=== PATIENT | female | born 1950 | race Two or more races ===

== ENCOUNTER 2023-05-09 10:22 | Outpatient (OUT) | payer BC, SELFPAY ==
--- NOTE | 2023-05-09 10:25 | MM_ITS ---
Patient: VICTOR HUGO CANDELARIO Exam Date: 05/09/2023 : 1950 Gender:F Ordering : Non-Staff Physician Admission #: [id number] Family : VICKY JEAN-BAPTISTE Order #: [id number] CLICK HERE TO VIEW EXAM RADIOLOGY REPORT PROCEDURE: MM TOMOSYNTHESIS SCREENING BI COMPARISON: MG MAMM SCREEN 3D JOSTIN CAD, 05/08/2022. MG MAMM SCREEN 3D JOSTIN CAD, 05/04/2021. MG MAMM SCREEN 3D JOSTIN CAD, 04/16/2020. INDICATIONS: Screening mammogram Z12.31 Calculator Name NCI Breast Cancer Risk Assessment Tool 5 Year Breast Cancer Risk 1.30% Lifetime Breast Cancer Risk 3.00% Personal Breast Cancer No Personal Ovarian Cancer No Treatments None Family Cancers Father with prostate cancer at age 80; Father with bladder cancer at age 81. LOCATION: [facility] BREAST COMPOSITION: Scattered areas fibroglandular density. FINDINGS: DIAGNOSTIC CATEGORY 1--NEGATIVE. RIGHT BREAST: No significant suspicious finding. No significant change has occurred. LEFT BREAST: No significant suspicious finding. No significant change has occurred. RECOMMENDATIONS: ROUTINE MAMMOGRAM AND CLINICAL EVALUATION IN 12 MONTHS. PLEASE NOTE: A NORMAL MAMMOGRAM DOES NOT EXCLUDE THE POSSIBILITY OF BREAST CANCER. A CLINICALLY SUSPICIOUS PALPABLE LUMP SHOULD BE BIOPSIED. Dictated by: Johnnie Carney M.D. on 05/09/2023 at 13:46 Approved by: Johnnie Carney M.D. on 05/09/2023 at 13:48
== END 2023-05-09 10:23 | disposition home or self-care (01) ==
LOC: MAMMO 10:22
DX: Z12.31 Encounter for screening mammogram for malignant neoplasm of breast (principal); Z80.52 Family history of malignant neoplasm of bladder; Z80.8 Family history of malignant neoplasm of other organs or systems
CPT/HCPCS: 77063; 77067

== ENCOUNTER 2024-05-12 09:47 | Outpatient (OUT) | payer BC, SELFPAY ==
--- NOTE | 2024-05-12 09:51 | MM_ITS ---
Patient Name: VICTOR HUGO CANDELARIO MR#: [id number] : 1950 Exam Date: 05/12/2024 Ordering Doctor: Non-Staff Physician RADIOLOGY REPORT PROCEDURE: MM TOMOSYNTHESIS SCREENING BI COMPARISON: MG MAMM SCREEN 3D JOSTIN CAD, 05/08/2022. MM TOMOSYNTHESIS SCREENING BI, 05/09/2023. INDICATIONS: Screening Calculator Name NCI Breast Cancer Risk Assessment Tool 5 Year Breast Cancer Risk 1.30% Lifetime Breast Cancer Risk 2.80% Personal Breast Cancer No Personal Ovarian Cancer No Treatments None Family Cancers Father with prostate cancer at age 80; Father with bladder cancer at age 81. LOCATION: [facility] BREAST COMPOSITION: There are scattered areas of fibroglandular density. FINDINGS: DIAGNOSTIC CATEGORY 2--BENIGN FINDING. NO CHANGE FROM COMPARISON. Scattered benign-appearing lymph nodes are present. RIGHT BREAST: No significant suspicious finding. LEFT BREAST: No significant suspicious finding. RECOMMENDATIONS: ROUTINE MAMMOGRAM AND CLINICAL EVALUATION IN 12 MONTHS. PLEASE NOTE: A NORMAL MAMMOGRAM DOES NOT EXCLUDE THE POSSIBILITY OF BREAST CANCER. A CLINICALLY SUSPICIOUS PALPABLE LUMP SHOULD BE BIOPSIED. Dictated by: Harry Brooks MD on 05/12/2024 at 10:35 Approved by: Harry Brooks MD on 05/12/2024 at 10:37
== END 2024-05-12 09:48 | disposition home or self-care (01) ==
LOC: MAMMO 09:47
DX: Z12.31 Encounter for screening mammogram for malignant neoplasm of breast (principal); Z80.42 Family history of malignant neoplasm of prostate; Z80.52 Family history of malignant neoplasm of bladder
CPT/HCPCS: 77063; 77067

== ENCOUNTER 2024-07-15 09:47 | Outpatient (OUT) | payer MEDICARE, SELFPAY ==
--- NOTE | 2024-07-15 | XR_ITS ---
The [address] [address] Patient Name: VICTOR HUGO CANDELARIO MRN: [id number] date: 1950 Sex: F Assigned Patient Location: Current Patient Location: Accession/Order Number: [id number] Exam Date: 07/15/2024 09:55 Report Date: 07/16/2024 13:26 At the request of: KELLY BARRIGA Procedure: XR foot LT min 3V PROCEDURE: XR foot LT min 3V COMPARISON: 06/24/2024. HISTORY: LEFT FOOT PAIN FINDINGS: BONES:Stable oblique extra-articular fracture through the mid diaphysis of the fifth metatarsal with distraction of the fracture fragments up to 4 mm single screw head of the first metatarsal. Minimal interval bone formation with no significant bony bridging There is lateral subluxation of the second through third proximal phalanges SOFT TISSUES:Negative. No visible soft tissue swelling. EFFUSION:None visible. OTHER: Negative. XR/XR foot LT min 3V IMPRESSION: Stable extra-articular fracture fifth metacarpal with minimal interval bone formation and no significant bony bridging Electronically authenticated by: PASTOR JOINER Date: 07/16/2024 13:26
== END 2024-07-15 09:48 | disposition home or self-care (01) ==
LOC: EC 09:47
PROVIDERS: Visit Provider Podiatrist Foot & Ankle Surgery
DX: M79.672 Pain in left foot (principal); S92.355D Nondisplaced fracture of fifth metatarsal bone, left foot, subsequent encounter for fracture with routine healing
CPT/HCPCS: 73630

== ENCOUNTER 2024-08-05 10:39 | Outpatient (OUT) | payer MEDICARE, SELFPAY ==
--- NOTE | 2024-08-05 | XR_ITS ---
The [address] [address] Patient Name: VICTOR HUGO CANDELARIO MRN: [id number] date: 1950 Sex: F Assigned Patient Location: [facility] Current Patient Location: Accession/Order Number: [id number] Exam Date: 08/05/2024 10:58 Report Date: 08/06/2024 07:01 At the request of: KELLY BARRIGA Procedure: XR foot LT min 3V PROCEDURE: XR foot LT min 3V HISTORY: LEFT FOOT PAIN COMPARISON: XR foot left 07/15/2024 FINDINGS: BONES:[Fracture through mid 5th metatarsal diaphysis with slight dorsal medial displacement. Increased density of the fracture line. Single screw within the neck of first metatarsal. Chronic lateral deviation of the first through fourth toes. SOFT TISSUES:No visible soft tissue swelling. EFFUSION:None visible. OTHER: Negative. XR/XR foot LT min 3V IMPRESSION: 1. Stable alignment and ongoing bone healing of 5th metatarsal fracture. Electronically authenticated by: PARISH PUENTES Date: 08/06/2024 07:01
--- OUTSIDE RECORDS SUMMARY | 2024-08-05 10:45 | XMS_ITS | CCD ---
Author Organization [facility] Care Team Providers Care Statistical Clerk Advertising Name Role Phone RUDI ROGERS Unavailable Unavailable RUDI ROGERS Unavailable Unavailable Vibha Guzmán Attending Unavailable Unavailable, Family Physician Primary Care Un available Unavailable, Family Physician Consulting Un available Vibha Guzmán Attending Unavailable Unavailable, Family Physician Primary Care Un available Unavailable, Family Physician Consulting Un available Grover NAZARIO, Sonido Marlow Primary Care Provider Rudi Rogers MD Unavailable RHYS, DR PASTOR Van Consulting Unavailable MISC, DR ALBRIGHT Attending Unavailable MISC, DR ALBRIGHT Admitting Unavailable MISC, DR ALBRIGHT Consulting Unavailable Sonido Ness MD Primary Care Provider Rudi Rogers MD Unavailable [phone] Sonido Ness MD Primary Care Provider Rudi Rogers MD Unavailable [phone] SONIDO NESS Referring UnavailSONIDO Nugent Primary Care UnavailRudi Murphy MD Unavailable Rudi Rogers MD Unavailable FELIPA PUGA Attending Unavailable FELIPA PUGA Attending Unavailable Sonido Ness MD Primary Care Provider SONIDO NESS Referring UnavailSONIDO Nugent Attending UnavailSONIDO Nugent Primary Care UnavailSONIDO Nugent Attending UnavailSONIDO Nugent Primary Care UnavailYony Leyva Attending Unavailable Vibha Cm Attending Unavailable No Referring Doc, No Ref Doc Referring Berna vailable Allergies Allergy Classification Reported Allergen(s) Allergy Type Date of Onset Reaction(s) Facility (20 sources) mold extract; Translations: [MOLD] Drug Allergy 0 Cough [facility] Rep[facility] (20 sources) Penicillins; Translations: [PENICILLINS] Propensity to adverse reactions to drug (disorder) 9 Other: See Comments [facility] Repository (20 sources) Tree; Translations: [TREES] Propensity to adverse reactions (disorder) 0 Cough [facility] Medications Current Medications Medication Drug Class(es) Dates Sig (Normalized) Sig (Original) [id number] 200 actuat albuterol 0.09 mg/actuat metered dose inhaler (20 sources) beta2-Adrenergic Agonist Start: 03-03-2022 End: 08-23-2022 take 2.5 mg by inhalation every four hours as needed albuterol (PROVENTIL) 2.5 mg /3 mL (0.083 %) nebulizer solution Use 3 mL via nebulizer every 4 hours as needed for wheezing/shortnes s of breath. 100 mL 08/23/2022 Active Start: 08-19-2021 End: 09-01-2023 take 2 puff(s) by inhalation every four hours as needed albuterol HFA (VENTOLIN HFA) 90 mcg/actuation inhaler Indications: Uncomplicated severe persistent asthma Inhale 2 Puffs as instructed every 4 hours as needed. 18 g 1 09/01/2023 Active Comment on above: Inhale 2 Puffs as in structed every 4 hours as needed. Use 3 mL via nebuliz er every 4 hours as needed for wheezing/shortness of breath. atorvastatin 20 mg oral tablet (20 sources) HMG-CoA Reductase Inhibitor Start: 08-19-20 End: 03-03-20 take 1 tablet by mouth once daily atorvastatin (LIPITOR) 20 mg tablet Indications: Mixed hyperlipidemia Take 1 tablet by mouth once daily. 90 tablet 1 03/03/2024 Active Comment on above: Take 1 tablet by kade once daily. Budesonide / formoterol (20 sources) Corticosteroid, beta2-Adrenergic Agonist Start: 03-15-20 take 2 puff(s) by inhalation twice daily budesonide-formoterol (SYMBICORT) 160-4.5 mcg/actuation inhaler Indications: Uncomplicated severe persistent asthma Inhale 2 Puffs as instructed two times a day. 3 Each 2 03/15/2024 Active Start: 11-20-2023 End: 03-03-2024 take 2 puff(s) by inhalation twice daily budesonide-formoterol (SYMBICORT) 160-4.5 mcg/actuation inhaler Indications: Uncomplicated severe persistent asthma Inhale 2 Puffs as instructed two times a day. 3 Each 2 11/20/2023 03/03/2024 Discontinued Start: 11-20-2023 take 2 puff(s) by in halation twice daily budesonide-formoterol (SYMBICORT) 160-4.5 mcg/actuation inhaler Indications: Uncomplicated severe persistent asthma Inhale 2 Puffs as instructed two times a day. 3 Each 2 11/20/2023 Active Start: 11-07-2021 End: 09-01-2023 take 2 puff(s) by inhalation twice daily SYMBICORT 160-4.5 mcg/actuation inhaler Indications: Uncomplicated severe persistent asthma Inhale 2 Puffs as instructed two times a day. 3 Each 1 09/01/2023 Active Comment on above: Inhale 2 Puffs as in structed twice daily. Inhale 2 Puffs as in structed two times a day. calcium carbonate 1500 mg / cholecalciferol 200 unt oral tablet (20 sources) Vitamin D Start: 009 calcium carbonate/vitamin d3(CALCIUM 600 + D(3) 600 MG (1,500)-200 UNIT TAB) Indications: Osteoporosis, unspecified BID 0 09/25/2009 Active Comment on above: BID cetirizine hydrochloride 10 mg oral capsule (8 sources) Histamine-1 Receptor Antagonist take 1 capsule by mouth once daily Cetirizine 10 mg cap Take 10 mg by mouth once daily. Active cholecalciferol 0.025 mg oral tablet (20 sources) Vitamin D Start: 011 take 1 tablet by mouth once daily Cholecalciferol, Vitamin D3, 1,000 unit ORAL Tab Indications: Vitamin D deficiency Take one(1) tablet two(2) times daily. 0 11/26/2010 Active Comment on above: Take one(1) tablet t wo(2) times daily. famotidine 40 mg oral tablet (8 sources) Histamine-2 Receptor Antagonist take 1 tablet by mouth once daily famotidine (PEPCID) 40 mg tablet Take 40 mg by mouth once daily. Active fluticasone propionate 0.05 mg/actuat metered dose nasal spray (20 sources) Corticosteroid Start: 017 take 2 spray(s) nasal route once daily fluticasone (FLONASE) 50 mcg/actuation nasal spray Use 2 Sprays in each nostril once daily. 1 Bottle 3 03/29/2017 Active Comment on above: Use 2 Sprays in each nostril once daily. ketoconazole 20 mg/ml topical cream (3 sources) Azole Antifungal Start: 023 End: 023 ketoconazole (NIZORAL) 2 % cream Indications: Angular cheilitis Apply 1 application to affected area two times a day. 15 g 3 09/01/2023 10/01/2023 Active Start: 03-03-2022 End: 04-02-2022 ketoconazole (NIZORAL) 2 % c ream Indications: Angular cheilitis Apply 1 application to affected area twice daily. 15 g 3 03/03/2022 04/02/2022 Active Comment on above: Apply 1 application to affected area twice daily. Apply 1 application to affected area two times a day. 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 90 tablet 1 03/03/2024 Active Comment on above: Take 1 tablet by kade once daily. linseed oil 1000 mg oral capsule (20 sources) Start: 09-25-20 09 FLAXSEED OIL 1,000 MG CAP BID 0 09/25/2009 Active Comment on above: BID montelukast 10 mg oral tablet (20 sources) Leukotriene Receptor Antagonist Start: 08-19-20 End: 03-03-20 take 1 tablet by mouth once daily montelukast (SINGULAIR) 10 mg tablet Indications: Uncomplicated severe persistent asthma Take 1 tablet by mouth once daily. 90 tablet 1 03/03/2024 Active Comment on above: Take 1 tablet by kade once daily. predniSONE 10 mg oral tablet (14 sources) Start: 12-10-19 End: 01-09-20 take 1 tablet by mouth once daily predniSONE (DELTASONE) 10 mg tablet Take 1 tablet by mouth once daily. 30 tablet 0 12/10/2023 01/09/2024 Active Start: 11-19-2023 End: 12-10-2023 predniSONE (DELTASONE) 10 mg tablet Indications: Hives Take 2 tablets daily for 7 days then one daily for 7 days 21 tablet 0 11/19/2023 12/10/2023 Discontinued Start: 09-01-2023 predniSONE (DE LTASONE) 10 mg tablet Indications: Hives Take 2 tablets daily for 7 days then one daily for 7 days 21 tablet 0 09/01/2023 Active Start: 03-03-2022 End: 09-04-2022 predniSONE (DELTASONE) 10 mg tablet Indications: Mild intermittent reactive airway disease with acute exacerbation , Acute bronchitis due to other specified organisms Take 2 tablets daily for 7 days then one daily for 7 days 21 tablet 0 08/16/2022 09/04/2022 Discontinued Start: 02-17-2022 End: 03-03-2022 predniSONE (DELTASONE) 10 mg tablet Indications: Cough , Mild intermittent reactive airway disease without complication Take 4 tablets today (all at once) and then 3 tomorrow then 2 then 1; repeat if needed. 10 tablet 1 02/17/2022 03/03/2022 Discontinued Comment on above: Take 4 tablets today (all at once) and then 3 tomorrow then 2 then 1; repeat if needed. Take 2 tablets daily for 7 days then one daily for 7 days Take 1 tablet by kade once daily. Completed/Discontinued Medications Medication Drug Class(es) Dates Sig (Normalized) Sig (Original) azithromycin 250 mg oral tablet (6 sources) Macrolide Antimicrobial Start: 08-16-2022 End: 09-04-2022 azithromycin (ZITHROMAX Z-MARIANGEL) 250 mg tablet Indications: Cough , Mild intermittent reactive airway disease with acute exacerbation 2 TABLETS BY MOUTH TODAY, TAKE 1 TABLET BY MOUTH ON DAYS 2-5 6 tablet 0 08/16/2022 09/04/2022 Discontinued Start: 02-17-2022 End: 03-03-2022 azithromycin (ZITHROMAX Z-PA K) 250 mg tablet Indications: Cough , Mild intermittent reactive airway disease without complication 2 TABLETS BY MOUTH TODAY, TAKE 1 TABLET BY MOUTH ON DAYS 2-5 6 tablet 0 02/17/2022 03/03/2022 Discontinued Comment on above: 2 TABLETS BY MOUTH T ALDAIR, TAKE 1 TABLET BY MOUTH ON DAYS 2-5 benzonatate 100 mg oral capsule (8 sources) Non-narcotic Antitussive Start : 03-03 End: 09-04 take 2 capsules by mouth every eight hours as needed for cough and cough benzonatate (TESSALON PERLES) 100 mg capsule Indications: Cough Take 2 capsules by mouth three times daily as needed. 30 capsule 1 08/16/2022 09/04/2022 Discontinued Comment on above: Take 2 capsules by m outh three times daily as needed. fexofenadine hydrochloride 180 mg oral tablet (1 source) Histamine-1 Receptor Antagonist End: 03-03 take 1 tablet by mouth once daily fexofenadine (COLLETTE) 180 mg tablet Take 180 mg by mouth once daily. 0 03/03/2024 Discontinued loratadine 10 mg oral tablet (20 sources) Start : 04-15 End: 03-03 LORATADINE 10 MG TAB Indications: Unspecified asthma(493.90) Take one(1) tablet daily as needed. 0 04/15/2009 03/03/2024 Discontinued Comment on above: Take one(1) tablet d aily as needed. 1 ml methylPREDNISolone acetate 80 mg/ml injection (3 sources) Corticosteroid Start : 09-01 End: 09-01 methylPREDNISolone acetate 80 mg injection (DEPO-Medrol) Start: 08-22-2023 End: 09-01-2023 methylPREDNISolone (MEDROL, MARIANGEL,) 4 mg Dose-Pack Take as directed 21 tablet 0 08/22/2023 09/01/2023 Discontinued Start: 08-22-2023 methylPREDNISo lone (MEDROL, MARIANGEL,) 4 mg Dose-Pack Take as directed 21 tablet 0 08/22/2023 Active Comment on above: Take as directed Problems Active Problems Problem Classification Problem Date Documented Date Episodic/Chronic Acute bronchitis (1 source) Acute infective bronchitis; Translations: [Acute bronchitis due to other specified organisms] Episodic Asthma (20 sources) Mild intermittent asthma; Translations: [Mild intermittent asthma, uncomplicated] Onset: 10-29-2005 Chronic Chronic kidney disease (20 sources) Chronic kidney disease stage 3; Translations: [Chronic kidney disease, stage 3] Onset: 04-28-2015 Resolved: 03-05-2023 10-05-2016 Chronic Chronic kidney disease (1 source) Chronic kidney disease; Translations: [Stage 3a chronic kidney disease (HCC)] Onset: 09-01-2023 Diabetes mellitus without complication (1 source) Increased glucose level; Translations: [Other abnormal glucose] Episodic Disorders of lipid metabolism (20 sources) Mixed hyperlipidemia; Translations: [Mixed hyperlipidemia] Onset: 03-29-2000 10-30-2015 Chronic Nutritional deficiencies (3 sources) Vitamin D deficiency; Translations: [Vitamin D deficiency, unspecified] Chronic Nutritional deficiencies (1 source) Cobalamin deficiency; Translations: [Deficiency of other specified B group vitamins] Episodic Other connective tissue disease (1 source) Pain in left foot; Translations: [Pain in left foot] 06-24-2024 Episodic Other connective tissue disease (1 source) Pain in left foot; Translations: [Pain in left foot] Onset: 06-24-2024 Episodic Other lower respiratory disease (3 sources) Cough; Translations: [Cough] Episodic Other screening for suspected conditions (not mental disorders or infectious disease) (12 sources) Patient encounter status; Translations: [Encounter for screening mammogram for malignant neoplasm of breast] Onset: 05-08-2022 Episodic Other upper respiratory infections (20 sources) Chronic sinusitis; Translations: [Chronic sinusitis, unspecified] Onset: 06-08-2014 06-08-2014 Chronic Residual codes; unclassified (1 source) Family history of malignant neoplasm of bladder; Translations: [FAM HX MALIGNANT NEOPLASM BLADDER] Onset: 05-10-2022 Episodic Residual codes; unclassified (1 source) Family history of malignant neoplasm of prostate; Translations: [FAMILY HX MALIG NEOPLASM PROSTATE] Onset: 05-10-2022 Episodic Residual codes; unclassified (2 sources) Postmenopausal state; Translations: [Asymptomatic menopausal state] Episodic Residual codes; unclassified (1 source) Asymptomatic menopausal state; Translations: [Postmenopausal] Onset: 04-18-2023 Episodic Thyroid disorders (20 sources) Hypothyroidism; Translations: [Hypothyroidism, unspecified] Onset: 10-30-2015 10-30-2015 Chronic Unclassified (1 source) Unknown / UNK(Unknown) Onset: 04-18-2017 Past or Other Problems Problem Classification Problem Date Documented Date Episodic/Chronic Allergic reactions (20 sources) Allergic disposition; Translations: [Allergy status to unspecified drugs, medicaments and biological substances status] Onset: 02-17-2019 02-17-2019 Episodic Diseases of mouth; excluding dental (11 sources) Angular cheilitis; Translations: [Diseases of lips] Onset: 05-08-2015 Resolved: 03-29-2017 Episodic Immunizations and screening for infectious disease (8 sources) Vaccination needed; Translations: [Encounter for immunization] Onset: 09-01-2023 Episodic Other and unspecified benign neoplasm (20 sources) History of polyp of colon; Translations: [Personal history of colonic polyps] Onset: 11-28-2017 11-28-2017 Episodic Other bone disease and musculoskeletal deformities (20 sources) Osteopenia; Translations: [Other specified disorders of bone density and structure, unspecified site] Onset: 12-22-2015 10-24-2021 Episodic Other bone disease and musculoskeletal deformities (1 source) Other specified disorders of bone density and structure, unspecified site; Translations: [Osteopenia, unspecified location] Onset: 10-24-2021 Episodic Other circulatory disease (20 sources) History of supraventricular tachycardia; Translations: [Personal history of other diseases of the circulatory system] Onset: 01-26-2017 07-06-2017 Episodic Other infections; including parasitic (20 sources) H/O: viral illness; Translations: [Personal history of other infectious and parasitic diseases] Onset: 12-27-2012 10-24-2021 Episodic Other liver diseases (8 sources) Enzyme level - finding; Translations: [Abnormal levels of other serum enzymes] Onset: 03-29-2000 Resolved: 06-09-2013 06-09-2013 Episodic Residual codes; unclassified (20 sources) History of radiofrequency ablation operation for arrhythmia; Translations: [Other specified postprocedural states] Onset: 07-03-2017 07-03-2017 Episodic Screening and history of mental health and substance abuse codes (9 sources) H/O: depression; Translations: [Personal history of other mental and behavioral disorders] Onset: 10-29-2005 Resolved: 03-03-2022 09-29-2017 Episodic Results Test Name Value Interpretation Reference Range Facility [facility] -------- VICTOR HUGO PADILLA ([id number]) 1950 F Date Time Provider Department 07/01/24 SONIDO NESSCAJosep During your visit today, we recorded the following information about you: Allergies As of Date: 07/01/2024 Noted Allergy Reaction MOLD 08/09/2010 3 - Cough PENICILLINS 01/09/2009 14 - Other: See Comments Comments: Her father was allergic to PCN, she never received it, but doesn't want to take it. 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 - Cetirizine 10 mg cap Take 10 mg by mouth once daily. - famotidine (PEPCID) 40 mg tablet Take 40 mg by mouth once daily. - atorvastatin (LIPITOR) 20 mg tablet Take 1 tablet by mouth once daily. - montelukast (SINGULAIR) 10 mg tablet Take 1 tablet by mouth once daily. - levothyroxine (SYNTHROID) 75 mcg tablet Take 1 tablet by mouth once daily. - albuterol HFA (VENTOLIN HFA) 90 mcg/actuation inhaler Inhale 2 Puffs as instructed every 4 hours as needed. - albuterol (PROVENTIL) 2.5 mg /3 mL (0.083 %) nebulizer solution Use 3 mL via nebulizer every 4 hours as needed for wheezing/shortness of breath. - fluticasone (FLONASE) 50 mcg/actuation nasal spray Use 2 Sprays in each nostril once daily. - Cholecalciferol, Vitamin D3, 1,000 unit ORAL Tab Take one(1) tablet two(2) times daily. - calcium carbonate/vitamin d3(CALCIUM 600 + D(3) 600 MG (1,500)-200 UNIT TAB) BID - FLAXSEED OIL 1,000 MG CAP BID Meds Comments as of 09/02/2018: Patient's mail-a-way is [employer] Problem List As Of Date 07/01/2024 Noted Resolved Hypothyroidism [E03.9] Mixed hyperlipidemia [E78.2] 03/29/2000 Other nonspecific abnormal serum enzyme levels *03/29/2000 06/09/2013 Asthma [J45.909] 10/29/2005 History of depression [Z86.59] 10/29/2005 03/03/2022 allergies to mold, trees [Z88.9] History of herpes simplex infection + type 1 an*12/27/2012 Chronic sinusitis [J32.9] 06/08/2014 Angular cheilitis [K13.0] 05/08/2015 03/29/2017 Osteopenia [M85.80] 12/22/2015 Chronic kidney disease, stage 3 (HCC) [N18.30] 04/28/2015 03/05/2023 H/O supraventricular tachycardia [Z86.79] 01/26/2017 Status post radiofrequency ablation for arrhyth*07/03/2017 history of tubular adenoma [Z86.010] 11/28/2017 Stage 3a chronic kidney disease (HCC) [N18.31] 09/01/2023 Chronic idiopathic urticaria [L50.1] 03/03/2024 Encounter Status:Closed by SONIDO NESS on 07/01/24 [facility] 06-24-2024 CNPN Telephone (IFPWIL) -------- VICTOR HUGO PADILLA ([id number]) 1950 F Date Time Provider Department 06/24/24 SONIDO NESS IFEverettWIJosep During your visit today, we recorded the following information about you: Diamond Barbosa 06/24/2024 12:51 PM Signed Victor Hugo is calling Sonido Ness MD today with concern regarding Foot Pain (Midfoot) Patient has been identified by name and birthdate. Duration of symptoms: N/A Person calling: self Call patient at: on cell [phone] (home) [phone] (cell) Was an appointment scheduled: No Closing statement: Patient is concerned that she broke her foot, please call. Diamond Figueroa Avis Eid LPN 06/24/2024 2:16 PM Signed Spoke with Patient, C/O injury to outside of left foot 1 below baby toe, very sore, a little better now after taking tylenol and applying ice. States she tried to stop herself from falling, heard a popping noise come from her foot. Asking for xray orders- pended. Closest hospital to her is [facility] in [place], [place].Will call and get radiology fax. VLADIMIR Jiménez Rachael, LPN 06/24/2024 3:08 PM Signed Radiology fax: [phone]. VLADIMIR Jiménez Rachael, LPN 06/24/2024 4:35 PM Addendum Order faxed. Patient notified. Avis Espinoza LPN Allergies As of Date: 06/24/2024 Noted Allergy Reaction MOLD 08/09/2010 3 - Cough PENICILLINS 01/09/2009 14 - Other: See Comments Comments: Her father was allergic to PCN, she never received it, but doesn't want to take it. TREES 08/09/2010 3 - Cough Comments: Asthma will flare up Date Reviewed: 03/03/2024 Reviewed by: Sonido Ness MD - Fully Assessed Reason for Visit: Foot Pain (Midfoot) [1587] Primary Visit Diagnosis:Left foot pain [M79.672] Order(s):XR FOOT GENERAL 3V AP/LAT/OBL LEFT [[id number]] Order #: [id number] FUTURE Prescriptions as of 06/24/2024 - budesonide-formoterol (SYMBICORT) 160-4.5 mcg/actuation inhaler Inhale 2 Puffs as instructed two times a day. - Cetirizine 10 mg cap Take 10 mg by mouth once daily. - famotidine (PEPCID) 40 mg tablet Take 40 mg by mouth once daily. - atorvastatin (LIPITOR) 20 mg tablet Take 1 tablet by mouth once daily. - montelukast (SINGULAIR) 10 mg tablet Take 1 tablet by mouth once daily. - levothyroxine (SYNTHROID) 75 mcg tablet Take 1 tablet by mouth once daily. - albuterol HFA (VENTOLIN HFA) 90 mcg/actuation inhaler Inhale 2 Puffs as instructed every 4 hours as needed. - albuterol (PROVENTIL) 2.5 mg /3 mL (0.083 %) nebulizer solution Use 3 mL via nebulizer every 4 hours as needed for wheezing/shortness of breath. - fluticasone (FLONASE) 50 mcg/actuation nasal spray Use 2 Sprays in each nostril once daily. - Cholecalciferol, Vitamin D3, 1,000 unit ORAL Tab Take one(1) tablet two(2) times daily. - calcium carbonate/vitamin d3(CALCIUM 600 + D(3) 600 MG (1,500)-200 UNIT TAB) BID - FLAXSEED OIL 1,000 MG CAP BID Meds Comments as of 09/02/2018: Patient's mail-a-way is [employer] Problem List As Of Date 06/24/2024 Noted Resolved Hypothyroidism [E03.9] Mixed hyperlipidemia [E78.2] 03/29/2000 Other nonspecific abnormal serum enzyme levels *03/29/2000 06/09/2013 Asthma [J45.909] 10/29/2005 History of depression [Z86.59] 10/29/2005 03/03/2022 allergies to mold, trees [Z88.9] History of herpes simplex infection + type 1 an*12/27/2012 Chronic sinusitis [J32.9] 06/08/2014 Angular cheilitis [K13.0] 05/08/2015 03/29/2017 Osteopenia [M85.80] 12/22/2015 Chronic kidney disease, stage 3 (HCC) [N18.30] 04/28/2015 03/05/2023 H/O supraventricular tachycardia [Z86.79] 01/26/2017 Status post radiofrequency ablation for arrhyth*07/03/2017 history of tubular adenoma [Z86.010] 11/28/2017 Stage 3a chronic kidney disease (HCC) [N18.31] 09/01/2023 Chronic idiopathic urticaria [L50.1] 03/03/2024 Encounter Status:Closed by AVIS ESPINOZA on 06/24/24 Normal [facility] XR FOOT LT MIN 3 VWSon 06-24 XR FOOT LT MIN 3 VWS XR FOOT LT MIN 3 VWS HISTORY: A 73-year-old female with the history of fall today. Complaining of the left foot pain. TECHNIQUE: Left foot: 3 views COMPARISON: No relevant prior studies are available for comparison. FINDINGS: There is a oblique fracture of the shaft of the fifth metatarsal with the mild displacement. Rest of the bones are intact. No dislocation is seen. There is a fixation screw in the first metatarsal with postsurgical change. There is a hallux valgus deformity. Soft tissue swelling is seen on the lateral aspect of the left foot. IMPRESSION: * There is a mildly displaced an oblique fracture of the shaft of the fifth metatarsal. * Postsurgical changes seen in the first metatarsal with fixation screw. * Hallux valgus deformity. Finalized by Srikanth Alvarado MD on 06/24/2024 5:56 PM Normal [facility] 03-04-2024 [facility] Telephone (IFPWIL) -------- VICTOR HUGO PADILLA ([id number]) 1950 F Date Time Provider Department 03/04/24 SONIDO NESS During your visit today, we recorded the following information about you: Radha Banks RN 03/04/2024 7:49 AM Signed ----- Message from Sonido Ness MD sent at 03/04/2024 6:24 AM EDT ----- Labs with chol stable No changes, check in 6 months Emma Moe, SERJIO 03/04/2024 10:33 AM Signed Called and spoke to patient. Provided message as stated below. Patient verbalized understanding. Allergies As of Date: 03/04/2024 Noted Allergy Reaction MOLD 08/09/2010 3 - Cough PENICILLINS 01/09/2009 14 - Other: See Comments Comments: Her father was allergic to PCN, she never received it, but doesn't want to take it. TREES 08/09/2010 3 - Cough Comments: Asthma will flare up Date Reviewed: 03/03/2024 Reviewed by: Sonido Ness MD - Fully Assessed Reason for Visit: Results [95] Prescriptions as of 03/04/2024 - Cetirizine 10 mg cap Take 10 mg by mouth once daily. - famotidine (PEPCID) 40 mg tablet Take 40 mg by mouth once daily. - atorvastatin (LIPITOR) 20 mg tablet Take 1 tablet by mouth once daily. - montelukast (SINGULAIR) 10 mg tablet Take 1 tablet by mouth once daily. - levothyroxine (SYNTHROID) 75 mcg tablet Take 1 tablet by mouth once daily. - albuterol HFA (VENTOLIN HFA) 90 mcg/actuation inhaler Inhale 2 Puffs as instructed every 4 hours as needed. - albuterol (PROVENTIL) 2.5 mg /3 mL (0.083 %) nebulizer solution Use 3 mL via nebulizer every 4 hours as needed for wheezing/shortness of breath. - fluticasone (FLONASE) 50 mcg/actuation nasal spray Use 2 Sprays in each nostril once daily. - Cholecalciferol, Vitamin D3, 1,000 unit ORAL Tab Take one(1) tablet two(2) times daily. - calcium carbonate/vitamin d3(CALCIUM 600 + D(3) 600 MG (1,500)-200 UNIT TAB) BID - FLAXSEED OIL 1,000 MG CAP BID Meds Comments as of 09/02/2018: Patient's mail-a-way is [employer] Problem List As Of Date 03/04/2024 Noted Resolved Hypothyroidism [E03.9] Mixed hyperlipidemia [E78.2] 03/29/2000 Other nonspecific abnormal serum enzyme levels *03/29/2000 06/09/2013 Asthma [J45.909] 10/29/2005 History of depression [Z86.59] 10/29/2005 03/03/2022 allergies to mold, trees [Z88.9] History of herpes simplex infection + type 1 an*12/27/2012 Chronic sinusitis [J32.9] 06/08/2014 Angular cheilitis [K13.0] 05/08/2015 03/29/2017 Osteopenia [M85.80] 12/22/2015 Chronic kidney disease, stage 3 (HCC) [N18.30] 04/28/2015 03/05/2023 H/O supraventricular tachycardia [Z86.79] 01/26/2017 Status post radiofrequency ablation for arrhyth*07/03/2017 history of tubular adenoma [Z86.010] 11/28/2017 Stage 3a chronic kidney disease (HCC) [N18.31] 09/01/2023 Chronic idiopathic urticaria [L50.1] 03/03/2024 Encounter Status:Closed by EMMA MOE on 03/04/24 Normal [facility] 25(OH)D3 Socrates 2023 25-hydroxyvitamin D3 [Mass/Vol] 76.0 ng/mL Normal 31.0-80.0 [facility] Comment on above: Order Comment: Speci men Type: BLOOD SPECIMENOrdering Facility: [facility] Address: [address] [place] [address] [place] [id number] Performed By: #### 1 989-3 ####[facility] LABCLIA [id number] [place] [id number] [place] 25-hydroxyvitamin D3 [Mass/V ol]on 03-03-2024 Interpretation and review of laboratory results Normal [facility] CBC W Auto Differential pane l (Bld)on 03-03-2024 Basophils (Bld) [#/Vol] [facility] Basophils/100 WBC (Bld) 0.3 % [facility] Differential cell count method Nom (Bld) Auto [facility] Eosinophils (Bld) [#/Vol] 0.04 10*3/uL [facility] Eosinophils/100 WBC (Bld) 0.5 % [facility] Erythrocyte distribution width (RBC) [Ratio] 12.7 % 11.5 - 15.0 % [facility] Hematocrit (Bld) [Volume fraction] 43.9 % 36.0 - 46.0 % [facility] Hemoglobin (Bld) [Mass/Vol] 14.2 g/dL 11.5 - 15.5 g/dL [facility] Immature granulocytes (Bld) [#/Vol] [facility] Immature granulocytes/100 WBC (Bld) 0.1 % [facility] Lymphocytes (Bld) [#/Vol] 1.77 10*3/uL [facility] Lymphocytes/100 WBC (Bld) 24.1 % [facility] MCH (RBC) [Entitic mass] 29.7 pg 26.0 - 34.0 pg [facility] MCHC (RBC) [Mass/Vol] 32.3 g/dL 30.5 - 36.0 g/dL [facility] MCV (RBC) [Entitic vol] 91.8 fL 80.0 - 100.0 fL [facility] Monocytes (Bld) [#/Vol] 0.75 10*3/uL [facility] Monocytes/100 WBC (Bld) 10.2 % [facility] Neutrophils (Bld) [#/Vol] 4.76 10*3/uL [facility] Neutrophils/100 WBC (Bld) 64.8 % [facility] Nucleated RBC (Bld) [#/Vol] [facility] Nucleated RBC/100 WBC (Bld) [Ratio] 0.0 % /100 WBC [facility] Platelet mean volume (Bld) [Entitic vol] 11.7 fL 9.0 - 12.7 fL [facility] Platelets (Bld) [#/Vol] 209 10*3/uL [facility] RBC (Bld) [#/Vol] 4.78 10*6/uL 3.90 - 5.2 0 m/uL [facility] WBC (Bld) [#/Vol] 7.35 10*3/uL [facility] Basophils (Bld) [#/Vol] 10*3/uL Normal <0.11 [facility] Comment on above: Order Comment: Speci men Type: BLOOD SPECIMENOrdering Facility: [facility] Address: [address] [place] [address] Performed By: #### 5 7021-8 ####[facility] LABCLIA [id number] [place] [address] [place] Basophils/100 WBC (Bld) 0.3 % Normal [facility] Comment on above: Order Comment: Speci men Type: BLOOD SPECIMENOrdering Facility: [facility] Address: [address] [place] [address] Performed By: #### 5 7021-8 ####[facility] LABCLIA [id number] [place] [address] [place] Differential cell count method Nom (Bld) Auto Normal [facility] Comment on above: Order Comment: Speci men Type: BLOOD SPECIMENOrdering Facility: [facility] Address: [address] [place] [address] Performed By: #### 5 7021-8 ####[facility] LABCLIA [id number] [place] [address] [place] Eosinophils (Bld) [#/Vol] 0.04 10*3/uL Normal <0.46 [facility] Comment on above: Order Comment: Speci men Type: BLOOD SPECIMENOrdering Facility: [facility] Address: [address] [place] [address] Performed By: #### 5 7021-8 ####[facility] LABCLIA [id number] [place] [address] [place] Eosinophils/100 WBC (Bld) 0.5 % Normal [facility] Comment on above: Order Comment: Speci men Type: BLOOD SPECIMENOrdering Facility: [facility] Address: [address] [place] [address] Performed By: #### 5 7021-8 ####[facility] LABCLIA [id number] [place] [address] [place] Erythrocyte distribution width (RBC) [Ratio] 12.7 % Normal 11.5-15.0 [facility] Comment on above: Order Comment: Speci men Type: BLOOD SPECIMENOrdering Facility: [facility] Address: [address] [place] [address] Performed By: #### 5 7021-8 ####[facility] LABCLIA [id number] [place] [address] [place] Hematocrit (Bld) [Volume fraction] 43.9 % Normal 36.0-46.0 [facility] Comment on above: Order Comment: Speci men Type: BLOOD SPECIMENOrdering Facility: [facility] Address: [address] [place] [address] Performed By: #### 5 7021-8 ####[facility] LABCLIA [id number] [place] [address] [place] Hemoglobin (Bld) [Mass/Vol] 14.2 g/dL Normal 11.5-15.5 [facility] Comment on above: Order Comment: Speci men Type: BLOOD SPECIMENOrdering Facility: [facility] Address: [address] [place] [address] Performed By: #### 5 7021-8 ####[facility] LABCLIA [id number] [place] [address] [place] Immature granulocytes (Bld) [#/Vol] 10*3/uL Normal <0.10 [facility] Comment on above: Order Comment: Speci men Type: BLOOD SPECIMENOrdering Facility: [facility] Address: [address] [place] [address] Performed By: #### 5 7021-8 ####[facility] LABCLIA [id number] [place] [address] [place] Immature granulocytes/100 WBC (Bld) 0.1 % Normal [facility] Comment on above: Order Comment: Speci men Type: BLOOD SPECIMENOrdering Facility: [facility] Address: [address] [place] [address] Performed By: #### 5 7021-8 ####[facility] LABCLIA [id number] [place] [address] [place] Lymphocytes (Bld) [#/Vol] 1.77 10*3/uL Normal 1.00-4.00 [facility] Comment on above: Order Comment: Speci men Type: BLOOD SPECIMENOrdering Facility: [facility] Address: [address] [place] [address] Performed By: #### 5 7021-8 ####[facility] LABCLIA [id number] [place] [address] [place] Lymphocytes/100 WBC (Bld) 24.1 % Normal [facility] Comment on above: Order Comment: Speci men Type: BLOOD SPECIMENOrdering Facility: [facility] Address: [address] [place] [address] Performed By: #### 5 7021-8 ####[facility] LABCLIA [id number] [place] [address] [place] MCH (RBC) [Entitic mass] 29.7 pg Normal 26.0-34.0 [facility] Comment on above: Order Comment: Speci men Type: BLOOD SPECIMENOrdering Facility: [facility] Address: [address] [place] [address] Performed By: #### 5 7021-8 ####[facility] LABCLIA [id number] [place] [address] [place] MCHC (RBC) [Mass/Vol] 32.3 g/dL Normal 30.5-36.0 [facility] Comment on above: Order Comment: Speci men Type: BLOOD SPECIMENOrdering Facility: [facility] Address: [address] [place] [address] Performed By: #### 5 7021-8 ####[facility] LABIA [id number] [place] [address] [place] MCV (RBC) [Entitic vol] 91.8 fL Normal 80.0-100.0 [facility] Comment on above: Order Comment: Speci men Type: BLOOD SPECIMENOrdering Facility: [facility] Address: [address] [place] [address] Performed By: #### 5 7021-8 ####[facility] LABIA [id number] [place] [address] [place] Monocytes (Bld) [#/Vol] 0.75 10*3/uL Normal <0.87 [facility] Comment on above: Order Comment: Speci men Type: BLOOD SPECIMENOrdering Facility: [facility] Address: [address] [place] [address] Performed By: #### 5 7021-8 ####[facility] LABIA [id number] [place] [address] [place] Monocytes/100 WBC (Bld) 10.2 % Normal [facility] Comment on above: Order Comment: Speci men Type: BLOOD SPECIMENOrdering Facility: [facility] Address: [address] [place] [address] Performed By: #### 5 7021-8 ####[facility] LABIA [id number] [place] [address] [place] Neutrophils (Bld) [#/Vol] 4.76 10*3/uL Normal 1.45-7.50 [facility] Comment on above: Order Comment: Speci men Type: BLOOD SPECIMENOrdering Facility: [facility] Address: [address] [place] [address] Performed By: #### 5 7021-8 ####[facility] LABIA [id number] [place] [address] [place] Neutrophils/100 WBC (Bld) 64.8 % Normal [facility] Comment on above: Order Comment: Speci men Type: BLOOD SPECIMENOrdering Facility: [facility] Address: [address] [place] [address] Performed By: #### 5 7021-8 ####[facility] LABIA [id number] [place] [address] [place] Nucleated RBC (Bld) [#/Vol] 10*3/uL Normal <0.01 [facility] Comment on above: Order Comment: Speci men Type: BLOOD SPECIMENOrdering Facility: [facility] Address: [address] [place] [address] Performed By: #### 5 7021-8 ####[facility] LABIA [id number] [place] [address] [place] Nucleated RBC/100 WBC (Bld) [Ratio] 0.0 /100 WBC Normal [facility] Comment on above: Order Comment: Speci men Type: BLOOD SPECIMENOrdering Facility: [facility] Address: [address] [place] [address] Performed By: #### 5 7021-8 ####[facility] LABIA [id number] [place] [address] [place] Platelet mean volume (Bld) [Entitic vol] 11.7 fL Normal 9.0-12.7 [facility] Comment on above: Order Comment: Speci men Type: BLOOD SPECIMENOrdering Facility: [facility] Address: [address] [place] [address] Performed By: #### 5 7021-8 ####[facility] LABIA [id number] [place] [address] [place] Platelets (Bld) [#/Vol] 209 10*3/uL Normal 150-400 [facility] Comment on above: Order Comment: Speci men Type: BLOOD SPECIMENOrdering Facility: [facility] Address: [address] [place] [address] Performed By: #### 5 7021-8 ####[facility] LABIA [id number] [place] [address] [place] RBC (Bld) [#/Vol] 4.78 10*6/uL Normal 3.90-5.20 [facility] Comment on above: Order Comment: Speci men Type: BLOOD SPECIMENOrdering Facility: [facility] Address: [address] [place] [address] Performed By: #### 5 7021-8 ####[facility] [id number] [place] [address] [place] WBC (Bld) [#/Vol] 7.35 10*3/uL Normal 3.70-11.00 [facility] Comment on above: Order Comment: Speci men Type: BLOOD SPECIMENOrdering Facility: [facility] Address: [address] [place] [address] Performed By: #### 5 7021-8 ####[facility] [id number] [place] [address] [place] CNOVon 03-03-2024 CNOV Office Visit (FFPWIL ) -------- VICTOR HUGO PADILLA ([id number]) 1950 F Date Time Provider Department 03/03/24 10:30 AM SONIDO NESS FFPWIL During your visit today, we recorded the following information about you: Pulse Blood pressure Weight Height 74/minute 138/70 73.5 kg 1.651 m Patience PatelMOLLY 03/03/2024 12:41 PM Signed Your patient has already completed the old HRA questionnaire. They will receive the new one at their next visit when it is due. Medicare Health Risk Assessment In general, health is: Very good Concerns with balance:Not at all Concerns with teeth or dentures:Not at all Concerns with sexual function:n/a [place] anxious, stressed, angry, irritable, lonely, isolated, or had thoughts of hurting themself: Not at all Has little interest or pleasure in doing things: Not at all Bothered by feeling down, depressed, or hopeless: Not at all Needs help with grocery shopping, cooking, housework, bathing, grooming, dressing, eating, sitting or standing, walking, using the toilet, handling finances, taking medications, using the telephone, or driving: No Following safety precautions in the home environment and vehicle: removed throw rugs from floors, installed grab bars in the bathroom, handrails in stairwells, having adequate lighting, wearing seatbelt at all times?: Yes Smokes cigarettes, vapes, or chew tobacco: No Eats healthy foods including fruits, vegetables, whole grains, and fiber-rich foods: Nearly every day Number of days per week engages in exercise: 3 days Average alcohol consumption: Never Sonido Ness MD 03/03/2024 12:41 PM Signed This note was created using [employer]. Subjective Victor Hugo Padilla is a 73 year old female. 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 The [employer]: CARTO mapping system was utilized. 2. 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 The [employer]: CARTO mapping system was utilized. 2. 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 FAMILY HISTORY Problem Relation Age of Onset Breast Cancer Mother of leukemia other (POLYCYTEMIA RUBRA VERA) Mother other (leukemia) Mother age 82 Cancer Father prostate, bladder Ischemic Heart Disease Father stent placed, age 96 other (dementia) Father other (CHF) Father Parkinson?s Disease Brother Parkinson?s Disease Brother other (donna's disease) Brother Cancer Maternal Grandfather pancreas Cancer Paternal Grandfather prostate Social History Tobacco Use Smoking status: Never Smokeless tobacco: Never Substance Use Topics Alcohol use: No Drug use: No Current Outpatient Medications on File Prior to Visit Medication Sig budesonide-formoterol (SYMBICORT) 160-4.5 mcg/actuation inhaler Inhale 2 Puffs as instructed two times a day. montelukast (SINGULAIR) 10 mg tablet Take 1 tablet by mouth once daily. levothyroxine (SYNTHROID) 75 mcg tablet Take 1 tablet by mouth once daily. atorvastatin (LIPITOR) 20 mg tablet Take 1 tablet by mouth once daily. albuterol HFA (VENTOLIN HFA) 90 mcg/actuation inhaler Inhale 2 Puffs as instructed every 4 hours as needed. albuterol (PROVENTIL) 2.5 mg /3 mL (0.083 %) nebulizer solution Use 3 mL via nebulizer every 4 hours as needed for wheezing/shortness of breath. fluticasone (FLONASE) 50 mcg/actuation nasal spray Use 2 Sprays in each nostril once daily. Cholecalciferol, Vitamin D3, 1,000 unit ORAL Tab Take one(1) tablet two(2) times daily. calcium ca (more content not included)... Normal [facility] Comprehensive metabolic 2000 panelon 03-03-2024 Albumin [Mass/Vol] 4.4 g/dL 3.9 - 4.9 g/dL [facility] ALP [Catalytic activity/Vol] 120 U/L 34 - 123 U/L [facility] ALT [Catalytic activity/Vol] 22 U/L 7 - 38 U/L [facility] Anion gap [Moles/Vol] 11 mmol/L 9 - 18 mmol/L [facility] AST [Catalytic activity/Vol] 27 U/L 13 - 35 U/L [facility] Bilirubin [Mass/Vol] 0.5 mg/dL 0.2 - 1.3 mg/dL [facility] Calcium [Mass/Vol] 10.1 mg/dL 8.5 - 10. 2 mg/dL [facility] Chloride [Moles/Vol] 104 mmol/L 97 - 105 mmol/L [facility] CO2 [Moles/Vol] 24 mmol/L 22 - 30 mmol/L [facility] Creatinine [Mass/Vol] 1.10 mg/dL High 0.58 - 0.96 mg/dL [facility] GFR/1.73 sq M.predicted among non-blacks MDRD (S/P/Bld) [Vol rate/Area] 53 mL/min/{1.73_m2} Low - PINF [facility] Comment on above: Estimated Glomerular Filtration Rate (eGFR) is calculated using the 2020 CKD-EPI creatinine equation. This equation utilizes serum creatinine, sex, and age as parameters. The creatinine assay has traceable calibration to isotope dilution-mass spectrometry. Refer to KDIGO guidelines for clinical interpretation. In patients with unstable renal function, e.g. those with acute kidney injury, the eGFR may not accurately reflect actual GFR. Glucose [Mass/Vol] 92 mg/dL 74 - 99 mg/dL [facility] Comment on above: The [place] Diabete s Association (ADA) provides guidance for cutoff values for fasting glucose and random glucose. The ADA defines fasting as no caloric intake for at least 8 hours. Fasting plasma glucose results between 100 to 125 mg/dL indicate increased risk for diabetes (prediabetes). Fasting plasma glucose results greater than or equal to 126 mg/dL meet the criteria for diagnosis of diabetes. In the absence of unequivocal hyperglycemia, results should be confirmed by repeat testing. In a patient with classic symptoms of hyperglycemia or hyperglycemic crisis, random plasma glucose results greater than or equal to 200 mg/dL meet the criteria for diagnosis of diabetes. Reference: Standards of Medical Care in Diabetes 2016, [place] [employer]. Diabetes Care. 2016.39(Suppl 1). Interpretation and review of laboratory results Abnormal [facility] Potassium [Moles/Vol] 4.4 mmol/L 3.7 - 5.1 mmol/L [facility] Protein [Mass/Vol] 7.7 g/dL 6.3 - 8.0 g/dL [facility] Sodium [Moles/Vol] 139 mmol/L 136 - 144 mmol/L [facility] Urea nitrogen [Mass/Vol] 16 mg/dL 7 - 21 mg/dL [facility] Albumin [Mass/Vol] 4.4 g/dL Normal 3.9-4.9 [facility] Comment on above: Order Comment: Speci men Type: BLOOD SPECIMENOrdering Facility: [facility] Address: [address] [place] [address] Performed By: #### 3 016-3, 64885-9, 71893-6 ####[facility] LABCLIA [id number] [place] [address] [place] ALP [Catalytic activity/Vol] 120 U/L Normal 34-123 [facility] Comment on above: Order Comment: Speci men Type: BLOOD SPECIMENOrdering Facility: [facility] Address: [address] [place] [address] Performed By: #### 3 016-3, 62538-9, 19234-9 ####[facility] LABCLIA [id number] [place] [id number] [place] ALT [Catalytic activity/Vol] 22 U/L Normal 7-38 [facility] Comment on above: Order Comment: Speci men Type: BLOOD SPECIMENOrdering Facility: [facility] Address: [address] [place] [address] Performed By: #### 3 016-3, 20819-5, 38101-6 ####[facility] LABCLIA [id number] [place] [id number] [place] Anion gap [Moles/Vol] 11 mmol/L Normal 9-18 [facility] Comment on above: Order Comment: Speci men Type: BLOOD SPECIMENOrdering Facility: [facility] Address: [address] [place] [address] Performed By: #### 3 016-3, 70957-6, 04563-0 ####[facility] LABCLIA [id number] [place] [address] [place] AST [Catalytic activity/Vol] 27 U/L Normal 13-35 [facility] Comment on above: Order Comment: Speci men Type: BLOOD SPECIMENOrdering Facility: [facility] Address: [address] [place] [address] Performed By: #### 3 016-3, 46742-8, 63831-5 ####[facility] LABCLIA [id number] [place] [address] [place] Bilirubin [Mass/Vol] 0.5 mg/dL Normal 0.2-1.3 [facility] Comment on above: Order Comment: Speci men Type: BLOOD SPECIMENOrdering Facility: [facility] Address: [address] [place], [place] [address] Performed By: #### 3 016-3, 57630-8, 83808-4 ####[facility] LABCLIA [id number] [place] [address] [place] Calcium [Mass/Vol] 10.1 mg/dL Normal 8.5-10.2 [facility] Comment on above: Order Comment: Speci men Type: BLOOD SPECIMENOrdering Facility: [facility] Address: [address] [place] [address] Performed By: #### 3 016-3, 61900-0, 57114-6 ####[facility] LABCLIA [id number] [place] [address] [place] Chloride [Moles/Vol] 104 mmol/L Normal 97-105 [facility] Comment on above: Order Comment: Speci men Type: BLOOD SPECIMENOrdering Facility: [facility] Address: [address] [place] [address] Performed By: #### 3 016-3, 71846-7, 59559-1 ####[facility] LABCLIA [id number] [place] [address] [place] CO2 [Moles/Vol] 24 mmol/L Normal 22-30 [facility] Comment on above: Order Comment: Speci men Type: BLOOD SPECIMENOrdering Facility: [facility] Address: [address] [place] [address] Performed By: #### 3 016-3, 03800-3, 82827-5 ####[facility] LABIA [id number] [place] [address] [place] Creatinine [Mass/Vol] 1.10 mg/dL High 0.58-0.96 [facility] Comment on above: Order Comment: Speci men Type: BLOOD SPECIMENOrdering Facility: [facility] Address: [address] [place] [address] Performed By: #### 3 016-3, 99174-6, 70779-8 ####[facility] LABIA [id number] [place] [address] [place] Creatinine and Glomerular filtration rate.predicted panel (S/P/Bld) 53 mL/min/1.73m??? Low >=60 [facility] Comment on above: Order Comment: Speci men Type: BLOOD SPECIMENOrdering Facility: [facility] Address: [address] [place] [address] Result Comment: Lety mated Glomerular Filtration Rate (eGFR) is calculated using the 2020 CKD-EPI creatinine equation. This equation utilizes serum creatinine, sex, and age as parameters. The creatinine assay has traceable calibration to isotope dilution-mass spectrometry. Refer to KDIGO guidelines for clinical interpretation. In patients with unstable renal function, e.g. those with acute kidney injury, the eGFR may not accurately reflect actual GFR. Performed By: #### 3 016-3, 58557-4, 82467-0 ####[facility] LABCLIA [id number] [place] [address] [place] Glucose [Mass/Vol] 92 mg/dL Normal 74-99 [facility] Comment on above: Order Comment: Susan pena Type: BLOOD SPECIMENOrdering Facility: [facility] Address: [address] [place] [address] Result Comment: The [place] Diabetes Association (ADA) provides guidance for cutoff values for fasting glucose and random glucose. The ADA defines fasting as no caloric intake for at least 8 hours. Fasting plasma glucose results between 100 to 125 mg/dL indicate increased risk for diabetes (prediabetes). Fasting plasma glucose results greater than or equal to 126 mg/dL meet the criteria for diagnosis of diabetes. In the absence of unequivocal hyperglycemia, results should be confirmed by repeat testing. In a patient with classic symptoms of hyperglycemia or hyperglycemic crisis, random plasma glucose results greater than or equal to 200 mg/dL meet the criteria for diagnosis of diabetes. Reference: Standards of Medical Care in Diabetes 2016, [place] [employer]. Diabetes Care. 2016.39(Suppl 1). Performed By: #### 3 016-3, 71192-2, 03181-2 ####[facility] LABCLIA [id number] [address] [address] [place] Potassium [Moles/Vol] 4.4 mmol/L Normal 3.7-5.1 [facility] Comment on above: Order Comment: Susan pena Type: BLOOD SPECIMENOrdering Facility: [facility] Address: [address] [place] [address] Performed By: #### 3 016-3, 45611-0, 07768-7 ####[facility] LABCLIA [id number] [place] [address] [place] Protein [Mass/Vol] 7.7 g/dL Normal 6.3-8.0 [facility] Comment on above: Order Comment: Speci men Type: BLOOD SPECIMENOrdering Facility: [facility] Address: [address] [place] [address] Performed By: #### 3 016-3, 58653-0, 26496-2 ####[facility] LABIA [id number] [place] [address] [place] Sodium [Moles/Vol] 139 mmol/L Normal 136-144 [facility] Comment on above: Order Comment: Speci men Type: BLOOD SPECIMENOrdering Facility: [facility] Address: [address] [place] [address] Performed By: #### 3 016-3, 67087-6, 93081-9 ####[facility] LABIA [id number] [place] [address] [place] Urea nitrogen [Mass/Vol] 16 mg/dL Normal 7-21 [facility] Comment on above: Order Comment: Speci men Type: BLOOD SPECIMENOrdering Facility: [facility] Address: [address] [place] [address] Performed By: #### 3 016-3, 61987-6, 80473-5 ####[facility] LABIA [id number] [place] [address] [place] Lipid 1996 panelon 4 Cholesterol [Mass/Vol] 149 mg/dL NINF - 200 mg/dL [facility] Comment on above: <200 mg/dL, Desirabl e 200-239 mg/dL, Borderline high >239 mg/dL, High Cholesterol in HDL [Mass/Vol] 51 mg/dL 39 - PINF mg/dL [facility] Comment on above: 40-59 mg/dL, Accepta ble >59 mg/dL, High: Negative risk factor for coronary heart disease <40 mg/dL, Low: Positive risk factor for coronary heart disease Cholesterol in LDL [Mass/Vol] 84 mg/dL NINF - 100 mg/dL [facility] Comment on above: <100 mg/dL, Optimal 100-129 mg/dL, Near optimal/above optimal 130-159 mg/dL, Borderline high 160-189 mg/dL, High >189 mg/dL, Very high Secondary prevention optimal LDL Cholesterol levels are recommended to be < 70 mg/dL Cholesterol in LDL/Cholesterol in HDL [Mass ratio] 1.65 {ratio} NINF - 2.54 [facility] Comment on above: Reference: 1. National Cholesterol Education Program ATP III Guideline At-A-Glance Quick Desk Reference: National Heart, Lung, and Blood [place]. National Institutes of Health. 2001: NIH Publication No. 01-3305. 2. An International Atherosclerosis Society position paper: global recommendations for the management of dyslipidemia: executive summary, Atherosclerosis. 2014: 232(2):410-413. Cholesterol in VLDL [Mass/Vol] 14 mg/dL NINF - 30 mg/dL [facility] Cholesterol non HDL [Mass/Vol] 98 mg/dL NINF - 130 mg/dL [facility] Comment on above: <130 mg/dL, Optimal 130-159 mg/dL, Near optimal/above optimal 160-189 mg/dL, Borderline high 190-219 mg/dL, High >219 mg/dL, Very high Secondary prevention optimal non HDL Cholesterol levels are recommended to be <100 mg/dL Cholesterol.total/C holesterol in HDL [Mass ratio] 2.92 {ratio} NINF - 5.10 [facility] Fasting Time 16 hours hrs [facility] Triglyceride [Mass/Vol] 71 mg/dL NINF - 150 mg/dL [facility] Comment on above: <150 mg/dL, Normal 150-199 mg/dL, Borderline high 200-499 mg/dL, High >499 mg/dL, Very high Cholesterol [Mass/Vol] 149 mg/dL Normal <200 [facility] Comment on above: Order Comment: Speci men Type: BLOOD SPECIMENOrdering Facility: [facility] Address: [address] [place] [address] Result Comment: <200 mg/dL, Desirable 200-239 mg/dL, Borderline high >239 mg/dL, High Performed By: #### 3 016-3, 67282-8, 04614-5 ####[facility] LABCLIA [id number] [address] [place] Cholesterol in HDL [Mass/Vol] 51 mg/dL Normal >39 [facility] Comment on above: Order Comment: Speci men Type: BLOOD SPECIMENOrdering Facility: [facility] Address: [address] [place] [address] Result Comment: 40-5 9 mg/dL, Acceptable >59 mg/dL, High: Negative risk factor for coronary heart disease <40 mg/dL, Low: Positive risk factor for coronary heart disease Performed By: #### 3 016-3, 94999-2, ####[facility] LABCLIA [id number] [address] Cholesterol in LDL [Mass/Vol] 84 mg/dL Normal <100 [facility] Comment on above: Order Comment: Desiraei [facility] Type: BLOOD SPECIMENOrdering Facility: [facility] Address: [address] [place] [address] Result Comment: <100 mg/dL, Optimal 100-129 mg/dL, Near optimal/above optimal 130-159 mg/dL, Borderline high 160-189 mg/dL, High >189 mg/dL, Very high Secondary prevention optimal LDL Cholesterol levels are recommended to be < 70 mg/dL Performed By: #### 3 016-3, 60946-2, 94599-8 ####[facility] LABCLIA [id number] [address] STATES OF [facility] Cholesterol in LDL/Cholesterol in HDL [Mass ratio] 1.65 {ratio} Normal <2.54 [facility] Comment on above: Order Comment: Desiraei men Type: BLOOD SPECIMENOrdering Facility: [facility] Address: [address] [place] [address] Result Comment: Refe rence: 1. National Cholesterol Education Program ATP III Guideline At-A-Glance Quick Desk Reference: National Heart, Lung, and Blood [place]. National Institutes of Health. 2001: NIH Publication No. 01-3305. 2. An International Atherosclerosis Society position paper: global recommendations for the management of dyslipidemia: executive summary, Atherosclerosis. 2014: 232(2):410-413. Performed By: #### 3 016-3, , 48630-3 ####[facility] LABCLIA [id number] [place] [address] [place] Cholesterol in VLDL [Mass/Vol] 14 mg/dL Normal <30 [facility] Comment on above: Order Comment: Speci men Type: BLOOD SPECIMENOrdering Facility: [facility] Address: [address] [place] [address] Performed By: #### 3 016-3, , ####[facility] LABCLIA [id number] [place] [address] [place] Cholesterol non HDL [Mass/Vol] 98 mg/dL Normal <130 [facility] Comment on above: Order Comment: Desiraei men Type: BLOOD SPECIMENOrdering Facility: [facility] Address: [address] [place] [address] Result Comment: <130 mg/dL, Optimal 130-159 mg/dL, Near optimal/above optimal 160-189 mg/dL, Borderline high 190-219 mg/dL, High >219 mg/dL, Very high Secondary prevention optimal non HDL Cholesterol levels are recommended to be <100 mg/dL Performed By: #### 3 016-3, , 79204-7 ####[facility] LABCLIA [id number] [place] [address] [place] Cholesterol.total/C holesterol in HDL [Mass ratio] 2.92 {ratio} Normal <5.10 [facility] Comment on above: Order Comment: Desiraei men Type: BLOOD SPECIMENOrdering Facility: [facility] Address: [address] [place] [address] Performed By: #### 3 016-3, 25689-6, 20005-0 ####[facility] LABCLIA [id number] [place] [address] [place] FASTING TIME 16 hours Normal [facility] Comment on above: Order Comment: Speci men Type: BLOOD SPECIMENOrdering Facility: [facility] Address: [address] [place] [address] Performed By: #### 3 016-3, 38895-5, 36056-5 ####[facility] LABCLIA [id number] [place] [address] [place] Triglyceride [Mass/Vol] 71 mg/dL Normal <150 [facility] Comment on above: Order Comment: Speci men Type: BLOOD SPECIMENOrdering Facility: [facility] Address: [address] [place] [address] Result Comment: <150 mg/dL, Normal 150-199 mg/dL, Borderline high 200-499 mg/dL, High >499 mg/dL, Very high Performed By: #### 3 016-3, 09087-9, 50332-1 ####[facility] LABCLIA [id number] [place] [address] [place] No Panel Informationon 03-03 [facility] TSH BLDon 03-03-2024 TSH Qn 0.555 m[IU]/L [facility] TSH Qnon 03-03-2024 Interpretation and review of laboratory results Normal [facility] TSH SerPl-aCncon 03-03-2024 TSH Qn 0.555 m[IU]/L Normal 0.270-4.200 [facility] Comment on above: Order Comment: Speci men Type: BLOOD SPECIMENOrdering Facility: [facility] Address: [address] [place] [address] Performed By: #### 3 016-3, 62147-7, 28147-2 ####[facility] LABCLIA [id number] [place] [address] [place] UA DIP, URINE (POC)on 2023 BILIRUBIN UA (POCT) Negative Negative [facility] CLARITY UA (POCT) Clear [facility] COLOR UA (POCT) Yellow [facility] GLUCOSE UA (POCT) Negative Negative mg/dL [facility] Hemoglobin Ql (U) Trace-intact Abnormal Negative [facility] Interpretation and review of laboratory results Abnormal [facility] KETONE UA (POCT) Negative Negative [facility] LEUKOCYTES UA (POCT) Trace Abnormal Negative [facility] NITRITE UA (POCT) Negative Negative [facility] PH UA (POCT) 6.0 4.5 - 8.0 [facility] Protein Ql (U) Negative Negative mg/dL [facility] SPECIFIC GRAVITY UA (POCT) 1.015 1.005 - 1.030 [facility] UROBILINOGEN UA (POCT) 0.2 Normal E.U./dL [facility] Location:[facility], [id number] [place] [address] [place], [place], [place], [address] [place] [address] POINT OF CARE [facility] VITAMIN D 25 HYDROXYon 03-03 25-hydroxyvitamin D3 [Mass/Vol] 76.0 ng/mL 31.0 - 80.0 ng/mL [facility] CNPNon 01-09-2024 CNPN Telephone (FFPWIL) -------- VICTOR HUGO PADILLA ([id number]) 1950 F Date Time Provider Department 01/09/24 SONIDO NESS FFPWIL During your visit today, we recorded the following information about you: Patience Patel MA 02/28/2024 11:28 AM Signed Addended by: PATIENCE PATEL on: 02/28/2024 11:28 AM Modules accepted: Orders Allergies As of Date: 01/09/2024 Noted Allergy Reaction MOLD 08/09/2010 3 - Cough PENICILLINS 01/09/2009 14 - Other: See Comments Comments: Her father was allergic to PCN, she never received it, but doesn't want to take it. 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 - montelukast (SINGULAIR) 10 mg tablet Take 1 tablet by mouth once daily. - levothyroxine (SYNTHROID) 75 mcg tablet Take 1 tablet by mouth once daily. - atorvastatin (LIPITOR) 20 mg tablet Take 1 tablet by mouth once daily. - albuterol HFA (VENTOLIN HFA) 90 mcg/actuation inhaler Inhale 2 Puffs as instructed every 4 hours as needed. - albuterol (PROVENTIL) 2.5 mg /3 mL (0.083 %) nebulizer solution Use 3 mL via nebulizer every 4 hours as needed for wheezing/shortness of breath. - fluticasone (FLONASE) 50 mcg/actuation nasal spray Use 2 Sprays in each nostril once daily. - Cholecalciferol, Vitamin D3, 1,000 unit ORAL Tab Take one(1) tablet two(2) times daily. - calcium carbonate/vitamin d3(CALCIUM 600 + D(3) 600 MG (1,500)-200 UNIT TAB) BID - FLAXSEED OIL 1,000 MG CAP BID - LORATADINE 10 MG TAB Take one(1) tablet daily as needed. Meds Comments as of 09/02/2018: Patient's mail-a-way is [facility] Problem List As Of Date 01/09/2024 Noted Resolved Hypothyroidism [E03.9] Mixed hyperlipidemia [E78.2] 03/29/2000 Other nonspecific abnormal serum enzyme levels *03/29/2000 06/09/2013 Asthma [J45.909] 10/29/2005 History of depression [Z86.59] 10/29/2005 03/03/2022 allergies to mold, trees [Z88.9] History of herpes simplex infection + type 1 an*12/27/2012 Chronic sinusitis [J32.9] 06/08/2014 Angular cheilitis [K13.0] 05/08/2015 03/29/2017 Osteopenia [M85.80] 12/22/2015 Chronic kidney disease, stage 3 (HCC) [N18.30] 04/28/2015 03/05/2023 H/O supraventricular tachycardia [Z86.79] 01/26/2017 Status post radiofrequency ablation for arrhyth*07/03/2017 history of tubular adenoma [Z86.010] 11/28/2017 Stage 3a chronic kidney disease (HCC) [N18.31] 09/01/2023 Encounter Status:Closed by KADE CREWS on 01/11/24 [facility] 12-10-2023 CNPN Telephone (FFPWIL) -------- VICTOR HUGO PADILLA ([id number]) 1950 F Date Time Provider Department 12/10/23 SONIDO NESS FFPWIL During your visit today, we recorded the following information about you: Sylvia Marshall, RN 12/10/2023 9:45 AM Signed Patient calls, she also sent a [employer] message this am. Her Hives are back She finished prednisone last Sunday Developed hives again over the weekend Started at underware waistband site and under bra line She thinks her underware is spandex, not latex Advised dose of benadryl for now Further instructions per PcP Sylvia Marshall, Sonido Benz MD 12/10/2023 11:13 AM Signed Start prednisone for one month Allergies to mold, likely current source Patient's request for medication is as follows Requested Prescriptions Signed Prescriptions Disp Refills predniSONE (DELTASONE) 10 mg tablet 30 tablet 0 Sig: Take 1 tablet by mouth once daily. Authorizing Provider: SONIDO NESS This prescription was transmitted electronically - please notify patient. MD Rolando Gallo Marna Jean, RN 12/10/2023 11:30 AM Signed Patient notified of rx Sylvia Marshall RN Allergies As of Date: 12/10/2023 Noted Allergy Reaction MOLD 08/09/2010 3 - Cough PENICILLINS 01/09/2009 14 - Other: See Comments Comments: Her father was allergic to PCN, she never received it, but doesn't want to take it. TREES 08/09/2010 3 - Cough Comments: Asthma will flare up Date Reviewed: 09/01/2023 Reviewed by: Sonido Ness MD - Fully Assessed Reason for Visit: Hives [56] Order(s):predniSONE (DELTASONE) 10 mg tabletTake 1 tablet by mouth once daily.Disp: 30 tabletRfl: 0 Prescriptions as of 12/10/2023 - predniSONE (DELTASONE) 10 mg tablet Take 1 tablet by mouth once daily. - budesonide-formoterol (SYMBICORT) 160-4.5 mcg/actuation inhaler Inhale 2 Puffs as instructed two times a day. - montelukast (SINGULAIR) 10 mg tablet Take 1 tablet by mouth once daily. - levothyroxine (SYNTHROID) 75 mcg tablet Take 1 tablet by mouth once daily. - atorvastatin (LIPITOR) 20 mg tablet Take 1 tablet by mouth once daily. - albuterol HFA (VENTOLIN HFA) 90 mcg/actuation inhaler Inhale 2 Puffs as instructed every 4 hours as needed. - albuterol (PROVENTIL) 2.5 mg /3 mL (0.083 %) nebulizer solution Use 3 mL via nebulizer every 4 hours as needed for wheezing/shortness of breath. - fluticasone (FLONASE) 50 mcg/actuation nasal spray Use 2 Sprays in each nostril once daily. - Cholecalciferol, Vitamin D3, 1,000 unit ORAL Tab Take one(1) tablet two(2) times daily. - calcium carbonate/vitamin d3(CALCIUM 600 + D(3) 600 MG (1,500)-200 UNIT TAB) BID - FLAXSEED OIL 1,000 MG CAP BID - LORATADINE 10 MG TAB Take one(1) tablet daily as needed. Meds Comments as of 09/02/2018: Patient's mail-a-way is [facility] Problem List As Of Date 12/10/2023 Noted Resolved Hypothyroidism [E03.9] Mixed hyperlipidemia [E78.2] 03/29/2000 Other nonspecific abnormal serum enzyme levels *03/29/2000 06/09/2013 Asthma [J45.909] 10/29/2005 History of depression [Z86.59] 10/29/2005 03/03/2022 allergies to mold, trees [Z88.9] History of herpes simplex infection + type 1 an*12/27/2012 Chronic sinusitis [J32.9] 06/08/2014 Angular cheilitis [K13.0] 05/08/2015 03/29/2017 Osteopenia [M85.80] 12/22/2015 Chronic kidney disease, stage 3 (HCC) [N18.30] 04/28/2015 03/05/2023 H/O supraventricular tachycardia [Z86.79] 01/26/2017 Status post radiofrequency ablation for arrhyth*07/03/2017 history of tubular adenoma [Z86.010] 11/28/2017 Stage 3a chronic kidney disease (HCC) [N18.31] 09/01/2023 Prescriptions ordered this encounter Disp Refills Start End PREDNISONE 10 MG TABLET 30 t* 0 12/10/2023 01/09/2024 Route: ORAL Sig: Take 1 tablet by mouth once daily. Medications Discontinued During This Encounter Prescriptions - predniSONE (DELTASONE) 10 mg tablet (Discontinued) Take 2 tablets daily for 7 days then one daily for 7 days Encounter Status:Closed by SONIDO NESS on 12/10/23 Normal [facility] Wojciech 09-03-2023 [facility] Telephone (IFPWIL) -------- VICTOR HUGO PADILLA ([id number]) 1950 F Date Time Provider Department 09/03/23 SONIDO NESS During your visit today, we recorded the following information about you: Yanelis Jain RN 09/03/2023 8:06 AM Signed ----- Message from Sonido Ness MD sent at 09/03/2023 6:17 AM EST ----- Labs ok No changes, check in 6 months Yumiko Biggs RN 09/03/2023 9:57 AM Signed I called the patient and relayed the information and she will comply. Allergies As of Date: 09/03/2023 Noted Allergy Reaction MOLD 08/09/2010 3 - Cough PENICILLINS 01/09/2009 14 - Other: See Comments Comments: Her father was allergic to PCN, she never received it, but doesn't want to take it. TREES 08/09/2010 3 - Cough Comments: Asthma will flare up Date Reviewed: 09/01/2023 Reviewed by: Sonido Ness MD - Fully Assessed Reason for Visit: Results [95] Prescriptions as of 09/03/2023 - SYMBICORT 160-4.5 mcg/actuation inhaler Inhale 2 Puffs as instructed two times a day. - montelukast (SINGULAIR) 10 mg tablet Take 1 tablet by mouth once daily. - levothyroxine (SYNTHROID) 75 mcg tablet Take 1 tablet by mouth once daily. - atorvastatin (LIPITOR) 20 mg tablet Take 1 tablet by mouth once daily. - albuterol HFA (VENTOLIN HFA) 90 mcg/actuation inhaler Inhale 2 Puffs as instructed every 4 hours as needed. - predniSONE (DELTASONE) 10 mg tablet Take 2 tablets daily for 7 days then one daily for 7 days - ketoconazole (NIZORAL) 2 % cream Apply 1 application to affected area two times a day. - albuterol (PROVENTIL) 2.5 mg /3 mL (0.083 %) nebulizer solution Use 3 mL via nebulizer every 4 hours as needed for wheezing/shortness of breath. - fluticasone (FLONASE) 50 mcg/actuation nasal spray Use 2 Sprays in each nostril once daily. - Cholecalciferol, Vitamin D3, 1,000 unit ORAL Tab Take one(1) tablet two(2) times daily. - calcium carbonate/vitamin d3(CALCIUM 600 + D(3) 600 MG (1,500)-200 UNIT TAB) BID - FLAXSEED OIL 1,000 MG CAP BID - LORATADINE 10 MG TAB Take one(1) tablet daily as needed. Meds Comments as of 09/02/2018: Patient's [facility]-way is [facility] Problem List As Of Date 09/03/2023 Noted Resolved Hypothyroidism [E03.9] Mixed hyperlipidemia [E78.2] 03/29/2000 Other nonspecific abnormal serum enzyme levels *03/29/2000 06/09/2013 Asthma [J45.909] 10/29/2005 History of depression [Z86.59] 10/29/2005 03/03/2022 allergies to mold, trees [Z88.9] History of herpes simplex infection + type 1 an*12/27/2012 Chronic sinusitis [J32.9] 06/08/2014 Angular cheilitis [K13.0] 05/08/2015 03/29/2017 Osteopenia [M85.80] 12/22/2015 Chronic kidney disease, stage 3 (HCC) [N18.30] 04/28/2015 03/05/2023 H/O supraventricular tachycardia [Z86.79] 01/26/2017 Status post radiofrequency ablation for arrhyth*07/03/2017 history of tubular adenoma [Z86.010] 11/28/2017 Stage 3a chronic kidney disease (HCC) [N18.31] 09/01/2023 Encounter Status:Closed by YUMIKO BIGGS RN on 09/03/23 Normal [facility] 25(OH)D3 Socrates 2022 25-hydroxyvitamin D3 [Mass/Vol] 64.1 ng/mL Normal 31.0-80.0 [facility] Comment on above: Order Comment: Speci men Type: BLOOD SPECIMENOrdering Facility: [facility] Address: [address] [place] [address] Result Comment: Clas sification of 25 OH Vitamin D status: Deficiency/Insufficiency: < or = 30 ng/ml. Sufficiency/Optimal Levels: 31-80 ng/mL Toxicity: > 100 ng/mL. Test performed by chemiluminescent immunoassay. Performed By: #### 1 989-3 ####[facility] LABCLIA [id number] [facility] [id number] CBC panel Auto (Bld)on 09-01 Erythrocyte distribution width (RBC) [Ratio] 13.2 % 11.5 - 15.0 % [facility] Hematocrit (Bld) [Volume fraction] 47.2 % High 36.0 - 46.0 % [facility] Hemoglobin (Bld) [Mass/Vol] 14.9 g/dL 11.5 - 15.5 g/dL [facility] MCH (RBC) [Entitic mass] 29.3 pg 26.0 - 34.0 pg [facility] MCHC (RBC) [Mass/Vol] 31.6 g/dL 30.5 - 36.0 g/dL [facility] MCV (RBC) [Entitic vol] 92.9 fL 80.0 - 100.0 fL [facility] Nucleated RBC (Bld) [#/Vol] <0.01 k/uL [facility] Platelet mean volume (Bld) [Entitic vol] 11.5 fL 9.0 - 12.7 fL [facility] Platelets (Bld) [#/Vol] 204 10*3/uL 150 - 400 k/uL [facility] RBC (Bld) [#/Vol] 5.08 10*6/uL 3.90 - 5.2 0 m/uL [facility] WBC (Bld) [#/Vol] 7.14 10*3/uL 3.70 - 11. 00 k/uL [facility] Erythrocyte distribution width (RBC) [Ratio] 13.2 % Normal 11.5-15.0 [facility] Comment on above: Order Comment: Speci men Type: BLOOD SPECIMENOrdering Facility: [facility] Address: [address] [place] [address] Performed By: #### 5 8410-2 ####[facility] LABCLIA [id number] [place] [address] [place] Hematocrit (Bld) [Volume fraction] 47.2 % High 36.0-46.0 [facility] Comment on above: Order Comment: Speci men Type: BLOOD SPECIMENOrdering Facility: [facility] Address: [address] [place] [address] Performed By: #### 5 8410-2 ####[facility] LABCLIA [id number] [place] [address] [place] Hemoglobin (Bld) [Mass/Vol] 14.9 g/dL Normal 11.5-15.5 [facility] Comment on above: Order Comment: Speci men Type: BLOOD SPECIMENOrdering Facility: [facility] Address: [address] [place] [address] Performed By: #### 5 8410-2 ####[facility] LABIA [id number] [place] [address] [place] MCH (RBC) [Entitic mass] 29.3 pg Normal 26.0-34.0 [facility] Comment on above: Order Comment: Speci men Type: BLOOD SPECIMENOrdering Facility: [facility] Address: [address] [place] [address] Performed By: #### 5 8410-2 ####[facility] LABCLIA [id number] [place] [address] [place] MCHC (RBC) [Mass/Vol] 31.6 g/dL Normal 30.5-36.0 [facility] Comment on above: Order Comment: Speci men Type: BLOOD SPECIMENOrdering Facility: [facility] Address: [address] [place] [address] Performed By: #### 5 8410-2 ####[facility] LABIA [id number] [place] [address] [place] MCV (RBC) [Entitic vol] 92.9 fL Normal 80.0-100.0 [facility] Comment on above: Order Comment: Speci men Type: BLOOD SPECIMENOrdering Facility: [facility] Address: [address] [place] [address] Performed By: #### 5 8410-2 ####[facility] LABCLIA [id number] [place] [address] [place] Nucleated RBC (Bld) [#/Vol] 10*3/uL Normal <0.01 [facility] Comment on above: Order Comment: Speci men Type: BLOOD SPECIMENOrdering Facility: [facility] Address: [address] [place] [address] Performed By: #### 5 8410-2 ####[facility] LABCLIA [id number] [place] [address] [place] Platelet mean volume (Bld) [Entitic vol] 11.5 fL Normal 9.0-12.7 [facility] Comment on above: Order Comment: Speci men Type: BLOOD SPECIMENOrdering Facility: [facility] Address: [address] [place] [address] Performed By: #### 5 8410-2 ####[facility] LABCLIA [id number] [place] [address] [place] Platelets (Bld) [#/Vol] 204 10*3/uL Normal 150-400 [facility] Comment on above: Order Comment: Speci men Type: BLOOD SPECIMENOrdering Facility: [facility] Address: [address] [place] [address] Performed By: #### 5 8410-2 ####[facility] LABCLIA [id number] [place] [address] [place] RBC (Bld) [#/Vol] 5.08 10*6/uL Normal 3.90-5.20 [facility] Comment on above: Order Comment: Speci men Type: BLOOD SPECIMENOrdering Facility: [facility] Address: [address] [place] [address] Performed By: #### 5 8410-2 ####[facility] LABIA [id number] [place] [address] [place] WBC (Bld) [#/Vol] 7.14 10*3/uL Normal 3.70-11.00 [facility] Comment on above: Order Comment: Speci men Type: BLOOD SPECIMENOrdering Facility: [facility] Address: [place] [address] Performed By: #### 5 8410-2 ####[facility] LABCLIA [id number] [place] [address] [place] CNOVon 09-01-2023 CNOV Office Visit (FFPWIL ) -------- VICTOR HUGO PADILLA ([id number]) 1950 F Date Time Provider Department 09/01/23 8:15 AM SONIDO NESS FFPWIL During your visit today, we recorded the following information about you: Pulse Blood pressure Weight Height 67/minute 120/78 71.2 kg 1.651 m Sonido Ness MD 09/01/2023 11:54 AM Signed This note was created using NoteWriter. Subjective Victor Hugo Padilla is a 73 year old female. 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 Angular cheilitis 05/08/2015 Asthma 10/2005 Chronic kidney disease, stage 3 (HCC) 04/2015 Chronic sinusitis 06/08/2014 Depression 10/2005 Gestational diabetes Herpes 12/2012 herpes 1 and 2 positive history of tubular adenoma 11/28/2017 Hyperlipemia 03/2000 Hypothyroid 1998 Osteopenia 12/22/2015 LUMBAR SPINE (L1-4) BMD = 0.936 g/cm2 T-Score = -2.0 standard deviation from mean peak bone mass of normal reference 20-45yr [facility] female Osteoporosis, unspecified 05/2008 PAC (premature atrial contraction) 2011 Status post radiofrequency ablation for arrhythmia 07/03/2017 1. The [employer]: CARTO mapping system was utilized. 2. 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 The [employer]: CARTO mapping system was utilized. 2. 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 FAMILY HISTORY Problem Relation Age of Onset Breast Cancer Mother of leukemia other (POLYCYTEMIA RUBRA VERA) Mother other (leukemia) Mother age 82 Cancer Father prostate, bladder Ischemic Heart Disease Father stent placed, age 96 other (dementia) Father other (CHF) Father Parkinson?s Disease Brother Parkinson?s Disease Brother other (donna's disease) Brother Cancer Maternal Grandfather pancreas Cancer Paternal Grandfather prostate Social History Tobacco Use Smoking status: Never Smokeless tobacco: Never Substance Use Topics Alcohol use: No Drug use: No Current Outpatient Medications on File Prior to Visit Medication Sig albuterol (PROVENTIL) 2.5 mg /3 mL (0.083 %) nebulizer solution Use 3 mL via nebulizer every 4 hours as needed for wheezing/shortness of breath. fluticasone (FLONASE) 50 mcg/actuation nasal spray Use 2 Sprays in each nostril once daily. Cholecalciferol, Vitamin D3, 1,000 unit ORAL Tab Take one(1) tablet two(2) times daily. calcium carbonate/vitamin d3(CALCIUM 600 + D(3) 600 MG (1,500)-200 UNIT TAB) BID FLAXSEED OIL 1,000 MG CAP BID LORATADINE 10 MG TAB Take one(1) tablet daily as needed. No current facility-administered medications on file prior to visit. Review of Systems Constitutional: Negative. Respiratory: Negative. Cardiovascular: Negative. Gastrointestinal: Negative. Genitourinary: Negative. Skin: Positive for rash. Objective LMP 10/29/1998 Physical Exam Vitals reviewed. Constitutional: General: She is not in acute distress. Appearance: She is not diaphoretic. Neck: Thyroid: No thyromegaly. Cardiovascular: Rate and Rhythm: Normal rate and regular rhythm. Heart sounds: Normal heart sounds. No murmur heard. No friction rub. No gallop. Pulmonary: Effort: Pulmonary effort is normal. No respiratory distress. Breath sounds: Normal breath sounds. No wheezing or rales. Chest: Chest wall: No tenderness. Abdominal: General: Bowel sounds are normal. There is no distension. Palpations: Abdomen is soft. There is no mass. Tenderness: There is no abdominal tenderness. There is no guarding or rebound. Musculoskeletal: Cervical back: Normal range of motion and neck supple. Lymphadenopathy: Cervical: No cervical adenopathy. Skin: Comments: Numerous small urticaria, bilateral legs and thighs CBC with diff: WBC 6.18 03/05/2023 RBC 4.85 03/05/2023 Hemoglobin 14.3 03/05/2023 Hematocrit 43.6 03/05/2023 MCV 89.9 03/05/2023 MCH 29.5 03/05/2023 MCHC 32.8 03/05/2023 RDW-CV 12.8 03/05/2023 Platelet Count 216 03/05/2023 MPV 11.4 03/05/2023 Neut% 57.7 03/05/2023 Lymph% 30.7 (more content not included)... Normal [facility] Comprehensive metabolic 2000 panelon 09-01-2023 Albumin [Mass/Vol] 4.5 g/dL 3.9 - 4.9 g/dL [facility] ALP [Catalytic activity/Vol] 122 U/L 34 - 123 U/L [facility] ALT [Catalytic activity/Vol] 35 U/L 7 - 38 U/L [facility] Anion gap [Moles/Vol] 14 mmol/L 9 - 18 mmol/L [facility] AST [Catalytic activity/Vol] 25 U/L 13 - 35 U/L [facility] Bilirubin [Mass/Vol] 0.6 mg/dL 0.2 - 1.3 mg/dL [facility] Calcium [Mass/Vol] 10.0 mg/dL 8.5 - 10. 2 mg/dL [facility] Chloride [Moles/Vol] 105 mmol/L 97 - 105 mmol/L [facility] CO2 [Moles/Vol] 23 mmol/L 22 - 30 mmol/L [facility] Creatinine [Mass/Vol] 1.20 mg/dL High 0.58 - 0.96 mg/dL [facility] Estimated Glomerular Filtration Rate 47 mL/min/1.73m Low >=60 mL/min/1.73m [facility] Glucose [Mass/Vol] 94 mg/dL 74 - 99 mg/dL [facility] Potassium [Moles/Vol] 4.7 mmol/L 3.7 - 5.1 mmol/L [facility] Protein [Mass/Vol] 7.2 g/dL 6.3 - 8.0 g/dL [facility] Sodium [Moles/Vol] 142 mmol/L 136 - 144 mmol/L [facility] Urea nitrogen [Mass/Vol] 19 mg/dL 7 - 21 mg/dL [facility] Albumin [Mass/Vol] 4.5 g/dL Normal 3.9-4.9 [facility] Comment on above: Order Comment: Speci men Type: BLOOD SPECIMENOrdering Facility: [facility] Address: [address] [place] [address] Performed By: #### 3 016-3, 35909-0, 59701-3 ####[facility] LABCLIA [id number] [place] [address] [place] ALP [Catalytic activity/Vol] 122 U/L Normal 34-123 [facility] Comment on above: Order Comment: Speci men Type: BLOOD SPECIMENOrdering Facility: [facility] Address: [address] [place] [address] Performed By: #### 3 016-3, 43300-7, 00261-4 ####[facility] LABCLIA [id number] [place] [address] [place] ALT [Catalytic activity/Vol] 35 U/L Normal 7-38 [facility] Comment on above: Order Comment: Speci men Type: BLOOD SPECIMENOrdering Facility: [facility] Address: [address] [place] [address] Performed By: #### 3 016-3, 21734-8, 45283-5 ####[facility] LABCLIA [id number] [place] [address] [place] Anion gap [Moles/Vol] 14 mmol/L Normal 9-18 [facility] Comment on above: Order Comment: Speci men Type: BLOOD SPECIMENOrdering Facility: [facility] Address: [address] [place] [address] Performed By: #### 3 016-3, 80715-6, 04495-3 ####[facility] LABIA [id number] [place] [address] [place] AST [Catalytic activity/Vol] 25 U/L Normal 13-35 [facility] Comment on above: Order Comment: Speci men Type: BLOOD SPECIMENOrdering Facility: [facility] Address: [address] [place] [address] Performed By: #### 3 016-3, 98700-0, 26844-5 ####[facility] LABIA [id number] [place] [address] [place] Bilirubin [Mass/Vol] 0.6 mg/dL Normal 0.2-1.3 [facility] Comment on above: Order Comment: Speci men Type: BLOOD SPECIMENOrdering Facility: [facility] Address: [address] [place] [address] Performed By: #### 3 016-3, 44746-7, 59484-5 ####[facility] LABCLIA [id number] [place] [address] [place] Calcium [Mass/Vol] 10.0 mg/dL Normal 8.5-10.2 [facility] Comment on above: Order Comment: Speci men Type: BLOOD SPECIMENOrdering Facility: [facility] Address: [address] [place] [address] Performed By: #### 3 016-3, 00945-0, ####[facility] LABCLIA [id number] [place] [address] [place] Chloride [Moles/Vol] 105 mmol/L Normal 97-105 [facility] Comment on above: Order Comment: Speci men Type: BLOOD SPECIMENOrdering Facility: [facility] Address: [address] [place] [address] Performed By: #### 3 016-3, , ####[facility] LABCLIA [id number] [place] [address] [place] CO2 [Moles/Vol] 23 mmol/L Normal 22-30 [facility] Comment on above: Order Comment: Speci men Type: BLOOD SPECIMENOrdering Facility: [facility] Address: [address] [place] [address] Performed By: #### 3 016-3, , ####[facility] LABCLIA [id number] [place] [address] [place] Creatinine [Mass/Vol] 1.20 mg/dL High 0.58-0.96 [facility] Comment on above: Order Comment: Speci men Type: BLOOD SPECIMENOrdering Facility: [facility] Address: [address] [place] [address] Performed By: #### 3 016-3, 83069-5, ####[facility] LABCLIA [id number] [place] [address] [place] Creatinine and Glomerular filtration rate.predicted panel (S/P/Bld) 47 mL/min/1.73m??? Low >=60 [facility] Comment on above: Order Comment: Susan pena Type: BLOOD SPECIMENOrdering Facility: [facility] Address: [address] [place] [address] Result Comment: Lety mated Glomerular Filtration Rate (eGFR) is calculated using the 2020 CKD-EPI creatinine equation. This equation utilizes serum creatinine, sex, and age as parameters. The creatinine assay has traceable calibration to isotope dilution-mass spectrometry. Refer to KDIGO guidelines for clinical interpretation. In patients with unstable renal function, e.g. those with acute kidney injury, the eGFR may not accurately reflect actual GFR. Performed By: #### 3 016-3, 46641-9, 03645-8 ####[facility] [id number] [place] [address] [place] Glucose [Mass/Vol] 94 mg/dL Normal 74-99 [facility] Comment on above: Order Comment: Susan pena Type: BLOOD SPECIMENOrdering Facility: [facility] Address: [address] [place] [address] Result Comment: The [place] [employer] (ADA) provides guidance for cutoff values for fasting glucose and random glucose. The ADA defines fasting as no caloric intake for at least 8 hours. Fasting plasma glucose results between 100 to 125 mg/dL indicate increased risk for diabetes (prediabetes). Fasting plasma glucose results greater than or equal to 126 mg/dL meet the criteria for diagnosis of diabetes. In the absence of unequivocal hyperglycemia, results should be confirmed by repeat testing. In a patient with classic symptoms of hyperglycemia or hyperglycemic crisis, random plasma glucose results greater than or equal to 200 mg/dL meet the criteria for diagnosis of diabetes. Reference: Standards of Medical Care in Diabetes 2016, [place] [employer]. Diabetes Care. 2016.39(Suppl 1). Performed By: #### 3 016-3, 65331-5, 07817-9 ####[facility] LABIA [id number] [place] [address] [place] Potassium [Moles/Vol] 4.7 mmol/L Normal 3.7-5.1 [facility] Comment on above: Order Comment: Susan pena Type: BLOOD SPECIMENOrdering Facility: [facility] Address: [address] [place] [address] Performed By: #### 3 016-3, 57057-1, 12510-7 ####[facility] LABCLIA [id number] [place] [address] [place] Protein [Mass/Vol] 7.2 g/dL Normal 6.3-8.0 [facility] Comment on above: Order Comment: Speci men Type: BLOOD SPECIMENOrdering Facility: [facility] Address: [address] [place] [address] Performed By: #### 3 016-3, 01476-4, 49805-3 ####[facility] LABCLIA [id number] [place] [address] [place] Sodium [Moles/Vol] 142 mmol/L Normal 136-144 [facility] Comment on above: Order Comment: Speci men Type: BLOOD SPECIMENOrdering Facility: [facility] Address: [address] [place] [address] Performed By: #### 3 016-3, 61128-3, 59619-6 ####[facility] LABCLIA [id number] [place] [address] [place] Urea nitrogen [Mass/Vol] 19 mg/dL Normal 7-21 [facility] Comment on above: Order Comment: Speci men Type: BLOOD SPECIMENOrdering Facility: [facility] Address: [address] [place] [address] Performed By: #### 3 016-3, 35571-3, 00660-6 ####[facility] LABCLIA [id number] [place] [address] [place] Lipid 1996 panelon 3 Cholesterol [Mass/Vol] 167 mg/dL <200 mg/dL [facility] Cholesterol in HDL [Mass/Vol] 63 mg/dL >39 mg/dL [facility] Cholesterol in LDL [Mass/Vol] 89 mg/dL <100 mg/dL [facility] Cholesterol in LDL/Cholesterol in HDL [Mass ratio] 1.41 {ratio} <2.54 [facility] Cholesterol in VLDL [Mass/Vol] 15 mg/dL <30 mg/dL [facility] Cholesterol non HDL [Mass/Vol] 104 mg/dL <130 mg/dL [facility] Cholesterol.total/C holesterol in HDL [Mass ratio] 2.65 {ratio} <5.10 [facility] Fasting Time 11.5 hours [facility] Triglyceride [Mass/Vol] 73 mg/dL <150 mg/dL [facility] Cholesterol [Mass/Vol] 167 mg/dL Normal <200 [facility] Comment on above: Order Comment: Speci men Type: BLOOD SPECIMENOrdering Facility: [facility] Address: [address] [place] [address] Result Comment: <200 mg/dL, Desirable 200-239 mg/dL, Borderline high >239 mg/dL, High Performed By: #### 3 016-3, 32360-8, 79450-2 ####[facility] LABCLIA [id number] [address] [place] Cholesterol in HDL [Mass/Vol] 63 mg/dL Normal >39 [facility] Comment on above: Order Comment: Speci men Type: BLOOD SPECIMENOrdering Facility: [facility] Address: [address] [place] [address] Result Comment: 40-5 9 mg/dL, Acceptable >59 mg/dL, High: Negative risk factor for coronary heart disease <40 mg/dL, Low: Positive risk factor for coronary heart disease Performed By: #### 3 016-3, 36775-1, 25627-7 ####[facility] [facility] LABCLIA [id number] [address] [place] Cholesterol in LDL [Mass/Vol] 89 mg/dL Normal <100 [facility] Comment on above: Order Comment: Speci men Type: BLOOD SPECIMENOrdering Facility: [facility] Address: [address] [place] [address] Result Comment: <100 mg/dL, Optimal 100-129 mg/dL, Near optimal/above optimal 130-159 mg/dL, Borderline high 160-189 mg/dL, High >189 mg/dL, Very high Secondary prevention optimal LDL Cholesterol levels are recommended to be < 70 mg/dL Performed By: #### 3 016-3, 86160-9, 08400-4 ####[facility] LABCLIA [id number] [place] [address] [place] Cholesterol in LDL/Cholesterol in HDL [Mass ratio] 1.41 {ratio} Normal <2.54 [facility] Comment on above: Order Comment: Speci men Type: BLOOD SPECIMENOrdering Facility: [facility] Address: [address] [place] [address] Result Comment: Refe rence: 1. National Cholesterol Education Program ATP III Guideline At-A-Glance Quick Desk Reference: National Heart, Lung, and Blood [place]. National Institutes of Health. 2001: NIH Publication No. 01-3305. 2. An International Atherosclerosis Society position paper: global recommendations for the management of dyslipidemia: executive summary, Atherosclerosis. 2014: 232(2):410-413. Performed By: #### 3 016-3, 93229-3, 04391-2 ####[facility] LABIA [id number] [place] [address] [place] Cholesterol in VLDL [Mass/Vol] 15 mg/dL Normal <30 [facility] Comment on above: Order Comment: Speci men Type: BLOOD SPECIMENOrdering Facility: [facility] Address: [address] [place] [address] Performed By: #### 3 016-3, 15220-9, 43844-6 ####[facility] LABIA [id number] [place] [address] [place] Cholesterol non HDL [Mass/Vol] 104 mg/dL Normal <130 [facility] Comment on above: Order Comment: Speci men Type: BLOOD SPECIMENOrdering Facility: [facility] Address: [address] [place] [address] Result Comment: <130 mg/dL, Optimal 130-159 mg/dL, Near optimal/above optimal 160-189 mg/dL, Borderline high 190-219 mg/dL, High >219 mg/dL, Very high Secondary prevention optimal non HDL Cholesterol levels are recommended to be <100 mg/dL Performed By: #### 3 016-3, 67161-7, 22826-1 ####[facility] LABCLIA [id number] [place] [address] [place] Cholesterol.total/C holesterol in HDL [Mass ratio] 2.65 {ratio} Normal <5.10 [facility] Comment on above: Order Comment: Speci men Type: BLOOD SPECIMENOrdering Facility: [facility] Address: [address] [place] [address] Performed By: #### 3 016-3, , ####[facility] LABCLIA [id number] [address] [place] FASTING TIME 11.5 hours Normal [facility] Comment on above: Order Comment: Speci men Type: BLOOD SPECIMENOrdering Facility: [facility] Address: [address] [place] [address] Performed By: #### 3 016-3, 51201-3, ####[facility] LABIA [id number] [place] [address] [place] Triglyceride [Mass/Vol] 73 mg/dL Normal <150 [facility] Comment on above: Order Comment: Speci men Type: BLOOD SPECIMENOrdering Facility: [facility] Address: [address] [place] [address] Result Comment: <150 mg/dL, Normal 150-199 mg/dL, Borderline high 200-499 mg/dL, High >499 mg/dL, Very high Performed By: #### 3 016-3, 77982-9, ####[facility] LABCLIA [id number] [place] [address] [place] TSH BLDon 09-01-2023 TSH Qn 2.030 m[IU]/L 0.270 - 4.200 mIU/L [facility] TSH SerPl-aCncon 09-01-2023 TSH Qn 2.030 m[IU]/L Normal 0.270-4.200 [facility] Comment on above: Order Comment: Speci men Type: BLOOD SPECIMENOrdering Facility: [facility] Address: [address] [place] [address] Performed By: #### 3 016-3, 15089-8, 71234-5 ####[facility] LABCLIA [id number] [facility] [address] [id number] [address] [place] UA DIP, URINE (POC)on 2022 BILIRUBIN UA (POCT) Negative Negative [facility] CLARITY UA (POCT) Clear [facility] COLOR UA (POCT) Yellow [facility] GLUCOSE UA (POCT) Negative Negative mg/dL [facility] Hemoglobin Ql (U) Negative Negative [facility] KETONE UA (POCT) Negative Negative mg/dL [facility] LEUKOCYTES UA (POCT) Negative Negative [facility] NITRITE UA (POCT) Negative Negative [facility] PH UA (POCT) 7.0 4.5 - 8.0 [facility] Protein Ql (U) Negative Negative mg/dL [facility] SPECIFIC GRAVITY UA (POCT) 1.015 1.005 - 1.030 [facility] UROBILINOGEN UA (POCT) 0.2 E.U./dL Normal E.U./dL [facility] VITAMIN D 25 HYDROXYon 09-01 25-hydroxyvitamin D3 [Mass/Vol] 64.1 ng/mL 31.0 - 80.0 ng/mL [facility] BD DXA - AXIAL SKELETONon BD DXA - AXIAL SKELETON * * *Final Report* * * DATE OF EXAM: Apr 18 2023 9:51AM EUX 0804 - BD DXA - AXIAL SKELETON / PROCEDURE REASON: multiple diagnoses * * * * Physician Interpretation * * * * RESULT: BONE MINERAL DENSITY INDICATION: Screening for osteopenia/osteoporosis Postmenopausal COMPARISONS: 03/20/2018 TECHNICAL PARAMETERS: Bone mineral density was obtained using dual energy x-ray absorptiometry PATIENT DEMOGRAPHICS: VICTOR HUGO PADILLA, [id number] Age: 72 years, Race: , Gender: Female Referring: SONIDO NESS DXA Model: Dada Room Site Scanned: [facility] Date Scanned: 04/18/2023 9:51 AM RESULT: LUMBAR SPINE: BMD: 0.891 g/sq cm T-Score: -2.4 SD LEFT FEMORAL NECK: BMD: 0.803 g/sq cm T-Score: -1.7 SD LEFT HIP: BMD: 0.852 g/sq cm T-Score: -1.2 SD RIGHT FEMORAL NECK: BMD: 0.84 g/sq cm T-Score: -1.4 SD RIGHT HIP: BMD: 0.856 g/sq cm T-Score: -1.2 SD T-score is standard deviation from the expected peak bone mineral density of the normal young adult (20 to 45 year old) [facility] female reference population. Z-score is standard deviations from the expected peak bone mass matched for age, sex, weight and ethnicity. No Z scores available due to lack of echogenicity demographic comparison data. Using the WHO Fracture Risk Assessment Tool (FRAX)*, the estimated 10 year fracture risk for a major osteoporotic fracture is 27.2 %, and for a hip fracture is 6.5 %. *FRAX version 3.05. Fracture probability calculated for an untreated patient. Fracture probability may be lower if patient has received treatment. Treatment decisions require clinical judgment and consideration of individual patient factors, including patient preferences, comorbidities, previous drug use and risk factors not captured in the FRAX model (e.g. frailty, falls, vitamin D deficiency, increased bone turnover, interval significant decline in BMD). COMPARISON TO PRIOR BONE MINERAL DENSITY: Since most recent prior 03/20/2018: There is been no statistically significant interval decrease in lumbar spine or mean total hip bone mineral density. IMPRESSION: Osteopenia Findings are based upon the World Health Organization criteria. FOLLOW-UP RECOMMENDATIONS: Screening DEXA BMD testing in two years is recommended, as clinically indicated. However, when monitoring for rapid bone loss, repeat scanning as frequently as every 6 to 12 months may be desirable or necessary. (Please note that sequential exams to assess change or best on the same machine each time in order to preserve comparison accuracy.) WORLD HEALTH ORGANIZATION CRITERIA: (For postmenopausal > 60-year-old women, no established criteria another populations). * NORMAL: T-score greater than or equal to -1.0 SD * OSTEOPENIA: T-score between -1.0 and -2.5 SD * OSTEOPOROSIS: T-score less than or equal to -2.5 SD * SEVERE OSTEOPOROSIS:T-score less than or equal to -2.5 SD with fracture Transcribed Using Voice Recognition Transcribe Date/Time: Apr 20 2023 10:53A Dictated by: BREN MATT MD This examination was interpreted and the report reviewed and electronically signed by: BREN MATT MD on Apr 20 2023 11:00AM EST [id number] Normal [facility] CBC W Auto Differential pane l (Bld)on 03-05-2023 Basophils (Bld) [#/Vol] 0.05 10*3/uL <0.11 k/uL [facility] Basophils/100 WBC (Bld) 0.8 % [facility] Differential cell count method Nom (Bld) Auto [facility] Eosinophils (Bld) [#/Vol] 0.06 10*3/uL <0.46 k/uL [facility] Eosinophils/100 WBC (Bld) 1.0 % [facility] Erythrocyte distribution width (RBC) [Ratio] 12.8 % 11.5 - 15.0 % [facility] Hematocrit (Bld) [Volume fraction] 43.6 % 36.0 - 46.0 % [facility] Hemoglobin (Bld) [Mass/Vol] 14.3 g/dL 11.5 - 15.5 g/dL [facility] Immature granulocytes (Bld) [#/Vol] <0.10 k/uL [facility] Immature granulocytes/100 WBC (Bld) 0.3 % [facility] Lymphocytes (Bld) [#/Vol] 1.90 10*3/uL 1.00 - 4.00 k/uL [facility] Lymphocytes/100 WBC (Bld) 30.7 % [facility] MCH (RBC) [Entitic mass] 29.5 pg 26.0 - 34.0 pg [facility] MCHC (RBC) [Mass/Vol] 32.8 g/dL 30.5 - 36.0 g/dL [facility] MCV (RBC) [Entitic vol] 89.9 fL 80.0 - 100.0 fL [facility] Monocytes (Bld) [#/Vol] 0.59 10*3/uL <0.87 k/uL [facility] Monocytes/100 WBC (Bld) 9.5 % [facility] Neutrophils (Bld) [#/Vol] 3.56 10*3/uL 1.45 - 7.50 k/uL [facility] Neutrophils/100 WBC (Bld) 57.7 % [facility] Nucleated RBC (Bld) [#/Vol] <0.01 k/uL [facility] Nucleated RBC/100 WBC (Bld) [Ratio] 0.0 /100 WBC [facility] Platelet mean volume (Bld) [Entitic vol] 11.4 fL 9.0 - 12.7 fL [facility] Platelets (Bld) [#/Vol] 216 10*3/uL 150 - 400 k/uL [facility] RBC (Bld) [#/Vol] 4.85 10*6/uL 3.90 - 5.2 0 m/uL [facility] WBC (Bld) [#/Vol] 6.18 10*3/uL 3.70 - 11. 00 k/uL [facility] UA DIP, URINE (POC)on 2022 BILIRUBIN UA (POCT) Negative Negative [facility] CLARITY UA (POCT) Clear [facility] COLOR UA (POCT) Yellow [facility] GLUCOSE UA (POCT) Negative Negative mg/dL [facility] HEMOGLOBIN/BLOOD UA (POCT) Negative Negative [facility] KETONE UA (POCT) Negative Negative mg/dL [facility] LEUKOCYTES UA (POCT) Trace Abnormal Negative [facility] NITRITE UA (POCT) Negative Negative [facility] PH UA (POCT) 7.0 4.5 - 8.0 [facility] Protein Ql (U) Negative Negative mg/dL [facility] SPECIFIC GRAVITY UA (POCT) 1.010 1.005 - 1.030 [facility] UROBILINOGEN UA (POCT) 0.2 E.U./dL Normal E.U./dL [facility] CBC W Auto Differential pane l (Bld)on 09-04-2022 Basophils (Bld) [#/Vol] 0.05 10*3/uL <0.11 k/uL [facility] Basophils/100 WBC (Bld) 0.8 % [facility] Differential cell count method Nom (Bld) Auto [facility] Eosinophils (Bld) [#/Vol] 0.12 10*3/uL <0.46 k/uL [facility] Eosinophils/100 WBC (Bld) 2.0 % [facility] Erythrocyte distribution width (RBC) [Ratio] 13.7 % 11.5 - 15.0 % [facility] Hematocrit (Bld) [Volume fraction] 42.7 % 36.0 - 46.0 % [facility] Hemoglobin (Bld) [Mass/Vol] 13.7 g/dL 11.5 - 15.5 g/dL [facility] Immature granulocytes (Bld) [#/Vol] <0.10 k/uL [facility] Immature granulocytes/100 WBC (Bld) 0.3 % [facility] Lymphocytes (Bld) [#/Vol] 1.76 10*3/uL 1.00 - 4.00 k/uL [facility] Lymphocytes/100 WBC (Bld) 29.0 % [facility] MCH (RBC) [Entitic mass] 29.6 pg 26.0 - 34.0 pg [facility] MCHC (RBC) [Mass/Vol] 32.1 g/dL 30.5 - 36.0 g/dL [facility] MCV (RBC) [Entitic vol] 92.2 fL 80.0 - 100.0 fL [facility] Monocytes (Bld) [#/Vol] 0.69 10*3/uL <0.87 k/uL [facility] Monocytes/100 WBC (Bld) 11.4 % [facility] Neutrophils (Bld) [#/Vol] 3.43 10*3/uL 1.45 - 7.50 k/uL [facility] Neutrophils/100 WBC (Bld) 56.5 % [facility] Nucleated RBC (Bld) [#/Vol] <0.01 k/uL [facility] Nucleated RBC/100 WBC (Bld) [Ratio] 0.0 /100 WBC [facility] Platelet mean volume (Bld) [Entitic vol] 11.3 fL 9.0 - 12.7 fL [facility] Platelets (Bld) [#/Vol] 207 10*3/uL 150 - 400 k/uL [facility] RBC (Bld) [#/Vol] 4.63 10*6/uL 3.90 - 5.2 0 m/uL [facility] WBC (Bld) [#/Vol] 6.07 10*3/uL 3.70 - 11. 00 k/uL [facility] Comprehensive metabolic 2000 panelon 09-04-2022 Albumin [Mass/Vol] 4.3 g/dL 3.9 - 4.9 g/dL [facility] ALP [Catalytic activity/Vol] 107 U/L 34 - 123 U/L [facility] ALT [Catalytic activity/Vol] 32 U/L 7 - 38 U/L [facility] Anion gap [Moles/Vol] 11 mmol/L 9 - 18 mmol/L [facility] AST [Catalytic activity/Vol] 24 U/L 13 - 35 U/L [facility] Bilirubin [Mass/Vol] 0.5 mg/dL 0.2 - 1.3 mg/dL [facility] Calcium [Mass/Vol] 9.5 mg/dL 8.5 - 10. 2 mg/dL [facility] Chloride [Moles/Vol] 105 mmol/L 97 - 105 mmol/L [facility] CO2 [Moles/Vol] 24 mmol/L 22 - 30 mmol/L [facility] Creatinine [Mass/Vol] 1.16 mg/dL High 0.58 - 0.96 mg/dL [facility] Estimated Glomerular Filtration Rate 50 mL/min/1.73m Low >=60 mL/min/1.73m [facility] Glucose [Mass/Vol] 89 mg/dL 74 - 99 mg/dL [facility] Potassium [Moles/Vol] 4.3 mmol/L 3.7 - 5.1 mmol/L [facility] Protein [Mass/Vol] 6.6 g/dL 6.3 - 8.0 g/dL [facility] Sodium [Moles/Vol] 140 mmol/L 136 - 144 mmol/L [facility] Urea nitrogen [Mass/Vol] 18 mg/dL 7 - 21 mg/dL [facility] Lipid 1996 panelon 2 Cholesterol [Mass/Vol] 177 mg/dL <200 mg/dL [facility] Cholesterol in HDL [Mass/Vol] 55 mg/dL >39 mg/dL [facility] Cholesterol in LDL [Mass/Vol] 99 mg/dL <100 mg/dL [facility] Cholesterol in LDL/Cholesterol in HDL [Mass ratio] 1.80 {ratio} <2.54 [facility] Cholesterol in VLDL [Mass/Vol] 23 mg/dL <30 mg/dL [facility] Cholesterol non HDL [Mass/Vol] 122 mg/dL <130 mg/dL [facility] Cholesterol.total/C holesterol in HDL [Mass ratio] 3.22 {ratio} <5.10 [facility] Fasting Time 18 hours [facility] Triglyceride [Mass/Vol] 115 mg/dL <150 mg/dL [facility] TSH BLDon 09-04-2022 TSH Qn 1.050 m[IU]/L 0.270 - 4.200 mIU/L [facility] UA DIP, URINE (POC)on 2021 BILIRUBIN UA (POCT) Negative Negative [facility] CLARITY UA (POCT) Clear [facility] COLOR UA (POCT) Yellow [facility] GLUCOSE UA (POCT) Negative Negative mg/dL [facility] HEMOGLOBIN/BLOOD UA (POCT) Negative Negative [facility] KETONE UA (POCT) Negative Negative mg/dL [facility] LEUKOCYTES UA (POCT) Negative Negative [facility] NITRITE UA (POCT) Negative Negative [facility] PH UA (POCT) 6.5 4.5 - 8.0 [facility] Protein Ql (U) Negative Negative mg/dL [facility] SPECIFIC GRAVITY UA (POCT) 1.015 1.005 - 1.030 [facility] UROBILINOGEN UA (POCT) 0.2 E.U./dL Normal E.U./dL [facility] MG MAMM SCREEN 3D JOSTIN CADon 05-08-2022 MG MAMM SCREEN 3D JOSTIN CAD Patient: VICTOR HUGO PADILLA Exam Date: 05/08/2022 : 1950 Gender:F Ordering : DR. KADE CREWS M.D. Admission #: [id number] Family : Order #: [id number] CLICK HERE TO VIEW EXAM RADIOLOGY REPORT PROCEDURE: MAMMOGRAM SCREENING 3D BILATERAL CAD COMPARISON: MG MAMM SCREEN 3D JOSTIN CAD, 05/04/2021. MG MAMM SCREEN 3D JOSTIN CAD, 04/16/2020. INDICATIONS: Screening mammography Calculator Name NCI Breast Cancer Risk Assessment Tool 5 Year Breast Cancer Risk 1.30% Lifetime Breast Cancer Risk 3.10% Personal Breast Cancer No Personal Ovarian Cancer No Treatments None Family Cancers Father with prostate cancer at age 80; Father with bladder cancer at age 81. LOCATION: [facility] BREAST COMPOSITION: Scattered areas fibroglandular density. FINDINGS: DIAGNOSTIC CATEGORY 1--NEGATIVE. NO CHANGE FROM COMPARISON ASSESSMENT. Scattered benign-appearing calcifications are present. Scattered benign-appearing lymph nodes are present. RIGHT BREAST: No significant suspicious finding. LEFT BREAST: No significant suspicious finding. RECOMMENDATIONS: ROUTINE MAMMOGRAM AND CLINICAL EVALUATION IN 12 MONTHS. PLEASE NOTE: A NORMAL MAMMOGRAM DOES NOT EXCLUDE THE POSSIBILITY OF BREAST CANCER. A CLINICALLY SUSPICIOUS PALPABLE LUMP SHOULD BE BIOPSIED. Dictated by: Pastor Joiner MD on 05/09/2022 at 12:36 Approved by: Pastor Joiner MD on 05/09/2022 at 12:37 Normal [facility] UA DIP, URINE (POC)on 2021 BILIRUBIN UA (POCT) Negative Negative [facility] CLARITY UA (POCT) Clear [facility] COLOR UA (POCT) Yellow [facility] GLUCOSE UA (POCT) Negative Negative mg/dL [facility] HEMOGLOBIN/BLOOD UA (POCT) Negative Negative [facility] KETONE UA (POCT) Negative Negative mg/dL [facility] LEUKOCYTES UA (POCT) Trace Abnormal Negative [facility] NITRITE UA (POCT) Negative Negative [facility] PH UA (POCT) 6.5 4.5 - 8.0 [facility] Protein Ql (U) Negative Negative mg/dL [facility] SPECIFIC GRAVITY UA (POCT) 1.015 1.005 - 1.030 [facility] UROBILINOGEN UA (POCT) 0.2 E.U./dL Normal E.U./dL [facility] OPERATIVE REPORTon 9 OPERATIVE REPORT NAME: VICTOR HUGO PADILLA MR#: [id number] SURGEON: Vibha Guzmán MD DATE OF SURGERY: 11/11/2018 OPERATIVE REPORT INDICATIONS FOR PROCEDURE: Victor Hugo Padilla is a patient who has a visually significant cataract in her right eye. Her visual acuity is 20/25; however, it is quite blurry, and she has significant nuclear sclerosis. Her right and left eye interfere with one another. It is expected that removing a cataract in her right eye will improve her daily living pattern. PREOPERATIVE DIAGNOSIS: Age-related nuclear sclerosis. POSTOPERATIVE DIAGNOSIS: Age-related nuclear sclerosis. TITLE OF PROCEDURE: Right phacoemulsification with intraocular lens implant. ANESTHESIA: MAC. DETAILS OF PROCEDURE: Under MAC anesthesia, the right eye was prepped and draped in a standard fashion. Lid speculum was placed in the operated eye. A paracentesis was performed. Preservative-free lidocaine was inserted into the anterior chamber. Viscoat was inserted into the anterior chamber. A clear corneal incision was made. A capsulorrhexis was performed. The lens nucleus was hydrodissected and phacoemulsified, and the cortical material was removed with irrigation-aspiration unit. The capsular bag was filled with Provisc. An AcrySof lens was inserted into the capsular bag and seemed to be in good condition. All viscoelastic material was removed. The wounds were stromally hydrated. Both were seemed to be both water and airtight. Zymaxid and Iopidine were given postoperatively, and the patient was sent to the recovery room in good condition. VIBHA GUZMÁN MD [id number] E/S: Vibha Guzmán MD 11/25/18 1320 Electronically Signed [facility] PT NAME: VICTOR HUGO PADILLA MR#: [id number] [address] [place] [address] ACCT: [id number] : 46 OPERATIVE REPORT Normal [facility] OPERATIVE REPORTon 8 OPERATIVE REPORT NAME: VICTOR HUGO PADILLA MR#: [id number] SURGEON: Vibha Guzmán MD DATE OF SURGERY: 09/23/2018 OPERATIVE REPORT INDICATIONS: Victor Hugo Padilla is a patient who has a visually significant cataract in her left eye. Visual acuity is 20/40. She has +2 nuclear sclerotic cataract with anterior cortical and posterior cortical changes. She has had the cataract for some time and has expressed the wish now to have it removed. She feels that it is significantly bothering her enough to have surgery. She is unable to drive at night. She is having much difficulty with glare and reading is a problem. It is expected that removing her visually significant cataract in her left eye will improve her daily living pattern. PREOPERATIVE DIAGNOSIS: Age-related nuclear sclerosis, left eye. POSTOPERATIVE DIAGNOSIS: Age-related nuclear sclerosis, left eye. TITLE OF PROCEDURE: Left phacoemulsification with intraocular lens implant. ANESTHESIA: MAC. DETAILS OF PROCEDURE: Under MAC anesthesia, the left eye was prepped and draped in a standard fashion. A lid speculum was placed in the operated eye. Paracentesis was performed. Preservative-free lidocaine was inserted into the anterior chamber. Viscoat was inserted into the anterior chamber. A clear corneal incision was made. A capsulorhexis was performed. The lens nucleus was hydrodissected, then phacoemulsified and the cortical material was removed with the irrigation aspiration unit. The capsular bag was filled with Provisc and AcrySof lens was inserted into the capsular bag and seemed to be in good position. All viscoelastic material was removed. 0.1 cc of moxifloxacin was inserted into the anterior chamber. The wounds were stromally hydrated. Both were seemed to be both water and airtight. Zymaxid and Iopidine were given postoperatively and the patient was sent to recovery in good condition. VIBHA GUZMÁN MD [id number] E/S: Vibha Guzmán MD [facility] PT NAME: VICTOR HUGO PADILLA MR#: [id number] [address] [place] [address] ACCT: [id number] : 46 OPERATIVE REPORT 11/11/18 1214 Electronically Signed [facility] PT NAME: VICTOR HUGO PADILLA MR#: [id number] [address] [place], [place] [address] ACCT: [id number] : 46 OPERATIVE REPORT Normal [facility] Vital Signs Date Time Vital Sign Value Performing Clinician Colette moore 03-03-2024 10:04-0400 Body height 165.1 cm Sonido Ness MD Work Phone: [facility] 03-03-2024 10:04-0400 Body mass index (BMI) [Ratio] 26.96 kg/m2 Sonido Ness MD Work Phone: [facility] 03-03-2024 10:04-0400 Body weight 73.48 kg Sonido Ness MD Work Phone: [facility] 03-03-2024 10:04-0400 Diastolic blood pressure 70 mm[Hg] Sonido Ness MD Work Phone: [facility] 03-03-2024 10:04-0400 Heart rate 74 /min Sonido Ness MD Work Phone: [facility] 03-03-2024 10:04-0400 SaO2% (BldA) [Mass fraction] 98 % Sonido Ness MD Work Phone: [facility] 03-03-2024 10:04-0400 Systolic blood pressure 138 mm[Hg] Sonido Ness MD Work Phone: [facility] 09-01-2023 08:14-0400 Body height 165.1 cm Sonido Ness MD Work Phone: [facility] 09-01-2023 08:14-0400 Body weight 71.22 kg Sonido Ness MD Work Phone: [facility] 09-01-2023 08:14-0400 Diastolic blood pressure 78 mm[Hg] Sonido Ness MD Work Phone: [facility] 09-01-2023 08:14-0400 Heart rate 67 /min Sonido Ness MD Work Phone: [facility] 09-01-2023 08:14-0400 SaO2% (BldA) [Mass fraction] 96 % Sonido Ness MD Work Phone: [facility] 09-01-2023 08:14-0400 Systolic blood pressure 120 mm[Hg] Sonido Ness MD Work Phone: [facility] 03-05-2023 10:12-0400 Body height 165.1 cm Sonido Ness MD Work Phone: [facility] 03-05-2023 10:12-0400 Body weight 71.22 kg Sonido Ness MD Work Phone: [facility] 03-05-2023 10:12-0400 Diastolic blood pressure 60 mm[Hg] Sonido Ness MD Work Phone: [facility] 03-05-2023 10:12-0400 Heart rate 80 /min Sonido Ness MD Work Phone: [facility] 03-05-2023 10:12-0400 SaO2% (BldA) [Mass fraction] 98 % Sonido Ness MD Work Phone: [facility] 03-05-2023 10:12-0400 Systolic blood pressure 122 mm[Hg] Sonido Ness MD Work Phone: [facility] 09-04-2022 10:19-0500 Body weight 74.39 kg Sonido Ness MD Work Phone: [facility] 09-04-2022 10:19-0500 Diastolic blood pressure 60 mm[Hg] Sonido Ness MD Work Phone: [facility] 09-04-2022 10:19-0500 Heart rate 74 /min Sonido Ness MD Work Phone: [facility] 09-04-2022 10:19-0500 SaO2% (BldA) [Mass fraction] 99 % Sonido Ness MD Work Phone: [facility] 09-04-2022 10:19-0500 Systolic blood pressure 112 mm[Hg] Sonido Ness MD Work Phone: [facility] 03-03-2022 10:15-0400 Body height 165.1 cm Sonido Ness MD Work Phone: [facility] 03-03-2022 10:15-0400 Body weight 73.03 kg Sonido Ness MD Work Phone: [facility] 03-03-2022 10:15-0400 Diastolic blood pressure 60 mm[Hg] Sonido Ness MD Work Phone: [facility] 03-03-2022 10:15-0400 Heart rate 81 /min Sonido Ness MD Work Phone: [facility] 03-03-2022 10:15-0400 SaO2% (BldA) [Mass fraction] 98 % Sonido Ness MD Work Phone: [facility] 03-03-2022 10:15-0400 Systolic blood pressure 122 mm[Hg] Sonido Ness MD Work Phone: [facility] 02-17-2022 11:37-0400 Body weight 70.76 kg Kade Crews MD, PhD Work Phone: [facility] Encounters Encounter Date Encounter Type Care Provider Facility Start: 07-28-2024 ambulatory Vibha Cm [facility] Start: 07-17-2024 ambulatory Yony [facility] Start: 07-01-2024 End: 07-01-2024 Telephone encounter Sonido Ness MD Work Phone: [facility] Comment on above: Lab Orders Start: 06-26-2024 End: 06-27-2024 ambulatory Sonido Ness MD Work Phone: [facility] Start: 06-26-2024 End: 06-27-2024 Patient encounter procedure Sonido Ness MD Work Phone: [facility] Comment on above: My X-ray report Start: 06-24-2024 End: 06-24-2024 ambulatory SONIDO NESS [facility] Start: 06-24-2024 End: 06-24-2024 Telephone encounter Sonido Ness MD Work Phone: [facility] Comment on above: Foot Pain (Midfoot) Start: 03-15-2024 Refill Sonido Ness MD Work Phone: [facility] Comment on above: Refill Request Start: 03-04-2024 Patient encounter procedure [facility] Provider [facility] Start: 03-04-2024 Telephone encounter Sonido Ness MD Work Phone: [facility] Comment on above: Results Start: 03-03-2024 End: 03-03-2024 Patient encounter procedure Sonido Ness MD Work Phone: [facility] Comment on above: Medicare annual well ness visit, subsequent (Primary Dx); Mixed hyperlipidemia; 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; Stage 3a chronic kidney disease (HCC); Vitamin D deficiency; Uncomplicated severe persistent asthma; Chronic idiopathic urticaria; Encounter for immunization Refill Request Start: 03-03-2024 End: 03-03-2024 ambulatory SONIDO NESS Facility:[facility] Start: 01-29-2024 End: 01-29-2024 ambulatory FELIPA PUGA Not Available Start: 01-10-2024 End: 01-10-2024 ambulatory FELIPA PUGA Not Available Start: 01-09-2024 Telephone encounter Sonido Ness MD Work Phone: [facility] Comment on above: Lab Orders Start: 12-10-2023 Telephone encounter Sonido Ness MD [facility] Phone: [facility] Comment on above: Hives Start: 10-02-2023 ambulatory Sonido Ness MD Work Phone: [facility] Comment on above: Symbicort in 2023 Start: 09-01-2023 End: 09-01-2023 Patient encounter procedure Sonido Ness MD Work Phone: [facility] Comment on above: Hives (Primary Dx); Mixed hyperlipidemia; Stage 3a chronic kidney disease (HCC); Severe persistent asthma without complication; 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; Osteopenia, unspecified location; allergies to mold, trees; Uncomplicated severe persistent asthma; Encounter for immunization; Angular cheilitis Start: 09-01-2023 End: 09-01-2023 ambulatory SONIDO NESS Facility:[facility] Start: 08-22-2023 ambulatory Sonido Ness MD Work Phone: [facility] Comment on above: Allergic Reaction Start: 04-20-2023 Telephone encounter Sonido Ness MD Work Phone: [facility] Comment on above: Results Start: 04-18-2023 ambulatory SONIDO NESS Facility:[facility] Start: 04-18-2023 End: 04-18-2023 Subsequent hospital visit by physician [facility] Comment on above: Screening for osteop orosis [Z13.820] Start: 03-07-2023 Patient encounter procedure [facility] Provider [facility] Department Start: 03-06-2023 Telephone encounter Sonido Ness MD Work Phone: [facility] Comment on above: Results Start: 03-05-2023 Telephone encounter Sonido Ness MD Work Phone: [facility] Comment on above: Opened In Error Refill Request Start: 03-05-2023 End: 03-05-2023 Patient encounter procedure Sonido Ness MD Work Phone: [facility] Comment on above: Medicare annual well ness visit, subsequent (Primary Dx); Mixed hyperlipidemia; 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; allergies to mold, trees; Status post radiofrequency ablation for arrhythmia; Encounter for screening mammogram for breast cancer; Screening for colorectal cancer; Need for vaccination against Streptococcus pneumoniae; Uncomplicated severe persistent asthma; Hypothyroidism, unspecified type; Screening for colon cancer; Screening for osteoporosis; Postmenopausal Start: 09-05-2022 Telephone encounter Sonido Ness MD Work Phone: [facility] Comment on above: Results Start: 09-04-2022 End: 09-04-2022 Patient encounter procedure Sonido Ness MD Work Phone: [facility] Comment on above: Mixed hyperlipidemia (Primary Dx); 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; Hypothyroidism, unspecified type; Uncomplicated severe persistent asthma; Severe persistent asthma without complication; Chronic pansinusitis; Stage 3a chronic kidney disease (HCC); Need for vaccination against Streptococcus pneumoniae; Need for COVID-19 vaccine; Need for influenza vaccination; H/O supraventricular tachycardia Start: 08-24-2022 Telephone encounter Merlene paula MD Work Phone: Gastroenterology Comment on above: October colon oscopy Start: 08-23-2022 Refill Antonella Paz PSS 4C In stitute Comment on above: Medication Problem; New Rx Request Start: 08-22-2022 Refill Genny Ni PSS [facility] Start: 08-16-2022 End: 08-16-2022 ambulatory Sonido Ness MD Work Phone: [facility] Comment on above: Mild intermittent re active airway disease with acute exacerbation (Primary Dx); Cough; Acute bronchitis due to other specified organisms; Acute cough Start: 08-16-2022 End: 08-16-2022 Telemedicine consultation with patient Sonido Ness MD Work Phone: [facility] Start: 06-06-2022 Patient encounter procedure [facility] Provider [facility] Department Start: 05-08-2022 End: 05-09-[address] 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 JOINER Facility: Start: 03-06-2022 Telephone encounter Sonido Ness MD Work Phone: [facility] Comment on above: Results Start: 03-03-2022 End: 03-03-2022 Patient encounter procedure Sonido Ness MD Work Phone: [facility] Comment on above: Medicare annual well ness visit, subsequent (Primary Dx); Mixed hyperlipidemia; 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; Need for COVID-19 vaccine; Visit for screening mammogram; Stage 3a chronic kidney disease (HCC); Osteopenia, unspecified location; Severe persistent asthma without complication; Status post radiofrequency ablation for arrhythmia; Uncomplicated severe persistent asthma; Hypothyroidism, unspecified type; Angular cheilitis Start: 02-17-2022 End: 02-17-2022 ambulatory Kade Crews MD, PhD Work Phone: [facility] Comment on above: Cough (Primary Dx); Mild intermittent reactive airway disease without complication Start: 02-17-2022 End: 02-17-2022 Telemedicine consultation with patient Kade Crews MD, PhD Work Phone: [facility] Start: 11-11-2018 Patient encounter procedure Vibha Mansi Lamping Facility:[facility] Start: 09-23-2018 Patient encounter procedure Vibha A Lamping Facility:[facility] Start: 04-18-2017 End: 04-19-2017 Ambulatory [facility] Procedures Date Procedure Procedure Detail Performing Clinician Start: 03-03-2024 Urnls dip stick/tabl et rgnt auto w/o microscopy Sonido Ness MD Work Phone: Start: 03-03-2024 Blood count complete auto&auto difrntl wbc Kade Crews MD, PhD Work Phone: Start: 03-03-2024 Lipid panel Kade moise MD, PhD Work Phone: Start: 03-03-2024 Adult depression scr eening assessment Sonido Ness MD Work Phone: Start: 03-03-2024 Lipid 1996 panel - S chetna or Plasma Sonido Ness MD Work Phone: Start: 09-01-2023 Urnls dip stick/tabl et rgnt auto w/o microscopy Sonido Ness MD Work Phone: Start: 09-01-2023 Blood count complete automated Sonido Ness MD Work Phone: Start: 09-01-2023 Lipid panel Sonido Ness MD Work Phone: Start: 09-01-2023 INFLUENZA VACCINE, P RSV FREE, AGE 65+ YR, HIGH DOSE, QUADRIVALENT (FLUZONE HIGH-DOSE) Sonido Ness MD Work Phone: Start: 09-01-2023 PFIZER-BIONTECH COVI D-19 VACCINE ( SEASON) AGE 12+ YR Sonido Ness MD Work Phone: Start: 09-01-2023 Lipid 1996 panel - S chetna or Plasma Sonido Ness MD Work Phone: Start: 04-04-2023 Colonoscopy oSnido Lopez ch, MD Work Phone: Start: 03-05-2023 Blood count complete auto&auto difrntl wbc Sonido Ness MD Work Phone: Start: 03-05-2023 Urnls dip stick/tabl et rgnt auto w/o microscopy Sonido Ness MD Work Phone: Start: 03-05-2023 Lipid 1996 panel - S chetna or Plasma Sonido Ness MD Work Phone: Start: 09-04-2022 Blood count complete auto&auto difrntl wbc Sonido Ness MD Work Phone: Start: 09-04-2022 Lipid panel Sonido Ness MD Work Phone: Start: 09-04-2022 Urnls dip stick/tabl et rgnt auto w/o microscopy Sonido Ness MD Work Phone: Start: 09-04-2022 INFLUENZA SEASONAL QUADRIVALENT HIGH DOSE AGE 65+ Sonido Nses MD Work Phone: Start: 09-04-2022 PFIZER-BIONTECH COVI D-19 BIVALENT BOOSTER VACCINE, AGE 12+ YR Sonido Ness MD Work Phone: Start: 03-03-2022 Urnls dip stick/tabl et rgnt auto w/o microscopy Sonido Ness MD Work Phone: Start: 02-17-2022 Adult depression scr eening assessment Kade Crews MD, PhD Work Phone: Start: 05-04-2021 Mammography [facility] Provid er Start: 04-16-2021 Mammography Kade moise MD, PhD Work Phone: Start: 11-16-2017 Colonoscopy Kade moise MD, PhD Work Phone: Plan of Treatment Date Care Activity Detail Author Start: 10-08-2033 Urine microalbumin profile DTaP,Tdap,Td Vaccine (3 - Td or Tdap) [facility] Start: 03-03-2029 Lipid panel Lipid Screening [facility] Start: 09-01-2028 Lipid 1996 panel - Serum or Plasma Lipid Screening [facility] Start: 09-01-2028 Lipid panel Lipid Screening [facility] Start: 04-04-2028 Colonoscopy Colonoscopy [facility] Start: 04-04-2028 Colorectal Cancer Screening Colorectal Cancer Screening [facility] Start: 04-04-2028 Screening for malign ant neoplasm of colon [facility] Start: 03-05-2028 Lipid 1996 panel - Serum or Plasma Lipid Screening [facility] Start: 03-05-2028 LIPID SCREEN LIPID SCREEN [facility] Start: 09-04-2027 LIPID SCREEN LIPID SCREEN [facility] Start: 03-03-2027 Diabetes Screening Diabetes Screenin g [facility] Start: 03-03-2027 LIPID SCREEN LIPID SCREEN [facility] Start: 09-01-2026 Diabetes Screening Diabetes Screenin [facility] Start: 08-19-2026 LIPID SCREEN LIPID SCREEN [facility] Start: 03-05-2026 DIABETES SCREEN DIABETES SCREEN [facility] Start: 03-05-2026 Diabetes Screening Diabetes Screenin g [facility] Start: 09-04-2025 DIABETES SCREEN DIABETES SCREEN [facility] Start: 03-03-2025 Annual PCP Team [employer] Professional osman Disease Visit Annual PCP Team Chronic Disease Visit [facility] Start: 03-03-2025 Anxiety Screening Anxiety Screening [facility] Start: 03-03-2025 Complete blood count Hemoglobin/Pérez tocrit [facility] Start: 03-03-2025 Creatinine measurement Serum Creatin ine [facility] Start: 03-03-2025 Depression Screening Depression Scre ening [facility] Start: 03-03-2025 DIABETES SCREEN DIABETES SCREEN [facility] Start: 09-04-2024 End: 09-04-2024 Patient encounter procedure 09/04/2024 10:30 AM EST Office Visit [facility] [address] [place] [address] [place] [address] [address] [facility] [address] [place] [address] six month follow up [facility] [place] Comment on above: six month follow up Start: 09-01-2024 Annual PCP Team [employer] osman Disease Visit Annual PCP Team Chronic Disease Visit [facility] Start: 09-01-2024 Complete blood count Hemoglobin/Pérez tocrit [facility] Start: 09-01-2024 Creatinine measurement Serum Creatin ine [facility] Start: 09-01-2024 Hemoglobin/Hematocrit Hemoglobin/Hem atocrit [facility] Start: 09-01-2024 Serum Creatinine Serum Creatinine Cl [facility] Start: 08-19-2024 DIABETES SCREEN DIABETES SCREEN [facility] Start: 07-29-2024 Covid-19 Vaccine () Covid-19 Vaccine () [facility] Comment on above: Postponed from 06/29 (Not Currently Available) Start: 07-01-2024 End: 09-30-2024 25-hydroxyvitamin D3 [Mass/volume] in Serum or Plasma VITAMIN D 25 HYDROXY Lab Routine Stage 3a chronic kidney disease (HCC) Expected: 07/01/2024, Expires: 09/30/2024 [facility] Comment on above: Expected: 07/01/2024 , Expires: 09/30/2024 Start: 07-01-2024 End: 09-30-2024 CBC W Auto Differential panel - Blood COMPLETE BLOOD COUNT AND DIFFERENTIAL Lab Routine Mixed hyperlipidemia 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 Stage 3a chronic kidney disease (HCC) Expected: 07/01/2024, Expires: 09/30/2024 [facility] Comment on above: Expected: 07/01/2024 , Expires: 09/30/2024 Start: 07-01-2024 End: 09-30-2024 Comprehensive metabolic 2000 panel - Serum or Plasma COMPREHENSIVE METABOLIC PANEL Lab Routine Mixed hyperlipidemia 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 Stage 3a chronic kidney disease (HCC) Expected: 07/01/2024, Expires: 09/30/2024 [facility] Work Phone: Comment on above: Expected: 07/01/2024 , Expires: 09/30/2024 Start: 07-01-2024 End: 09-30-2024 Lipid 1996 panel - Serum or Plasma LIPID PANEL BASIC Lab Routine Mixed hyperlipidemia Expected: 07/01/2024, Expires: 09/30/2024 [facility] Comment on above: Expected: 07/01/2024 , Expires: 09/30/2024 Start: 07-01-2024 End: 09-30-2024 Thyrotropin [Units/volume] in Serum or Plasma THYROID STIMULATING HORMONE Lab Routine 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 Expected: 07/01/2024, Expires: 09/30/2024 [facility] Comment on above: Expected: 07/01/2024 , Expires: 09/30/2024 Start: 07-01-2024 End: 09-30-2024 Urinalysis complete panel - Urine URINALYSIS, WITH MICROSCOPIC Lab Routine Mixed hyperlipidemia 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 Stage 3a chronic kidney disease (HCC) Expected: 07/01/2024, Expires: 09/30/2024 [facility] Comment on above: Expected: 07/01/2024 , Expires: 09/30/2024 Start: 06-29-2024 Influenza vaccination Influenza Vacc ine (#1) [facility] Start: 03-05-[address] RESEARCHER OSMAN DISEASE VISIT ANNUAL PCP TEAM CHRONIC DISEASE VISIT [facility] Start: 03-05-2024 HEMOGLOBIN/HEMATOCRIT HEMOGLOBIN/HEM ATOCRIT [facility] Start: 03-05-2024 SERUM CREATININE SERUM CREATININE Cl [facility] Start: 01-11-2024 End: 04-11-2024 25-hydroxyvitamin D3 [Mass/volume] in Serum or Plasma VITAMIN D 25 HYDROXY Lab Routine Vitamin D deficiency Expected: 01/11/2024, Expires: 04/11/2024 [facility] Work Phone: Comment on above: Expected: 01/11/2024 , Expires: 04/11/2024 Start: 01-11-2024 End: 04-11-2024 CBC W Auto Differential panel - Blood CBC + DIFF Lab Routine Mixed hyperlipidemia 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 Stage 3a chronic kidney disease (HCC) Vitamin D deficiency Expected: 01/11/2024, Expires: 04/11/2024 [facility] Work Phone: Comment on above: Expected: 01/11/2024 , Expires: 04/11/2024 Start: 01-11-2024 End: 04-11-2024 Comprehensive metabolic 2000 panel - Serum or Plasma COMP METABOLIC PANEL Lab Routine Mixed hyperlipidemia 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 Stage 3a chronic kidney disease (HCC) Vitamin D deficiency Expected: 01/11/2024, Expires: 04/11/2024 [facility] Work Phone: Comment on above: Expected: 01/11/2024 , Expires: 04/11/2024 Start: 01-11-2024 End: 04-11-2024 Lipid 1996 panel - Serum or Plasma LIPID PANEL BASIC Lab Routine Mixed hyperlipidemia Expected: 01/11/2024, Expires: 04/11/2024 [facility] Work Phone: Comment on above: Expected: 01/11/2024 , Expires: 04/11/2024 Start: 01-11-2024 End: 04-11-2024 PSA/PROSTSPECAG SCRN PSA/PROSTSPECAG SCRN Lab Routine Prostate cancer screening Expected: 01/11/2024, Expires: 04/11/2024 [facility] Work Phone: Comment on above: Expected: 01/11/2024 , Expires: 04/11/2024 Start: 01-11-2024 End: 01-08-2025 Thyrotropin [Units/volume] in Serum or Plasma TSH BLD Lab Routine Mixed hyperlipidemia 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 Expected: 01/11/2024, Expires: 01/08/2025 [facility] Work Phone: Comment on above: Expected: 01/11/2024 , Expires: 01/08/2025 Start: 01-11-2024 End: 04-11-2024 Urinalysis complete panel - Urine URINALYSIS, WITH MICROSCOPIC Lab Routine Mixed hyperlipidemia 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 Stage 3a chronic kidney disease (HCC) Vitamin D deficiency Expected: 01/11/2024, Expires: 04/11/2024 [facility] Work Phone: Comment on above: Expected: 01/11/2024 , Expires: 04/11/2024 Start: 12-31-2023 Covid-19 Vaccine () Covid-19 Vaccine () [facility] Start: 10-29-2023 Advance Directive Discussion Advance Directive Discussion [facility] Start: 10-29-2023 Depression Assessment Depression Ass essment [facility] Start: 09-04-[address] RESEARCHER OSMAN DISEASE VISIT ANNUAL PCP TEAM CHRONIC DISEASE VISIT [facility] Start: 09-04-2023 HEMOGLOBIN/HEMATOCRIT HEMOGLOBIN/HEM ATOCRIT [facility] Start: 09-04-2023 SERUM CREATININE SERUM CREATININE Cl [facility] Start: 08-16-[address]AM [address] RESEARCHER OSMAN DISEASE VISIT ANNUAL PCP TEAM CHRONIC DISEASE VISIT [facility] Start: 06-29-2023 Covid-19 Vaccine () Covid-19 Vaccine () [facility] Start: 06-29-2023 Influenza vaccination Influenza Vacc ine (#1) [facility] Start: 03-05-2023 End: 05-05-2023 Comprehensive metabolic 2000 panel - Serum or Plasma [facility] Work Phone: Comment on above: Expected: 03/05/2023 , Expires: 05/05/2023 Start: 03-05-2023 End: 05-05-2023 Lipid 1996 panel - Serum or Plasma [facility] Work Phone: Comment on above: Expected: 03/05/2023 , Expires: 05/05/2023 Start: 03-05-2023 End: 01-27-2024 Thyrotropin [Units/volume] in Serum or Plasma [facility] Work Phone: Comment on above: Expected: 03/05/2023 , Expires: 01/27/2024 Start: 03-05-2023 End: 05-05-2023 UA DIP, URINE (POC) UA DIP, URINE (POC) Lab Routine Mixed hyperlipidemia 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 Start: 03-03-2023 SERUM CREATININE SERUM CREATININE [facility] Start: 02-17-2023 Adult depression screening assessment DEPRESSION SCREENING [facility] Start: 02-17-[address]AM [address] RESEARCHER OSMAN DISEASE VISIT ANNUAL PCP TEAM CHRONIC DISEASE VISIT [facility] Start: 01-18-2023 Urine microalbumin profile [facility] Start: 11-16-2022 Colonoscopy COLONOSCOPY [facility] Start: 11-16-2022 COLORECTAL CANCER SCREENING COLORECTAL CANCER SCREENING [facility] Start: 09-04-2022 End: 11-04-2022 UA DIP, URINE (POC) UA DIP, URINE (POC) Lab Routine Mixed hyperlipidemia 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 Expected: 03/03/2022, Expires: 05/03/2022 [facility] Work Phone: Comment on above: Expected: 03/03/2022 , Expires: 05/03/2022 Start: 03-03-2022 End: 05-03-2022 Comprehensive metabolic 2000 panel - Serum or Plasma COMP METABOLIC PANEL Lab Routine Mixed hyperlipidemia 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 Expected: 03/03/2022, Expires: 05/03/2022 [facility] Work Phone: Comment on above: Expected: 03/03/2022 , Expires: 05/03/2022 Start: 03-03-2022 End: 05-03-2022 LIPID PANEL BASIC LIPID PANEL BASIC Lab Routine Mixed hyperlipidemia Expected: 03/03/2022, Expires: 05/03/2022 [facility] Work Phone: Comment on above: Expected: 03/03/2022 , Expires: 05/03/2022 Start: 03-03-2022 End: 03-16-2023 Screening mammography bi 2-view breast inc cad JOHN SCREENING Radiology Routine Visit for screening mammogram Expected: 03/03/2022, Expires: 03/16/2023 [facility] Work Phone: Comment on above: Expected: 03/03/2022 , Expires: 03/16/2023 Start: 03-03-2022 End: 02-14-2023 Thyrotropin [Units/volume] in Serum or Plasma TSH BLD Lab Routine 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 Expected: 03/03/2022, Expires: 02/14/2023 [facility] Work Phone: Comment on above: Expected: 03/03/2022 , Expires: 02/14/2023 Start: 03-03-2022 End: 05-03-2022 UA DIP, URINE (POC) UA DIP, URINE (POC) Lab Routine Mixed hyperlipidemia 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 Expected: 03/03/2022, Expires: 05/03/2022 [facility] Work Phone: Comment on above: Expected: 03/03/2022 , Expires: 05/03/2022 Start: 02-17-2022 COVID-19 VACCINE (4 - Booster for Pfizer series) COVID-19 VACCINE (4 - Booster for Pfizer series) [facility] Start: 10-29-2021 ADVANCE DIRECTIVE DISCUSSION ADVANCE DIRECTIVE DISCUSSION [facility] Start: 10-29-2021 DEPRESSION ASSESSMENT DEPRESSION ASS ESSMENT [facility] Start: 11-03-2020 FECAL OCCULT BLOOD FECAL OCCULT BLOO D [facility] Start: 11-03-2020 Screening for malign ant neoplasm of colon Fecal Occult Blood [facility] Start: 09-05-2015 PNEUMOCOCCAL: 65+ (2 - PCV) PNEUMOCOCCAL: 65+ (2 - PCV) [facility] Start: 2008 RSV Vaccine (1 - 1-d ose 60+ series) RSV Vaccine (1 - 1-dose 60+ series) [facility] Start: 1993 COLOGUARD (FIT-DNA) COLOGUARD (FIT-D NA) [facility] Start: [address] COLONOGRAPHY [facility] Start: 1993 Screening for malign ant neoplasm of colon [facility] Start: 1993 SIGMOIDOSCOPY SIGMOIDOSCOPY [facility] COLOGUARD COLOGUARD Lab Ro utine Screening for colorectal cancer Ordered: 03/05/2023 [facility] Work Phone: Comment on above: Ordered: 03/05/2023 End: 04-03-2024 DXA-AXIAL SKELETON DXA-AXIAL SKELETON Radiology Routine Screening for osteoporosis Postmenopausal 1 Occurrences starting 03/05/2023 until 04/03/2024 [facility] Work Phone: Comment on above: 1 Occurrences starti ng 03/05/2023 until 04/03/2024 End: 04-18-2023 DXA-AXIAL SKELETON [facility] Work Phone: Comment on above: 1 Occurrences starti ng 04/18/2023 until 04/18/2023 End: 04-03-2024 JOHN SCREENING JOHN SCREENING Radiology Routine Encounter for screening mammogram for breast cancer 1 Occurrences starting 03/05/2023 until 04/03/2024 [facility] Work Phone: Comment on above: 1 Occurrences starti ng 03/05/2023 until 04/03/2024 End: 03-05-2024 Screening colonoscopy COLONOSCOPY SCREENING Endoscopy Routine Screening for colon cancer 1 Occurrences starting 03/05/2023 until 03/05/2024 [facility] Work Phone: Comment on above: 1 Occurrences starti ng 03/05/2023 until 03/05/2024 UA DIP OB, URINE (POC) UA DIP OB , URINE (POC) Lab Routine Mixed hyperlipidemia Ordered: 09/01/2023 [facility] Work Phone: Comment on above: Ordered: 09/01/2023 End: 07-24-2025 XR Foot - left AP and Lateral and oblique XR FOOT GENERAL 3V AP/LAT/OBL LEFT Radiology Routine Left foot pain 1 Occurrences starting 06/24/2024 until 07/24/2025 [facility] Work Phone: Comment on above: 1 Occurrences starti ng 06/24/2024 until 07/24/2025 [facility] Immunizations Immunization Date Immunization Notes Care Provider [facility] 03-03-2024 diphtheria, tetanus toxoids and acellular pertussis vaccine, unspecified formulation Sonido Ness MD Work Phone: [facility] 03-03-2024 respiratory syncytia l virus RSV vaccine, PF, (ABRYSVO) 120 mcg/0.5 mL injection Sonido Ness MD Work Phone: [facility] 10-08-2023 tetanus toxoid, redu seble diphtheria toxoid, and acellular pertussis vaccine, adsorbed Sonido Ness MD Work Phone: [facility] 09-01-2023 COVID-19 vaccine, ag e 12+ yr, season (FieldEZ) Sonido Ness MD Work Phone: [facility] 09-01-2023 diphtheria, tetanus toxoids and acellular pertussis vaccine, unspecified formulation Sonido Ness MD Work Phone: [facility] Work Phone: Comment on above: Inject 0.5 mL intram uscularly one time only for 1 dose. 09-01-2023 influenza (HD-IIV4) vaccine, age 65+ yr, high dose, quadrivalent, PF (FLUZONE HIGH-DOSE) Sonido Ness MD Work Phone: [facility] 09-01-2023 respiratory syncytia l virus RSV vaccine, PF, (ABRYSVO) 120 mcg/0.5 mL injection Sonido Ness MD Work Phone: [facility] Work Phone: Comment on above: Inject 0.5 mL intram uscularly one time only for 1 dose. 09-01-2023 influenza virus vacc ine, unspecified formulation Sonido Ness MD Work Phone: [facility] 03-05-2023 diphtheria, tetanus toxoids and acellular pertussis vaccine, unspecified formulation Sonido Ness MD Work Phone: [facility] Work Phone: Comment on above: Inject 0.5 mL intram uscularly one time only for 1 dose. 03-05-2023 pneumococcal (PCV20) vaccine, 20 valent (PREVNAR 20) Sonido Ness MD Work Phone: [facility] 03-05-2023 pneumococcal Conjuga te, unspecified formulation Sonido Ness MD Work Phone: [facility] Work Phone: 09-04-2022 COVID-19 booster vac cine, age 12+ yr, bivalent (PFIZER-BIONTECH) Sonido Ness MD Work Phone: [facility] 09-04-2022 influenza, high-dose , quadrivalent vaccine (FLUZONE HIGH DOSE QUADRIVALENT) Sonido Ness MD Work Phone: [facility] 09-04-2022 influenza virus vacc ine, unspecified formulation Sonido Ness MD Work Phone: [facility] 04-03-2022 COVID-19 original vaccine, age 12+ yr, monovalent (PFIZER-BIONTECH - CRUZ TOP) Sonido Ness MD Work Phone: [facility] 10-19-2021 COVID-19 original vaccine, age 12+ yr, monovalent (PFIZER-BIONTECH - PURPLE TOP) Sonido Ness MD Work Phone: [facility] 08-19-2021 influenza, high-dose , quadrivalent vaccine (FLUZONE HIGH DOSE QUADRIVALENT) Kade Crews MD, PhD Work Phone: [facility] 03-14-2021 COVID-19 original vaccine, age 12+ yr, monovalent (PFIZER-BIONTECH - PURPLE TOP) Sonido Ness MD Work Phone: [facility] 02-21-2021 COVID-19 original vaccine, age 12+ yr, monovalent (PFIZER-BIONTECH - PURPLE TOP) Sonido Ness MD Work Phone: [facility] 12-08-2020 zoster vaccine recombinant Kade Crews MD, PhD Work Phone: [facility] 08-25-2020 zoster vaccine recombinant Kade Crews MD, PhD Work Phone: [facility] 08-18-2020 influenza, high-dose , quadrivalent vaccine (FLUZONE HIGH DOSE QUADRIVALENT) Kade Crews MD, PhD Work Phone: [facility] 08-25-2019 influenza, high dose seasonal, preservative-free Kade Crews MD, PhD Work Phone: [facility] 09-02-2018 influenza, high dose seasonal, preservative-free Kade Crews MD, PhD Work Phone: [facility] 07-07-2017 influenza, high dose seasonal, preservative-free Kade Crews MD, PhD Work Phone: [facility] 09-04-2016 influenza, high dose seasonal, preservative-free Kade Crews MD, PhD Work Phone: [facility] 09-04-2015 influenza, high dose seasonal, preservative-free Kade Crews MD, PhD Work Phone: [facility] 09-05-2014 influenza, seasonal, injectable Kade Crews MD, PhD Work Phone: [facility] 09-05-2014 pneumococcal conjuga te vaccine, 13 valent Kade Crews MD, PhD Work Phone: [facility] 09-05-2014 pneumococcal polysaccharide vaccine, 23 valent [facility] Provider [facility] 07-05-2013 influenza virus vacc ine, unspecified formulation Kade Crews MD, PhD Work Phone: [facility] Work Phone: 01-18-2013 tetanus toxoid, redu seble diphtheria toxoid, and acellular pertussis vaccine, adsorbed Kade Crews MD, PhD Work Phone: [facility] Work Phone: 01-18-2013 zoster vaccine, live Kade Crews MD, PhD Work Phone: [facility] Work Phone: 08-03-2012 influenza virus vacc ine, whole virus Kade Crews MD, PhD Work Phone: [facility] Work Phone: 08-30-2010 influenza virus vacc ine, unspecified formulation Kade Crews MD, PhD Work Phone: [facility] Work Phone: 07-17-2009 influenza virus vacc ine, unspecified formulation Kade Crews MD, PhD Work Phone: [facility] 08-29-2008 pneumococcal polysaccharide vaccine, 23 valent Kade Crews MD, PhD Work Phone: [facility] Work Phone: 10-29-2007 pneumococcal polysaccharide vaccine, 23 valent [facility] Provider [facility] Work Phone: 10-10-2007 influenza virus vacc ine, unspecified formulation Kade Crews MD, PhD Work Phone: [facility] Payers Date Payer Category Payer Unknown JT Diaz [employer] [address] [facility] [id number] 2019-Present [phone] [address] [place] [address] [facility] [id number] 2019 Unknown [id number] 2017 Medicare [id number] 1959 Unknown [id number] 1948 Unknown [id number] 1948 Unknown [id number] 1948 Unknown [id number] 9 1948 Unknown [id number] 6 Unknown [id number] Unknown [id number] Social History Date Type Detail Facility Start: 06-10-2011 Tobacco smoking status NHIS Never smoked tobacco [facility] Start: 02-17-2022 End: 03-03-2024 Alcohol intake Current non-drinker of alcohol (finding) [facility] Start: 1950 Sex Assigned At Female [facility] Start: 02-07-2022 End: 09-04-2022 Exposure to SARS-CoV-2 (event) Not sure [facility] Start: 02-28-2022 End: 02-27-2023 History SDOH Alcohol Frequency 1 [facility] Start: 02-28-2022 End: 02-27-2023 History SDOH Social Connections Phone 5 [facility] Start: 02-28-2022 End: 02-27-2023 History SDOH Social Connections Get Together 98 [facility] Start: 02-28-2022 End: 02-27-2023 History SDOH Social Connections Jew 3 [facility] Start: 02-28-2022 End: 02-27-2023 History SDOH Transport Med 2 [facility] Start: 06-10-2011 Tobacco use and exposure Smokeless tobacco non-user [facility] Work Phone: Start: 02-27-2023 History SDOH Alcohol Std Drinks 0 [facility] Start: 02-27-2023 History SDOH Physical Activity MPS 6 [facility] Start: 02-27-2023 End: 03-05-2023 History of Social function [facility] Start: 02-27-2023 End: 03-05-2023 Social connection and isolation panel [facility] How often do you get together with friends or relatives? Patient refused [facility] Do you belong to any clubs or organizations such as orthodox groups, unions, [employer] or athletic groups, or school groups? Yes [facility] Are you now , , , , never or living with a partner? [facility] How often to you hav e a drink containing alcohol? Never [facility] Do you feel stress - tense, restless, nervous, or anxious, or unable to sleep at night because your mind is troubled all the time - these days [OSQ] Not at all [facility] (I/We) worried wheth er (my/our) food would run out before (I/we) got money to buy more. Never true [facility] In the past 12 month s, was there a time when you were not able to pay the mortgage or rent on time? 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 Patient notified. Avis Espinoza LPN [facility]08-27-2024 Miscellaneous Notes* Telephone Encounter - Avis Espinoza LPN - 06/24/2024 4:34 PM EDT Order faxed. Patient notified. Avis Espinoza LPN * Telephone Encounter - Avis Espinoza LPN - 06/24/2024 3:04 PM EDT Radiology fax: [phone]. Avis Espinoza LPN * Telephone Encounter - Avis Espinoza LPN - 06/24/2024 2:03 PM EDT Spoke with Patient, C/O injury to outside of left foot 1 below baby toe, very sore, a little better now after taking tylenol and applying ice. States she tried to stop herself from falling, heard apopping noise come from her foot. Asking for xray orders- pended. Closest hospital to her is [facility] in [place], [place].Will call and get radiology fax. Avis Espinoza LPN * Telephone Encounter - Diamond Barbosa - 06/24/2024 12:38 PM EDT Victor Hugo is calling Sonido Ness MD today with concern regarding Foot Pain (Midfoot) Patient has been identified by name and birthdate. Duration of symptoms: N/A Person calling: self Call patient at: on cell [phone] (home) [phone] (cell) Was an appointment scheduled: No Closing statement: Patient is concerned that she broke her foot, please call. Diamond Diaz documented [facility] Telephone encounter Note * Telephone Encounter - vAis Espinoza LPN - 06/24/2024 3:04 PM EDT Radiology fax: [phone]. Avis Espinoza LPN [facility]08-27-2024 Telephone encounter Note* Telephone Encounter - Avis Espinoza LPN - 06/24/2024 2:03 PM EDT Spoke with Patient, C/O injury to outside of left foot 1 below baby toe, very sore, a little better now after taking tylenol and applying ice. States she tried to stop herself from falling, heard apopping noise come from her foot. Asking for xray orders- pended. Closest hospital to her is [facility] in [place], [place].Will call and get radiology fax. Avis Espinoza LPN [facility]08-27-2024 Telephone encounter Note* Telephone Encounter - Diamond Barbosa - 06/24/2024 12:38 PM EDT Victor Hugo is calling Sonido Ness MD today with concern regarding Foot Pain (Midfoot) Patient has been identified by name and birthdate. Duration of symptoms: N/A Person calling: self Call patient at: on cell [phone] (home) [phone] (cell) Was an appointment scheduled: No Closing statement: Patient is concerned that she broke her foot, please call. Diamond Diaz [facility]05-18-2024 Telephone encounter Note* Telephone Encounter - Sylvia Marshall RN - 03/15/2024 10:10 AM EDT Patient calls for refill, generic symbicort Needs to be sent to mailorder Sylvia Marshall RN [facility]05-18-2024 Miscellaneous Notes* Telephone Encounter - Sylvia Marshall RN - 03/15/2024 10:10 AM EDT Patient calls for refill, generic symbicort Needs to be sent to mailorder Sylvia Marshall RN documented in this encounterM[facility] Telephone encounter Note * Telephone Encounter - Emma Moe RN - 03/04/2024 10:33 AM EDT Called and spoke to patient. Provided message as stated below. Patient verbalized understanding. [facility]05-07-2024 Miscellaneous Notes* Telephone Encounter - Emma Moe RN - 03/04/2024 10:33 AM EDT Called and spoke to patient. Provided message as stated below. Patient verbalized understanding. * Telephone Encounter - Radha Banks RN - 03/04/2024 7:49 AM EDT ----- Message from Sonido Ness MD sent at 03/04/2024 6:24 AM EDT ----- Labs with chol stable No changes, check in 6 months documented in this encounter[facility] Telephone encounter Note * Telephone Encounter - Radha Banks RN - 03/04/2024 7:49 AM EDT ----- Message from Sonido Ness MD sent at 03/04/2024 6:24 AM EDT ----- Labs with chol stable No changes, check in [address] months [address]06-2024 Telephone encounter Note* Telephone Encounter - Sylvia Marshall RN - 03/03/2024 1:02 PM EDT Patient calls , was seen today and refills were sent local instead of mailorder Pended. Sylvia Marshall RN [facility]05-06-2024 Miscellaneous Notes* Telephone Encounter - Sylvia Marshall RN - 03/03/2024 1:02 PM EDT Patient calls , was seen today and refills were sent local instead of mailorder Pended. Sylvia Marshall RN documented in this encounterM[facility]05-[facility] Instructions* Patient Instructions* Sonido Ness MD - 03/03/2024 12:38 PM EDT Screening schedule The following prevention plan is recommended: RSV Vaccine(1 - 1-dose 60+ series) Never done Covid-19 Vaccine( season) due on 12/31/2023 WHAT YOU CAN DO TO PREVENT FALLS Many falls can be prevented. By making some changes, you can lower your chances of falling. Four things YOU can do to prevent falls for you* and your caregiver 1. Begin a regular exercise program Exercise is one of the most important ways to lower your chances of falling. It makes you stronger and helps you feel better. Exercises that improve balance and coordination (like Aries Chi) are the most helpful. Lack of exercise leads to weakness and increases your chances of falling. Ask your doctor or health care provider about the best type of exercise program for you. 2. Have your health care provider review your medicines Have your doctor or pharmacist review all the medicines you take, even ouax-[id number]-[id number] medicines. As you get older, the way medicines work in your body can change. Some medicines, or combinations of medicines, can make you sleepy or dizzy andcan cause you to fall. 3. Have your vision checked Have your eyes checked by an eye doctor at least once a year. You may be wearing the wrong glasses or have a condition like glaucoma or cataracts that limits your vision. Poor vision can increase your chances of falling. 4. Make your home safer About half of all falls happen at home. To make your home safer: Remove things you can trip over (like papers, books, clothes, and shoes) from stairs and places where you walk. Remove small throw rugs or use double-sided tape to keep the rugs from slipping. Keep items you use often in cabinets you can reach easily without using a step stool. Have grab bars put in next to your toilet and in the tub or shower. Use non-slip mats in the bathtub and on shower floors. Improve the lighting in your home. As you get older, you need brighter lights to see well. Hang light-weight curtains or shades to reduce glare. Have handrails and lights put in on all staircases. Wear shoes both inside and outside the house. Avoid going barefoot or wearing slippers. For more information, contact: Centers for Disease Control and Prevention www.cdc.gov/injury * This information may not apply if you have certain medical conditions. documented in this encounterM[facility]05[facility] History of Present illness Narrative* Sonido Ness MD - 03/03/2024 10:30 AM EDT Images from the original note were not included. This note was created using [employer]. Subjective Victor Hugo Padilla is a 73 year old female. 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 The [employer]: CARTO mapping system was utilized. 2. 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 The [employer]: CARTO mapping system was utilized. 2. 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 FAMILY HISTORY Problem Relation Age of Onset Breast Cancer Mother of leukemia other (POLYCYTEMIA RUBRA VERA) Mother other (leukemia) Mother age 82 Cancer Father prostate, bladder Ischemic Heart Disease Father stent placed, age 96 other (dementia) Father other (CHF) Father Parkinson s Disease Brother Parkinson s Disease Brother other (donna's disease) Brother Cancer Maternal Grandfather pancreas Cancer Paternal Grandfather prostate Social History Tobacco Use Smoking status: Never Smokeless tobacco: Never Substance Use Topics Alcohol use: No Drug use: No Current Outpatient Medications on File Prior to Visit Medication Sig budesonide-formoterol (SYMBICORT) 160-4.5 mcg/actuation inhaler Inhale 2 Puffs as instructed two times a day. montelukast (SINGULAIR) 10 mg tablet Take 1 tablet by mouth once daily. levothyroxine (SYNTHROID) 75 mcg tablet Take 1 tablet by mouth once daily. atorvastatin (LIPITOR) 20 mg tablet Take 1 tablet by mouth once daily. albuterol HFA (VENTOLIN HFA) 90 mcg/actuation inhaler Inhale 2 Puffs as instructed every 4 hours asneeded. albuterol (PROVENTIL) 2.5 mg /3 mL (0.083 %) nebulizer solution Use 3 mL via nebulizer every 4 hours as needed for wheezing/shortness of breath. fluticasone (FLONASE) 50 mcg/actuation nasal spray Use 2 Sprays in each nostril once daily. Cholecalciferol, Vitamin D3, 1,000 unit ORAL Tab Take one(1) tablet two(2) times daily. calcium carbonate/vitamin d3(CALCIUM 600 + D(3) 600 MG (1,500)-200 UNIT TAB) BID FLAXSEED OIL 1,000 MG CAP BID LORATADINE 10 MG TAB Take one(1) tablet daily as needed. No current facility-administered medications on file prior to visit. Review of Systems Constitutional: Negative. Respiratory: Negative. Cardiovascular: Negative. Gastrointestinal: Negative. Genitourinary: Negative. Objective LMP 10/29/1998 Physical Exam Vitals reviewed. Constitutional: General: She is not in acute distress. Appearance: She is not diaphoretic. Neck: Thyroid: No thyromegaly. Cardiovascular: Rate and Rhythm: Normal rate and regular rhythm. Heart sounds: Normal heart sounds. No murmur heard. No friction rub. No gallop. Pulmonary: Effort: Pulmonary effort is normal. No respiratory distress. Breath sounds: Normal breath sounds. No wheezing or rales. Chest: Chest wall: No tenderness. Abdominal: General: Bowel sounds are normal. There is no distension. Palpations: Abdomen is soft. There is no mass. Tenderness: There is no abdominal tenderness. There is no guarding or rebound. Musculoskeletal: Cervical back: Normal range of motion and neck supple. Lymphadenopathy: Cervical: No cervical adenopathy. CBC with diff: WBC 7.14 09/01/2023 RBC 5.08 09/01/2023 Hemoglobin 14.9 09/01/2023 Hematocrit 47.2 09/01/2023 MCV 92.9 09/01/2023 MCH 29.3 09/01/2023 MCHC 31.6 09/01/2023 RDW-CV 13.2 09/01/2023 Platelet Count 204 09/01/2023 MPV 11.5 09/01/2023 Neut% 57.7 03/05/2023 Lymph% 30.7 03/05/2023 Charles% 9.5 03/05/2023 Eosin% 1.0 03/05/2023 Baso% 0.8 03/05/2023 Abs Neut (ANC) 3.56 03/05/2023 Abs Charles 0.59 03/05/2023 Abs Eosin 0.06 03/05/2023 Abs Baso 0.05 03/05/2023 Glucose (mg/dL) Date Value 09/01/2023 94 08/19/2021 86 Potassium (mmol/L) Date Value 09/01/2023 4.7 08/19/2021 4.3 Sodium (mmol/L) Date Value 09/01/2023 142 08/19/2021 140 Chloride (mmol/L) Date Value 09/01/2023 105 08/19/2021 103 CO2 (mmol/L) Date Value 09/01/2023 23 08/19/2021 25 Creatinine (mg/dL) Date Value 09/01/2023 1.20 08/19/2021 1.12 BUN (mg/dL) Date Value 09/01/2023 19 08/19/2021 18 Anion Gap (mmol/L) Date Value 09/01/2023 14 08/19/2021 12 Calcium (mg/dL) Date Value 08/19/2021 9.9 Calcium, Total (mg/dL) Date Value 09/01/2023 10.0 Protein, Total (g/dL) Date Value 09/01/2023 7.2 08/19/2021 7.3 Albumin (g/dL) Date Value 09/01/2023 4.5 08/19/2021 4.7 Bilirubin, Total (mg/dL) Date Value 09/01/2023 0.6 08/19/2021 0.6 Alkaline Phosphatase (U/L) Date Value 09/01/2023 122 08/19/2021 113 AST (U/L) Date Value 09/01/2023 25 08/19/2021 28 ALT (U/L) Date Value 09/01/2023 35 08/19/2021 25 ALT Date Value Ref Range Status 09/01/2023 35 7 - 38 U/L Final 03/05/2023 23 7 - 38 U/L Final 09/04/2022 32 7 - 38 U/L Final 03/03/2022 30 7 - 38 U/L Final AST Date Value Ref Range Status 09/01/2023 25 13 - 35 U/L Final 03/05/2023 30 13 - 35 U/L Final 09/04/2022 24 13 - 35 U/L Final 03/03/2022 26 13 - 35 U/L Final HDL Cholesterol Date Value Ref Range Status 09/01/2023 63 >39 mg/dL Final Comment: 40-59 mg/dL, Acceptable >59 mg/dL, High: Negative risk factor for coronary heart disease <40 mg/dL, Low: Positive risk factor for coronary heart disease 03/05/2023 55 >39 mg/dL Final Comment: 40-59 mg/dL, Acceptable >59 mg/dL, High: Negative risk factor for coronary heart disease <40 mg/dL, Low: Positive risk factor for coronary heart disease 09/04/2022 55 >39 mg/dL Final Comment: 40-59 mg/dL, Acceptable >59 mg/dL, High: Negative risk factor for coronary heart disease <40 mg/dL, Low: Positive risk factor for coronary heart disease 03/03/2022 57 >39 mg/dL Final Comment: 40-59 mg/dL, Acceptable >59 mg/dL, High: Negative risk factor for coronary heart disease <40 mg/dL, Low: Positive risk factor for coronary heart disease LDL Cholesterol Date Value Ref Range Status 09/01/2023 89 <100 mg/dL Final Comment: <100 mg/dL, Optimal 100-129 mg/dL, Near optimal/above optimal 130-159 mg/dL, Borderline high 160-189 mg/dL, High >189 mg/dL, Very high Secondary prevention optimal LDL Cholesterol levels are recommended to be < 70 mg/dL 03/05/2023 90 <100 mg/dL Final Comment: <100 mg/dL, Optimal 100-129 mg/dL, Near optimal/above optimal 130-159 mg/dL, Borderline high 160-189 mg/dL, High >189 mg/dL, Very high Secondary prevention optimal LDL Cholesterol levels are recommended to be < 70 mg/dL 09/04/2022 99 <100 mg/dL Final Comment: <100 mg/dL, Optimal 100-129 mg/dL, Near optimal/above optimal 130-159 mg/dL, Borderline high 160-189 mg/dL, High >189 mg/dL, Very high Secondary prevention optimal LDL Cholesterol levels are recommended to be < 70 mg/dL 03/03/2022 94 <100 mg/dL Final Comment: <100 mg/dL, Optimal 100-129 mg/dL, Near optimal/above optimal 130-159 mg/dL, Borderline high 160-189 mg/dL, High >189 mg/dL, Very high Secondary prevention optimal LDL Cholesterol levels are recommended to be < 70 mg/dL Triglyceride Date Value Ref Range Status 09/01/2023 73 <150 mg/dL Final Comment: <150 mg/dL, Normal 150-199 mg/dL, Borderline high 200-499 mg/dL, High >499 mg/dL, Very high 03/05/2023 79 <150 mg/dL Final Comment: <150 mg/dL, Normal 150-199 mg/dL, Borderline high 200-499 mg/dL, High >499 mg/dL, Very high 09/04/2022 115 <150 mg/dL Final Comment: <150 mg/dL, Normal 150-199 mg/dL, Borderline high 200-499 mg/dL, High >499 mg/dL, Very high 03/03/2022 84 <150 mg/dL Final Comment: <150 mg/dL, Normal 150-199 mg/dL, Borderline high 200-499 mg/dL, High >499 mg/dL, Very high No results found for: HBA1C Assessment and Plan ASSESSMENT/PLAN: 1. Medicare annual wellness visit, subsequent - ICD9: V70.0, ICD10: Z00.00 (primary diagnosis) - Counseled on healthy diet and regular exercise 2. Mixed hyperlipidemia - ICD9: 272.2, ICD10: E78.2 - Controlled - Counseled on healthy diet and regular exercise - Cholesterol, Total Date Value Ref Range Status 09/01/2023 167 <200 mg/dL Final Comment: <200 mg/dL, Desirable 200-239 mg/dL, Borderline high >239 mg/dL, High HDL Cholesterol Date Value Ref Range Status 09/01/2023 63 >39 mg/dL Final Comment: 40-59 mg/dL, Acceptable >59 mg/dL, High: Negative risk factor for coronary heart disease <40 mg/dL, Low: Positive risk factor for coronary heart disease LDL Cholesterol Date Value Ref Range Status 09/01/2023 89 <100 mg/dL Final Comment: <100 mg/dL, Optimal 100-129 mg/dL, Near optimal/above optimal 130-159 mg/dL, Borderline high 160-189 mg/dL, High >189 mg/dL, Very high Secondary prevention optimal LDL Cholesterol levels are recommended to be < 70 mg/dL Triglyceride Date Value Ref Range Status 09/01/2023 73 <150 mg/dL Final Comment: <150 mg/dL, Normal 150-199 mg/dL, Borderline high 200-499 mg/dL, High >499 mg/dL, Very high Cont with current meds Labs reviewed and goal - UA DIP, URINE (POC) - ATORVASTATIN 20 MG TABLET 3. 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 TSH Date Value Ref Range Status 09/01/2023 2.030 0.270 - 4.200 mIU/L Final Cont with current meds Stable dose - UA DIP, URINE (POC) - LEVOTHYROXINE 75 MCG TABLET 4. Stage 3a chronic kidney disease (HCC) - ICD9: 585.3, ICD10: N18.31 - eGFR: 47 Stable - Albuminuria: due for urine ACR - Counseled on avoiding NSAIDs, adequate hydration - Latest Ref Rng & Units 09/01/2023 03/05/2023 09/04/2022 BMP Glucose 74 - 99 mg/dL 94 91 89 BUN 7 - 21 mg/dL 19 15 18 Creatinine 0.58 - 0.96 mg/dL 1.20 1.11 1.16 Sodium 136 - 144 mmol/L 142 137 140 Potassium 3.7 - 5.1 mmol/L 4.7 4.7 4.3 Chloride 97 - 105 mmol/L 105 102 105 CO2 22 - 30 mmol/L 23 23 24 Anion Gap 9 - 18 mmol/L 14 12 11 Calcium 8.5 - 10.2 mg/dL 10.0 9.9 9.5 EGFR >=60 mL/min/1.73m 47 52 50 Cont following - UA DIP, URINE (POC) 5. Vitamin D deficiency - ICD9: 268.9, ICD10: E55.9 Vitamin D 25 Hydroxy (ng/mL) Date Value 09/01/2023 64.1 08/18/2020 61.0 ] Cont following 6. Uncomplicated severe persistent asthma - ICD9: 493.90, ICD10: J45.50 Cont meds Zolair may help as well} - MONTELUKAST 10 MG TABLET 7. Chronic idiopathic urticaria - ICD9: 708.1, ICD10: L50.1 - Follow up if symptoms persist or worsen. 8. Encounter for immunization - ICD9: V03.89, ICD10: Z23 - P[employer] COVID-19 VACCINE ( [place]) AGE 12+ YR Sonido Ness MD Victor Hugo Padilla is a 73 year old female here for a Medicare wellness visit. Medicare Health Risk Assessment General Health Very good Exercise: Minutes/Day 60 min Exercise: Days/Week 3 days Alcohol: Daily Use Alcohol: Drinks/Day Patient does not drink Alcohol: 6 or more drinks Never Feel off balance Concerns: Teeth/Dentures Concerns: Sexual function Troubled by feelings Frequency: Eating healthy diet ADLs requiring help Safety precautions in home/vehicle Smoke, vape, chews tobacco Difficulty hearing Difficulty seeing Current Providers Specialists: I have reviewed specialist-related care of the patient in the medical record. Medical/Family history review Reviewed and updated problem list, medical/surgical/family/social history, medications, and allergies. Opioid use review Opioid Medications (last 90 days) No data to display Depression screening Depression Screening PHQ-2 Score MORRIS-2 Total Score 03/03/2024 0 0 Depression screening tool completed and reviewed. Based on score and interview, patient is at risk for depression. Screening tool discussed with patient, and I recommended no further intervention at this time. Cognitive screening Mini Cog Score: 5 Cognitive screening reviewed and No further action needed (score 3-5). Functional Observation Was the patient's Timed Up & Go test unsteady or ? 12 seconds? No Advance Care Planning Patient was not able to provide a surrogate decision maker or written advance directives Measurements BP 138/70 Pulse 74 Ht 5' 5 (1.65m) Wt 162 lb (73.5kg) SpO2 98% LMP 10/29/1998 BMI 26.96 kg/(m^2). Vision Screening: Follows with optometry/ophthalmology Assessment/Plan Medicare annual wellness visit, subsequent (Z00.00) - Counseled on healthy diet and regular exercise - Fall avoidance information provided - Personalized prevention plan provided Established pt with hx of hypothyroid, hyperlipidemia, asthma, osteopenia, ckd 3, hx of svt, numerous environmental allergies, prior ablation of accessory pathway for svt, for follow up of multiple medical illness last seen 09/01/23 for medical follow up, Reviewed and discussed nursing notes,vital signs,recent tests,,medications with the patient.Including pain score, depression and fall screening,reviewed labs 09/01/23 with serial comparisons, for liver, renal, bs, blood count, thyroid status, The information from reviews noted above and interpretation as well as the entire body of the notes was used to determine pt medical stability, change in treatments and continuation of current medication, Ordered labs Ordered and interpreted urine Vaccines ordered MDM Reviewed: previous chart, nursing note and vitals Reviewed previous: labs Medical Decision Making: Problems: Moderate: 2+ stable chronic illnesses and 1+ chronic illnesses with change Data: Unique source(s) for external note(s) reviewed: 3+ Unique test result(s) reviewed: 1 Unique test(s) ordered: 2 Independent interpretation of test from other physician/QHCP Risk: Low: Low risk from testing/treatment Medical Decision Making Level: 4 - Moderate * Patience Patel MA - 03/03/2024 10:17 AM EDT Your patient has already completed the old HRA questionnaire. They will receive the new one at their next visit when it is due. Medicare Health Risk Assessment In general, health is: Very good Concerns with balance:Not at all Concerns with teeth or dentures:Not at all Concerns with sexual function:n/a [place] anxious, stressed, angry, irritable, lonely, isolated, or had thoughts of hurting themself: Not at all Has little interest or pleasure in doing things: Not at all Bothered by feeling down, depressed, or hopeless: Not at all Needs help with grocery shopping, cooking, housework, bathing, grooming, dressing, eating, sitting or standing, walking, using the toilet, handling finances, taking medications, using the telephone, or driving: No Following safety precautions in the home environment and vehicle: removed throw rugs from floors, installed grab bars in the bathroom, handrails in stairwells, having adequate lighting, wearing seatbelt at all times?: Yes Smokes cigarettes, vapes, or chew tobacco: No Eats healthy foods including fruits, vegetables, whole grains, and fiber-rich foods: Nearly every day Number of days per week engages in exercise: 3 days Average alcohol consumption: Never [facility] NoteHNO ID: [id number] Author: SONIDO NESS MD Service: ? Author Type: Physician Type: Progress Notes Filed: 03/03/2024 12:41 Note Text: This note was created using [employer]. Subjective Victor Hugo Padilla is a 73 year old female. 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 Angular cheilitis 05/08/2015 Asthma 10/2005 Chronic kidney disease, stage 3 (HCC) 04/2015 Chronic sinusitis 06/08/2014 Depression 10/2005 Gestational diabetes Herpes 12/2012 herpes 1 and 2 positive history of tubular adenoma 11/28/2017 Hyperlipemia 03/2000 Hypothyroid 1998 Osteopenia 12/22/2015 LUMBAR SPINE (L1-4) BMD = 0.936 g/cm2 T-Score = -2.0 standard deviation from mean peak bone mass of normal reference 20-45yr [facility] female Osteoporosis, unspecified 05/2008 PAC (premature atrial contraction) 2011 Status post radiofrequency ablation for arrhythmia 07/03/2017 1. The [employer]: CARTO mapping system was utilized. 2. 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 The [employer]: CARTO mapping system was utilized. 2. 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 FAMILY HISTORY Problem Relation Age of Onset Breast Cancer Mother of leukemia other (POLYCYTEMIA RUBRA VERA) Mother other (leukemia) Mother age 82 Cancer Father prostate, bladder Ischemic Heart Disease Father stent placed, age 96 other (dementia) Father other (CHF) Father Parkinson?s Disease Brother Parkinson?s Disease Brother other (donna's disease) Brother Cancer Maternal Grandfather pancreas Cancer Paternal Grandfather prostate Social History Tobacco Use Smoking status: Never Smokeless tobacco: Never Substance Use Topics Alcohol use: No Drug use: No Current Outpatient Medications on File Prior to Visit Medication Sig budesonide-formoterol (SYMBICORT) 160-4.5 mcg/actuation inhaler Inhale 2 Puffs as instructed two times a day. montelukast (SINGULAIR) 10 mg tablet Take 1 tablet by mouth once daily. levothyroxine (SYNTHROID) 75 mcg tablet Take 1 tablet by mouth once daily. atorvastatin (LIPITOR) 20 mg tablet Take 1 tablet by mouth once daily. albuterol HFA (VENTOLIN HFA) 90 mcg/actuation inhaler Inhale 2 Puffs as instructed every 4 hours as needed. albuterol (PROVENTIL) 2.5 mg /3 mL (0.083 %) nebulizer solution Use 3 mL via nebulizer every 4 hours as needed for wheezing/shortness of breath. fluticasone (FLONASE) 50 mcg/actuation nasal spray Use 2 Sprays in each nostril once daily. Cholecalciferol, Vitamin D3, 1,000 unit ORAL Tab Take one(1) tablet two(2) times daily. calcium carbonate/vitamin d3(CALCIUM 600 + D(3) 600 MG (1,500)-200 UNIT TAB) BID FLAXSEED OIL 1,000 MG CAP BID LORATADINE 10 MG TAB Take one(1) tablet daily as needed. No current facility-administered medications on file prior to visit. Review of Systems Constitutional: Negative. Respiratory: Negative. Cardiovascular: Negative. Gastrointestinal: Negative. Genitourinary: Negative. Objective LMP 10/29/1998 Physical Exam Vitals reviewed. Constitutional: General: She is not in acute distress. Appearance: She is not diaphoretic. Neck: Thyroid: No thyromegaly. Cardiovascular: Rate and Rhythm: Normal rate and regular rhythm. Heart sounds: Normal heart sounds. No murmur heard. No friction rub. No gallop. Pulmonary: Effort: Pulmonary effort is normal. No respiratory distress. Breath sounds: Normal breath sounds. No wheezing or rales. Chest: Chest wall: No tenderness. Abdominal: General: Bowel sounds are normal. There is no distension. Palpations: Abdomen is soft. There is no mass. Tenderness: There is no abdominal tenderness. There is no guarding or rebound. Musculoskeletal: Cervical back: Normal range of motion and neck supple. Lymphadenopathy: Cervical: No cervical adenopathy. CBC with diff: WBC 7.14 09/01/2023 RBC 5.08 09/01/2023 Hemoglobin 14.9 09/01/2023 Hematocrit 47.2 09/01/2023 MCV 92.9 09/01/2023 MCH 29.3 09/01/2023 MCHC 31.6 09/01/2023 RDW-CV 13.2 09/01/2023 Platelet Count 204 09/01/2023 MPV 11.5 09/01/2023 Neut% 57.7 03/05/2023 Lymph% 30.7 03/05/2023 Charles% 9.5 03/05/ (more content not included)...[facility] 03-03-2024 NoteHNO ID: [id number] Author: PATIENCE PATEL MA Service: ? Author Type: Mitten Stitcher Type: Progress Notes Filed: 03/03/2024 12:41 Note Text: Your patient has already completed the old HRA questionnaire. They will receive the new one at their next visit when it is due. Medicare Health Risk Assessment In general, health is: Very good Concerns with balance:Not at all Concerns with teeth or dentures:Not at all Concerns with sexual function:n/a [place] anxious, stressed, angry, irritable, lonely, isolated, or had thoughts of hurting themself: Not at all Has little interest or pleasure in doing things: Not at all Bothered by feeling down, depressed, or hopeless: Not at all Needs help with grocery shopping, cooking, housework, bathing, grooming, dressing, eating, sitting or standing, walking, using the toilet, handling finances, taking medications, using the telephone, or driving: No Following safety precautions in the home environment and vehicle: removed throw rugs from floors, installed grab bars in the bathroom, handrails in stairwells, having adequate lighting, wearing seatbelt at all times?: Yes Smokes cigarettes, vapes, or chew tobacco: No Eats healthy foods including fruits, vegetables, whole grains, and fiber-rich foods: Nearly every day Number of days per week engages in exercise: 3 days Average alcohol consumption: Never[facility] note* Diagnosis Mixed hyperlipidemia- Primary 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 Stage 3a chronic kidney disease (HCC) Vitamin D deficiency Unspecified vitamin D deficiency Prostate cancer screening Special screening for malignant neoplasm of prostate documented in this encounter [facility]02[facility] Miscellaneous Notes* Telephone Encounter - Sylvia Marshall RN - 12/10/2023 11:26 AM EST Patient notified of rx Sylvia Marshall RN * Telephone Encounter - Sonido Ness MD - 12/10/2023 11:12 AM EST Start prednisone for one month Allergies to mold, likely current source Patient's request for medication is as follows Requested Prescriptions Signed Prescriptions Disp Refills predniSONE (DELTASONE) 10 mg tablet 30 tablet 0 Sig: Take 1 tablet by mouth once daily. Authorizing Provider: SONIDO NESS This prescription was transmitted electronically - please notify patient. Sonido Ness MD * Telephone Encounter - Sylvia Marshall RN - 12/10/2023 9:38 AM EST Patient calls, she also sent a [employer] message this am. Her Hives are back She finished prednisone last Sunday Developed hives again over the weekend Started at underware waistband site and under bra line She thinks her underware is spandex, not latex Advised dose of benadryl for now Further instructions per PcP Sylvia Marshall RN [facility] History of Present illness Narrative* Sonido Ness MD - 09/01/2023 8:15 AM EDT This note was created using NoteWriter. Subjective Victor Hugo Padilla is a 73 year old female. 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 The [employer]: CARTO mapping system was utilized. 2. 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 The [employer]: CARTO mapping system was utilized. 2. 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 FAMILY HISTORY Problem Relation Age of Onset Breast Cancer Mother of leukemia other (POLYCYTEMIA RUBRA VERA) Mother other (leukemia) Mother age 82 Cancer Father prostate, bladder Ischemic Heart Disease Father stent placed, age 96 other (dementia) Father other (CHF) Father Parkinson s Disease Brother Parkinson s Disease Brother other (donna's disease) Brother Cancer Maternal Grandfather pancreas Cancer Paternal Grandfather prostate Social History Tobacco Use Smoking status: Never Smokeless tobacco: Never Substance Use Topics Alcohol use: No Drug use: No Current Outpatient Medications on File Prior to Visit Medication Sig albuterol (PROVENTIL) 2.5 mg /3 mL (0.083 %) nebulizer solution Use 3 mL via nebulizer every 4 hours as needed for wheezing/shortness of breath. fluticasone (FLONASE) 50 mcg/actuation nasal spray Use 2 Sprays in each nostril once daily. Cholecalciferol, Vitamin D3, 1,000 unit ORAL Tab Take one(1) tablet two(2) times daily. calcium carbonate/vitamin d3(CALCIUM 600 + D(3) 600 MG (1,500)-200 UNIT TAB) BID FLAXSEED OIL 1,000 MG CAP BID LORATADINE 10 MG TAB Take one(1) tablet daily as needed. No current facility-administered medications on file prior to visit. Review of Systems Constitutional: Negative. Respiratory: Negative. Cardiovascular: Negative. Gastrointestinal: Negative. Genitourinary: Negative. Skin: Positive for rash. Objective LMP 10/29/1998 Physical Exam Vitals reviewed. Constitutional: General: She is not in acute distress. Appearance: She is not diaphoretic. Neck: Thyroid: No thyromegaly. Cardiovascular: Rate and Rhythm: Normal rate and regular rhythm. Heart sounds: Normal heart sounds. No murmur heard. No friction rub. No gallop. Pulmonary: Effort: Pulmonary effort is normal. No respiratory distress. Breath sounds: Normal breath sounds. No wheezing or rales. Chest: Chest wall: No tenderness. Abdominal: General: Bowel sounds are normal. There is no distension. Palpations: Abdomen is soft. There is no mass. Tenderness: There is no abdominal tenderness. There is no guarding or rebound. Musculoskeletal: Cervical back: Normal range of motion and neck supple. Lymphadenopathy: Cervical: No cervical adenopathy. Skin: Comments: Numerous small urticaria, bilateral legs and thighs CBC with diff: WBC 6.18 03/05/2023 RBC 4.85 03/05/2023 Hemoglobin 14.3 03/05/2023 Hematocrit 43.6 03/05/2023 MCV 89.9 03/05/2023 MCH 29.5 03/05/2023 MCHC 32.8 03/05/2023 RDW-CV 12.8 03/05/2023 Platelet Count 216 03/05/2023 MPV 11.4 03/05/2023 Neut% 57.7 03/05/2023 Lymph% 30.7 03/05/2023 Charles% 9.5 03/05/2023 Eosin% 1.3 08/19/2021 Baso% 0.8 03/05/2023 Abs Neut (ANC) 3.56 03/05/2023 Abs Charles 0.59 03/05/2023 Abs Eosin 0.06 03/05/2023 Abs Baso 0.05 03/05/2023 Glucose (mg/dL) Date Value 03/05/2023 91 08/19/2021 86 Potassium (mmol/L) Date Value 03/05/2023 4.7 08/19/2021 4.3 Sodium (mmol/L) Date Value 03/05/2023 137 08/19/2021 140 Chloride (mmol/L) Date Value 03/05/2023 102 08/19/2021 103 CO2 (mmol/L) Date Value 03/05/2023 23 08/19/2021 25 Creatinine (mg/dL) Date Value 03/05/2023 1.11 08/19/2021 1.12 BUN (mg/dL) Date Value 03/05/2023 15 08/19/2021 18 Anion Gap (mmol/L) Date Value 03/05/2023 12 08/19/2021 12 Calcium (mg/dL) Date Value 08/19/2021 9.9 Calcium, Total (mg/dL) Date Value 03/05/2023 9.9 Protein, Total (g/dL) Date Value 03/05/2023 7.1 08/19/2021 7.3 Albumin (g/dL) Date Value 03/05/2023 4.5 08/19/2021 4.7 Bilirubin, Total (mg/dL) Date Value 03/05/2023 0.6 08/19/2021 0.6 Alkaline Phosphatase (U/L) Date Value 03/05/2023 126 08/19/2021 113 AST (U/L) Date Value 03/05/2023 30 08/19/2021 28 ALT (U/L) Date Value 03/05/2023 23 08/19/2021 25 ALT Date Value Ref Range Status 03/05/2023 23 7 - 38 U/L Final 09/04/2022 32 7 - 38 U/L Final 03/03/2022 30 7 - 38 U/L Final 08/19/2021 25 7 - 38 U/L Final AST Date Value Ref Range Status 03/05/2023 30 13 - 35 U/L Final 09/04/2022 24 13 - 35 U/L Final 03/03/2022 26 13 - 35 U/L Final 08/19/2021 28 13 - 35 U/L Final HDL Cholesterol Date Value Ref Range Status 03/05/2023 55 >39 mg/dL Final Comment: 40-59 mg/dL, Acceptable >59 mg/dL, High: Negative risk factor for coronary heart disease <40 mg/dL, Low: Positive risk factor for coronary heart disease 09/04/2022 55 >39 mg/dL Final Comment: 40-59 mg/dL, Acceptable >59 mg/dL, High: Negative risk factor for coronary heart disease <40 mg/dL, Low: Positive risk factor for coronary heart disease 03/03/2022 57 >39 mg/dL Final Comment: 40-59 mg/dL, Acceptable >59 mg/dL, High: Negative risk factor for coronary heart disease <40 mg/dL, Low: Positive risk factor for coronary heart disease 08/19/2021 60 >39 mg/dL Final Comment: 40-59 mg/dL, Acceptable >59 mg/dL, High: Negative risk factor for coronary heart disease <40 mg/dL, Low: Positive risk factor for coronary heart disease LDL Cholesterol Date Value Ref Range Status 03/05/2023 90 <100 mg/dL Final Comment: <100 mg/dL, Optimal 100-129 mg/dL, Near optimal/above optimal 130-159 mg/dL, Borderline high 160-189 mg/dL, High >189 mg/dL, Very high Secondary prevention optimal LDL Cholesterol levels are recommended to be < 70 mg/dL 09/04/2022 99 <100 mg/dL Final Comment: <100 mg/dL, Optimal 100-129 mg/dL, Near optimal/above optimal 130-159 mg/dL, Borderline high 160-189 mg/dL, High >189 mg/dL, Very high Secondary prevention optimal LDL Cholesterol levels are recommended to be < 70 mg/dL 03/03/2022 94 <100 mg/dL Final Comment: <100 mg/dL, Optimal 100-129 mg/dL, Near optimal/above optimal 130-159 mg/dL, Borderline high 160-189 mg/dL, High >189 mg/dL, Very high Secondary prevention optimal LDL Cholesterol levels are recommended to be < 70 mg/dL 08/19/2021 90 <100 mg/dL Final Comment: <100 mg/dL, Optimal 100-129 mg/dL, Near optimal/above optimal 130-159 mg/dL, Borderline high 160-189 mg/dL, High >189 mg/dL, Very high Secondary prevention optimal LDL Cholesterol levels are recommended to be < 70 mg/dL Triglyceride Date Value Ref Range Status 03/05/2023 79 <150 mg/dL Final Comment: <150 mg/dL, Normal 150-199 mg/dL, Borderline high 200-499 mg/dL, High >499 mg/dL, Very high 09/04/2022 115 <150 mg/dL Final Comment: <150 mg/dL, Normal 150-199 mg/dL, Borderline high 200-499 mg/dL, High >499 mg/dL, Very high 03/03/2022 84 <150 mg/dL Final Comment: <150 mg/dL, Normal 150-199 mg/dL, Borderline high 200-499 mg/dL, High >499 mg/dL, Very high 08/19/2021 87 <150 mg/dL Final Comment: <150 mg/dL, Normal 150-199 mg/dL, Borderline high 200-499 mg/dL, High >499 mg/dL, Very high No results found for: HBA1C Assessment and Plan ASSESSMENT/PLAN: 1. Hives - ICD9: 708.9, ICD10: L50.9 (primary diagnosis) - Follow up if symptoms persist or worsen. start - METHYLPREDNISOLONE ACETATE 80 MG/ML SUSPENSION FOR INJECTION - PREDNISONE 10 MG TABLET 2. Mixed hyperlipidemia - ICD9: 272.2, ICD10: E78.2 - Controlled - Counseled on healthy diet and regular exercise - Cholesterol, Total Date Value Ref Range Status 03/05/2023 161 <200 mg/dL Final Comment: <200 mg/dL, Desirable 200-239 mg/dL, Borderline high >239 mg/dL, High HDL Cholesterol Date Value Ref Range Status 03/05/2023 55 >39 mg/dL Final Comment: 40-59 mg/dL, Acceptable >59 mg/dL, High: Negative risk factor for coronary heart disease <40 mg/dL, Low: Positive risk factor for coronary heart disease LDL Cholesterol Date Value Ref Range Status 03/05/2023 90 <100 mg/dL Final Comment: <100 mg/dL, Optimal 100-129 mg/dL, Near optimal/above optimal 130-159 mg/dL, Borderline high 160-189 mg/dL, High >189 mg/dL, Very high Secondary prevention optimal LDL Cholesterol levels are recommended to be < 70 mg/dL Triglyceride Date Value Ref Range Status 03/05/2023 79 <150 mg/dL Final Comment: <150 mg/dL, Normal 150-199 mg/dL, Borderline high 200-499 mg/dL, High >499 mg/dL, Very high Reviewed chol, cont diet and monitoring - CBC - COMP METABOLIC PANEL - LIPID PANEL BASIC - TSH BLD - UA DIP OB, URINE (POC) - ATORVASTATIN 20 MG TABLET - UA DIP, URINE (POC) 3. Stage 3a chronic kidney disease (HCC) - ICD9: 585.3, ICD10: N18.31 - eGFR: 52 Stable - Albuminuria: due for urine ACR - Counseled on avoiding NSAIDs, adequate hydration - BMP Latest Ref Rng & Units 03/05/2023 09/04/2022 03/03/2022 GLUCOSE 74 - 99 mg/dL 91 89 89 BUN 7 - 21 mg/dL 15 18 19 CREATININE 0.58 - 0.96 mg/dL 1.11(H) 1.16(H) 1.11(H) SODIUM 136 - 144 mmol/L 137 140 141 POTASSIUM 3.7 - 5.1 mmol/L 4.7 4.3 4.2 CHLORIDE 97 - 105 mmol/L 102 105 105 CO2 22 - 30 mmol/L 23 24 26 ANION GAP 9 - 18 mmol/L 12 11 10 CALCIUM, TOTAL 8.5 - 10.2 mg/dL 9.9 9.5 10.1 eGFR >=60 mL/min/1.73m 52(L) 50(L) 53(L) EGFR- - - - - EGFR-ALL OTHER RACES . - - - BUN/CREATININE RATIO 0 - 25 Ratio - - - Reviewed labs and stable Cont monitoring 4. Severe persistent asthma without complication - ICD9: 493.90, ICD10: J45.50 - - Avoidance of triggers recommended 5. 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 Osteopenia, unspecified location - ICD9: 733.90, ICD10: M85.80 - Reviewed the need for Calcium and Vitamin D supplements and weight bearing exercise as tolerated - VITAMIN D 25 HYDROXY Vitamin D 25 Hydroxy (ng/mL) Date Value 08/18/2020 61.0 ] Reviewed labs 7. allergies to mold, trees - ICD9: V15.09, ICD10: Z88.9 8. Uncomplicated severe persistent asthma - ICD9: 493.90, ICD10: J45.50 Cont meds - Avoidance of triggers recommended - SYMBICORT 160 MCG-4.5 MCG/ACTUATION HFA AEROSOL INHALER - MONTELUKAST 10 MG TABLET - ALBUTEROL SULFATE HFA 90 MCG/ACTUATION AEROSOL INHALER 9. Encounter for immunization - ICD9: V03.89, ICD10: Z23 - INFLUENZA VACCINE, PRSV FREE, AGE 65+ YR, HIGH DOSE, QUADRIVALENT (FLUZONE HIGH-DOSE) - [employer] COVID-19 VACCINE (2022- SEASON) AGE 12+ YR 10. Angular cheilitis - ICD9: 528.5, ICD10: K13.0 Cont - KETOCONAZOLE 2 % TOPICAL CREAM Sonido Ness MD A Established pt with hx of hypothyroid, hyperlipidemia, asthma, osteopenia, ckd 3, hx of svt, numerous environmental allergies, prior ablation of accessory pathway for svt, for follow up of multiple medical illness and acute medical problems last seen 03/05/23 for medical follow up and stable, (notes reviewed) colonoscopy since, (reviewed)Reviewed and discussed nursing notes,vital signs,recent tests,,medications with the patient.Including pain score, depression and fall screening, reviewed labs 03/05/23 with serial comparisons, for liver, renal, bs, blood count, thyroid status, The information from reviews noted above and interpretation as well as the entire body of the notes was used to determine pt medical stability, change in treatments and continuation of current medication, Ordered vaccines, labs, depomedrol Meds ordered MDM Reviewed: previous chart, vitals and nursing note Reviewed previous: labs Medical Decision Making: Problems: Low: Acute, uncomplicated illness or injury Moderate: 2+ stable chronic illnesses Data: Unique source(s) for external note(s) reviewed: 3+ Unique test result(s) reviewed: 1 Unique test(s) ordered: 3+ Risk: Moderate: Drug management Medical Decision Making Level: 4 - Moderate * Sonido Ness MD - 09/01/2023 8:15 AM EDT Patient: VICTOR HUGO PADILLA Admin Sex: Female Sex: Female /Age: 11 1950 72 years Admit Date: 04/04/2023 Discharge Date: Acct. #: [id number] [facility] Type: Outpatient Surgery Admitting Dr.: JASON SIMONS MD LEGEND: C-Critical, H-High, L-Low, *-Corrected, N-Result Comment, ^-Interp Data, R-Performing Loc, />-Flag/Unflag Report Request ID: [id number] Print Date: 04/04/2023 15:23 EDT Laboratory reference ranges are based on age and sex. Outbound Clinical Notes DOCUMENT NAME: Operative Report SERVICE DATE/TIME: 04/04/2023 15:20 EDT RESULT STATUS: Auth (Verified) PERFORM INFORMATION: JASON SIMONS MD (04/04/2023 15:23 EDT) SIGN INFORMATION: JASON SIMONS MD (04/04/2023 15:23 EDT) Indication for Surgery This is a very pleasant 72-year-old female with a personal history of colon polyps. The risks and benefits of colonoscopy were discussed with the patient and verbal and written consent was obtained. Preoperative Diagnosis Colon cancer screening, personal history of colon polyps Postoperative Diagnosis Mild sigmoid diverticulosis Mild external hemorrhoids Operation Colonoscopy Surgeon(s) Jason Simons M.D. Master Lay Out Specialist None Anesthesia Monitored anesthesia care Estimated Blood Loss None Urine Output Not applicable Findings Mild sigmoid diverticulosis Mild external hemorrhoids Specimen(s) None Complications None Technique After verbal and written consent, the patient was brought to the operating room. After appropriate monitoring, monitored anesthesia care was administered. A time-out was performed with the staff in the room confirming both the patient and documented in this encounterM[facility] NoteHNO ID: [id number] Author: Sonido Ness MD Service: ? Author Type: Physician Type: Progress Notes Filed: 09/01/2023 11:54 AM Note Text: This note was created using [employer]. Subjective Victor Hugo Padilla is a 73 year old female. 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 Angular cheilitis 05/08/2015 Asthma 10/2005 Chronic kidney disease, stage 3 (HCC) 04/2015 Chronic sinusitis 06/08/2014 Depression 10/2005 Gestational diabetes Herpes 12/2012 herpes 1 and 2 positive history of tubular adenoma 11/28/2017 Hyperlipemia 03/2000 Hypothyroid 1998 Osteopenia 12/22/2015 LUMBAR SPINE (L1-4) BMD = 0.936 g/cm2 T-Score = -2.0 standard deviation from mean peak bone mass of normal reference 20-45yr [facility] female Osteoporosis, unspecified 05/2008 PAC (premature atrial contraction) 2011 Status post radiofrequency ablation for arrhythmia 07/03/2017 1. The [employer]: CARTO mapping system was utilized. 2. 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 The [employer]: CARTO mapping system was utilized. 2. 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 FAMILY HISTORY Problem Relation Age of Onset Breast Cancer Mother of leukemia other (POLYCYTEMIA RUBRA VERA) Mother other (leukemia) Mother age 82 Cancer Father prostate, bladder Ischemic Heart Disease Father stent placed, age 96 other (dementia) Father other (CHF) Father Parkinson?s Disease Brother Parkinson?s Disease Brother other (donna's disease) Brother Cancer Maternal Grandfather pancreas Cancer Paternal Grandfather prostate Social History Tobacco Use Smoking status: Never Smokeless tobacco: Never Substance Use Topics Alcohol use: No Drug use: No Current Outpatient Medications on File Prior to Visit Medication Sig albuterol (PROVENTIL) 2.5 mg /3 mL (0.083 %) nebulizer solution Use 3 mL via nebulizer every 4 hours as needed for wheezing/shortness of breath. fluticasone (FLONASE) 50 mcg/actuation nasal spray Use 2 Sprays in each nostril once daily. Cholecalciferol, Vitamin D3, 1,000 unit ORAL Tab Take one(1) tablet two(2) times daily. calcium carbonate/vitamin d3(CALCIUM 600 + D(3) 600 MG (1,500)-200 UNIT TAB) BID FLAXSEED OIL 1,000 MG CAP BID LORATADINE 10 MG TAB Take one(1) tablet daily as needed. No current facility-administered medications on file prior to visit. Review of Systems Constitutional: Negative. Respiratory: Negative. Cardiovascular: Negative. Gastrointestinal: Negative. Genitourinary: Negative. Skin: Positive for rash. Objective LMP 10/29/1998 Physical Exam Vitals reviewed. Constitutional: General: She is not in acute distress. Appearance: She is not diaphoretic. Neck: Thyroid: No thyromegaly. Cardiovascular: Rate and Rhythm: Normal rate and regular rhythm. Heart sounds: Normal heart sounds. No murmur heard. No friction rub. No gallop. Pulmonary: Effort: Pulmonary effort is normal. No respiratory distress. Breath sounds: Normal breath sounds. No wheezing or rales. Chest: Chest wall: No tenderness. Abdominal: General: Bowel sounds are normal. There is no distension. Palpations: Abdomen is soft. There is no mass. Tenderness: There is no abdominal tenderness. There is no guarding or rebound. Musculoskeletal: Cervical back: Normal range of motion and neck supple. Lymphadenopathy: Cervical: No cervical adenopathy. Skin: Comments: Numerous small urticaria, bilateral legs and thighs CBC with diff: WBC 6.18 03/05/2023 RBC 4.85 03/05/2023 Hemoglobin 14.3 03/05/2023 Hematocrit 43.6 03/05/2023 MCV 89.9 03/05/2023 MCH 29.5 03/05/2023 MCHC 32.8 03/05/2023 RDW-CV 12.8 03/05/2023 Platelet Count 216 03/05/2023 MPV 11.4 03/05/2023 Neut% 57.7 03/05/2023 Lymph% 30.7 03/05/2023 Charles% 9.5 03/05/2023 Eosin% 1.3 08/19/2021 Baso% 0.8 03/05/2023 Abs Neut (ANC) 3.56 03/05/2023 Abs Charles 0.59 03/05/2023 Abs Eosin 0.06 03/05/2023 Abs Baso 0.05 03/05/2023 Glucose (mg/dL) Date Value 03/05/2023 91 08/19/2021 86 Potassium (mmol/L) (more content not included)...[facility] 09-01-2023 NoteHNO ID: [id number] Author: Sonido Ness MD Service: ? Author Type: Physician Type: Progress Notes Filed: 09/01/2023 11:54 AM Note Text: Patient: VICTOR HUGO PADILLA Admin Sex: Female Sex: Female /Age: 11 1950 72 years Admit Date: 04/04/2023 Discharge Date: Acct. #: [id number] [facility] Type: Outpatient Surgery Admitting Dr.: JASON SIMONS MD LEGEND: C-Critical, H-High, L-Low, *-Corrected, N-Result Comment, -Interp Data, R-Performing Loc, />-Flag/Unflag Report Request ID: [id number] Print Date: 04/04/2023 15:23 EDT Laboratory reference ranges are based on age and sex. Outbound Clinical Notes DOCUMENT NAME: Operative Report SERVICE DATE/TIME: 04/04/2023 15:20 EDT RESULT STATUS: Auth (Verified) PERFORM INFORMATION: JASON SIMONS MD (04/04/2023 15:23 EDT) SIGN INFORMATION: JASON SIMONS MD (04/04/2023 15:23 EDT) Indication for Surgery This is a very pleasant 72-year-old female with a personal history of colon polyps. The risks and benefits of colonoscopy were discussed with the patient and verbal and written consent was obtained. Preoperative Diagnosis Colon cancer screening, personal history of colon polyps Postoperative Diagnosis Mild sigmoid diverticulosis Mild external hemorrhoids Operation Colonoscopy Surgeon(s) Jason Simons M.D. Master Lay Out Specialist None Anesthesia Monitored anesthesia care Estimated Blood Loss None Urine Output Not applicable Findings Mild sigmoid diverticulosis Mild external hemorrhoids Specimen(s) None Complications None Technique After verbal and written consent, the patient was brought to the operating room. After appropriate monitoring, monitored anesthesia care was administered. A time-out was performed with the staff in the room confirming both the patient and[facility] Miscellaneous Notes* Telephone Encounter - Yanelis Jain RN - 08/22/2023 10:33 AM EDT Called patient with orders placed. Stated understanding. Yanelis Jain RN * Telephone Encounter - Sonido Ness MD - 08/22/2023 9:30 AM EDT Start medrol dose pack Should be improving in couple days If cont need appt Can use benedryl 25 mg every 4 hours as needed as well Patient's request for medication is as follows Requested Prescriptions Signed Prescriptions Disp Refills methylPREDNISolone (MEDROL, MARIANGEL,) 4 mg Dose-Pack 21 tablet 0 Sig: Take as directed This prescription was transmitted electronically - please notify patient. oSnido Ness MD * Telephone Encounter - Yanelis Jain RN - 08/22/2023 9:15 AM EDT Hives- blotches, mild itchy, She is continuing to get red blotches. Took a new supplement elderberry for 2 days before Stopped taking medication on 08/14/23 Appearance on legs are slightly red and raised and come and go On face are round and slightly raised not red and come and go has one now under right eye Most are on her bilateral thighs. Will try and send pictures on my chart. Size 1 in Onset 08/14/23 No other changes. Patient calling in rash/hives Nursing assessment completed with protocol recommendation for disposition seen in 3 days. Care advice reviewed with patient with statement understanding. Patient advisedto contact office or seek urgent evaluation in ER if symptoms persist or worsen. to advise Yanelis Jain RN Reason for Disposition Mild widespread rash (Exception: Heat rash lasting 3 days or less.) Protocols used: Rash or Redness - [id number] documented in this encounterMccull[facility]06-23-2023 Miscellaneous Notes* Telephone Encounter - Yanelis Jain RN - 04/20/2023 4:22 PM EDT Called patient with lab results. Patient stated understanding of providers recommendations. Yanelis Jain RN * Telephone Encounter - Yanelis Jain RN - 04/20/2023 4:18 PM EDT ----- Message from Sonido Ness MD sent at 04/20/2023 4:16 PM EDT ----- Bone density similar to prior No changes, check in 3-5 yrs documented in this encounterMccullough-[facility]06-21-2023 NoteHNO ID: [id number] Author: RT Lee(Nelida) Service: Radiology Author Type: Technologist Type: Progress Notes Filed: 04/18/2023 9:52 AM Note Text: Radiology Service Progress Note PATIENT NAME: Victor Hugo Padilla DATE OF SERVICE: April 18, 2023 TIME: 9:52 AM PATIENT IDENTITY VERIFICATION COMPLETED USING TWO (2) IDENTIFIERS: Name and Date of confirmed by patient verbally and Name and Date of confirmed by identification band. FALL SCREENING: Has the patient had 2 falls in the last year or 1 fall with injury or currently using an Ambulatory Assistive Device (Walker, Cane, Wheelchair, Crutches, etc.)? No PATIENT GENDER DATA: Female. status: : No status: NO. PATIENT RELEVANT IMPLANT DATA REVIEWED: Not Applicable RADIOLOGY DEPARTMENT: Bone Density PERIPHERAL IV DATA: Not applicable SIGNED BY: RT Lee(R) April 18, 2023 9:52 [id number] History of Present illness Narrative* DAISY HowardR) - 04/18/2023 9:30 AM EDT Radiology Service Progress Note PATIENT NAME: Victor Hugo Padilla DATE OF SERVICE: April 18, 2023 TIME: 9:52 AM PATIENT IDENTITY VERIFICATION COMPLETED USING TWO (2) IDENTIFIERS: Name and Date of confirmedby patient verbally and Name and Date of confirmed by identification band. FALL SCREENING: Has the patient had 2 falls in the last year or 1 fall with injury or currently using an Ambulatory Assistive Device (Walker, Cane, Wheelchair, Crutches, etc.)? No PATIENT GENDER DATA: Female. status: : No status: NO. PATIENT RELEVANT IMPLANT DATA REVIEWED: Not Applicable RADIOLOGY DEPARTMENT: Bone Density PERIPHERAL IV DATA: Not applicable SIGNED BY: RT Lee(R) April 18, 2023 9:52 AM documented in this encounterMccullough[facility]05-09-2023 Miscellaneous Notes* Telephone Encounter - Merced Patel RN - 03/06/2023 9:34 AM EDT Called patient with results and recheck recommendations. Merced Patel RN * Telephone Encounter - Yanelis Jain RN - 03/06/2023 7:54 AM EDT ----- Message from Sonido Ness MD sent at 03/06/2023 6:24 AM EDT ----- Labs ok No changes, check in 6 months documented in this encounterMccull[facility]05-08-2023 Miscellaneous Notes* Telephone Encounter - Avis Espinoza LPN - 03/05/2023 3:08 PM EDT Requesting mail order pharmacy. Avis Espinoza LPN documented in this encounterMccullough[facility]05-08-2023 History of Present illness Narrative* Sonido Ness MD - 03/05/2023 10:45 AM EDT This note was created using [employer]. Subjective Victor Hugo Padilla is a 72 year old female. Established pt with numerous medical conditions for follow up and medicare wellness, problems stable, tolerating meds, need colon with 5 yr high risk from last, to get in local hosp, lives 2 hours away, need dexa PAST MEDICAL HISTORY Diagnosis Date Allergy to mold spores 2008 Allergy to trees 2008 white oak Angular cheilitis 05/08/2015 Asthma 10/2005 Chronic kidney disease, stage 3 (HCC) 04/2015 Chronic sinusitis 06/08/2014 Depression 10/2005 Gestational diabetes Herpes 12/2012 herpes 1 and 2 positive history of tubular adenoma 11/28/2017 Hyperlipemia 03/2000 Hypothyroid 1998 Osteopenia 12/22/2015 LUMBAR SPINE (L1-4) BMD = 0.936 g/cm2 T-Score = -2.0 standard deviation from mean peak bone mass ofnormal reference 20-45yr [facility] female Osteoporosis, unspecified 05/2008 PAC (premature atrial contraction) 2011 Status post radiofrequency ablation for arrhythmia 07/03/2017 1. The [employer]: CARTO mapping system was utilized. 2. 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 The [employer]: CARTO mapping system was utilized. 2. 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 FAMILY HISTORY Problem Relation Age of Onset Breast Cancer Mother of leukemia other (POLYCYTEMIA RUBRA VERA) Mother other (leukemia) Mother age 82 Cancer Father prostate, bladder Ischemic Heart Disease Father stent placed, age 96 other (dementia) Father other (CHF) Father Parkinson s Disease Brother Parkinson s Disease Brother other (donna's disease) Brother Cancer Maternal Grandfather pancreas Cancer Paternal Grandfather prostate Social History Tobacco Use Smoking status: Never Smokeless tobacco: Never Substance Use Topics Alcohol use: No Drug use: No Current Outpatient Medications on File Prior to Visit Medication Sig levothyroxine (SYNTHROID) 75 mcg tablet Take 1 tablet by mouth once daily. atorvastatin (LIPITOR) 20 mg tablet Take 1 tablet by mouth once daily. SYMBICORT 160-4.5 mcg/actuation inhaler Inhale 2 Puffs as instructed twice daily. montelukast (SINGULAIR) 10 mg tablet Take 1 tablet by mouth once daily. albuterol (PROVENTIL) 2.5 mg /3 mL (0.083 %) nebulizer solution Use 3 mL via nebulizer every 4 hours as needed for wheezing/shortness of breath. albuterol HFA (VENTOLIN HFA) 90 mcg/actuation inhaler Inhale 2 Puffs as instructed every 4 hours asneeded. fluticasone (FLONASE) 50 mcg/actuation nasal spray Use 2 Sprays in each nostril once daily. Cholecalciferol, Vitamin D3, 1,000 unit ORAL Tab Take one(1) tablet two(2) times daily. calcium carbonate/vitamin d3(CALCIUM 600 + D(3) 600 MG (1,500)-200 UNIT TAB) BID FLAXSEED OIL 1,000 MG CAP BID LORATADINE 10 MG TAB Take one(1) tablet daily as needed. No current facility-administered medications on file prior to visit. Review of Systems Constitutional: Negative. Respiratory: Negative. Cardiovascular: Negative. Gastrointestinal: Negative. Genitourinary: Negative. Objective LMP 10/29/1998 Physical Exam Vitals reviewed. Constitutional: General: She is not in acute distress. Appearance: She is not diaphoretic. Neck: Thyroid: No thyromegaly. Cardiovascular: Rate and Rhythm: Normal rate and regular rhythm. Heart sounds: Normal heart sounds. No murmur heard. No friction rub. No gallop. Pulmonary: Effort: Pulmonary effort is normal. No respiratory distress. Breath sounds: Normal breath sounds. No wheezing or rales. Chest: Chest wall: No tenderness. Abdominal: General: Bowel sounds are normal. There is no distension. Palpations: Abdomen is soft. There is no mass. Tenderness: There is no abdominal tenderness. There is no guarding or rebound. Musculoskeletal: Cervical back: Normal range of motion and neck supple. Lymphadenopathy: Cervical: No cervical adenopathy. CBC with diff: WBC 6.07 09/04/2022 RBC 4.63 09/04/2022 Hemoglobin 13.7 09/04/2022 Hematocrit 42.7 09/04/2022 MCV 92.2 09/04/2022 MCH 29.6 09/04/2022 MCHC 32.1 09/04/2022 RDW-CV 13.7 09/04/2022 Platelet Count 207 09/04/2022 MPV 11.3 09/04/2022 Neut% 56.5 09/04/2022 Lymph% 29.0 09/04/2022 Charles% 11.4 09/04/2022 Eosin% 1.3 08/19/2021 Baso% 0.8 09/04/2022 Abs Neut (ANC) 3.43 09/04/2022 Abs Charles 0.69 09/04/2022 Abs Eosin 0.12 09/04/2022 Abs Baso 0.05 09/04/2022 Glucose (mg/dL) Date Value 09/04/2022 89 08/19/2021 86 Potassium (mmol/L) Date Value 09/04/2022 4.3 08/19/2021 4.3 Sodium (mmol/L) Date Value 09/04/2022 140 08/19/2021 140 Chloride (mmol/L) Date Value 09/04/2022 105 08/19/2021 103 CO2 (mmol/L) Date Value 09/04/2022 24 08/19/2021 25 Creatinine (mg/dL) Date Value 09/04/2022 1.16 08/19/2021 1.12 BUN (mg/dL) Date Value 09/04/2022 18 08/19/2021 18 Anion Gap (mmol/L) Date Value 09/04/2022 11 08/19/2021 12 Calcium (mg/dL) Date Value 08/19/2021 9.9 Calcium, Total (mg/dL) Date Value 09/04/2022 9.5 Protein, Total (g/dL) Date Value 09/04/2022 6.6 08/19/2021 7.3 Albumin (g/dL) Date Value 09/04/2022 4.3 08/19/2021 4.7 Bilirubin, Total (mg/dL) Date Value 09/04/2022 0.5 08/19/2021 0.6 Alkaline Phosphatase (U/L) Date Value 09/04/2022 107 08/19/2021 113 AST (U/L) Date Value 09/04/2022 24 08/19/2021 28 ALT (U/L) Date Value 09/04/2022 32 08/19/2021 25 ALT Date Value Ref Range Status 09/04/2022 32 7 - 38 U/L Final 03/03/2022 30 7 - 38 U/L Final 08/19/2021 25 7 - 38 U/L Final 02/16/2021 27 7 - 38 U/L Final AST Date Value Ref Range Status 09/04/2022 24 13 - 35 U/L Final 03/03/2022 26 13 - 35 U/L Final 08/19/2021 28 13 - 35 U/L Final 02/16/2021 30 13 - 35 U/L Final HDL Cholesterol Date Value Ref Range Status 09/04/2022 55 >39 mg/dL Final Comment: 40-59 mg/dL, Acceptable >59 mg/dL, High: Negative risk factor for coronary heart disease <40 mg/dL, Low: Positive risk factor for coronary heart disease 03/03/2022 57 >39 mg/dL Final Comment: 40-59 mg/dL, Acceptable >59 mg/dL, High: Negative risk factor for coronary heart disease <40 mg/dL, Low: Positive risk factor for coronary heart disease 08/19/2021 60 >39 mg/dL Final Comment: 40-59 mg/dL, Acceptable >59 mg/dL, High: Negative risk factor for coronary heart disease <40 mg/dL, Low: Positive risk factor for coronary heart disease 02/16/2021 57 >39 mg/dL Final Comment: 40-59 mg/dL, Acceptable >59 mg/dL, High: Negative risk factor for coronary heart disease <40 mg/dL, Low: Positive risk factor for coronary heart disease LDL Cholesterol Date Value Ref Range Status 09/04/2022 99 <100 mg/dL Final Comment: <100 mg/dL, Optimal 100-129 mg/dL, Near optimal/above optimal 130-159 mg/dL, Borderline high 160-189 mg/dL, High >189 mg/dL, Very high Secondary prevention optimal LDL Cholesterol levels are recommended to be < 70 mg/dL 03/03/2022 94 <100 mg/dL Final Comment: <100 mg/dL, Optimal 100-129 mg/dL, Near optimal/above optimal 130-159 mg/dL, Borderline high 160-189 mg/dL, High >189 mg/dL, Very high Secondary prevention optimal LDL Cholesterol levels are recommended to be < 70 mg/dL 08/19/2021 90 <100 mg/dL Final Comment: <100 mg/dL, Optimal 100-129 mg/dL, Near optimal/above optimal 130-159 mg/dL, Borderline high 160-189 mg/dL, High >189 mg/dL, Very high Secondary prevention optimal LDL Cholesterol levels are recommended to be < 70 mg/dL 02/16/2021 85 <100 mg/dL Final Comment: <100 mg/dL, Optimal 100-129 mg/dL, Near optimal/above optimal 130-159 mg/dL, Borderline high 160-189 mg/dL, High >189 mg/dL, Very high Secondary prevention optimal LDL Cholesterol levels are recommended to be < 70 mg/dL Triglyceride Date Value Ref Range Status 09/04/2022 115 <150 mg/dL Final Comment: <150 mg/dL, Normal 150-199 mg/dL, Borderline high 200-499 mg/dL, High >499 mg/dL, Very high 03/03/2022 84 <150 mg/dL Final Comment: <150 mg/dL, Normal 150-199 mg/dL, Borderline high 200-499 mg/dL, High >499 mg/dL, Very high 08/19/2021 87 <150 mg/dL Final Comment: <150 mg/dL, Normal 150-199 mg/dL, Borderline high 200-499 mg/dL, High >499 mg/dL, Very high 02/16/2021 88 <150 mg/dL Final Comment: <150 mg/dL, Normal 150-199 mg/dL, Borderline high 200-499 mg/dL, High >499 mg/dL, Very high No results found for: HBA1C Assessment and Plan ASSESSMENT/PLAN: 1. Medicare annual wellness visit, subsequent - ICD9: V70.0, ICD10: Z00.00 (primary diagnosis) - Counseled on healthy diet and regular exercise - Calcium intake with supplements or by diet of 1000 mg/day for under 50, 1200- 1500 mg/day for 50+ 2. Mixed hyperlipidemia - ICD9: 272.2, ICD10: E78.2 - good control and - to be determined upon return of lab results Reviewed prior labs with pt Good control cont diet and tx, - COMP METABOLIC PANEL - CBC + DIFF - LIPID PANEL BASIC - UA DIP, URINE (POC) - ATORVASTATIN 20 MG TABLET 3. 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 - COMP METABOLIC PANEL - CBC + DIFF - TSH BLD - UA DIP, URINE (POC) 4. allergies to mold, trees - ICD9: V15.09, ICD10: Z88.9 5. Status post radiofrequency ablation for arrhythmia - ICD9: V45.89, ICD10: Z98.890, Z86.79 Cont following 6. Encounter for screening mammogram for breast cancer - ICD9: V76.12, ICD10: Z12.31 - JOHN SCREENING 7. Screening for colorectal cancer - ICD9: V76.51, V76.41, ICD10: Z12.11, Z12.12 Colonoscopy ordered 8. Need for vaccination against Streptococcus pneumoniae - ICD9: V03.82, ICD10: Z23 - PNEUMOCOCCAL VACCINE (PREVNAR 20) 9. Uncomplicated severe persistent asthma - ICD9: 493.90, ICD10: J45.50 Vitals reviewed Breathing and resp appropriate, no issues - Avoidance of triggers recommended - SYMBICORT 160 MCG-4.5 MCG/ACTUATION HFA AEROSOL INHALER - MONTELUKAST 10 MG TABLET 10. Hypothyroidism, unspecified type - ICD9: 244.9, ICD10: E03.9 - Instructed patient on importance of taking on an empty stomach either first thing in the morning or at bedtime. - LEVOTHYROXINE 75 MCG TABLET 11. Screening for colon cancer - ICD9: V76.51, ICD10: Z12.11 - COLONOSCOPY SCREENING 12. Screening for osteoporosis - ICD9: V82.81, ICD10: Z13.820 With thyroid replacement at risk, prior tsh levels reviewed - DXA-AXIAL SKELETON 13. 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 Angular cheilitis 05/08/2015 Asthma 10/2005 Chronic kidney disease, stage 3 (HCC) 04/2015 Chronic sinusitis 06/08/2014 Depression 10/2005 Gestational diabetes Herpes 12/2012 herpes 1 and 2 positive history of tubular adenoma 11/28/2017 Hyperlipemia 03/2000 Hypothyroid 1998 Osteopenia 12/22/2015 LUMBAR SPINE (L1-4) BMD = 0.936 g/cm2 T-Score = -2.0 standard deviation from mean peak bone mass ofnormal reference 20-45yr [facility] female Osteoporosis, unspecified 05/2008 PAC (premature atrial contraction) 2011 Status post radiofrequency ablation for arrhythmia 07/03/2017 1. The [employer]: CARTO mapping system was utilized. 2. 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 The [employer]: CARTO mapping system was utilized. 2. 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 ALLERGIES: Mold, Penicillins, and Trees Medications reviewed: Yes FAMILY HISTORY Problem Relation Age of Onset Breast Cancer Mother of leukemia other (POLYCYTEMIA RUBRA VERA) Mother other (leukemia) Mother age 82 Cancer Father prostate, bladder Ischemic Heart Disease Father stent placed, age 96 other (dementia) Father other (CHF) Father Parkinson s Disease Brother Parkinson s Disease Brother other (donna's disease) Brother Cancer Maternal Grandfather pancreas Cancer Paternal Grandfather prostate SOCIAL HISTORY: Social History Tobacco Use Smoking status: Never Smokeless tobacco: Never Substance Use Topics Alcohol use: No Drug use: No Victor Hugo likes to exercise by walking and Yoga. She watches her diet for sodium, low fat and low cholesterol most of the time. List of current specialists seen: None End of Live Planning discussed including patients advanced directive wishes: No I am willing to follow Victor Hugo's advanced directives. PHQ-2 / Depression screen She in the past two weeks denies having felt down, depressed, hopeless, or with little interest or pleasure in doing things. PHQ-2 Score: 0 PHQ-9 Score: 0 Functional Ability/Safety Screen 1. Was the patient's timed Up and Go test unsteady or longer than 30 seconds? No 2. Does the patient need help with the phone, transportation, shopping,preparing meals, housework, laundry, medications or managing money? No 3. Does your home have rugs in the hallway, lack of grab bars in the bathroom, lack of handrails onthe stairs or have poor lighting? No Hearing Evaluation: normal PHYSICAL EXAM BP 122/60 (BP Site: Left Arm, BP Position: Sitting, BP Cuff Size: Large Adult) Pulse 80 Ht 165.1 cm (5' 5 ) Wt 71.2 kg (157 lb) LMP 10/29/1998 SpO2 98% BMI 26.13 kg/m Alert and oriented X 3: YES Body mass index is 26.13 kg/m . V ASSESSMENT/PLAN: 72 year old female The following prevention plan was discussed during the office visit and provided to the patient: - Lipid panel - Glaucoma screening Sonido Ness MD Established pt with hx of hypothyroid, hyperlipidemia, asthma, osteopenia, ckd 3, hx of svt, numerous environmental allergies, prior ablation of accessory pathway for svt, for follow up of multiple medical illness and medicare wellness, last seen 09/05/22 for medical follow up and stable, (notes revi ewed)Reviewed and discussed nursing notes,vital signs,recent tests,,medications with the patient.Including pain score, depression and fall screening, reviewed labs 09/05/22 with serial comparisons, for liver, renal, bs, blood count, thyroid status, cologuard, dapt, pn 20, shingrix, mammo ordered, The information from reviews noted above and interpretation as well as the entire body of the notes was used to determine pt medical stability, change in treatments and continuation of current medication, dexa and colonoscopy ordered MDM Reviewed: previous chart, nursing note and vitals Reviewed previous: labs Consults: gastrointestinal Medical Decision Making: Problems: Moderate: 2+ stable chronic illnesses Data: Unique source(s) for external note(s) reviewed: 3+ Unique test result(s) reviewed: 1 Unique test(s) ordered: 2 Risk: Low: Low risk from testing/treatment Medical Decision Making Level: 4 - Moderate [facility] Miscellaneous Notes* Telephone Encounter - Ginger Cook [employer] Processing Worker - 09/07/2022 12:50 PM EST Patient declines at this time * Telephone Encounter - Ginger Cook [employer] Processing Worker - 08/24/2022 7:39 AM EDT 5 year colon, sent first letter documented [facility] Miscellaneous Notes* Telephone Encounter - Yanelis Jain RN - 09/05/2022 8:58 AM EST Called patient with lab results. Patient stated understanding of providers recommendations. Yanelis Jain RN * Telephone Encounter - Merced Patel RN - 09/05/2022 8:38 AM EST ----- Message from Sonido Ness MD sent at 09/05/2022 6:38 AM EST ----- Labs ok, no changes, check in 6 months documented in [facility] History of Present illness Narrative* Sonido Ness MD - 09/04/2022 10:30 AM EST Images from the original note were not included. This note was created using [employer]. Subjective Victor Hugo Padilla is a 72 year old female. Pt for follow up, diff with recent uri, doing much better, now less cough and not sob, used meds,including steroids, need colon next yr, other meds ok, wt issues but working on PAST MEDICAL HISTORY Diagnosis Date Allergy to mold spores 2008 Allergy to trees 2008 white oak Angular cheilitis 05/08/2015 Asthma 10/2005 Chronic kidney disease, stage 3 (HCC) 04/2015 Chronic sinusitis 06/08/2014 Depression 10/2005 Gestational diabetes Herpes 12/2012 herpes 1 and 2 positive history of tubular adenoma 11/28/2017 Hyperlipemia 03/2000 Hypothyroid 1998 Osteopenia 12/22/2015 LUMBAR SPINE (L1-4) BMD = 0.936 g/cm2 T-Score = -2.0 standard deviation from mean peak bone mass ofnormal reference 20-45yr [facility] female Osteoporosis, unspecified 05/2008 PAC (premature atrial contraction) 2012 Status post radiofrequency ablation for arrhythmia 07/03/2017 1. The [employer]: CARTO mapping system was utilized. 2. 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 The [employer]: CARTO mapping system was utilized. 2. 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 FAMILY HISTORY Problem Relation Age of Onset Breast Cancer Mother of leukemia other (POLYCYTEMIA RUBRA VERA) Mother other (leukemia) Mother age 82 Cancer Father prostate, bladder Ischemic Heart Disease Father stent placed, age 96 other (dementia) Father other (CHF) Father Cancer Maternal Grandfather pancreas Cancer Paternal Grandfather prostate other (donna's disease) Brother Social History Tobacco Use Smoking status: Never Smokeless tobacco: Never Substance Use Topics Alcohol use: No Drug use: No Current Outpatient Medications on File Prior to Visit Medication Sig albuterol (PROVENTIL) 2.5 mg /3 mL (0.083 %) nebulizer solution Use 3 mL via nebulizer every 4 hours as needed for wheezing/shortness of breath. albuterol HFA (VENTOLIN HFA) 90 mcg/actuation inhaler Inhale 2 Puffs as instructed every 4 hours asneeded. predniSONE (DELTASONE) 10 mg tablet Take 2 tablets daily for 7 days then one daily for 7 days benzonatate (TESSALON PERLES) 100 mg capsule Take 2 capsules by mouth three times daily as needed. azithromycin (ZITHROMAX Z-MARIANGEL) 250 mg tablet 2 TABLETS BY MOUTH TODAY, TAKE 1 TABLET BY MOUTH ON DAYS 2-5 montelukast (SINGULAIR) 10 mg tablet Take 1 tablet by mouth once daily. levothyroxine (SYNTHROID) 75 mcg tablet Take 1 tablet by mouth once daily. atorvastatin (LIPITOR) 20 mg tablet Take 1 tablet by mouth once daily. SYMBICORT 160-4.5 mcg/actuation inhaler Inhale 2 Puffs as instructed twice daily. fluticasone (FLONASE) 50 mcg/actuation nasal spray Use 2 Sprays in each nostril once daily. Cholecalciferol, Vitamin D3, 1,000 unit ORAL Tab Take one(1) tablet two(2) times daily. calcium carbonate/vitamin d3(CALCIUM 600 + D(3) 600 MG (1,500)-200 UNIT TAB) BID FLAXSEED OIL 1,000 MG CAP BID LORATADINE 10 MG TAB Take one(1) tablet daily as needed. No current facility-administered medications on file prior to visit. Review of Systems Constitutional: Negative. Respiratory: Negative. Cardiovascular: Negative. Gastrointestinal: Negative. Genitourinary: Negative. Objective LMP 10/29/1998 Physical Exam Vitals reviewed. Constitutional: General: She is not in acute distress. Appearance: She is not diaphoretic. Neck: Thyroid: No thyromegaly. Cardiovascular: Rate and Rhythm: Normal rate and regular rhythm. Heart sounds: Normal heart sounds. No murmur heard. No friction rub. No gallop. Pulmonary: Effort: Pulmonary effort is normal. No respiratory distress. Breath sounds: Normal breath sounds. No wheezing or rales. Chest: Chest wall: No tenderness. Abdominal: General: Bowel sounds are normal. There is no distension. Palpations: Abdomen is soft. There is no mass. Tenderness: There is no abdominal tenderness. There is no guarding or rebound. Musculoskeletal: Cervical back: Normal range of motion and neck supple. Lymphadenopathy: Cervical: No cervical adenopathy. CBC with diff: WBC 6.16 03/03/2022 RBC 4.84 03/03/2022 Hemoglobin 14.4 03/03/2022 Hematocrit 44.5 03/03/2022 MCV 91.9 03/03/2022 MCH 29.8 03/03/2022 MCHC 32.4 03/03/2022 RDW-CV 13.1 03/03/2022 Platelet Count 210 03/03/2022 MPV 11.0 03/03/2022 Neut% 57.2 03/03/2022 Lymph% 31.2 03/03/2022 Charles% 8.9 03/03/2022 Eosin% 1.3 08/19/2021 Baso% 1.0 03/03/2022 Abs Neut (ANC) 3.53 03/03/2022 Abs Charles 0.55 03/03/2022 Abs Eosin 0.09 03/03/2022 Abs Baso 0.06 03/03/2022 Glucose (mg/dL) Date Value 03/03/2022 89 08/19/2021 86 Potassium (mmol/L) Date Value 03/03/2022 4.2 08/19/2021 4.3 Sodium (mmol/L) Date Value 03/03/2022 141 08/19/2021 140 Chloride (mmol/L) Date Value 03/03/2022 105 08/19/2021 103 CO2 (mmol/L) Date Value 03/03/2022 26 08/19/2021 25 Creatinine (mg/dL) Date Value 03/03/2022 1.11 08/19/2021 1.12 BUN (mg/dL) Date Value 03/03/2022 19 08/19/2021 18 Anion Gap (mmol/L) Date Value 03/03/2022 10 08/19/2021 12 Calcium (mg/dL) Date Value 08/19/2021 9.9 Calcium, Total (mg/dL) Date Value 03/03/2022 10.1 Protein, Total (g/dL) Date Value 03/03/2022 6.9 08/19/2021 7.3 Albumin (g/dL) Date Value 03/03/2022 4.5 08/19/2021 4.7 Bilirubin, Total (mg/dL) Date Value 03/03/2022 0.6 08/19/2021 0.6 Alkaline Phosphatase (U/L) Date Value 03/03/2022 110 08/19/2021 113 AST (U/L) Date Value 03/03/2022 26 08/19/2021 28 ALT (U/L) Date Value 03/03/2022 30 08/19/2021 25 ALT Date Value Ref Range Status 03/03/2022 30 7 - 38 U/L Final 08/19/2021 25 7 - 38 U/L Final 02/16/2021 27 7 - 38 U/L Final 08/18/2020 23 7 - 38 U/L Final AST Date Value Ref Range Status 03/03/2022 26 13 - 35 U/L Final 08/19/2021 28 13 - 35 U/L Final 02/16/2021 30 13 - 35 U/L Final 08/18/2020 29 13 - 35 U/L Final HDL Cholesterol Date Value Ref Range Status 03/03/2022 57 >39 mg/dL Final Comment: 40-59 mg/dL, Acceptable >59 mg/dL, High: Negative risk factor for coronary heart disease <40 mg/dL, Low: Positive risk factor for coronary heart disease 08/19/2021 60 >39 mg/dL Final Comment: 40-59 mg/dL, Acceptable >59 mg/dL, High: Negative risk factor for coronary heart disease <40 mg/dL, Low: Positive risk factor for coronary heart disease 02/16/2021 57 >39 mg/dL Final Comment: 40-59 mg/dL, Acceptable >59 mg/dL, High: Negative risk factor for coronary heart disease <40 mg/dL, Low: Positive risk factor for coronary heart disease 08/18/2020 60 >39 mg/dL Final Comment: 40-59 mg/dL, Acceptable >59 mg/dL, High: Negative risk factor for coronary heart disease <40 mg/dL, Low: Positive risk factor for coronary heart disease LDL Cholesterol Date Value Ref Range Status 03/03/2022 94 <100 mg/dL Final Comment: <100 mg/dL, Optimal 100-129 mg/dL, Near optimal/above optimal 130-159 mg/dL, Borderline high 160-189 mg/dL, High >189 mg/dL, Very high Secondary prevention optimal LDL Cholesterol levels are recommended to be < 70 mg/dL 08/19/2021 90 <100 mg/dL Final Comment: <100 mg/dL, Optimal 100-129 mg/dL, Near optimal/above optimal 130-159 mg/dL, Borderline high 160-189 mg/dL, High >189 mg/dL, Very high Secondary prevention optimal LDL Cholesterol levels are recommended to be < 70 mg/dL 02/16/2021 85 <100 mg/dL Final Comment: <100 mg/dL, Optimal 100-129 mg/dL, Near optimal/above optimal 130-159 mg/dL, Borderline high 160-189 mg/dL, High >189 mg/dL, Very high Secondary prevention optimal LDL Cholesterol levels are recommended to be < 70 mg/dL 08/18/2020 82 <100 mg/dL Final Comment: <100 mg/dL, Optimal 100-129 mg/dL, Near optimal/above optimal 130-159 mg/dL, Borderline high 160-189 mg/dL, High >189 mg/dL, Very high Secondary prevention optimal LDL Cholesterol levels are recommended to be < 70 mg/dL Triglyceride Date Value Ref Range Status 03/03/2022 84 <150 mg/dL Final Comment: <150 mg/dL, Normal 150-199 mg/dL, Borderline high 200-499 mg/dL, High >499 mg/dL, Very high 08/19/2021 87 <150 mg/dL Final Comment: <150 mg/dL, Normal 150-199 mg/dL, Borderline high 200-499 mg/dL, High >499 mg/dL, Very high 02/16/2021 88 <150 mg/dL Final Comment: <150 mg/dL, Normal 150-199 mg/dL, Borderline high 200-499 mg/dL, High >499 mg/dL, Very high 08/18/2020 85 <150 mg/dL Final Comment: <150 mg/dL, Normal 150-199 mg/dL, Borderline high 200-499 mg/dL, High >499 mg/dL, Very high No results found for: HBA1C Assessment and Plan. ASSESSMENT/PLAN: 1. Mixed hyperlipidemia - ICD9: 272.2, ICD10: E78.2 (primary diagnosis) - good control - Continue current medication. - COMP METABOLIC PANEL - CBC + DIFF - LIPID PANEL BASIC - UA DIP, URINE (POC) - ATORVASTATIN 20 MG TABLET 2. 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 - COMP METABOLIC PANEL - CBC + DIFF - LIPID PANEL BASIC - TSH BLD - UA DIP, URINE (POC) 3. Hypothyroidism, unspecified type - ICD9: 244.9, ICD10: E03.9 - Instructed patient on importance of taking on an empty stomach either first thing in the morning or at bedtime. Stable - Behavioral intervention - LEVOTHYROXINE 75 MCG TABLET 4. Uncomplicated severe persistent asthma - ICD9: 493.90, ICD10: J45.50 - Continue current meds - Avoidance of triggers recommended - SYMBICORT 160 MCG-4.5 MCG/ACTUATION HFA AEROSOL INHALER - MONTELUKAST 10 MG TABLET 5. Severe persistent asthma without complication - ICD9: 493.90, ICD10: J45.50 6. Chronic pansinusitis - ICD9: 473.8, ICD10: J32.4 - Supportive care with plenty of fluids, rest, and analgesia prn. 7. Stage 3a chronic kidney disease (HCC) - ICD9: 585.3, ICD10: N18.31 - eGFR: \ - Counseled on avoiding regular use of NSAIDs, adequate hydration, potential risk of IV dye 8. Need for vaccination against Streptococcus pneumoniae - ICD9: V03.82, ICD10: Z23 - PNEUMOCOCCAL VACCINE (PREVNAR 20) 9. Need for COVID-19 vaccine - ICD9: V04.89, ICD10: Z23 - PFIZER-BIONTECH COVID-19 BIVALENT BOOSTER VACCINE, AGE 12+ YR 10. Need for influenza vaccination - ICD9: V04.81, ICD10: Z23 - INFLUENZA SEASONAL QUADRIVALENT HIGH DOSE AGE 65+ 11. H/O supraventricular tachycardia - ICD9: V12.59, ICD10: Z86.79 Sonido Ness MD documented in this encounterM[facility] Miscellaneous Notes* Telephone Encounter - Yanelis Jain RN - 08/23/2022 10:08 AM EDT FAMILY MEDICINE: Patient has been identified by name and date of : Yes Patient electronically sent a request for the following prescription(s) RX INSTRUCTIONS: Patient aware RX will be sent to pharmacy. No need to notify patient. Last office visit at this [facility] in Primary Care not including Urgent Care: 03/03/22 labs 08/21/22 Next office visit at this [facility] in Primary Care not including Urgent Care: 09/04/22 Requested Prescriptions Pending Prescriptions Disp Refills albuterol (PROVENTIL) 2.5 mg /3 mL (0.083 %) nebulizer solution 100 mL 0 Sig: Use 3 mL via nebulizer every 4 hours as needed for wheezing/shortness of breath. Prescriptions are usually addressed within 24 hours. If patient states they cannot wait 24 hours, please document details. Prescribing provider in office: Yes Signed by: Yanelis Jain RN Rx Request routed to physician for review * Telephone Encounter - DEVONTE Donahue - 08/23/2022 9:34 AM EDT Order Audit Harshaw: albuterol (PROVENTIL) 2.5 mg /3 mL (0.083 %) nebulizer solution Solution NOT inhaler Send to [facility] documented in this encounterM[facility] Miscellaneous Notes* Telephone Encounter - Yanelis Jain RN - 08/22/2022 10:49 AM EDT Change of pharmacy FAMILY MEDICINE: Patient has been identified by name and date of : Yes Patient phoned to request the following prescription(s) RX INSTRUCTIONS: Patient aware RX will be sent to pharmacy. No need to notify patient. Last office visit at this [facility] in Primary Care not including Urgent Care: 08/16/22 labs pending results Next office visit at this [facility] in Primary Care not including Urgent Care: 09/04/22 Requested Prescriptions Pending Prescriptions Disp Refills albuterol HFA (VENTOLIN HFA) 90 mcg/actuation inhaler 18 g 1 Sig: Inhale 2 Puffs as instructed every 4 hours as needed. Prescriptions are usually addressed within 24 hours. If patient states they cannot wait 24 hours, please document details. Prescribing provider in office: Yes Signed by: Yanelis Jain RN Rx Request routed to physician for review * Telephone Encounter - DEVONTE Ag - 08/22/2022 10:16 AM EDT Refill Albuterol for nebulizer. Send to [facility] in [place], [place] documented in this encounterM[facility]10[facility] History of Present illness Narrative* Sonido Ness MD - 08/16/2022 12:35 PM EDT This note was created using [employer]. Subjective Victor Hugo Padilla is a 71 year old female. Established pt with hx of asthma with marked uri symptoms and cough, started several days ago, uri with sinus and congestion, moved to chest, progressive wheezing too tight to use mdi, need to changeto neb with some tx, no other assoc factors, otc not helping with tx, long hx of seasonal issues and asthma flares, PAST MEDICAL HISTORY Diagnosis Date Allergy to mold spores 2008 Allergy to trees 2008 white oak Angular cheilitis 05/08/2015 Asthma 10/2005 Chronic kidney disease, stage 3 (HCC) 04/2015 Chronic sinusitis 06/08/2014 Depression 10/2005 Gestational diabetes Herpes 12/2012 herpes 1 and 2 positive history of tubular adenoma 11/28/2017 Hyperlipemia 03/2000 Hypothyroid 1997 Osteopenia 12/22/2015 LUMBAR SPINE (L1-4) BMD = 0.936 g/cm2 T-Score = -2.0 standard deviation from mean peak bone mass ofnormal reference 20-45yr [facility] female Osteoporosis, unspecified 05/2008 PAC (premature atrial contraction) 2011 Status post radiofrequency ablation for arrhythmia 07/03/2017 1. The [employer]: CARTO mapping system was utilized. 2. 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 The [employer]: CARTO mapping system was utilized. 2. 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 FAMILY HISTORY Problem Relation Age of Onset Breast Cancer Mother of leukemia other (POLYCYTEMIA RUBRA VERA) Mother other (leukemia) Mother age 82 Cancer Father prostate, bladder Ischemic Heart Disease Father stent placed, age 96 other (dementia) Father other (CHF) Father Cancer Maternal Grandfather pancreas Cancer Paternal Grandfather prostate other (donna's disease) Brother Social History Tobacco Use Smoking status: Never Smokeless tobacco: Never Substance Use Topics Alcohol use: No Drug use: No Current Outpatient Medications on File Prior to Visit Medication Sig montelukast (SINGULAIR) 10 mg tablet Take 1 tablet by mouth once daily. levothyroxine (SYNTHROID) 75 mcg tablet Take 1 tablet by mouth once daily. atorvastatin (LIPITOR) 20 mg tablet Take 1 tablet by mouth once daily. albuterol (PROVENTIL) 2.5 mg /3 mL (0.083 %) nebulizer solution Use 3 mL via nebulizer every 4 hours as needed for wheezing/shortness of breath. SYMBICORT 160-4.5 mcg/actuation inhaler Inhale 2 Puffs as instructed twice daily. albuterol HFA (VENTOLIN HFA) 90 mcg/actuation inhaler Inhale 2 Puffs as instructed every 4 hours asneeded. fluticasone (FLONASE) 50 mcg/actuation nasal spray Use 2 Sprays in each nostril once daily. Cholecalciferol, Vitamin D3, 1,000 unit ORAL Tab Take one(1) tablet two(2) times daily. calcium carbonate/vitamin d3(CALCIUM 600 + D(3) 600 MG (1,500)-200 UNIT TAB) BID FLAXSEED OIL 1,000 MG CAP BID LORATADINE 10 MG TAB Take one(1) tablet daily as needed. No current facility-administered medications on file prior to visit. Review of Systems Constitutional: Negative. HENT: Positive for congestion, rhinorrhea, sinus pressure, sinus pain and sore throat. Eyes: Negative. Respiratory: Negative. Cardiovascular: Negative. Allergic/Immunologic: Positive for environmental allergies. Objective LMP 10/29/1998 Physical Exam Constitutional: General: She is not in acute distress. Appearance: Normal appearance. She is not ill-appearing. Pulmonary: Effort: Pulmonary effort is normal. Musculoskeletal: General: Normal range of motion. Cervical back: Normal range of motion. Skin: General: Skin is warm and dry. Coloration: Skin is not jaundiced or pale. Findings: No erythema. Neurological: General: No focal deficit present. Mental Status: She is alert and oriented to person, place, and time. Psychiatric: Mood and Affect: Mood normal. Behavior: Behavior normal. Thought Content: Thought content normal. Judgment: Judgment normal. Assessment and Plan ASSESSMENT/PLAN: 1. Mild intermittent reactive airway disease with acute exacerbation - ICD9: 493.92, ICD10: J45.21 (primary diagnosis) Mild intermittent Asthma acute excacerbation without status - Avoidance of triggers recommended - PREDNISONE 10 MG TABLET - AZITHROMYCIN 250 MG TABLET 2. Cough - ICD9: 786.2, ICD10: R05.9 start - BENZONATATE 100 MG CAPSULE - AZITHROMYCIN 250 MG TABLET 3. Acute bronchitis due to other specified organisms - ICD9: 466.0, ICD10: J20.8 start - PREDNISONE 10 MG TABLET Sonido Ness MD This is a virtual visit using Alternative video platform. It required patient- provider interaction for the medical decision making as documented below. documented in this encounterM[facility]05-[facility]22 Miscellaneous Notes* Telephone Encounter - Diamond Negron - 03/06/2022 10:56 AM EDT Patient notified of results and recheck time. Has appt scheduled for 6 month f/u Diamond Negron * Telephone Encounter - Clark Bucio LPN - 03/06/2022 8:24 AM EDT ----- Message from Sonido Ness MD sent at 03/06/2022 6:48 AM EDT ----- Labs ok, no changes, check in 6 months Sonido Ness MD documented in this encounterMcc[facility]05-[facility]-2022 Miscellaneous Notes* Addendum Note - Patience Patel MA - 03/03/2022 11:18 AM EDT Addended by: PATIENCE PATEL on: 03/03/2022 11:18 AM Modules accepted: Orders documented in this encounterMccull[facility]05-06-[facility]22 History of Present illness Narrative* Sonido Ness MD - 03/03/2022 10:30 AM EDT This note was created using [employer]. Subjective Victor Hugo Padilla is a 71 year old female. Established pt with hx of hypothyroid, hyperlipidemia, asthma, osteopenia, ckd 3, numerous environmental allergies, prior svt with ablation of accessory pathway for medicare wellness, issues with asthma flare, stated last months, had 10 days of cough and uri symptoms, finally had eval with antibiotic and steroids prescribed, started to help but as meds near completion, cough husbands' uri and then flared again, slowly getting better, now with intermittent cough and wheeze, been variable, bad yesterday, much less today, using rescue inhaler with only limited relief, no other assoc symptoms, hxof mold allergy, wet warming spring weather making issues worse, PAST MEDICAL HISTORY Diagnosis Date Allergy to mold spores 2008 Allergy to trees 2008 white oak Angular cheilitis 05/08/2015 Asthma 10/2005 Chronic kidney disease, stage 3 (HCC) 04/2015 Chronic sinusitis 06/08/2014 Depression 10/2005 Gestational diabetes Herpes 12/2012 herpes 1 and 2 positive history of tubular adenoma 11/28/2017 Hyperlipemia 03/2000 Hypothyroid 1997 Osteopenia 12/22/2015 LUMBAR SPINE (L1-4) BMD = 0.936 g/cm2 T-Score = -2.0 standard deviation from mean peak bone mass ofnormal reference 20-45yr [facility] female Osteoporosis, unspecified 05/2008 PAC (premature atrial contraction) 2011 Status post radiofrequency ablation for arrhythmia 07/03/2017 1. The [employer]: CARTO mapping system was utilized. 2. 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 The [employer]: CARTO mapping system was utilized. 2. 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 FAMILY HISTORY Problem Relation Age of Onset Breast Cancer Mother of leukemia other (POLYCYTEMIA RUBRA VERA) Mother other (leukemia) Mother age 82 Cancer Father prostate, bladder Ischemic Heart Disease Father stent placed, age 96 other (dementia) Father other (CHF) Father Cancer Maternal Grandfather pancreas Cancer Paternal Grandfather prostate other (donna's disease) Brother Social History Tobacco Use Smoking status: Never Smoker Smokeless tobacco: Never Used Substance Use Topics Alcohol use: No Drug use: No Current Outpatient Medications on File Prior to Visit Medication Sig 2 TABLETS BY MOUTH TODAY, TAKE 1 TABLET BY MOUTH ON DAYS 2-5 Take 4 tablets today (all at once) and then 3 tomorrow then 2 then 1; repeat if needed. SYMBICORT 160-4.5 mcg/actuation inhaler Inhale 2 Puffs as instructed twice daily. levothyroxine (SYNTHROID) 75 mcg tablet Take 1 tablet by mouth once daily. montelukast (SINGULAIR) 10 mg tablet Take 1 tablet by mouth once daily. atorvastatin (LIPITOR) 20 mg tablet Take 1 tablet by mouth once daily. albuterol HFA (VENTOLIN HFA) 90 mcg/actuation inhaler Inhale 2 Puffs as instructed every 4 hours asneeded. fluticasone (FLONASE) 50 mcg/actuation nasal spray Use 2 Sprays in each nostril once daily. Cholecalciferol, Vitamin D3, 1,000 unit ORAL Tab Take one(1) tablet two(2) times daily. calcium carbonate/vitamin d3(CALCIUM 600 + D(3) 600 MG (1,500)-200 UNIT TAB) BID FLAXSEED OIL 1,000 MG CAP BID LORATADINE 10 MG TAB Take one(1) tablet daily as needed. No current facility-administered medications on file prior to visit. Review of Systems Constitutional: Negative. HENT: Positive for congestion, rhinorrhea, sinus pressure, sinus pain and sore throat. Eyes: Negative. Respiratory: Positive for cough, shortness of breath and wheezing. Cardiovascular: Negative. Gastrointestinal: Negative. Endocrine: Negative. Genitourinary: Negative. Musculoskeletal: Negative. Skin: Negative. Allergic/Immunologic: Positive for environmental allergies. Neurological: Negative. Hematological: Negative. Psychiatric/Behavioral: Negative. Objective LMP 10/29/1998 Physical Exam Vitals reviewed. Constitutional: General: She is not in acute distress. Appearance: She is not diaphoretic. HENT: Head: Normocephalic and atraumatic. Right Ear: External ear normal. Left Ear: External ear normal. Nose: Nose normal. Eyes: Conjunctiva/sclera: Conjunctivae normal. Pupils: Pupils are equal, round, and reactive to light. Neck: Thyroid: No thyromegaly. Trachea: No tracheal deviation. Cardiovascular: Rate and Rhythm: Normal rate and regular rhythm. Heart sounds: Normal heart sounds. No murmur heard. No friction rub. No gallop. Pulmonary: Effort: Pulmonary effort is normal. No respiratory distress. Breath sounds: Normal breath sounds. No wheezing or rales. Chest: Chest wall: No tenderness. Breasts: Breasts are symmetrical. Right: No inverted nipple, mass or tenderness. Left: No inverted nipple, mass or tenderness. Abdominal: General: Bowel sounds are normal. There is no distension. Palpations: Abdomen is soft. There is no mass. Tenderness: There is no abdominal tenderness. There is no guarding or rebound. Musculoskeletal: General: No tenderness. Normal range of motion. Cervical back: Normal range of motion and neck supple. Lymphadenopathy: Cervical: No cervical adenopathy. Skin: General: Skin is warm and dry. Coloration: Skin is not pale. Findings: No erythema or rash. Neurological: Mental Status: She is alert and oriented to person, place, and time. Cranial Nerves: No cranial nerve deficit. Motor: No abnormal muscle tone. Coordination: Coordination normal. Deep Tendon Reflexes: Reflexes normal. Psychiatric: Judgment: Judgment normal. CBC with diff: WBC 5.19 08/19/2021 RBC 4.72 08/19/2021 Hemoglobin 14.0 08/19/2021 Hematocrit 45.2 08/19/2021 MCV 95.8 08/19/2021 MCH 29.7 08/19/2021 MCHC 31.0 08/19/2021 RDW-CV 13.1 08/19/2021 Platelet Count 213 08/19/2021 MPV 11.1 08/19/2021 Neut% 54.7 08/19/2021 Lymph% 32.2 08/19/2021 Charles% 10.8 08/19/2021 Eosin% 1.3 08/19/2021 Baso% 1.0 08/19/2021 Abs Neut (ANC) 2.83 08/19/2021 Abs Charles 0.56 08/19/2021 Abs Eosin 0.07 08/19/2021 Abs Baso 0.05 08/19/2021 Glucose (mg/dL) Date Value 08/19/2021 86 Potassium (mmol/L) Date Value 08/19/2021 4.3 Sodium (mmol/L) Date Value 08/19/2021 140 Chloride (mmol/L) Date Value 08/19/2021 103 CO2 (mmol/L) Date Value 08/19/2021 25 Creatinine (mg/dL) Date Value 08/19/2021 1.12 BUN (mg/dL) Date Value 08/19/2021 18 Anion Gap (mmol/L) Date Value 08/19/2021 12 Calcium (mg/dL) Date Value 08/19/2021 9.9 Protein, Total (g/dL) Date Value 08/19/2021 7.3 Albumin (g/dL) Date Value 08/19/2021 4.7 Bilirubin, Total (mg/dL) Date Value 08/19/2021 0.6 Alkaline Phosphatase (U/L) Date Value 08/19/2021 113 AST (U/L) Date Value 08/19/2021 28 ALT (U/L) Date Value 08/19/2021 25 ALT Date Value Ref Range Status 08/19/2021 25 7 - 38 U/L Final 02/16/2021 27 7 - 38 U/L Final 08/18/2020 23 7 - 38 U/L Final 08/25/2019 43.0 0.0 - 65.0 IU/L Final AST Date Value Ref Range Status 08/19/2021 28 13 - 35 U/L Final 02/16/2021 30 13 - 35 U/L Final 08/18/2020 29 13 - 35 U/L Final 08/25/2019 31 0 - 42 IU/L Final HDL Cholesterol Date Value Ref Range Status 08/19/2021 60 >39 mg/dL Final Comment: 40-59 mg/dL, Acceptable >59 mg/dL, High: Negative risk factor for coronary heart disease <40 mg/dL, Low: Positive risk factor for coronary heart disease 02/16/2021 57 >39 mg/dL Final Comment: 40-59 mg/dL, Acceptable >59 mg/dL, High: Negative risk factor for coronary heart disease <40 mg/dL, Low: Positive risk factor for coronary heart disease 08/18/2020 60 >39 mg/dL Final Comment: 40-59 mg/dL, Acceptable >59 mg/dL, High: Negative risk factor for coronary heart disease <40 mg/dL, Low: Positive risk factor for coronary heart disease 08/25/2019 63 30 - 100 mg/dL Final LDL Cholesterol Date Value Ref Range Status 08/19/2021 90 <100 mg/dL Final Comment: <100 mg/dL, Optimal 100-129 mg/dL, Near optimal/above optimal 130-159 mg/dL, Borderline high 160-189 mg/dL, High >189 mg/dL, Very high Secondary prevention optimal LDL Cholesterol levels are recommended to be < 70 mg/dL 02/16/2021 85 <100 mg/dL Final Comment: <100 mg/dL, Optimal 100-129 mg/dL, Near optimal/above optimal 130-159 mg/dL, Borderline high 160-189 mg/dL, High >189 mg/dL, Very high Secondary prevention optimal LDL Cholesterol levels are recommended to be < 70 mg/dL 08/18/2020 82 <100 mg/dL Final Comment: <100 mg/dL, Optimal 100-129 mg/dL, Near optimal/above optimal 130-159 mg/dL, Borderline high 160-189 mg/dL, High >189 mg/dL, Very high Secondary prevention optimal LDL Cholesterol levels are recommended to be < 70 mg/dL LDL Calculated Date Value Ref Range Status 03/16/2018 124 (H) 0 - 100 MG/DL Final Comment: LDL-C is now calculated using the Lee calculation, which is a validated novel method providing better accuracy than the Friedewald equation in the estimation of LDL-C. Rudi VALLES et al.ADONIS.2013;310(19):5634-6549 Desirable range <100 mg/dL for primary prevention; <70 mg/dL for patients with CHD or diabetic patients with >or= 2 CHD risk factors. For additional information, please refer to http://[email or web address]/faq/OJM895(This link is being provided for informational/educational purposes only.) Triglyceride Date Value Ref Range Status 08/19/2021 87 <150 mg/dL Final Comment: <150 mg/dL, Normal 150-199 mg/dL, Borderline high 200-499 mg/dL, High >499 mg/dL, Very high 02/16/2021 88 <150 mg/dL Final Comment: <150 mg/dL, Normal 150-199 mg/dL, Borderline high 200-499 mg/dL, High >499 mg/dL, Very high 08/18/2020 85 <150 mg/dL Final Comment: <150 mg/dL, Normal 150-199 mg/dL, Borderline high 200-499 mg/dL, High >499 mg/dL, Very high 08/25/2019 61 50 - 190 mg/dL Final No results found for: HBA1C Assessment and Plan ASSESSMENT/PLAN: 1. Medicare annual wellness visit, subsequent - ICD9: V70.0, ICD10: Z00.00 (primary diagnosis) - Counseled on healthy diet and regular exercise - Calcium intake with supplements or by diet of 1000 mg/day for under 50, 1200- 1500 mg/day for 50+ 2. Mixed hyperlipidemia - ICD9: 272.2, ICD10: E78.2 - good control - Continue current medication. - COMP METABOLIC PANEL - CBC + DIFF - LIPID PANEL BASIC - UA DIP, URINE (POC) - ATORVASTATIN 20 MG TABLET 3. 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 - COMP METABOLIC PANEL - CBC + DIFF - UA DIP, URINE (POC) - TSH BLD 4. Need for COVID-19 vaccine - ICD9: V04.89, ICD10: Z23 - [employer] COVID-19 VACCINE, AGE 12+ YR (CRUZ TOP) 5. Visit for screening mammogram - ICD9: V76.12, ICD10: Z12.31 - Encouraged monthly BSE - Follow up for annual exam in one year. - [facility] SCREENING 6. Stage 3a chronic kidney disease (HCC) - ICD9: 585.3, ICD10: N18.31 Cont following 7. Osteopenia, unspecified location - ICD9: 733.90, ICD10: M85.80 - Reviewed the need for Calcium and Vitamin D supplements and weight bearing exercise as tolerated 8. Severe persistent asthma with complication - ICD9: 493.90, ICD10: J45.50 Acute exacerbation, Start steroids with prednisone 20mg daily for 7 days, then 10 mg daily for 7 days, 9. Status post radiofrequency ablation for arrhythmia - ICD9: V45.89, ICD10: Z98.890, Z86.79 10. Uncomplicated severe persistent asthma - ICD9: 493.90, ICD10: J45.50 Albuterol for nebulizer if pt has relapse, can use with other meds, start tessalon as well - Avoidance of triggers recommended - MONTELUKAST 10 MG TABLET 11. Hypothyroidism, unspecified type - ICD9: 244.9, ICD10: E03.9 - Instructed patient on importance of taking on an empty stomach either first thing in the morning or at bedtime. Stable - LEVOTHYROXINE 75 MCG TABLET 12. Angular cheilitis - ICD9: 528.5, ICD10: K13.0 Restart as needed - KETOCONAZOLE 2 % TOPICAL CREAM Sonido Ness MD Patient's request for medication is as follows Signed Prescriptions Disp Refills montelukast (SINGULAIR) 10 mg tablet 90 tablet 1 Sig: Take 1 tablet by mouth once daily. JESSENIA: No levothyroxine (SYNTHROID) 75 mcg tablet 90 tablet 1 Sig: Take 1 tablet by mouth once daily. JESSENIA: No atorvastatin (LIPITOR) 20 mg tablet 90 tablet 1 Sig: Take 1 tablet by mouth once daily. JESSENIA: No predniSONE (DELTASONE) 10 mg tablet 21 tablet 0 Sig: Take 2 tablets daily for 7 days then one daily for 7 days benzonatate (TESSALON PERLES) 100 mg capsule 30 capsule 1 Sig: Take 2 capsules by mouth three times daily as needed. ketoconazole (NIZORAL) 2 % cream 15 g 3 Sig: Apply 1 application to affected area twice daily. JESSENIA: No albuterol (PROVENTIL) 2.5 mg /3 mL (0.083 %) nebulizer solution 100 mL 0 Sig: Use 3 mL via nebulizer every 4 hours as needed for wheezing/shortness of breath. This prescription was transmitted electronically - please notify patient. Sonido Ness MD Medicare Yearly Visit Medical B eligibilty date 2013 Date of last exam last yr PAST MEDICAL HISTORY Diagnosis Date Allergy to mold spores 2008 Allergy to trees 2008 white oak Angular cheilitis 05/08/2015 Asthma 10/2005 Chronic kidney disease, stage 3 (HCC) 04/2015 Chronic sinusitis 06/08/2014 Depression 10/2005 Gestational diabetes Herpes 12/2012 herpes 1 and 2 positive history of tubular adenoma 11/28/2017 Hyperlipemia 03/2000 Hypothyroid 1998 Osteopenia 12/22/2015 LUMBAR SPINE (L1-4) BMD = 0.936 g/cm2 T-Score = -2.0 standard deviation from mean peak bone mass ofnormal reference 20-45yr [place] female Osteoporosis, unspecified 05/2008 PAC (premature atrial contraction) 2011 Status post radiofrequency ablation for arrhythmia 07/03/2017 1. The [employer]: CARTO mapping system was utilized. 2. 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 [employer]: CARTO mapping system was utilized. 2. 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 ALLERGIES: Mold, Penicillins, and Trees Medications reviewed: Yes FAMILY HISTORY Problem Relation Age of Onset Breast Cancer Mother of leukemia other (POLYCYTEMIA RUBRA VERA) Mother other (leukemia) Mother age 82 Cancer Father prostate, bladder Ischemic Heart Disease Father stent placed, age 96 other (dementia) Father other (CHF) Father Cancer Maternal Grandfather pancreas Cancer Paternal Grandfather prostate other (donna's disease) Brother SOCIAL HISTORY: Social History Tobacco Use Smoking status: Never Smoker Smokeless tobacco: Never Used Substance Use Topics Alcohol use: No Drug use: No She watches her diet for sodium, low fat and low cholesterol most of the time. List of current specialists seen: none End of Live Planning discussed including patients advanced directive wishes: No I am willing to follow Victor Hugo's advanced directives. PHQ-2 / Depression screen She in the past two weeks denies having felt down, depressed, hopeless or with little interest or pleasure in doing things. Functional Ability/Safety Screen 1. Was the patient's timed Up and Go test unsteady or longer than 30 seconds? No 2. Does the patient need help with the phone, transportation, shopping,preparing meals, housework, laundry, medications or managing money? No 3. Does your home have rugs in the hallway, lack of grab bars in the bathroom, lack of handrails onthe stairs or have poor lighting? No Hearing Evaluation: normal PHYSICAL EXAM BP 122/60 (BP Site: Left Arm, BP Position: Sitting, BP Cuff Size: Regular Adult) Pulse 81 Ht 165.1 cm (5' 5 ) Wt 73 kg (161 lb) LMP 10/29/1998 SpO2 98% BMI 26.79 kg/m Alert and oriented X 3: YES Body mass index is 26.79 kg/m . ASSESSMENT/PLAN: 71 year old female The following prevention plan was discussed during the office visit and provided to the patient: - Glaucoma screening - Lipid panel Sonido Ness MD [facility] History of Present illness Narrative* Kade Crews MD, PhD - 02/17/2022 11:42 AM EDT Victor Hugo Padilla is a 71 year old female who presents with complaint of Cough and Asthma Virtual visit Duration 15 minutes Patient the only one on the phone. URI Cough, chest congestion - this is how my asthma starts with me, started in 2005 No fever/chills No sore throat No ear ache Using Albuterol MDI since 02/07 - I was not sick - uses every 4 to 6 hours Some tightness in the chest which I get every Spring and Fall. - MDI improves the cough ACTIVE PROBLEM LIST Hypothyroidism Mixed Hyperlipidemia Asthma History of Depression allergies to mold, trees History of herpes simplex infection + type 1 and 2 serologies Chronic Sinusitis Osteopenia Chronic Kidney Disease, Stage 3 (Hcc) H/O Supraventricular Tachycardia Status Post Radiofrequency Ablation for Arrhythmia history of tubular adenoma Current Outpatient Medications Medication Sig Dispense Refill SYMBICORT 160-4.5 mcg/actuation inhaler Inhale 2 Puffs as instructed twice daily. 3 Each 2 levothyroxine (SYNTHROID) 75 mcg tablet Take 1 tablet by mouth once daily. 90 tablet 1 montelukast (SINGULAIR) 10 mg tablet Take 1 tablet by mouth once daily. 90 tablet 1 atorvastatin (LIPITOR) 20 mg tablet Take 1 tablet by mouth once daily. 90 tablet 1 albuterol HFA (VENTOLIN HFA) 90 mcg/actuation inhaler Inhale 2 Puffs as instructed every 4 hours asneeded. 18 g 1 fluticasone (FLONASE) 50 mcg/actuation nasal spray Use 2 Sprays in each nostril once daily. 1 Bottle 3 Cholecalciferol, Vitamin D3, 1,000 unit ORAL Tab Take one(1) tablet two(2) times daily. 0 calcium carbonate/vitamin d3(CALCIUM 600 + D(3) 600 MG (1,500)-200 UNIT TAB) BID 0 FLAXSEED OIL 1,000 MG CAP BID 0 LORATADINE 10 MG TAB Take one(1) tablet daily as needed. 0 No current facility-administered medications for this visit. Review of Systems Constitutional: Negative for chills, fever and malaise/fatigue. HENT: Negative for congestion, ear pain, sinus pain and sore throat. Respiratory: Positive for cough. Negative for sputum production and wheezing. Cardiovascular: Negative for chest pain. Gastrointestinal: Negative for abdominal pain, diarrhea, nausea and vomiting. Wt 70.8 kg (156 lb) LMP 10/29/1998 BMI 25.19 kg/m Physical Exam Constitutional: General: She is not in acute distress. Appearance: She is not ill-appearing. Pulmonary: Effort: Pulmonary effort is normal. Musculoskeletal: Cervical back: Normal range of motion. Neurological: Mental Status: She is alert and oriented to person, place, and time. Psychiatric: Behavior: Behavior normal. ASSESSMENT/PLAN: 1. Cough - ICD9: 786.2, ICD10: R05.9 (primary diagnosis) 2. Mild intermittent reactive airway disease without complication - ICD9: 493.90, ICD10: J45.20 - AZITHROMYCIN 250 MG TABLET - PREDNISONE 10 MG TABLET taper Kade Crews MD, PhD documented [facility] History of Past illness Narrative* Problem Noted Date Resolved Date Angular cheilitis 05/08/2015 03/29/2017 Other nonspecific abnormal serum enzyme levels 0 03/29/2000 06/09/2013 documented as of this encounter (statuses as of 02/17/2022) [facility] of Past illness Narrative* Problem Noted Date Resolved Date Angular cheilitis 05/08/2015 03/29/2017 History of depression 10/29/2005 03/03/2022 Other nonspecific abnormal serum enzyme levels 0 03/29/2000 06/09/2013 documented as of this encounter (statuses as of 03/03/2022) [address]2015 History of Past illness Narrative* Problem Noted Date Resolved Date Angular cheilitis 05/08/2015 03/29/2017 History of depression 10/29/2005 03/03/2022 Other nonspecific abnormal serum enzyme levels 0 03/29/2000 06/09/2013 documented as of this encounter (statuses as of 03/06/2022) [address]2015 History of Past illness Narrative* Problem Noted Date Resolved Date Angular cheilitis 05/08/2015 03/29/2017 History of depression 10/29/2005 03/03/2022 Other nonspecific abnormal serum enzyme levels 0 03/29/2000 06/09/2013 documented as of this encounter (statuses as of 06/06/2022) [address]2015 History of Past illness Narrative* Problem Noted Date Resolved Date Angular cheilitis 05/08/2015 03/29/2017 History of depression 10/29/2005 03/03/2022 Other nonspecific abnormal serum enzyme levels 0 03/29/2000 06/09/2013 documented as of this encounter (statuses as of 08/16/2022) [address]2015 History of Past illness Narrative* Problem Noted Date Resolved Date Angular cheilitis 05/08/2015 03/29/2017 History of depression 10/29/2005 03/03/2022 Other nonspecific abnormal serum enzyme levels 0 03/29/2000 06/09/2013 documented as of this encounter (statuses as of 08/22/2022) [address]2015 History of Past illness Narrative* Problem Noted Date Resolved Date Angular cheilitis 05/08/2015 03/29/2017 History of depression 10/29/2005 03/03/2022 Other nonspecific abnormal serum enzyme levels 0 03/29/2000 06/09/2013 documented as of this encounter (statuses as of 08/23/2022) [address]2015 History of Past illness Narrative* Problem Noted Date Resolved Date Angular cheilitis 05/08/2015 03/29/2017 History of depression 10/29/2005 03/03/2022 Other nonspecific abnormal serum enzyme levels 0 03/29/2000 06/09/2013 documented as of this encounter (statuses as of 09/04/2022) [address]2015 History of Past illness Narrative* Problem Noted Date Resolved Date Angular cheilitis 05/08/2015 03/29/2017 History of depression 10/29/2005 03/03/2022 Other nonspecific abnormal serum enzyme levels 0 03/29/2000 06/09/2013 documented as of this encounter (statuses as of 09/05/2022) [address]2015 History of Past illness Narrative* Problem Noted Date Resolved Date Angular cheilitis 05/08/2015 03/29/2017 History of depression 10/29/2005 03/03/2022 Other nonspecific abnormal serum enzyme levels 0 03/29/2000 06/09/2013 documented as of this encounter (statuses as of 09/07/2022) [address] History of Past illness Narrative* Problem Noted Date Resolved Date Angular cheilitis 05/08/2015 03/29/2017 Chronic kidney disease, stage 3 04/28/2015 03/05/2023 History of depression 10/29/2005 03/03/2022 Other nonspecific abnormal serum enzyme levels 0 03/29/2000 06/09/2013 documented as of this encounter (statuses as of 03/05/2023) [facility] Narrative* Problem Noted Date Resolved Date Angular cheilitis 05/08/2015 03/29/2017 Chronic kidney disease, stage 3 04/28/2015 03/05/2023 History of depression 10/29/2005 03/03/2022 Other nonspecific abnormal serum enzyme levels 0 03/29/2000 06/09/2013 documented as of this encounter (statuses as of 03/05/2023) [address]2015 History of Past illness Narrative* Problem Noted Date Resolved Date Angular cheilitis 05/08/2015 03/29/2017 Chronic kidney disease, stage 3 04/28/2015 03/05/2023 History of depression 10/29/2005 03/03/2022 Other nonspecific abnormal serum enzyme levels 0 03/29/2000 06/09/2013 documented as of this encounter (statuses as of 03/06/2023) [address] History of Past illness Narrative* Problem Noted Date Resolved Date Angular cheilitis 05/08/2015 03/29/2017 Chronic kidney disease, stage 3 04/28/2015 03/05/2023 History of depression 10/29/2005 03/03/2022 Other nonspecific abnormal serum enzyme levels 0 03/29/2000 06/09/2013 documented as of this encounter (statuses as of 03/06/2023) [facility] Narrative* Problem Noted Date Resolved Date Angular cheilitis 05/08/2015 03/29/2017 Chronic kidney disease, stage 3 04/28/2015 03/05/2023 History of depression 10/29/2005 03/03/2022 Other nonspecific abnormal serum enzyme levels 0 03/29/2000 06/09/2013 documented as of this encounter (statuses as of 03/08/2023) [facility] Narrative* Problem Noted Date Resolved Date Angular cheilitis 05/08/2015 03/29/2017 Chronic kidney disease, stage 3 04/28/2015 03/05/2023 History of depression 10/29/2005 03/03/2022 Other nonspecific abnormal serum enzyme levels 0 03/29/2000 06/09/2013 documented as of this encounter (statuses as of 04/19/2023) [facility] Narrative* Problem Noted Date Resolved Date Angular cheilitis 05/08/2015 03/29/2017 Chronic kidney disease, stage 3 04/28/2015 03/05/2023 History of depression 10/29/2005 03/03/2022 Other nonspecific abnormal serum enzyme levels 0 03/29/2000 06/09/2013 documented as of this encounter (statuses as of 04/21/2023) [facility] Narrative* Problem Noted Date Diagnosed Date Resolved Date Angular cheilitis 05/08/2015 03/29/2017 Chronic kidney disease, stage 3 04/28/2015 03/05/2023 History of depression 10/29/20052021 Other nonspecific abnormal s chetna enzyme levels 03/29/2000 06/09/2013 documented as of this encounter (statuses as of 08/22/2023) [facility] Narrative* Problem Noted Date Diagnosed Date Resolved Date Angular cheilitis 05/08/2015 03/29/2017 Chronic kidney disease, stage 3 04/28/2015 03/05/2023 History of depression 10/29/20052021 Other nonspecific abnormal s chetna enzyme levels 03/29/2000 06/09/2013 documented as of this encounter (statuses as of 09/02/2023) [facility] Narrative* Problem Noted Date Diagnosed Date Resolved Date Angular cheilitis 05/08/2015 03/29/2017 Chronic kidney disease, stage 3 04/28/2015 03/05/2023 History of depression 10/29/20052021 Other nonspecific abnormal s chetna enzyme levels 03/29/2000 06/09/2013 documented as of this encounter (statuses as of 10/02/2023) [facility] Narrative* Problem Noted Date Diagnosed Date Resolved Date Angular cheilitis 05/08/2015 03/29/2017 Chronic kidney disease, stage 3 04/28/2015 03/05/2023 History of depression 10/29/20052021 Other nonspecific abnormal s chetna enzyme levels 03/29/2000 06/09/2013 documented as of this encounter (statuses as of 12/10/2023) [facility] Narrative* Problem Noted Date Diagnosed Date Resolved Date Angular cheilitis 05/08/2015 03/29/2017 Chronic kidney disease, stage 3 04/28/2015 03/05/2023 History of depression 10/29/20052021 Other nonspecific abnormal s chetna enzyme levels 03/29/2000 06/09/2013 documented as of this encounter (statuses as of 01/11/2024) [facility] Diagnosis Cough- Primary Mild intermittent reactive airway disease without complication Medicare annual wellness visit, subsequent- Primary Routine general medical examination at a health care facility Mixed hyperlipidemia 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 Need for COVID-19 vaccine Visit for screening mammogram Other screening mammogram [facility] Diagnosis Medicare annual wellness visit, subsequent- Primary Routine general medical examination at a health care facility Mixed hyperlipidemia 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 Need for COVID-19 vaccine Visit for screening mammogram Other screening mammogram Stage 3a chronic kidney disease (HCC) Osteopenia, unspecified location Severe persistent asthma without complication Status post radiofrequency ablation for arrhythmia Other postprocedural status Uncomplicated severe persistent asthma Unspecified asthma Hypothyroidism, unspecified type Angular cheilitis Diseases of lips [facility] [place] [facility] Diagnosis Mild intermittent reactive airway disease with acute exacerbation- Primary Cough Acute bronchitis due to other specified organisms Acute cough [facility] Diagnosis Uncomplicated severe persistent asthma Unspecified asthma Mixed hyperlipidemia- Primary 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 Need for vaccination against Streptococcus pneumoniae Need for prophylactic vaccination against streptococcus pneumoniae (pneumococcus) Need for COVID-19 vaccine Need for influenza vaccination Need for prophylactic vaccination and inoculation against influenza documented [facility] this [facility] [place] [facility]* Diagnosis Mixed hyperlipidemia- Primary 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 Hypothyroidism, unspecified type Uncomplicated severe persistent asthma Unspecified asthma Severe persistent asthma without complication Chronic pansinusitis Other chronic sinusitis Stage 3a chronic kidney disease (HCC) Need for vaccination against Streptococcus pneumoniae Need for prophylactic vaccination against streptococcus pneumoniae (pneumococcus) Need for COVID-19 vaccine Need for influenza vaccination Need for prophylactic vaccination and inoculation against influenza H/O supraventricular tachycardia Personal history of other diseases of circulatory system documented [facility] this [facility] [place] [facility]* Diagnosis Medicare annual wellness visit, subsequent- Primary Routine general medical examination at a health care facility Mixed hyperlipidemia 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 allergies to mold, trees Other allergy, other than to medicinal agents Status post radiofrequency ablation for arrhythmia Other postprocedural status Encounter for screening mammogram for breast cancer Screening for colorectal cancer Special screening for malignant neoplasms, colon Need for vaccination against Streptococcus pneumoniae Need for prophylactic vaccination against streptococcus pneumoniae (pneumococcus) Uncomplicated severe persistent asthma Unspecified asthma Hypothyroidism, unspecified type Screening for colon cancer Special screening for malignant neoplasms, colon Screening for osteoporosis Special screening for osteoporosis Postmenopausal Asymptomatic postmenopausal status (age-related) (natural) [facility] [place] [facility] Diagnosis Mixed hyperlipidemia- Primary 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 Elevated glucose Other abnormal glucose Vitamin D deficiency Unspecified vitamin D deficiency Vitamin B12 deficiency Other B-complex deficiencies documented in this [facility] [place] [facility]* Diagnosis Uncomplicated severe persistent asthma Unspecified asthma Hypothyroidism, unspecified type Mixed hyperlipidemia documented in this [facility] [place] [facility]* Diagnosis Screening for osteoporosis Special screening for osteoporosis Postmenopausal Asymptomatic postmenopausal status (age-related) (natural) [facility] Diagnosis Hives- Primary Urticaria, unspecified Mixed hyperlipidemia Stage 3a chronic kidney disease (HCC) Severe persistent asthma without complication 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 note* Diagnosis Left foot pain- Primary Pain in limb documented in this encounter [facility] for referral (narrative)* Diagnostic Procedure Only (Routine) - Pending Review Specialty Diagnoses / Procedures Referred By Estella mcmahon Referred To Contact [facility] Diagnoses Visit for screening mammogram Procedures JOHN SCREENING SCREENING MAMMOGRAPHY BI 2-[place] [id number] [place] [address] [facility] [address] [place] [address] Referral ID Status Reason Start Date Expiration Date Visits Requested Visits Authorized [id number] Pending Review Auto-Generat ed Referral 03/03/2022 03/16/2023 1 1 [facility] for referral (narrative)* Outpatient Procedure (Routine) - Pending Review Specialty Diagnoses / Procedures Referred By Estella mcmahon Referred To Contact [facility] Diagnoses Screening for colon cancer Procedures COLONOSCOPY SCREENING COLONOSCOPY FLX DX W/COLLJ [place] [id number] [address] [place] [address] [facility] [address] [place] [address] Referral ID Status Reason Start Date Expiration Date Visits Requested Visits Authorized [id number] Pending Review Auto-Generat ed Referral 03/05/2023 03/05/2024 1 1 * Diagnostic Procedure Only (Routine) - Pending Review Specialty Diagnoses / Procedures Referred By Estella mcmahon Referred To Contact [facility] Diagnoses Encounter for screening mammogram for breast cancer Procedures JOHN SCREENING SCREENING MAMMOGRAPHY BI 2-[place] [id number] [place] [address] [facility] [address] [place] [address] Referral ID Status Reason Start Date Expiration Date Visits Requested Visits Authorized [id number] Pending Review Auto-Generat ed Referral 03/05/2023 04/03/2024 1 1 [facility] Diagnostic Procedure Only (Routine) - New Request Specialty Diagnoses / Procedures Referred By Estella mcmahon Referred To Contact [facility] Diagnoses Left foot pain Procedures XR FOOT GENERAL 3V AP/LAT/OBL LEFT RADEX FOOT COMPLETE MINIMUM 3 [place] [address] [place] [address] [place] [address] Referral ID Status Reason Start Date Expiration Date Visits Requested Visits Authorized [id number] New Request Auto-Generat ed Referral 06/24/2024 07/24/2025 1 1 [facility] Summary Purpose Family History No Family History Records FoundNo Family History Records FoundNo Family History Records FoundNo Family History Records FoundNo Family History Records FoundNo Family History Records FoundNo Family History Records FoundNo Family History Records Found Advance Directives No Advanced Directives Records FoundDocuments on File Type Date Recorded Patient Dye Blender Expl anation Advance Directive(s) Documents on File Type Date Recorded Patient Dye Blender Expl anation Advance Directive(s) Medications Administered Section Inactive Administered Medications - up to 3 most recent administrations Medication Order MAR Action Action Date Dose Rate Site methylPREDNISolone acetate 80 mg injection (DEPO-Medrol) 80 mg, INTRAMUSCULAR, ONCE, 1 dose, On 09/01/23 at 0900 Given 09/01/2023 8:50 AM EDT 80 mg Buttocks, Right Additional Source Comments INFORMATION SOURCE (unrecogn ized section and content) DATE CREATED AUTHOR 04/24/2018 [facility] DATE CREATED AUTHOR AUTHOR'S ORGANIZ ATION 12/18/2018 [facility] DATE CREATED AUTHOR AUTHOR'S ORGANIZ ATION 05/17/2022 [facility] DATE CREATED AUTHOR AUTHOR'S ORGANIZ ATION 04/21/2023 [facility] DATE CREATED AUTHOR AUTHOR'S ORGANIZ ATION 01/30/2024 [facility] DATE CREATED AUTHOR AUTHOR'S ORGANIZ ATION 06/26/2024 [place] DATE CREATED AUTHOR AUTHOR'S ORGANIZ ATION 07/01/2024 [facility] DATE CREATED AUTHOR AUTHOR'S ORGANIZ ATION 07/29/2024 [facility] Source Comments (unrecognize d section and content) In the event this informatio n is protected by the Federal Confidentiality of Alcohol and Drug Abuse Patient Records regulations: The Federal rules restrict any use of the information to criminally investigate or prosecute any alcohol or drug abuse patient.[facility] the event this information is protected by the Federal Confidentiality of Alcohol and Drug Abuse Patient Records regulations: The Federal rules restrict any use of the information to criminally investigate or prosecute any alcohol or drug abuse patient.[facility] the event this information is protected by the Federal Confidentiality of Alcohol and Drug Abuse Patient Records regulations: The Federal rules restrict any use of the information to criminally investigate or prosecute any alcohol or drug abuse patient.[facility] the event this information is protected by the Federal Confidentiality of Alcohol and Drug Abuse Patient Records regulations: The Federal rules restrict any use of the information to criminally investigate or prosecute any alcohol or drug abuse patient.[facility] the event this information is protected by the Federal Confidentiality of Alcohol and Drug Abuse Patient Records regulations: The Federal rules restrict any use of the information to criminally investigate or prosecute any alcohol or drug abuse patient.[facility] the event this information is protected by the Federal Confidentiality of Alcohol and Drug Abuse Patient Records regulations: The Federal rules restrict any use of the information to criminally investigate or prosecute any alcohol or drug abuse patient.[facility] the event this information is protected by the Federal Confidentiality of Alcohol and Drug Abuse Patient Records regulations: The Federal rules restrict any use of the information to criminally investigate or prosecute any alcohol or drug abuse patient.[facility] the event this information is protected by the Federal Confidentiality of Alcohol and Drug Abuse Patient Records regulations: The Federal rules restrict any use of the information to criminally investigate or prosecute any alcohol or drug abuse patient.[facility] the event this information is protected by the Federal Confidentiality of Alcohol and Drug Abuse Patient Records regulations: The Federal rules restrict any use of the information to criminally investigate or prosecute any alcohol or drug abuse patient.[facility] Hospital[facility] the event this information is protected by the Federal Confidentiality of Alcohol and Drug Abuse Patient Records regulations: The Federal rules restrict any use of the information to criminally investigate or prosecute any alcohol or drug abuse patient.[facility] Hospital[facility] the event this information is protected by the Federal Confidentiality of Alcohol and Drug Abuse Patient Records regulations: The Federal rules restrict any use of the information to criminally investigate or prosecute any alcohol or drug abuse patient.[facility] HospitalIn the event this information is protected by the Federal Confidentiality of Alcohol and Drug Abuse Patient Records regulations: The Federal rules restrict any use of the information to criminally investigate or prosecute any alcohol or drug abuse patient.[facility] HospitalIn the event this information is protected by the Federal Confidentiality of Alcohol and Drug Abuse Patient Records regulations: The Federal rules restrict any use of the information to criminally investigate or prosecute any alcohol or drug abuse patient.[facility] HospitalIn the event this information is protected by the Federal Confidentiality of Alcohol and Drug Abuse Patient Records regulations: The Federal rules restrict any use of the information to criminally investigate or prosecute any alcohol or drug abuse patient.[facility] HospitalIn the event this information is protected by the Federal Confidentiality of Alcohol and Drug Abuse Patient Records regulations: The Federal rules restrict any use of the information to criminally investigate or prosecute any alcohol or drug abuse patient.[facility] HospitalIn the event this information is protected by the Federal Confidentiality of Alcohol and Drug Abuse Patient Records regulations: The Federal rules restrict any use of the information to criminally investigate or prosecute any alcohol or drug abuse patient.[facility] HospitalIn the event this information is protected by the Federal Confidentiality of Alcohol and Drug Abuse Patient Records regulations: The Federal rules restrict any use of the information to criminally investigate or prosecute any alcohol or drug abuse patient.[facility] HospitalIn the event this information is protected by the Federal Confidentiality of Alcohol and Drug Abuse Patient Records regulations: The Federal rules restrict any use of the information to criminally investigate or prosecute any alcohol or drug abuse patient.[facility] HospitalIn the event this information is protected by the Federal Confidentiality of Alcohol and Drug Abuse Patient Records regulations: The Federal rules restrict any use of the information to criminally investigate or prosecute any alcohol or drug abuse patient.[facility] HospitalIn the event this information is protected by the Federal Confidentiality of Alcohol and Drug Abuse Patient Records regulations: The Federal rules restrict any use of the information to criminally investigate or prosecute any alcohol or drug abuse patient.[facility] HospitalIn the event this information is protected by the Federal Confidentiality of Alcohol and Drug Abuse Patient Records regulations: The Federal rules restrict any use of the information to criminally investigate or prosecute any alcohol or drug abuse patient.[facility] HospitalIn the event this information is protected by the Federal Confidentiality of Alcohol and Drug Abuse Patient Records regulations: The Federal rules restrict any use of the information to criminally investigate or prosecute any alcohol or drug abuse patient.[facility] HospitalIn the event this information is protected by the Federal Confidentiality of Alcohol and Drug Abuse Patient Records regulations: The Federal rules restrict any use of the information to criminally investigate or prosecute any alcohol or drug abuse patient.[facility] HospitalIn the event this information is protected by the Federal Confidentiality of Alcohol and Drug Abuse Patient Records regulations: The Federal rules restrict any use of the information to criminally investigate or prosecute any alcohol or drug abuse patient.[facility] HospitalIn the event this information is protected by the Federal Confidentiality of Alcohol and Drug Abuse Patient Records regulations: The Federal rules restrict any use of the information to criminally investigate or prosecute any alcohol or drug abuse patient.[facility] HospitalIn the event this information is protected by the Federal Confidentiality of Alcohol and Drug Abuse Patient Records regulations: The Federal rules restrict any use of the information to criminally investigate or prosecute any alcohol or drug abuse patient.[facility] HospitalIn the event this information is protected by the Federal Confidentiality of Alcohol and Drug Abuse Patient Records regulations: The Federal rules restrict any use of the information to criminally investigate or prosecute any alcohol or drug abuse patient.[facility] HospitalIn the event this information is protected by the Federal Confidentiality of Alcohol and Drug Abuse Patient Records regulations: The Federal rules restrict any use of the information to criminally investigate or prosecute any alcohol or drug abuse patient.[facility] HospitalIn the event this information is protected by the Federal Confidentiality of Alcohol and Drug Abuse Patient Records regulations: The Federal rules restrict any use of the information to criminally investigate or prosecute any alcohol or drug abuse patient.[facility] HospitalIn the event this information is protected by the Federal Confidentiality of Alcohol and Drug Abuse Patient Records regulations: The Federal rules restrict any use of the information to criminally investigate or prosecute any alcohol or drug abuse patient.[facility] Reason for Visit (unrecogniz ed section and content) Reason Comments Cough Asthma Reason Comments Medicare Wellness Exam Reason Comments Results Reason Comments Chest Congestion Reason Comments Medication Problem New Rx Request Reason Comments Recheck Reason Comments October colonoscopy Reason Comments Medicare Wellness Exam Reason Comments Opened In Error Reason Onset Date Comments Refill Request 03/05/2023 Reason Comments Bone Density Reason Comments Allergic Reaction Reason Comments Hives Reason Comments Lab Orders Reason Comments Medicare Wellness Exam Reason Onset Date Comments Refill Request 03/03/2024 Reason Comments Refill Request Reason Comments Foot Pain (Midfoot) Care Teams (unrecognized sec tion and content) Statistical Clerk Advertising Relationship Specialty Start Date End Date Sonido Ness MD PCP - General Cardiology 09/26/07 Rudi Rogers MD [address] [facility] [address] [place], [place] [id number] Primary Staff Physician Cardiology 01/14/19 Statistical Clerk Advertising Relationship Specialty Start Date End Date Sonido Ness MD PCP - General Cardiology 09/26/07 Rudi Rogers MD [address] [facility] [address] [place], [place] [id number] Primary Staff Physician Cardiology 01/14/19 Statistical Clerk Advertising Relationship Specialty Start Date End Date Sonido Ness MD PCP - General Cardiology 09/26/07 Rudi Rogers MD [address] [address] Primary Staff Physician Cardiology 01/14/19 Statistical Clerk Advertising Relationship Specialty Start Date End Date Sonido Ness MD PCP - General Cardiology 09/26/07 Rudi Rogers MD [address] [address] Primary Staff Physician Cardiology 01/14/19 Statistical Clerk Advertising Relationship Specialty Start Date End Date Sonido Ness MD PCP - General Cardiology 09/26/07 Rudi Rogers MD [address] [address] Primary Staff Physician Cardiology 01/14/19 Statistical Clerk Advertising Relationship Specialty Start Date End Date Sonido Ness MD PCP - General Cardiology 09/26/07 Rudi Rogers MD [address] [address] Primary Staff Physician Cardiology 01/14/19 Statistical Clerk Advertising Relationship Specialty Start Date End Date Sonido Ness MD PCP - General Cardiology 09/26/07 Rudi Rogers MD [address] [address] Primary Staff Physician Cardiology 01/14/19 Statistical Clerk Advertising Relationship Specialty Start Date End Date Sonido Ness MD PCP - General Cardiology 09/26/07 Rudi Rogers MD [address] [address] Primary Staff Physician Cardiology 01/14/19 Statistical Clerk Advertising Relationship Specialty Start Date End Date Sonido Ness MD PCP - General Cardiology 09/26/07 Rudi Rogers MD [address] [address] Primary Staff Physician Cardiology 01/14/19 Statistical Clerk Advertising Relationship Specialty Start Date End Date Sonido Ness MD PCP - General Cardiology 09/26/07 Rudi Rogers MD [address] [address] Primary Staff Physician Cardiology 01/14/19 Statistical Clerk Advertising Relationship Specialty Start Date End Date Sonido Ness MD PCP - General Cardiology 09/26/07 Rudi Rogers MD [address] [address] Primary Staff Physician Cardiology 01/14/19 Statistical Clerk Advertising Relationship Specialty Start Date End Date Sonido Ness MD PCP - General Cardiology 09/26/07 Rudi Rogers MD [address] [address] Primary Staff Physician Cardiology 01/14/19 Statistical Clerk Advertising Relationship Specialty Start Date End Date Sonido Ness MD PCP - General Cardiology 09/26/07 Rudi Rogers MD [address] [address] Primary Staff Physician Cardiology 01/14/19 Statistical Clerk Advertising Relationship Specialty Start Date End Date Sonido Ness MD PCP - General Cardiology 09/26/07 Rudi Rogers MD [address] [address] Primary Staff Physician Cardiology 01/14/19 Statistical Clerk Advertising Relationship Specialty Start Date End Date Sonido Ness MD PCP - General Cardiology 09/26/07 Rudi Rogers MD [address] [address] Primary Staff Physician Cardiology 01/14/19 Statistical Clerk Advertising Relationship Specialty Start Date End Date Sonido Ness MD PCP - General Cardiology 09/26/07 Rudi Rogers MD [address] [address] Primary Staff Physician Cardiology 01/14/19 Statistical Clerk Advertising Relationship Specialty Start Date End Date Sonido Ness MD PCP - General Cardiology 09/26/07 Rudi Rogers MD [address] [address] Primary Staff Physician Cardiology 01/14/19 Statistical Clerk Advertising Relationship Specialty Start Date End Date Sonido Ness MD PCP - General Cardiology 09/26/07 Rudi Rogers MD [address] [place] [address] Primary Staff Physician Cardiology 01/14/19 Statistical Clerk Advertising Relationship Specialty Start Date End Date Sonido Ness MD PCP - General Cardiology 09/26/07 Rudi Rogers MD [address] [facility], [address], [address] [place] [address] Primary Staff Physician Cardiology 01/14/19 Statistical Clerk Advertising Relationship Specialty Start Date End Date Sonido Ness MD PCP - General Cardiology 09/26/[address] [facility], [address], [address] [place] [address] Primary Staff Physician Cardiology 01/14/19 Statistical Clerk Advertising Relationship Specialty Start Date End Date Sonido Ness MD PCP - General Cardiology 09/26/07 Rudi Rogers MD [address] [facility], [address], [address] [place] [address] Primary Staff Physician Cardiology 01/14/19 Statistical Clerk Advertising Relationship Specialty Start Date End Date Sonido Ness MD PCP - General Cardiology 09/26/07 Rudi Rogers MD [address] [facility], [address], [address] [place] [address] Primary Staff Physician Cardiology 01/14/19 Statistical Clerk Advertising Relationship Specialty Start Date End Date Sonido Ness MD PCP - General Cardiology 09/26/07 Rudi Rogers MD [address] [facility], [address], [address] [place] [address] Primary Staff Physician Cardiology 01/14/19 Statistical Clerk Advertising Relationship Specialty Start Date End Date Sonido Ness MD PCP - General Cardiology 09/26/07 [place] [address] [place] [address], [address], [address] [place] [address] Primary Staff Physician Cardiology 01/14/19 Statistical Clerk Advertising Relationship Specialty Start Date End Date Sonido Ness MD PCP - General Cardiology 09/26/07 [place] [address] [place] [address], [address], [address] [place] [address] Primary Staff Physician Cardiology 01/14/19 Statistical Clerk Advertising Relationship Specialty Start Date End Date Sonido Ness MD PCP - General Cardiology 09/26/07 Rudi Rogers MD [address] [facility], [address], [address] [place] [address] Primary Staff Physician Cardiology 01/14/19 Statistical Clerk Advertising Relationship Specialty Start Date End Date Sonido Ness MD PCP - General Cardiology 09/26/07 Rudi Rogers MD [address] [place] [address], [address], [address] [place] [address] Primary Staff Physician Cardiology 01/14/19 FOR RECORDS PERTAINING TO PATIENTS WHO ARE OR HAVE BEEN ENROLLED IN A CHEMICAL DEPENDENCY/SUBSTANCEABUSE PROGRAM, SOME INFORMATION MAY BE OMITTED. This clinical summary was aggregated from multiple sources. Caution should be exercised in using it in the provision of clinical care. This summary normalizes information from multiple sources, and as a consequence, information in this document may materially change the coding, format and clinical context of patient data. In addition, data may be omitted in some cases. CLINICAL DECISIONS SHOULD BE BASED ON THE PRIMARY CLINICAL RECORDS. [facility] [employer] [facility]. provides no warranty or guarantee of the accuracy or completeness of information in this document.
== END 2024-08-05 10:40 | disposition home or self-care (01) ==
LOC: RAD 10:39
PROVIDERS: Visit Provider Podiatrist Foot & Ankle Surgery
DX: M79.672 Pain in left foot (principal); S92.355D Nondisplaced fracture of fifth metatarsal bone, left foot, subsequent encounter for fracture with routine healing
CPT/HCPCS: 73630

== ENCOUNTER 2024-08-27 08:15 | Outpatient (OUT) | payer MEDICARE, SELFPAY ==
--- NOTE | 2024-08-27 | XR_ITS ---
The [address] [address] Patient Name: VICTOR HUGO CANDELARIO MRN: [id number] date: 1950 Sex: F Assigned Patient Location: Current Patient Location: Accession/Order Number: [id number] Exam Date: 08/27/2024 10:45 Report Date: 08/29/2024 08:13 At the request of: KELLY BARRIGA Procedure: XR foot LT min 3V PROCEDURE: XR foot LT min 3V COMPARISON: 08/05/2024 HISTORY: LEFT FOOT PAIN FINDINGS: BONES:Stable healing oblique fifth metatarsal diaphyseal fracture with partial bony bridging. Single screw through the head of the first metatarsal. Valgus of the first through fourth proximal phalanges in relation to the metatarsals SOFT TISSUES:Negative. No visible soft tissue swelling. EFFUSION:None visible. OTHER: Negative. XR/XR foot LT min 3V IMPRESSION: Stable healing fifth metatarsal fracture Electronically authenticated by: PASTOR JOINER Date: 08/29/2024 08:13
--- OUTSIDE RECORDS SUMMARY | 2024-08-27 08:26 | XMS_ITS | CCD ---
Author Organization [facility] Care Team Providers Care Sap Technical Architect Name Role Phone RUDI ROGERS Unavailable Unavailable [...] Primary Care Provider Rudi Rogers MD Unavailable Sonido Ness MD Primary Care Provider Rudi Rogers MD Unavailable [phone] SONIDO NESS Referring UnavailSONIDO Nugent Primary Care UnavailRudi Murphy MD Unavailable [phone] Rudi Rogers MD Unavailable FELIPA PUGA Attending Unavailable FELIPA PUGA Attending Unavailable Sonido Ness MD Primary Care Provider SONIDO NESS Referring UnavailSONIDO Nugent Attending UnavailSONIDO Nugent Primary Care UnavailSONIDO Nugent Attending UnavailSONIDO Nugent Primary Care UnavailYony Leyva Attending Unavailable Vibha Cm Attending Unavailable Vibha Cm Referring Unavailable Allergies Allergy Classification Reported Allergen(s) Allergy Type Date of Onset Reaction(s) Facility (20 sources) mold extract; Translations: [MOLD] Drug Allergy 10-12-201 0 Cough [facility] Repository (20 sources) Penicillins; Translations: [PENICILLINS] Propensity to adverse reactions to drug (disorder) 9 Other: See Comments [facility] Repository (20 sources) Tree; Translations: [TREES] Propensity to adverse reactions (disorder) 0 Cough [facility] Repository Medications Current Medications Medication Drug Class(es) Dates Sig (Normalized) Sig (Original) [id number] 200 actuat albuterol 0.09 mg/actuat metered dose [...] on above: Take 1 tablet by kade th once daily. Budesonide / formoterol (20 sources) [...] on above: Take 1 tablet by kade th once daily. linseed oil 1000 mg oral [...] on above: Take 1 tablet by kade th once daily. predniSONE 10 mg oral tablet (14 sources) Start: 12-10-19 24 End: 01-09-20 take 1 tablet by mouth [...] [Mild intermittent asthma, uncomplicated] Onset: 10-29-2005 Chronic Cataract (1 source) Presence of intraocular lens; Translations: [Cataract- Pseudophakia OU] Onset: 07-28-2024 Chronic Chronic kidney disease (20 sources) Chronic [...] Translations: [Mixed hyperlipidemia] Onset: 03-29-2000 10-30-2015 Chronic Inflammation; infection of eye (except that caused by tuberculosis or sexually transmitteddisease) (2 sources) Unspecified blepharitis right eye, upper and lower eyelids; Translations: [Unspecified blepharitis left eye, upper and lower eyelids] Onset: 07-28-2024 Episodic Nutritional deficiencies (3 sources) Vitamin D deficiency; [...] menopausal state; Translations: [Postmenopausal] Onset: 04-18-2023 Episodic Retinal detachments; defects; vascular occlusion; and retinopathy (1 source) Puckering of macula, bilateral; Translations: [Epiretinal membrane (ERM), bilateral] Onset: 07-28-2024 Chronic Thyroid disorders (20 sources) Hypothyroidism; Translations: [Hypothyroidism, [...] Test Name Value Interpretation Reference Range Facility [facility] 07-01-2024 [facility] Telephone (FFPWIL) -------- VICTOR HUGO PADILLA ([id number]) 1950 F Date Time Provider Department 07/01/24 SONIDO NESS FFPWIL During your visit today, [...] [N18.31] Order(s):COMPREHENSIVE METABOLIC PANEL [SQCMP] Order #: [id number] FUTURE COMPLETE BLOOD COUNT AND DIFFERENTIAL [SQCBCDIF] Order #: [id number] FUTURE LIPID PANEL BASIC [SQLIPB] Order #: [id number] FUTURE THYROID STIMULATING HORMONE [SQTSH] Order #: [id number] FUTURE VITAMIN D 25 HYDROXY [SQVITD] Order #: [id number] FUTURE URINALYSIS, WITH MICROSCOPIC [SQUAWMIC] Order #: [id number] FUTURE Prescriptions as of 07/01/2024 - budesonide-formoterol [...] Encounter Status:Closed by SONIDO NESS on 07/01/24 [facility] 06-24-2024 CNPN Telephone (IFPWIL) -------- VICTOR HUGO PADILLA ([id number]) 1950 F Date Time Provider Department 06/24/24 SONIDO NESS IFEZ During your visit today, we recorded the following information about you: Diamond Barbosa 06/24/2024 12:51 PM Signed Victor Hugo is calling Sonido Ness MD today with concern regarding Foot Pain (Midfoot) Patient has been identified by name and birthdate. Duration of symptoms: N/A Person calling: self Call patient at: on cell [phone] (home) [phone] (cell) Was an appointment scheduled: No Closing statement: Patient is concerned that she broke her foot, please call. Avis Mckeon LPN 06/24/2024 2:16 PM Signed Spoke with Patient, C/O injury to outside of left foot 1 below baby toe, very sore, a little better now after taking tylenol and applying ice. States she tried to stop herself from falling, heard a popping noise come from her foot. Asking for xray orders- pended. Closest hospital to her is [facility] in [place], [place].Will call and get radiology fax. Avis Espinoza LPN Avis Espinoza SECOND CLASS WELDER 06/24/2024 3:08 PM Signed Radiology fax: [phone]. Avis Espinoza SECOND CLASS WELDER EleazarAvis madrid, SECOND CLASS WELDER 06/24/2024 4:35 PM Addendum Order faxed. Patient [...] [M79.672] Order(s):XR FOOT GENERAL 3V AP/LAT/OBL LEFT [[id number]] Order #: [id number] FUTURE Prescriptions as of 06/24/2024 - budesonide-formoterol [...] is RUPAL Problem List As Of Date 06/24/2024 Noted [...] AVIS ESPINOZA on 06/24/24 Normal [facility] XR FOOT LT MIN 3 VWSon 06-24 [...] Alvarado MD on 06/24/2024 5:56 PM Normal [facility] 03-04-2024 [facility] Telephone (IFPWIL) -------- VICTOR HUGO PADILLA ([id number]) 1950 F Date Time Provider Department 03/04/24 SONIDO NESS IFPWIL During your visit today, we recorded the following information about you: Radha Banks RN 03/04/2024 7:49 AM Signed ----- Message from Sonido Ness MD sent at 03/04/2024 6:24 AM EDT ----- Labs with chol stable No changes, check in 6 months Emma Moe RN 03/04/2024 10:33 AM Signed Called and spoke [...] EMMA MOE on 03/04/24 Normal [facility] 25(OH)D3 SerPl-mCrenatoon 2023 25-hydroxyvitamin D3 [Mass/Vol] 76.0 ng/mL Normal 31.0-80.0 [facility] Comment on above: Order Comment: Speci men Type: BLOOD SPECIMENOrdering Facility: [facility] Address: [address] [place] [address] Performed By: #### 1 989-3 ####[facility] [id number] [place] [address] [place] 25-hydroxyvitamin D3 [Mass/V ol]on 03-03-2024 Interpretation and review of laboratory results Normal [facility] CBC W Auto Differential pane l (Bld)on 03-03-2024 Basophils (Bld) [#/Vol] [facility] Basophils/100 WBC (Bld) 0.3 % [facility] Differential cell count method Nom (Bld) Auto [facility] Eosinophils (Bld) [#/Vol] 0.04 10*3/uL [facility] Eosinophils/100 WBC (Bld) 0.5 % [facility] Erythrocyte distribution width (RBC) [Ratio] 12.7 % 11.5 - 15.0 % [facility] Hematocrit (Bld) [Volume fraction] 43.9 % 36.0 - 46.0 % [facility] Hemoglobin (Bld) [Mass/Vol] 14.2 g/dL 11.5 - 15.5 g/dL [facility] Immature granulocytes (Bld) [#/Vol] [facility] Immature granulocytes/100 WBC (Bld) 0.1 % [facility] Lymphocytes (Bld) [#/Vol] 1.77 10*3/uL [facility] Lymphocytes/100 WBC (Bld) 24.1 % [facility] MCH (RBC) [Entitic mass] 29.7 pg 26.0 - 34.0 pg [facility] MCHC (RBC) [Mass/Vol] 32.3 g/dL 30.5 - 36.0 g/dL [facility] MCV (RBC) [Entitic vol] 91.8 fL 80.0 - 100.0 fL [facility] Monocytes (Bld) [#/Vol] 0.75 10*3/uL NINF [facility] Monocytes/100 WBC (Bld) 10.2 % [facility] Neutrophils (Bld) [#/Vol] 4.76 10*3/uL [facility] Neutrophils/100 WBC (Bld) 64.8 % [facility] Nucleated RBC (Bld) [#/Vol] NINF [facility] Nucleated RBC/100 WBC (Bld) [Ratio] 0.0 % /100 WBC [facility] Platelet mean volume (Bld) [Entitic vol] 11.7 fL 9.0 - 12.7 fL [facility] Platelets (Bld) [#/Vol] 209 10*3/uL [facility] RBC (Bld) [#/Vol] 4.78 10*6/uL 3.90 - 5.2 0 m/uL [facility] WBC (Bld) [#/Vol] 7.35 10*3/uL [facility] Basophils (Bld) [#/Vol] 10*3/uL Normal <0.11 [facility] Comment on above: Order Comment: Speci men Type: BLOOD SPECIMENOrdering Facility: [facility] Address: [address] [place] [address] Performed By: #### 5 7021-8 ####[facility] [id number] [place] [address] [place] Basophils/100 WBC (Bld) 0.3 % Normal [facility] Comment on above: Order Comment: Speci men Type: BLOOD SPECIMENOrdering Facility: [facility] Address: [address] [place] [address] Performed By: #### 5 7021-8 ####[facility] [id number] [place] [address] [place] Differential cell count method Nom (Bld) Auto Normal [facility] Comment on above: Order Comment: Speci men Type: BLOOD SPECIMENOrdering Facility: [facility] Address: [address] [place] [address] Performed By: #### 5 7021-8 ####[facility] [id number] [place] [address] [place] Eosinophils (Bld) [#/Vol] 0.04 10*3/uL Normal <0.46 [facility] Comment on above: Order Comment: Speci men Type: BLOOD SPECIMENOrdering Facility: [facility] Address: [address] [place] [address] Performed By: #### 5 7021-8 ####[facility] [id number] [place] [address] [place] Eosinophils/100 WBC (Bld) 0.5 % Normal [facility] Comment on above: Order Comment: Speci men Type: BLOOD SPECIMENOrdering Facility: [facility] Address: [address] [place] [address] Performed By: #### 5 7021-8 ####[facility] [id number] [place] [address] [place] Erythrocyte distribution width (RBC) [Ratio] 12.7 % Normal 11.5-15.0 [facility] Comment on above: Order Comment: Speci men Type: BLOOD SPECIMENOrdering Facility: [facility] Address: [address] [place] [address] Performed By: #### 5 7021-8 ####[facility] [id number] [place] [address] [place] Hematocrit (Bld) [Volume fraction] 43.9 % Normal 36.0-46.0 [facility] Comment on above: Order Comment: Speci men Type: BLOOD SPECIMENOrdering Facility: [facility] Address: [address] [place] [address] Performed By: #### 5 7021-8 ####[facility] [id number] [place] [address] [place] Hemoglobin (Bld) [Mass/Vol] 14.2 g/dL Normal 11.5-15.5 [facility] Comment on above: Order Comment: Speci men Type: BLOOD SPECIMENOrdering Facility: [facility] Address: [address] [place] [address] Performed By: #### 5 7021-8 ####[facility] [id number] [place] [address] [place] Immature granulocytes (Bld) [#/Vol] 10*3/uL Normal <0.10 [facility] Comment on above: Order Comment: Speci men Type: BLOOD SPECIMENOrdering Facility: [facility] Address: [address] [place] [address] Performed By: #### 5 7021-8 ####[facility] [id number] [place] [address] [place] Immature granulocytes/100 WBC (Bld) 0.1 % Normal [facility] Comment on above: Order Comment: Speci men Type: BLOOD SPECIMENOrdering Facility: [facility] Address: [address] [place] [address] Performed By: #### 5 7021-8 ####[facility] [id number] [place] [address] [place] Lymphocytes (Bld) [#/Vol] 1.77 10*3/uL Normal 1.00-4.00 [facility] Comment on above: Order Comment: Speci men Type: BLOOD SPECIMENOrdering Facility: [facility] Address: [address] [place] [address] Performed By: #### 5 7021-8 ####[facility] [id number] [place] [address] [place] Lymphocytes/100 WBC (Bld) 24.1 % Normal [facility] Comment on above: Order Comment: Speci men Type: BLOOD SPECIMENOrdering Facility: [facility] Address: [address] [place] [address] Performed By: #### 5 7021-8 ####[facility] [id number] [place] [address] [place] MCH (RBC) [Entitic mass] 29.7 pg Normal 26.0-34.0 [facility] Comment on above: Order Comment: Speci men Type: BLOOD SPECIMENOrdering Facility: [facility] Address: [address] [place] [address] Performed By: #### 5 7021-8 ####[facility] [id number] [place] [address] [place] MCHC (RBC) [Mass/Vol] 32.3 g/dL Normal 30.5-36.0 [facility] Comment on above: Order Comment: Speci men Type: BLOOD SPECIMENOrdering Facility: [facility] Address: [address] [place] [address] Performed By: #### 5 7021-8 ####[facility] [id number] [place] [address] [place] MCV (RBC) [Entitic vol] 91.8 fL Normal 80.0-100.0 [facility] Comment on above: Order Comment: Speci men Type: BLOOD SPECIMENOrdering Facility: [facility] Address: [address] [place] [address] Performed By: #### 5 7021-8 ####[facility] [id number] [place] [address] [place] Monocytes (Bld) [#/Vol] 0.75 10*3/uL Normal <0.87 [facility] Comment on above: Order Comment: Speci men Type: BLOOD SPECIMENOrdering Facility: [facility] Address: [address] [place] [address] Performed By: #### 5 7021-8 ####[facility] [id number] [place] [address] [place] Monocytes/100 WBC (Bld) 10.2 % Normal [facility] Comment on above: Order Comment: Speci men Type: BLOOD SPECIMENOrdering Facility: [facility] Address: [address] [place] [address] Performed By: #### 5 7021-8 ####[facility] [id number] [place] [address] [place] Neutrophils (Bld) [#/Vol] 4.76 10*3/uL Normal 1.45-7.50 [facility] Comment on above: Order Comment: Speci men Type: BLOOD SPECIMENOrdering Facility: [facility] Address: [address] [place] [address] Performed By: #### 5 7021-8 ####[facility] [id number] [place] [address] [place] Neutrophils/100 WBC (Bld) 64.8 % Normal [facility] Comment on above: Order Comment: Speci men Type: BLOOD SPECIMENOrdering Facility: [facility] Address: [address] [place] [address] Performed By: #### 5 7021-8 ####[facility] [id number] [place] [address] [place] Nucleated RBC (Bld) [#/Vol] 10*3/uL Normal <0.01 [facility] Comment on above: Order Comment: Speci men Type: BLOOD SPECIMENOrdering Facility: [facility] Address: [address] [place] [address] Performed By: #### 5 7021-8 ####[facility] [id number] [place] [address] [place] Nucleated RBC/100 WBC (Bld) [Ratio] 0.0 /100 WBC Normal [facility] Comment on above: Order Comment: Speci men Type: BLOOD SPECIMENOrdering Facility: [facility] Address: [address] [place], [place] [address] Performed By: #### 5 7021-8 ####[facility] [id number] [place] [address] [place] Platelet mean volume (Bld) [Entitic vol] 11.7 fL Normal 9.0-12.7 [facility] Comment on above: Order Comment: Speci men Type: BLOOD SPECIMENOrdering Facility: [facility] Address: [address] [place] [address] Performed By: #### 5 7021-8 ####[facility] [id number] [place] [address] [place] Platelets (Bld) [#/Vol] 209 10*3/uL Normal 150-400 [facility] Comment on above: Order Comment: Speci men Type: BLOOD SPECIMENOrdering Facility: [facility] Address: [address] [place] [address] Performed By: #### 5 7021-8 ####[facility] [id number] [place] [address] [place] RBC (Bld) [#/Vol] 4.78 10*6/uL Normal 3.90-5.20 [facility] Comment on above: Order Comment: Speci men Type: BLOOD SPECIMENOrdering Facility: [facility] Address: [address] [place] [address] Performed By: #### 5 7021-8 ####[facility] [id number] [place] [id number] [place] WBC (Bld) [#/Vol] 7.35 10*3/uL Normal 3.70-11.00 [facility] Comment on above: Order Comment: Speci men Type: BLOOD SPECIMENOrdering Facility: [facility] Address: [address] [place] [address] Performed By: #### 5 7021-8 ####[facility] [id number] [address] [address] [facility] CNOVon 03-03-2024 CNOV Office Visit (FFPWIL ) -------- VICTOR HUGO PADILLA ([id number]) 1950 F Date Time Provider Department 03/03/24 10:30 AM SONIDO NESS FFPWIL During your visit today, we recorded the following information about you: Pulse Blood pressure Weight Height 74/minute 138/70 73.5 kg 1.651 m Patience Patel MA 03/03/2024 12:41 PM Signed Your patient has already completed the old HRA questionnaire. They will receive the new one at their next visit when it is due. Medicare Health Risk Assessment In general, health is: Very good Concerns with balance:Not at all Concerns with teeth or dentures:Not at all Concerns with sexual function:n/a Mabie anxious, stressed, angry, irritable, lonely, isolated, or [...] PM Signed This note was created using NoteWriter. [...] peak bone mass of normal reference 20-45yr [facility] female Osteoporosis, unspecified 05/2008 PAC (premature atrial contraction) 2011 Status post radiofrequency ablation for arrhythmia 07/03/2017 1. [employer]: CARTO mapping system was utilized. 2. 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 [employer]: CARTO mapping system was utilized. 2. Supraventricular [...] (more content not included)... Normal [facility] Comprehensive metabolic 2000 panelon 03-03-2024 Albumin [Mass/Vol] 4.4 g/dL 3.9 - 4.9 g/dL Cl [facility] ALP [Catalytic activity/Vol] 120 U/L 34 - 123 U/L [facility] ALT [Catalytic activity/Vol] 22 U/L 7 - 38 U/L [facility] Anion gap [Moles/Vol] 11 mmol/L 9 - 18 mmol/L [facility] AST [Catalytic activity/Vol] 27 U/L 13 - 35 U/L [facility] Bilirubin [Mass/Vol] 0.5 mg/dL 0.2 - 1.3 mg/dL [facility] Calcium [Mass/Vol] 10.1 mg/dL 8.5 - 10. 2 mg/dL [facility] Chloride [Moles/Vol] 104 mmol/L 97 - 105 mmol/L [facility] CO2 [Moles/Vol] 24 mmol/L 22 - 30 mmol/L [facility] Creatinine [Mass/Vol] 1.10 mg/dL High 0.58 - 0.96 mg/dL [facility] GFR/1.73 sq M.predicted among non-blacks MDRD (S/P/Bld) [Vol rate/Area] 53 mL/min/{1.73_m2} Low - PINF [facility] Comment on above: Estimated Glomerular Filtration [...] [Mass/Vol] 92 mg/dL 74 - 99 mg/dL [facility] Comment on above: The [place] Diab[employer] Association (ADA) provides guidance for [...] Standards of Medical Care in Diabetes 2016, [place] Diabetes Association. Diabetes Care. 2016.39(Suppl 1). Interpretation and review of laboratory results Abnormal [facility] Potassium [Moles/Vol] 4.4 mmol/L 3.7 - 5.1 mmol/L [facility] Protein [Mass/Vol] 7.7 g/dL 6.3 - 8.0 g/dL Cl [facility] Sodium [Moles/Vol] 139 mmol/L 136 - 144 mmol/L [facility] Urea nitrogen [Mass/Vol] 16 mg/dL 7 - 21 mg/dL [facility] Albumin [Mass/Vol] 4.4 g/dL Normal 3.9-4.9 [facility] Comment on above: Order Comment: Speci men Type: BLOOD SPECIMENOrdering Facility: [facility] Address: [address] [place] [address] Performed By: #### 3 016-3, 41052-1, 04896-7 ####[facility] [id number] [place] [address] [place] ALP [Catalytic activity/Vol] 120 U/L Normal 34-123 [facility] Comment on above: Order Comment: Speci men Type: BLOOD SPECIMENOrdering Facility: [facility] Address: [address] [place] [address] Performed By: #### 3 016-3, 39358-6, 34031-7 ####[facility] [id number] [place] [address] [place] ALT [Catalytic activity/Vol] 22 U/L Normal 7-38 [facility] Comment on above: Order Comment: Speci men Type: BLOOD SPECIMENOrdering Facility: [facility] Address: [address] [place] [address] Performed By: #### 3 016-3, 75417-6, ####[facility] [id number] [place] [address] [place] Anion gap [Moles/Vol] 11 mmol/L Normal 9-18 [facility] Comment on above: Order Comment: Speci men Type: BLOOD SPECIMENOrdering Facility: [facility] Address: [address] [place] [address] Performed By: #### 3 016-3, , ####[facility] [id number] [place] [address] [place] AST [Catalytic activity/Vol] 27 U/L Normal 13-35 [facility] Comment on above: Order Comment: Speci men Type: BLOOD SPECIMENOrdering Facility: [facility] Address: [address] [place] [address] Performed By: #### 3 016-3, 98417-7, ####[facility] [id number] [place] [address] [place] Bilirubin [Mass/Vol] 0.5 mg/dL Normal 0.2-1.3 [facility] Comment on above: Order Comment: Speci men Type: BLOOD SPECIMENOrdering Facility: [facility] Address: [address] [place] [address] Performed By: #### 3 016-3, 32411-5, 13580-8 ####[facility] [id number] [address] [address] [place] Calcium [Mass/Vol] 10.1 mg/dL Normal 8.5-10.2 [facility] Comment on above: Order Comment: Speci men Type: BLOOD SPECIMENOrdering Facility: [facility] Address: [address] [place] [address] Performed By: #### 3 016-3, 26516-4, 30996-4 ####[facility] [id number] [place] [address] [place] Chloride [Moles/Vol] 104 mmol/L Normal 97-105 [facility] Comment on above: Order Comment: Speci men Type: BLOOD SPECIMENOrdering Facility: [facility] Address: [address] [place] [address] Performed By: #### 3 016-3, 26578-2, 48719-8 ####[facility] [id number] [place] [address] [place] CO2 [Moles/Vol] 24 mmol/L Normal 22-30 [facility] Comment on above: Order Comment: Speci men Type: BLOOD SPECIMENOrdering Facility: [facility] Address: [address] [place] [address] Performed By: #### 3 016-3, 65180-2, 68835-0 ####[facility] [id number] [place] [address] [place] Creatinine [Mass/Vol] 1.10 mg/dL High 0.58-0.96 [facility] [place] Comment on above: Order Comment: Speci men Type: BLOOD SPECIMENOrdering Facility: [facility] Address: [address] [place] [address] Performed By: #### 3 016-3, 36024-5, 90033-9 ####[facility] [id number] [place] [address] [place] Creatinine and Glomerular filtration rate.predicted panel (S/P/Bld) 53 mL/min/1.73m??? Low >=60 [facility] [place] Comment on above: Order Comment: Susan pena Type: BLOOD SPECIMENOrdering Facility: [facility] Address: [address] [place] [address] Result Comment: Lety mated Glomerular Filtration Rate [...] actual GFR. Performed By: #### 3 016-3, 29566-2, 53031-1 ####[facility] [id number] [place] [address] [place] Glucose [Mass/Vol] 92 mg/dL Normal 74-99 [facility] Comment on above: Order Comment: Susan pena Type: BLOOD SPECIMENOrdering Facility: [facility] Address: [address] [place] [address] Result Comment: The [place] Diabetes Association (ADA) provides guidance for cutoff [...] Standards of Medical Care in Diabetes 2016, [place] [employer]. Diabetes Care. 2016.39(Suppl 1). Performed By: #### 3 016-3, , ####[facility] [id number] [place] [address] [place] Potassium [Moles/Vol] 4.4 mmol/L Normal 3.7-5.1 [facility] [place] Comment on above: Order Comment: Speci men Type: BLOOD SPECIMENOrdering Facility: [facility] Address: [address] [place] [address] Performed By: #### 3 016-3, , ####[facility] [id number] [place] [address] [place] Protein [Mass/Vol] 7.7 g/dL Normal 6.3-8.0 [facility] Comment on above: Order Comment: Speci men Type: BLOOD SPECIMENOrdering Facility: [facility] Address: [address] [place] [address] Performed By: #### 3 016-3, , ####[facility] [id number] [place] [address] [place] Sodium [Moles/Vol] 139 mmol/L Normal 136-144 [facility] Comment on above: Order Comment: Speci men Type: BLOOD SPECIMENOrdering Facility: [facility] Address: [address] [place] [address] Performed By: #### 3 016-3, , ####[facility] [id number] [place] [id number] [place] Urea nitrogen [Mass/Vol] 16 mg/dL Normal 7-21 [facility] Comment on above: Order Comment: Speci men Type: BLOOD SPECIMENOrdering Facility: [facility] Address: [address] [place] [address] Performed By: #### 3 016-3, 27613-9, 77029-3 ####[facility] [id number] [facility] [id number] [place] [address] [place] Lipid 1996 panelon 4 Cholesterol [Mass/Vol] 149 mg/dL NINF - 200 mg/dL [facility] Comment on above: <200 mg/dL, Desirabl e 200-239 mg/dL, Borderline high >239 mg/dL, High Cholesterol in HDL [Mass/Vol] 51 mg/dL 39 - PINF mg/dL [facility] Comment on above: 40-59 mg/dL, Accepta ble >59 mg/dL, High: Negative risk factor for coronary heart disease <40 mg/dL, Low: Positive risk factor for coronary heart disease Cholesterol in LDL [Mass/Vol] 84 mg/dL NINF - 100 mg/dL [facility] Comment on above: <100 mg/dL, Optimal 100-129 mg/dL, Near optimal/above optimal 130-159 mg/dL, Borderline high 160-189 mg/dL, High >189 mg/dL, Very high Secondary prevention optimal LDL Cholesterol levels are recommended to be < 70 mg/dL Cholesterol in LDL/Cholesterol in HDL [Mass ratio] 1.65 {ratio} NINF - 2.54 [facility] Comment on above: Reference: 1. National Cholesterol Education Program ATP III Guideline At-A-Glance Quick Desk Reference: National Heart, Lung, and Blood Arthur. National Institutes of Health. 2001: NIH Publication No. 01-3305. 2. An International Atherosclerosis Society position paper: global recommendations for the management of dyslipidemia: executive summary, Atherosclerosis. 2014: 232(2):410-413. Cholesterol in VLDL [Mass/Vol] 14 mg/dL NINF - 30 mg/dL [facility] Cholesterol non HDL [Mass/Vol] 98 mg/dL NINF - 130 mg/dL [facility] Comment on above: <130 mg/dL, Optimal 130-159 mg/dL, Near optimal/above optimal 160-189 mg/dL, Borderline high 190-219 mg/dL, High >219 mg/dL, Very high Secondary prevention optimal non HDL Cholesterol levels are recommended to be <100 mg/dL Cholesterol.total/C holesterol in HDL [Mass ratio] 2.92 {ratio} NINF - 5.10 [facility] Fasting Time 16 hours hrs [facility] Triglyceride [Mass/Vol] 71 mg/dL NINF - 150 mg/dL [facility] Comment on above: <150 mg/dL, Normal 150-199 mg/dL, Borderline high 200-499 mg/dL, High >499 mg/dL, Very high Cholesterol [Mass/Vol] 149 mg/dL Normal <200 [facility] Comment on above: Order Comment: Speci men Type: BLOOD SPECIMENOrdering Facility: [facility] Address: [address] [place] [address] Result Comment: <200 mg/dL, Desirable 200-239 mg/dL, Borderline high >239 mg/dL, High Performed By: #### 3 016-3, 16493-1, 88741-8 ####[facility] [id number] [address] [place] Cholesterol in HDL [Mass/Vol] 51 mg/dL Normal >39 [facility] [place] Comment on above: Order Comment: Speci men Type: BLOOD SPECIMENOrdering Facility: [facility] Address: [address] [place] [address] Result Comment: 40-5 9 mg/dL, Acceptable >59 mg/dL, High: Negative risk factor for coronary heart disease <40 mg/dL, Low: Positive risk factor for coronary heart disease Performed By: #### 3 016-3, 26459-4, 82785-4 ####[facility] [id number] [place] [address] [place] Cholesterol in LDL [Mass/Vol] 84 mg/dL Normal <100 [facility] Comment on above: Order Comment: Speci men Type: BLOOD SPECIMENOrdering Facility: [facility] Address: [address] [place] [address] Result Comment: <100 mg/dL, Optimal 100-129 mg/dL, Near optimal/above optimal 130-159 mg/dL, Borderline high 160-189 mg/dL, High >189 mg/dL, Very high Secondary prevention optimal LDL Cholesterol levels are recommended to be < 70 mg/dL Performed By: #### 3 016-3, 66276-5, 81441-4 ####[facility] [id number] [address] [place] Cholesterol in LDL/Cholesterol in HDL [Mass ratio] 1.65 {ratio} Normal <2.54 [facility] Comment on above: Order Comment: Susan pena Type: BLOOD SPECIMENOrdering Facility: [facility] Address: [address] [place] [address] Result Comment: Refe rence: 1. National Cholesterol Education Program ATP III Guideline At-A-Glance Quick Desk Reference: National Heart, Lung, and Blood Arthur. National Institutes of Health. 2001: NIH Publication No. 01-3305. 2. An International Atherosclerosis Society position paper: global recommendations for the management of dyslipidemia: executive summary, Atherosclerosis. 2014: 232(2):410-413. Performed By: #### 3 016-3, , 28850-5 ####[facility] [id number] [place] [address] [place] Cholesterol in VLDL [Mass/Vol] 14 mg/dL Normal <30 [facility] [place] Comment on above: Order Comment: Susan pena Type: BLOOD SPECIMENOrdering Facility: [facility] Address: [address] [place] [address] Performed By: #### 3 016-3, , ####[facility] [id number] [address] [place] Cholesterol non HDL [Mass/Vol] 98 mg/dL Normal <130 [facility] Comment on above: Order Comment: Desiraei men Type: BLOOD SPECIMENOrdering Facility: [facility] Address: [address] [place] [address] Result Comment: <130 mg/dL, Optimal 130-159 mg/dL, Near optimal/above optimal 160-189 mg/dL, Borderline high 190-219 mg/dL, High >219 mg/dL, Very high Secondary prevention optimal non HDL Cholesterol levels are recommended to be <100 mg/dL Performed By: #### 3 016-3, 61145-6, 84777-1 ####[facility] [id number] [place] [address] [place] Cholesterol.total/C holesterol in HDL [Mass ratio] 2.92 {ratio} Normal <5.10 [facility] Comment on above: Order Comment: Speci men Type: BLOOD SPECIMENOrdering Facility: [facility] Address: [address] [place] [address] Performed By: #### 3 016-3, 00010-5, 68677-1 ####[facility] [id number] [place] [address] [place] FASTING TIME 16 hours Normal [facility] Comment on above: Order Comment: Speci men Type: BLOOD SPECIMENOrdering Facility: [facility] Address: [address] [place] [address] Performed By: #### 3 016-3, 54803-6, 48148-8 ####[facility] [id number] [place] [address] [place] Triglyceride [Mass/Vol] 71 mg/dL Normal <150 [facility] Comment on above: Order Comment: Speci men Type: BLOOD SPECIMENOrdering Facility: [facility] Address: [address] [place] [address] Result Comment: <150 mg/dL, Normal 150-199 mg/dL, Borderline high 200-499 mg/dL, High >499 mg/dL, Very high Performed By: #### 3 016-3, 27521-0, 11021-9 ####[facility] [id number] [place] [address] [place] No Panel Informationon 03-03 [facility] TSH BLDon 03-03-2024 TSH Qn 0.555 m[IU]/L [facility] TSH Qnon 03-03-2024 Interpretation and review of laboratory results Normal [facility] TSH SerPl-aCncon 03-03-2024 TSH Qn 0.555 m[IU]/L Normal 0.270-4.200 [facility] Comment on above: Order Comment: Speci men Type: BLOOD SPECIMENOrdering Facility: [facility] Address: [address] [place] [address] Performed By: #### 3 016-3, 44079-6, 80051-1 ####[facility] [id number] [address] [place] [id number] [address] [place] UA DIP, URINE (POC)on 2023 BILIRUBIN UA (POCT) Negative Negative Silviano [facility] CLARITY UA (POCT) Clear [facility] COLOR UA (POCT) Yellow [facility] GLUCOSE UA (POCT) Negative Negative mg/dL [facility] Hemoglobin Ql (U) Trace-intact Abnormal Negative [facility] Interpretation and review of laboratory results Abnormal [facility] KETONE UA (POCT) Negative Negative mg/dL [facility] LEUKOCYTES UA (POCT) Trace Abnormal Negative [facility] NITRITE UA (POCT) Negative Negative [facility] PH UA (POCT) 6.0 4.5 - 8.0 [facility] Protein Ql (U) Negative Negative mg/dL [facility] SPECIFIC GRAVITY UA (POCT) 1.015 1.005 - 1.030 [facility] UROBILINOGEN UA (POCT) 0.2 Normal E.U./dL [facility] Location:[facility], [id number] [place] [address], [address] [place] [address] POINT OF CARE [facility] VITAMIN D 25 HYDROXYon 03-03 25-hydroxyvitamin D3 [Mass/Vol] 76.0 ng/mL 31.0 - 80.0 ng/mL [facility] Wojciech 01-09-2024 CNPN Telephone (FFPWIL) -------- VICTOR HUGO PADILLA ([id number]) 1950 F Date Time Provider Department 01/09/24 [...] [E55.9] Order(s):COMP METABOLIC PANEL [SQCMP] Order #: [id number] FUTURE CBC + DIFF [SQCBCDIF] Order #: [id number] FUTURE LIPID PANEL BASIC [SQLIPB] Order #: [id number] FUTURE TSH BLD [SQTSH] Order #: [id number] FUTURE VITAMIN D 25 HYDROXY [SQVITD] Order #: [id number] FUTURE URINALYSIS, WITH MICROSCOPIC [SQUAWMIC] Order #: [id number] FUTURE Prescriptions as of 02/28/2024 - budesonide-formoterol [...] Comments as of 09/02/2018: Patient's mail-a-way is [employer] Problem List As Of Date 01/09/2024 Noted [...] (HCC) [N18.31] 09/01/2023 Encounter Status:Closed by KADE HERNANDEZ on 01/11/24 [facility] Wojciech 12-10-2023 PER Telephone (FFPWIL) -------- VICTOR HUGO PADILLA ([id number]) 1950 F Date Time Provider Department 12/10/23 SONIDO NESS FFPWIL During your visit today, we recorded the following information about you: Sylvia Marshall RN 12/10/2023 9:45 AM Signed Patient calls, she also sent a Rebit message this am. Her Hives are back She finished prednisone last Sunday Developed hives again over the weekend Started at underware waistband site and under bra line She thinks her underware is spandex, not latex Advised dose of benadryl for now Further instructions per PcP SERJIO Starks John Patrick, MD 12/10/2023 11:13 AM Signed Start prednisone [...] is AETNA Problem List As Of Date 12/10/2023 Noted [...] Encounter Status:Closed by [facility]IDO [facility]ESS [facility] Telephone (IFPWIL) -------- VICTOR HUGO PADILLA ([id number]) 1950 Date Time Provider Department 09/03/23 SONIDO NESS IFEveerttWIJosep During your visit today, we recorded the [...] is AETNA Problem List As Of Date 09/03/2023 Noted [...] BIGGS RN on 09/03/23 Normal [facility] 25(OH)D3 SerPl-Jason 2022 25-hydroxyvitamin D3 [Mass/Vol] 64.1 ng/mL Normal 31.0-80.0 [facility] Comment on above: Order Comment: Speci men Type: BLOOD SPECIMENOrdering Facility: [facility] Address: [address] [place] [address] Result Comment: Clas sification of 25 [place] Vitamin D status: Deficiency/Insufficiency: < or = 30 ng/ml. Sufficiency/Optimal Levels: 31-80 ng/mL Toxicity: > 100 ng/mL. Test performed by chemiluminescent immunoassay. Performed By: #### 1 989-3 ####[facility] [id number] [facility] [id number] [place] [address] [place] [facility] CBC panel Auto (Bld)on 09-01 Erythrocyte distribution width (RBC) [Ratio] 13.2 % 11.5 - 15.0 % [facility] Hematocrit (Bld) [Volume fraction] 47.2 % High 36.0 - 46.0 % [facility] Hemoglobin (Bld) [Mass/Vol] 14.9 g/dL 11.5 - 15.5 g/dL [facility] MCH (RBC) [Entitic mass] 29.3 pg 26.0 - 34.0 pg [facility] MCHC (RBC) [Mass/Vol] 31.6 g/dL 30.5 - 36.0 g/dL [facility] MCV (RBC) [Entitic vol] 92.9 fL 80.0 - 100.0 fL [facility] Nucleated RBC (Bld) [#/Vol] <0.01 k/uL [facility] Platelet mean volume (Bld) [Entitic vol] 11.5 fL 9.0 - 12.7 fL [facility] Platelets (Bld) [#/Vol] 204 10*3/uL 150 - 400 k/uL [facility] RBC (Bld) [#/Vol] 5.08 10*6/uL 3.90 - 5.2 0 m/uL [facility] WBC (Bld) [#/Vol] 7.14 10*3/uL 3.70 - 11. 00 k/uL [facility] Erythrocyte distribution width (RBC) [Ratio] 13.2 % Normal 11.5-15.0 [facility] Comment on above: Order Comment: Speci men Type: BLOOD SPECIMENOrdering Facility: [facility] Address: [address] [place] [address] Performed By: #### 5 8410-2 ####[facility] [id number] [place] [address] [place] Hematocrit (Bld) [Volume fraction] 47.2 % High 36.0-46.0 [facility] Comment on above: Order Comment: Speci men Type: BLOOD SPECIMENOrdering Facility: [facility] Address: [address] [place] [address] Performed By: #### 5 8410-2 ####[facility] [id number] [place] [address] [place] Hemoglobin (Bld) [Mass/Vol] 14.9 g/dL Normal 11.5-15.5 [facility] Comment on above: Order Comment: Speci men Type: BLOOD SPECIMENOrdering Facility: [facility] Address: [address] [place] [address] Performed By: #### 5 8410-2 ####[facility] [id number] [place] [address] [place] MCH (RBC) [Entitic mass] 29.3 pg Normal 26.0-34.0 [facility] Comment on above: Order Comment: Speci men Type: BLOOD SPECIMENOrdering Facility: [facility] Address: [address] [place] [address] Performed By: #### 5 8410-2 ####[facility] [id number] [place] [address] [place] MCHC (RBC) [Mass/Vol] 31.6 g/dL Normal 30.5-36.0 [facility] Comment on above: Order Comment: Speci men Type: BLOOD SPECIMENOrdering Facility: [facility] Address: [address] [place] [address] Performed By: #### 5 8410-2 ####[facility] [id number] [place] [address] [place] MCV (RBC) [Entitic vol] 92.9 fL Normal 80.0-100.0 [facility] Comment on above: Order Comment: Speci men Type: BLOOD SPECIMENOrdering Facility: [facility] Address: [address] [place] [address] Performed By: #### 5 8410-2 ####[facility] [id number] [place] [address] [place] Nucleated RBC (Bld) [#/Vol] 10*3/uL Normal <0.01 [facility] Comment on above: Order Comment: Speci men Type: BLOOD SPECIMENOrdering Facility: [facility] Address: [address] [place] [address] Performed By: #### 5 8410-2 ####[facility] [id number] [place] [address] [place] Platelet mean volume (Bld) [Entitic vol] 11.5 fL Normal 9.0-12.7 [facility] Comment on above: Order Comment: Speci men Type: BLOOD SPECIMENOrdering Facility: [facility] Address: [address] [place] [address] Performed By: #### 5 8410-2 ####[facility] [id number] [place] [address] [place] Platelets (Bld) [#/Vol] 204 10*3/uL Normal 150-400 [facility] Comment on above: Order Comment: Speci men Type: BLOOD SPECIMENOrdering Facility: [facility] Address: [address] [place] [address] Performed By: #### 5 8410-2 ####[facility] [id number] [place] [address] [place] RBC (Bld) [#/Vol] 5.08 10*6/uL Normal 3.90-5.20 [facility] Comment on above: Order Comment: Speci men Type: BLOOD SPECIMENOrdering Facility: [facility] Address: [address] [place] [address] Performed By: #### 5 8410-2 ####[facility] [id number] [place] [address] [place] WBC (Bld) [#/Vol] 7.14 10*3/uL Normal 3.70-11.00 [facility] Comment on above: Order Comment: Speci men Type: BLOOD SPECIMENOrdering Facility: [facility] Address: [address] [place] [address] Performed By: #### 5 8410-2 ####[facility] [id number] [place] [address] [place] CNOVon 09-01-2023 CNOV Office Visit (FFPWIL ) -------- VICTOR HUGO PADILLA ([id number]) 1950 F Date Time Provider Department 09/01/23 8:15 AM SONIDO NESS FFPWIL During your visit today, we recorded the following information about you: Pulse Blood pressure Weight Height 67/minute 120/78 71.2 kg 1.651 m Sonido Ness MD 09/01/2023 11:54 AM Signed This note was created using SkyBridgeriter. Subjective Victor Hugo Padilla is a 73 [...] peak bone mass of normal reference 20-45yr [facility] female Osteoporosis, unspecified 05/2008 PAC (premature atrial contraction) 2011 Status post radiofrequency ablation for arrhythmia 07/03/2017 1. [employer]: CARTO mapping system was utilized. 2. 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 [employer]: CARTO mapping system was utilized. 2. Supraventricular [...] (more content not included)... Normal [facility] Comprehensive metabolic 2000 panelon 09-01-2023 Albumin [Mass/Vol] 4.5 g/dL 3.9 - 4.9 g/dL [facility] ALP [Catalytic activity/Vol] 122 U/L 34 - 123 U/L [facility] ALT [Catalytic activity/Vol] 35 U/L 7 - 38 U/L [facility] Anion gap [Moles/Vol] 14 mmol/L 9 - 18 mmol/L [facility] AST [Catalytic activity/Vol] 25 U/L 13 - 35 U/L [facility] Bilirubin [Mass/Vol] 0.6 mg/dL 0.2 - 1.3 mg/dL [facility] Calcium [Mass/Vol] 10.0 mg/dL 8.5 - 10. 2 mg/dL [facility] Chloride [Moles/Vol] 105 mmol/L 97 - 105 mmol/L [facility] CO2 [Moles/Vol] 23 mmol/L 22 - 30 mmol/L [facility] Creatinine [Mass/Vol] 1.20 mg/dL High 0.58 - 0.96 mg/dL [facility] Estimated Glomerular Filtration Rate 47 mL/min/1.73m Low >=60 mL/min/1.73m [facility] Glucose [Mass/Vol] 94 mg/dL 74 - 99 mg/dL [facility] Potassium [Moles/Vol] 4.7 mmol/L 3.7 - 5.1 mmol/L [facility] Protein [Mass/Vol] 7.2 g/dL 6.3 - 8.0 g/dL [facility] Sodium [Moles/Vol] 142 mmol/L 136 - 144 mmol/L [facility] Urea nitrogen [Mass/Vol] 19 mg/dL 7 - 21 mg/dL [facility] Albumin [Mass/Vol] 4.5 g/dL Normal 3.9-4.9 [facility] Comment on above: Order Comment: Speci men Type: BLOOD SPECIMENOrdering Facility: [facility] Address: [address] [place] [address] Performed By: #### 3 016-3, 99998-1, 40671-0 ####[facility] [id number] [place] [address] [place] ALP [Catalytic activity/Vol] 122 U/L Normal 34-123 [facility] Comment on above: Order Comment: Speci men Type: BLOOD SPECIMENOrdering Facility: [facility] Address: [address] [place] [address] Performed By: #### 3 016-3, 15215-7, 31137-6 ####[facility] [id number] [place] [address] [place] ALT [Catalytic activity/Vol] 35 U/L Normal 7-38 [facility] Comment on above: Order Comment: Speci men Type: BLOOD SPECIMENOrdering Facility: [facility] Address: [address] [place] [address] Performed By: #### 3 016-3, , 52559-3 ####[facility] [id number] [place] [address] [place] Anion gap [Moles/Vol] 14 mmol/L Normal 9-18 [facility] [place] Comment on above: Order Comment: Speci men Type: BLOOD SPECIMENOrdering Facility: [facility] Address: [address] [place] [address] Performed By: #### 3 016-3, , ####[facility] [id number] [place] [id number] [place] AST [Catalytic activity/Vol] 25 U/L Normal 13-35 [facility] [place] Comment on above: Order Comment: Speci men Type: BLOOD SPECIMENOrdering Facility: [facility] Address: [address] [place] [address] Performed By: #### 3 016-3, 11796-5, 90700-0 ####[facility] [id number] [place] [address] [place] Bilirubin [Mass/Vol] 0.6 mg/dL Normal 0.2-1.3 [facility] [place] Comment on above: Order Comment: Speci men Type: BLOOD SPECIMENOrdering Facility: [facility] Address: [address] [place] [address] Performed By: #### 3 016-3, 39423-1, 53709-3 ####[facility] [id number] [place] [address] [place] Calcium [Mass/Vol] 10.0 mg/dL Normal 8.5-10.2 [facility] Comment on above: Order Comment: Speci men Type: BLOOD SPECIMENOrdering Facility: [facility] Address: [address] [place] [address] Performed By: #### 3 016-3, , 49870-3 ####[facility] [id number] [place] [address] [place] Chloride [Moles/Vol] 105 mmol/L Normal 97-105 [facility] [place] Comment on above: Order Comment: Speci men Type: BLOOD SPECIMENOrdering Facility: [facility] Address: [address] [place] [address] Performed By: #### 3 016-3, , 07251-5 ####[facility] [id number] [place] [address] [place] CO2 [Moles/Vol] 23 mmol/L Normal 22-30 [facility] [place] Comment on above: Order Comment: Speci men Type: BLOOD SPECIMENOrdering Facility: [facility] Address: [address] [place] [address] Performed By: #### 3 016-3, 65403-7, 11525-4 ####[facility] [id number] [place] [address] [place] Creatinine [Mass/Vol] 1.20 mg/dL High 0.58-0.96 [facility] [place] Comment on above: Order Comment: Susan pena Type: BLOOD SPECIMENOrdering Facility: [facility] Address: [address] [place] [address] Performed By: #### 3 016-3, 11375-3, 75853-0 ####[facility] [id number] [place] [address] [place] [facility] [place] Creatinine and Glomerular filtration rate.predicted panel (S/P/Bld) 47 mL/min/1.73m??? Low >=60 [facility] [place] Comment on above: Order Comment: Susan pena Type: BLOOD SPECIMENOrdering Facility: [facility] Address: [address] [place] [address] Result Comment: Lety mated Glomerular Filtration Rate [...] actual GFR. Performed By: #### 3 016-3, 38078-4, 57908-7 ####[facility] [id number] [place] [address] [place] Glucose [Mass/Vol] 94 mg/dL Normal 74-99 [facility] Comment on above: Order Comment: Susan pena Type: BLOOD SPECIMENOrdering Facility: [facility] Address: [address] [place] [address] Result Comment: The [place] Diabetes Association (ADA) provides guidance for cutoff [...] Standards of Medical Care in Diabetes 2016, [place] [employer]. Diabetes Care. 2016.39(Suppl 1). Performed By: #### 3 016-3, 25610-1, 82717-5 ####[facility] [id number] [address] [address] [place] Potassium [Moles/Vol] 4.7 mmol/L Normal 3.7-5.1 [facility] [place] Comment on above: Order Comment: Speci men Type: BLOOD SPECIMENOrdering Facility: [facility] Address: [address] [place] [address] Performed By: #### 3 016-3, 38584-8, ####[facility] [id number] [place] [id number] [place] Protein [Mass/Vol] 7.2 g/dL Normal 6.3-8.0 [facility] Comment on above: Order Comment: Speci men Type: BLOOD SPECIMENOrdering Facility: [facility] Address: [address] [place] [id number] Performed By: #### 3 016-3, , ####[facility] [id number] [address] [address] [place] Sodium [Moles/Vol] 142 mmol/L Normal 136-144 [facility] Comment on above: Order Comment: Speci men Type: BLOOD SPECIMENOrdering Facility: [facility] Address: [address] [place] [id number] Performed By: #### 3 016-3, 57820-9, ####[facility] [id number] [address] [address] [place] Urea nitrogen [Mass/Vol] 19 mg/dL Normal 7-21 [facility] [place] Comment on above: Order Comment: Speci men Type: BLOOD SPECIMENOrdering Facility: [facility] Address: [address] [place] [id number] Performed By: #### 3 016-3, 69161-3, 88844-3 ####[facility] [id number] [address] [place] Lipid 1996 [place]on Cholesterol [Mass/Vol] 167 mg/dL <200 mg/dL [facility] Cholesterol in HDL [Mass/Vol] 63 mg/dL >39 mg/dL [facility] Cholesterol in LDL [Mass/Vol] 89 mg/dL <100 mg/dL [facility] Cholesterol in LDL/Cholesterol in HDL [Mass ratio] 1.41 {ratio} <2.54 [facility] Cholesterol in VLDL [Mass/Vol] 15 mg/dL <30 mg/dL [facility] Cholesterol non HDL [Mass/Vol] 104 mg/dL <130 mg/dL [facility] Cholesterol.total/C holesterol in HDL [Mass ratio] 2.65 {ratio} <5.10 [facility] Fasting Time 11.5 hours [facility] Triglyceride [Mass/Vol] 73 mg/dL <150 mg/dL [facility] Cholesterol [Mass/Vol] 167 mg/dL Normal <200 [facility] [place] Comment on above: Order Comment: Speci men Type: BLOOD SPECIMENOrdering Facility: [facility] Address: [address] [place] [address] Result Comment: <200 mg/dL, Desirable 200-239 mg/dL, Borderline high >239 mg/dL, High Performed By: #### 3 016-3, 91659-0, ####[facility] [id number] [address] STATES OF [facility] Cholesterol in HDL [Mass/Vol] 63 mg/dL Normal >39 [facility] [place] Comment on above: Order Comment: Speci men Type: BLOOD SPECIMENOrdering Facility: [facility] Address: [address] [place] [address] Result Comment: 40-5 9 mg/dL, Acceptable >59 mg/dL, High: Negative risk factor for coronary heart disease <40 mg/dL, Low: Positive risk factor for coronary heart disease Performed By: #### 3 016-3, 84704-7, ####[facility] [id number] [place] [address] [place] Cholesterol in LDL [Mass/Vol] 89 mg/dL Normal <100 [facility] [place] Comment on above: Order Comment: Speci men Type: BLOOD SPECIMENOrdering Facility: [facility] Address: [address] [place] [address] Result Comment: <100 mg/dL, Optimal 100-129 mg/dL, Near optimal/above optimal 130-159 mg/dL, Borderline high 160-189 mg/dL, High >189 mg/dL, Very high Secondary prevention optimal LDL Cholesterol levels are recommended to be < 70 mg/dL Performed By: #### 3 016-3, , ####[facility] [id number] [place] [address] [place] Cholesterol in LDL/Cholesterol in HDL [Mass ratio] 1.41 {ratio} Normal <2.54 [facility] [place] Comment on above: Order Comment: Speci men Type: BLOOD SPECIMENOrdering Facility: [facility] Address: [address] [place] [address] Result Comment: Ani buck: 1. National Cholesterol Education Program ATP III Guideline At-A-Glance Quick Desk Reference: National Heart, Lung, and Blood Arthur. National Institutes of Health. 2001: NIH Publication No. 01-3305. 2. An International Atherosclerosis Society position paper: global recommendations for the management of dyslipidemia: executive summary, Atherosclerosis. 2014: 232(2):410-413. Performed By: #### 3 016-3, , ####[facility] [id number] [place] [address] [place] Cholesterol in VLDL [Mass/Vol] 15 mg/dL Normal <30 [facility] [place] Comment on above: Order Comment: Speci men Type: BLOOD SPECIMENOrdering Facility: [facility] Address: [address] [place] [address] Performed By: #### 3 016-3, , ####[facility] [id number] [place] [address] [place] Cholesterol non HDL [Mass/Vol] 104 mg/dL Normal <130 [facility] [place] Comment on above: Order Comment: Speci men Type: BLOOD SPECIMENOrdering Facility: [facility] Address: [address] [place] [address] Result Comment: <130 mg/dL, Optimal 130-159 mg/dL, Near optimal/above optimal 160-189 mg/dL, Borderline high 190-219 mg/dL, High >219 mg/dL, Very high Secondary prevention optimal non HDL Cholesterol levels are recommended to be <100 mg/dL Performed By: #### 3 016-3, , ####[facility] [id number] [place] [address] [place] Cholesterol.total/C holesterol in HDL [Mass ratio] 2.65 {ratio} Normal <5.10 [facility] [place] Comment on above: Order Comment: Speci men Type: BLOOD SPECIMENOrdering Facility: [facility] Address: [address] [place] [address] Performed By: #### 3 016-3, , ####[facility] [id number] [place] [address] [place] FASTING TIME 11.5 hours Normal [facility] [place] Comment on above: Order Comment: Speci men Type: BLOOD SPECIMENOrdering Facility: [facility] Address: [address] [place] [address] Performed By: #### 3 016-3, , ####[facility] [id number] [place] [address] [place] Triglyceride [Mass/Vol] 73 mg/dL Normal <150 [facility] [place] Comment on above: Order Comment: Speci men Type: BLOOD SPECIMENOrdering Facility: [facility] Address: [address] [place] [address] Result Comment: <150 mg/dL, Normal 150-199 mg/dL, Borderline high 200-499 mg/dL, High >499 mg/dL, Very high Performed By: #### 3 016-3, 26905-5, 16777-5 ####[facility] [id number] [place] [address] [place] TSH BLDon 09-01-2023 TSH Qn 2.030 m[IU]/L 0.270 - 4.200 mIU/L [facility] TSH SerPl-aCncon 09-01-2023 TSH Qn 2.030 m[IU]/L Normal 0.270-4.200 [facility] [place] Comment on above: Order Comment: Speci men Type: BLOOD SPECIMENOrdering Facility: [facility] Address: [facility] [place] [address] Performed By: #### 3 016-3, 04957-5, 76137-9 ####[facility] [id number] [address] [place] UA DIP, URINE (POC)on 2022 BILIRUBIN UA (POCT) Negative Negative [facility] CLARITY UA (POCT) Clear [facility] COLOR UA (POCT) Yellow [facility] GLUCOSE UA (POCT) Negative Negative mg/dL [facility] Hemoglobin Ql (U) Negative Negative [facility] KETONE UA (POCT) Negative Negative mg/dL [facility] LEUKOCYTES UA (POCT) Negative Negative [facility] NITRITE UA (POCT) Negative Negative [facility] PH UA (POCT) 7.0 4.5 - 8.0 [facility] Protein Ql (U) Negative Negative mg/dL [facility] SPECIFIC GRAVITY UA (POCT) 1.015 1.005 - 1.030 [facility] UROBILINOGEN UA (POCT) 0.2 E.U./dL Normal E.U./dL [facility] VITAMIN D 25 HYDROXYon 09-01 25-hydroxyvitamin D3 [Mass/Vol] 64.1 ng/mL 31.0 - 80.0 ng/mL [facility] BD DXA - AXIAL SKELETONon BD [...] x-ray absorptiometry PATIENT DEMOGRAPHICS: VICTOR HUGO PADILLA, [id number] Age: 72 years, Race: , Gender: Female Referring: SONIDO NESS DXA Model: Molecular Detection Site Scanned: [facility] Date Scanned: 04/18/2023 9:51 AM RESULT: [...] young adult (20 to 45 year old) [facility] female reference population. Z-score is [...] Apr 20 2023 11:00AM EST [id number] Normal [facility] CBC W Auto Differential pane l (Bld)on 03-05-2023 Basophils (Bld) [#/Vol] 0.05 10*3/uL <0.11 k/uL [facility] Basophils/100 WBC (Bld) 0.8 % [facility] Differential cell count method Nom (Bld) Auto [facility] Eosinophils (Bld) [#/Vol] 0.06 10*3/uL <0.46 k/uL [facility] Eosinophils/100 WBC (Bld) 1.0 % [facility] Erythrocyte distribution width (RBC) [Ratio] 12.8 % 11.5 - 15.0 % [facility] Hematocrit (Bld) [Volume fraction] 43.6 % 36.0 - 46.0 % [facility] Hemoglobin (Bld) [Mass/Vol] 14.3 g/dL 11.5 - 15.5 g/dL [facility] Immature granulocytes (Bld) [#/Vol] <0.10 k/uL [facility] Immature granulocytes/100 WBC (Bld) 0.3 % [facility] Lymphocytes (Bld) [#/Vol] 1.90 10*3/uL 1.00 - 4.00 k/uL [facility] Lymphocytes/100 WBC (Bld) 30.7 % [facility] MCH (RBC) [Entitic mass] 29.5 pg 26.0 - 34.0 pg [facility] MCHC (RBC) [Mass/Vol] 32.8 g/dL 30.5 - 36.0 g/dL [facility] MCV (RBC) [Entitic vol] 89.9 fL 80.0 - 100.0 fL [facility] Monocytes (Bld) [#/Vol] 0.59 10*3/uL <0.87 k/uL [facility] Monocytes/100 WBC (Bld) 9.5 % [facility] Neutrophils (Bld) [#/Vol] 3.56 10*3/uL 1.45 - 7.50 k/uL [facility] Neutrophils/100 WBC (Bld) 57.7 % [facility] Nucleated RBC (Bld) [#/Vol] <0.01 k/uL [facility] Nucleated RBC/100 WBC (Bld) [Ratio] 0.0 /100 WBC [facility] Platelet mean volume (Bld) [Entitic vol] 11.4 fL 9.0 - 12.7 fL [facility] Platelets (Bld) [#/Vol] 216 10*3/uL 150 - 400 k/uL [facility] RBC (Bld) [#/Vol] 4.85 10*6/uL 3.90 - 5.2 0 m/uL [facility] WBC (Bld) [#/Vol] 6.18 10*3/uL 3.70 - 11. 00 k/uL [facility] UA DIP, URINE (POC)on 2022 BILIRUBIN UA (POCT) Negative Negative [facility] CLARITY UA (POCT) Clear [facility] COLOR UA (POCT) Yellow [facility] GLUCOSE UA (POCT) Negative Negative mg/dL [facility] HEMOGLOBIN/BLOOD UA (POCT) Negative Negative [facility] KETONE UA (POCT) Negative Negative mg/dL [facility] LEUKOCYTES UA (POCT) Trace Abnormal Negative [facility] NITRITE UA (POCT) Negative Negative [facility] PH UA (POCT) 7.0 4.5 - 8.0 [facility] Protein Ql (U) Negative Negative mg/dL [facility] SPECIFIC GRAVITY UA (POCT) 1.010 1.005 - 1.030 [facility] UROBILINOGEN UA (POCT) 0.2 E.U./dL Normal E.U./dL [facility] CBC W Auto Differential pane l (Bld)on 09-04-2022 Basophils (Bld) [#/Vol] 0.05 10*3/uL <0.11 k/uL [facility] Basophils/100 WBC (Bld) 0.8 % [facility] Differential cell count method Nom (Bld) Auto [facility] Eosinophils (Bld) [#/Vol] 0.12 10*3/uL <0.46 k/uL [facility] Eosinophils/100 WBC (Bld) 2.0 % [facility] Erythrocyte distribution width (RBC) [Ratio] 13.7 % 11.5 - 15.0 % [facility] Hematocrit (Bld) [Volume fraction] 42.7 % 36.0 - 46.0 % [facility] Hemoglobin (Bld) [Mass/Vol] 13.7 g/dL 11.5 - 15.5 g/dL [facility] Immature granulocytes (Bld) [#/Vol] <0.10 k/uL [facility] Immature granulocytes/100 WBC (Bld) 0.3 % [facility] Lymphocytes (Bld) [#/Vol] 1.76 10*3/uL 1.00 - 4.00 k/uL [facility] Lymphocytes/100 WBC (Bld) 29.0 % [facility] MCH (RBC) [Entitic mass] 29.6 pg 26.0 - 34.0 pg [facility] MCHC (RBC) [Mass/Vol] 32.1 g/dL 30.5 - 36.0 g/dL [facility] MCV (RBC) [Entitic vol] 92.2 fL 80.0 - 100.0 fL [facility] Monocytes (Bld) [#/Vol] 0.69 10*3/uL <0.87 k/uL [facility] Monocytes/100 WBC (Bld) 11.4 % [facility] Neutrophils (Bld) [#/Vol] 3.43 10*3/uL 1.45 - 7.50 k/uL [facility] Neutrophils/100 WBC (Bld) 56.5 % [facility] Nucleated RBC (Bld) [#/Vol] <0.01 k/uL [facility] Nucleated RBC/100 WBC (Bld) [Ratio] 0.0 /100 WBC [facility] Platelet mean volume (Bld) [Entitic vol] 11.3 fL 9.0 - 12.7 fL [facility] Platelets (Bld) [#/Vol] 207 10*3/uL 150 - 400 k/uL [facility] RBC (Bld) [#/Vol] 4.63 10*6/uL 3.90 - 5.2 0 m/uL [facility] WBC (Bld) [#/Vol] 6.07 10*3/uL 3.70 - 11. 00 k/uL [facility] Comprehensive metabolic 2000 panelon 09-04-2022 Albumin [Mass/Vol] 4.3 g/dL 3.9 - 4.9 g/dL [facility] ALP [Catalytic activity/Vol] 107 U/L 34 - 123 U/L [facility] ALT [Catalytic activity/Vol] 32 U/L 7 - 38 U/L [facility] Anion gap [Moles/Vol] 11 mmol/L 9 - 18 mmol/L [facility] AST [Catalytic activity/Vol] 24 U/L 13 - 35 U/L [facility] Bilirubin [Mass/Vol] 0.5 mg/dL 0.2 - 1.3 mg/dL [facility] Calcium [Mass/Vol] 9.5 mg/dL 8.5 - 10. 2 mg/dL [facility] Chloride [Moles/Vol] 105 mmol/L 97 - 105 mmol/L [facility] CO2 [Moles/Vol] 24 mmol/L 22 - 30 mmol/L [facility] Creatinine [Mass/Vol] 1.16 mg/dL High 0.58 - 0.96 mg/dL [facility] Estimated Glomerular Filtration Rate 50 mL/min/1.73m Low >=60 mL/min/1.73m [facility] Glucose [Mass/Vol] 89 mg/dL 74 - 99 mg/dL [facility] Potassium [Moles/Vol] 4.3 mmol/L 3.7 - 5.1 mmol/L [facility] Protein [Mass/Vol] 6.6 g/dL 6.3 - 8.0 g/dL Cl [facility] Sodium [Moles/Vol] 140 mmol/L 136 - 144 mmol/L [facility] Urea nitrogen [Mass/Vol] 18 mg/dL 7 - 21 mg/dL [facility] Lipid 1996 panelon 2 Cholesterol [Mass/Vol] 177 mg/dL <200 mg/dL [facility] Cholesterol in HDL [Mass/Vol] 55 mg/dL >39 mg/dL [facility] Cholesterol in LDL [Mass/Vol] 99 mg/dL <100 mg/dL [facility] Cholesterol in LDL/Cholesterol in HDL [Mass ratio] 1.80 {ratio} <2.54 [facility] Cholesterol in VLDL [Mass/Vol] 23 mg/dL <30 mg/dL [facility] Cholesterol non HDL [Mass/Vol] 122 mg/dL <130 mg/dL [facility] Cholesterol.total/C holesterol in HDL [Mass ratio] 3.22 {ratio} <5.10 [facility] Fasting Time 18 hours [facility] Triglyceride [Mass/Vol] 115 mg/dL <150 mg/dL [facility] TSH BLDon 09-04-2022 TSH Qn 1.050 m[IU]/L 0.270 - 4.200 mIU/L [facility] UA DIP, URINE (POC)on 2021 BILIRUBIN UA (POCT) Negative Negative [facility] CLARITY UA (POCT) Clear [facility] COLOR UA (POCT) Yellow [facility] GLUCOSE UA (POCT) Negative Negative mg/dL [facility] HEMOGLOBIN/BLOOD UA (POCT) Negative Negative [facility] KETONE UA (POCT) Negative Negative mg/dL [facility] LEUKOCYTES UA (POCT) Negative Negative [facility] NITRITE UA (POCT) Negative Negative [facility] PH UA (POCT) 6.5 4.5 - 8.0 [facility] Protein Ql (U) Negative Negative mg/dL [facility] SPECIFIC GRAVITY UA (POCT) 1.015 1.005 - 1.030 [facility] UROBILINOGEN UA (POCT) 0.2 E.U./dL Normal E.U./dL [facility] MG MAMM SCREEN 3D JOSTIN CADon 05-08-2022 MG MAMM SCREEN 3D JOSTIN CAD Patient: VICTOR HUGO PADILLA Exam Date: 05/08/2022 : 1950 Gender:F Ordering : DR. KADE HERNANDEZ M.D. Admission #: [id number] Family : Order #: [id number] CLICK HERE TO VIEW EXAM RADIOLOGY REPORT [...] with bladder cancer at age 79. LOCATION: [facility] BREAST COMPOSITION: Scattered areas fibroglandular density. FINDINGS: [...] MD on 05/09/2022 at 12:37 Normal [facility] UA DIP, URINE (POC)on 2021 BILIRUBIN UA (POCT) Negative Negative [facility] CLARITY UA (POCT) Clear [facility] COLOR UA (POCT) Yellow [facility] GLUCOSE UA (POCT) Negative Negative mg/dL [facility] HEMOGLOBIN/BLOOD UA (POCT) Negative Negative [facility] KETONE UA (POCT) Negative Negative mg/dL [facility] LEUKOCYTES UA (POCT) Trace Abnormal Negative [facility] NITRITE UA (POCT) Negative Negative [facility] PH UA (POCT) 6.5 4.5 - 8.0 [facility] Protein Ql (U) Negative Negative mg/dL [facility] SPECIFIC GRAVITY UA (POCT) 1.015 1.005 - 1.030 [facility] UROBILINOGEN UA (POCT) 0.2 E.U./dL Normal E.U./dL [facility] OPERATIVE REPORTon 9 OPERATIVE REPORT NAME: VICTOR HUGO PADILLA MR#: [id number] SURGEON: Vbiha Guzmán MD DATE OF SURGERY: 11/11/2018 OPERATIVE [...] room in good condition. VIBHA GUZMÁN MD JER/MODL/[id number] E/S: Vibha Guzmán MD 11/25/18 1320 Electronically Signed [facility] PT NAME: VICTOR HUGO PADILLA MR#: [id number] [facility] [place] [address] ACCT: [id number] : 46 OPERATIVE REPORT Normal [facility] OPERATIVE REPORTon 8 OPERATIVE REPORT NAME: VICTOR HUGO PADILLA MR#: [id number] SURGEON: Vibha Guzmán MD DATE OF SURGERY: [...] recovery in good condition. VIBHA GUZMÁN MD [facility]FIDE/[id number] E/S: Vibha Guzmán MD [facility] PT NAME: VICTOR HUGO PADILLA MR#: [id number] [id number] ACCT: [id number] : 46 OPERATIVE REPORT 11/11/18 1214 Electronically Signed [facility] PT NAME: VICTOR HUGO PADILLA MR#: [id number] [id number] ACCT: [id number] : 46 OPERATIVE REPORT Normal [facility] Vital Signs Date Time Vital Sign Value Performing Clinician Colette moore 03-03-2024 10:040400 Body height 165.1 cm Sonido Ness MD Work Phone: [facility] 03-03-2024 10:04-0400 Body mass index (BMI) [Ratio] 26.96 kg/m2 Sonido Ness MD Work Phone: [facility] 03-03-2024 10:04-0400 Body weight 73.48 kg Sonido Ness MD Work Phone: [facility] 03-03-2024 10:04-0400 Diastolic blood pressure 70 mm[Hg] Sonido Ness MD Work Phone: [facility] 03-03-2024 10:04-0400 Heart rate 74 /min Sonido Ness MD Work Phone: [facility] 03-03-2024 10:04-0400 SaO2% (BldA) [Mass fraction] 98 % Sonido Ness MD Work Phone: [facility] 03-03-2024 10:04-0400 Systolic blood pressure 138 mm[Hg] Sonido Ness MD Work Phone: [facility] 09-01-2023 08:14-0400 Body height 165.1 cm Sonido Ness MD Work Phone: [facility] 09-01-2023 08:14-0400 Body weight 71.22 kg Sonido Ness MD Work Phone: [facility] 09-01-2023 08:14-0400 Diastolic blood pressure 78 mm[Hg] Sonido Ness MD Work Phone: [facility] 09-01-2023 08:14-0400 Heart rate 67 /min Sonido Ness MD Work Phone: [facility] 09-01-2023 08:14-0400 SaO2% (BldA) [Mass fraction] 96 % Sonido Ness MD Work Phone: [facility] 09-01-2023 08:14-0400 Systolic blood pressure 120 mm[Hg] Sonido Ness MD Work Phone: [facility] 03-05-2023 10:12-0400 Body height 165.1 cm Sonido Ness MD Work Phone: [facility] 03-05-2023 10:12-0400 Body weight 71.22 kg Sonido Ness MD Work Phone: [facility] 03-05-2023 10:12-0400 Diastolic blood pressure 60 mm[Hg] Sonido Ness MD Work Phone: [facility] 03-05-2023 10:12-0400 Heart rate 80 /min Sonido Ness MD Work Phone: [facility] 03-05-2023 10:12-0400 SaO2% (BldA) [Mass fraction] 98 % Sonido Ness MD Work Phone: [facility] 03-05-2023 10:12-0400 Systolic blood pressure 122 mm[Hg] Sonido Ness MD Work Phone: [facility] 09-04-2022 10:19-0500 Body weight 74.39 kg Sonido Ness MD Work Phone: [facility] 09-04-2022 10:19-0500 Diastolic blood pressure 60 mm[Hg] Sonido Ness MD Work Phone: [facility] 09-04-2022 10:19-0500 Heart rate 74 /min Sonido Ness MD Work Phone: [facility] 09-04-2022 10:19-0500 SaO2% (BldA) [Mass fraction] 99 % Sonido Ness MD Work Phone: [facility] 09-04-2022 10:19-0500 Systolic blood pressure 112 mm[Hg] Sonido Ness MD Work Phone: [facility] 03-03-2022 10:15-0400 Body height 165.1 cm Sonido Ness MD Work Phone: [facility] 03-03-2022 10:15-0400 Body weight 73.03 kg Sonido Ness MD Work Phone: [facility] 03-03-2022 10:15-0400 Diastolic blood pressure 60 mm[Hg] Sonido Ness MD Work Phone: [facility] 03-03-2022 10:15-0400 Heart rate 81 /min Sonido Ness MD Work Phone: [facility] 03-03-2022 10:15-0400 SaO2% (BldA) [Mass fraction] 98 % Sonido Ness MD Work Phone: [facility] 03-03-2022 10:15-0400 Systolic blood pressure 122 mm[Hg] Sonido Ness MD Work Phone: [facility] 02-17-2022 11:37-0400 Body weight 70.76 kg Kade Hernandez MD, PhD Work Phone: [facility] Encounters Encounter Date Encounter Type Care Provider Facility Start: 07-28-2024 Office outpatient vi sit 15 minutes Yony [facility] Start: 07-28-2024 [facility] Start: 07-17-2024 [facility] Start: 07-01-2024 End: 07-01-2024 Telephone encounter Sonido Ness MD Work Phone: [facility] [place] Comment on above: Lab Orders Start: 06-26-2024 End: 06-27-2024 ambulatory Sonido Ness MD Work Phone: [facility] Start: 06-26-2024 End: 06-27-2024 Patient encounter procedure Sonido Ness MD Work Phone: [facility] [place] Comment on above: My X-ray report Start: 06-24-2024 End: 06-24-2024 ambulatory SONIDO NESS [facility] Start: 06-24-2024 End: 06-24-2024 Telephone encounter Sonido Ness MD Work Phone: [facility] [place] Comment on above: Foot Pain (Midfoot) Start: 03-15-2024 Refill Sonido Ness MD Work Phone: [facility] [place] Comment on above: Refill Request Start: 03-04-2024 Patient encounter procedure [facility] Provider [facility] Start: 03-04-2024 Telephone encounter Sonido Ness MD Work Phone: [facility] [place] Comment on above: Results Start: 03-03-2024 End: 03-03-2024 Patient encounter procedure Sonido Ness MD Work Phone: [facility] [place] Comment on above: Medicare annual well ness [...] Telephone encounter Sonido Ness MD Work Phone: [facility] [place] Comment on above: Lab Orders Start: 12-10-2023 Telephone encounter Sonido Ness MD Work Phone: [facility] [place] Comment on above: Hives Start: 10-02-2023 ambulatory Sonido Ness MD Work Phone: [facility] [place] Comment on above: Symbicort in 2023 Start: 09-01-2023 End: 09-01-2023 Patient encounter procedure Sonido Ness MD Work Phone: [facility] [place] Comment on above: Hives (Primary Dx); Mixed hyperlipidemia; Stage 3a chronic kidney disease (HCC); Severe persistent asthma without complication; 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; Osteopenia, unspecified location; allergies to mold, trees; Uncomplicated severe persistent asthma; Encounter for immunization; Angular cheilitis Start: 09-01-2023 End: 09-01-2023 ambulatory SONIDO NESS Facility:[facility] Start: 08-22-2023 ambulatory Sonido Ness MD Work Phone: [facility] [place] Comment on above: Allergic Reaction Start: 04-20-2023 Telephone encounter Sonido Ness MD Work Phone: [facility] [place] Comment on above: Results Start: 04-18-2023 ambulatory SONIDO NESS Facility:[facility] Start: 04-18-2023 End: 04-18-2023 Subsequent hospital visit by physician [facility] D[facility] Comment on above: Screening for osteop orosis [Z13.820] Start: 03-07-2023 Patient encounter procedure [facility] Provider [facility] Start: 03-06-2023 Telephone encounter Sonido Ness MD Work Phone: [facility] Comment on above: Results Start: 03-05-2023 Telephone encounter Sonido Ness MD Work Phone: [facility] [place] Comment on above: Opened In Error Refill Request Start: 03-05-2023 End: 03-05-2023 Patient encounter procedure Sonido Ness MD Work Phone: [facility] [place] Comment on above: Medicare annual well ness [...] Telephone encounter Sonido Ness MD Work Phone: [facility] Comment on above: Results Start: 09-04-2022 End: 09-04-2022 Patient encounter procedure Sonido Ness MD Work Phone: [facility] Comment on above: Mixed hyperlipidemia (Primary Dx); [...] New Rx Request Start: 08-22-2022 Refill Genny Sustarsic PSS [facility] Start: 08-16-2022 End: 08-16-2022 ambulatory Sonido Ness MD Work Phone: [facility] Comment on above: Mild intermittent re active airway disease with acute exacerbation (Primary Dx); Cough; Acute bronchitis due to other specified organisms; Acute cough Start: 08-16-2022 End: 08-16-2022 Telemedicine consultation with patient Sonido Ness MD Work Phone: [facility] Start: 06-06-2022 Patient encounter procedure [facility] Provider [facility] Start: 05-08-2022 End: 05-09-[address] PASTOR JOINER Facility: Start: 03-06-2022 Telephone encounter Sonido Ness MD Work Phone: [facility] Comment on above: Results Start: 03-03-2022 End: 03-03-2022 Patient encounter procedure Sonido Ness MD Work Phone: [facility] Comment on above: Medicare annual well ness visit, subsequent (Primary Dx); Mixed hyperlipidemia; 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; Need for COVID-19 vaccine; Visit for screening mammogram; Stage 3a chronic kidney disease (HCC); Osteopenia, unspecified location; Severe persistent asthma without complication; Status post radiofrequency ablation for arrhythmia; Uncomplicated severe persistent asthma; Hypothyroidism, unspecified type; Angular cheilitis Start: 02-17-2022 End: 02-17-2022 ambulatory Kade Hernandez MD, PhD Work Phone: [facility] Comment on above: Cough (Primary Dx); Mild intermittent reactive airway disease without complication Start: 02-17-2022 End: 02-17-2022 Telemedicine consultation with patient Kade Hernandez MD, PhD Work Phone: [facility] Start: 11-11-2018 Patient encounter procedure Vibha A [facility] Facility:[facility] Start: 09-23-2018 [facility] Start: 04-18-2017 End: 04-19-2017 Ambulatory [facility] Procedures Date Procedure Procedure Detail Performing Clinician Start: 03-03-2024 Urnls dip stick/tabl et rgnt auto w/o microscopy Sonido Ness MD Work Phone: Start: 03-03-2024 Blood count complete auto&auto difrntl wbc Kade Hernandez MD, PhD Work Phone: Start: 03-03-2024 Lipid [...] Sonido Ness MD Work Phone: Start: 09-01-2023 Store Eyes COVI D-19 VACCINE (2022- SEASON) AGE 12+ YR Sonido Ness MD Work Phone: Start: 09-01-2023 Lipid 1996 panel - S chetna or Plasma Sonido Ness MD Work Phone: Start: 04-04-2023 Colonoscopy Sonido Lopez ch, MD Work Phone: Start: 03-05-2023 [...] SEASONAL QUADRIVALENT HIGH DOSE AGE 65+ Sonido Ness MD Work Phone: Start: 09-04-2022 PFIZER-BIONTECH COVI D-19 BIVALENT BOOSTER VACCINE, AGE 12+ YR Sonido Ness MD Work Phone: Start: 03-03-2022 Urnls dip stick/tabl et rgnt auto w/o microscopy Sonido Ness MD Work Phone: Start: 02-17-2022 Adult depression scr eening assessment Kade Hernandez MD, PhD Work Phone: Start: 05-04-2021 Mammography [facility] Provid er Start: 04-16-2021 Mammography Kade moise MD, PhD Work Phone: Start: 11-16-2017 Colonoscopy Kade moise MD, PhD Work Phone: Plan of Treatment Date Care Activity Detail Author Start: 10-08-2033 Urine microalbumin profile DTaP,Tdap,Td Vaccine (3 - Td or Tdap) [facility] Start: 03-03-2029 Lipid panel Lipid Screening [facility] Start: 09-01-2028 Lipid 1996 panel - Serum or Plasma Lipid Screening [facility] Start: 09-01-2028 Lipid panel Lipid Screening [facility] Start: 04-04-2028 Colonoscopy Colonoscopy [facility] Start: 04-04-2028 Colorectal Cancer Screening Colorectal Cancer Screening [facility] Start: 04-04-2028 Screening for malign ant neoplasm of colon [facility] Start: 03-05-2028 Lipid 1996 panel - Serum or Plasma Lipid Screening [facility] Start: 03-05-2028 LIPID SCREEN LIPID SCREEN [facility] Start: 09-04-2027 LIPID SCREEN LIPID SCREEN [facility] Start: 03-03-2027 Diabetes Screening Diabetes Screenin [facility] Start: 03-03-2027 LIPID SCREEN LIPID SCREEN [facility] Start: 09-01-2026 Diabetes Screening Diabetes Screenin [facility] Start: 08-19-2026 LIPID SCREEN LIPID SCREEN [facility] Start: 03-05-2026 DIABETES SCREEN DIABETES SCREEN [facility] Start: 03-05-2026 Diabetes Screening Diabetes Screenin g [facility] Start: 09-04-2025 DIABETES SCREEN DIABETES SCREEN [facility] Start: 03-03-2025 Annual PCP Team Camouflage Specialist osman Disease Visit Annual PCP Team Chronic Disease Visit [facility] Start: 03-03-2025 Anxiety Screening Anxiety Screening [facility] Start: 03-03-2025 Complete blood count Hemoglobin/Pérez tocndt [facility] Start: 03-03-2025 Creatinine measurement Serum Creatin ine [facility] Start: 03-03-2025 Depression Screening Depression Scre ening [facility] Start: 03-03-2025 DIABETES SCREEN DIABETES SCREEN [facility] Start: 09-04-2024 End: 09-04-2024 Patient encounter procedure 09/04/2024 10:30 AM EST Office Visit [facility] [id number] [place] [address] [place] [id number] [address] [place], [place] [id number] six month follow up [facility] Comment on above: six month follow up Start: 09-01-2024 Annual PCP Team Camouflage Specialist osman Disease Visit Annual PCP Team Chronic Disease Visit [facility] Start: 09-01-2024 Complete blood count [facility] Start: 09-01-2024 Creatinine measurement Serum Creatin ine [facility] Start: 09-01-2024 Hemoglobin/Hematocrit Hemoglobin/Hem atocrit [facility] Start: 09-01-2024 Serum Creatinine Serum Creatinine Cl [facility] Start: 08-19-2024 DIABETES SCREEN DIABETES SCREEN [facility] Start: 07-29-2024 Covid-19 Vaccine ( season) Covid-19 Vaccine () [facility] Comment on above: Postponed from 06/29 (Not Currently Available) Start: 07-01-2024 End: 09-30-2024 25-hydroxyvitamin D3 [Mass/volume] in Serum or Plasma VITAMIN D 25 HYDROXY Lab Routine Stage 3a chronic kidney disease (HCC) Expected: 07/01/2024, Expires: 09/30/2024 [facility] Comment on above: Expected: 07/01/2024 , Expires: 09/30/2024 Start: 07-01-2024 End: 09-30-2024 CBC W Auto Differential panel - Blood COMPLETE BLOOD COUNT AND DIFFERENTIAL Lab Routine Mixed hyperlipidemia 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 Stage 3a chronic kidney disease (HCC) Expected: 07/01/2024, Expires: 09/30/2024 [facility] Comment on above: Expected: 07/01/2024 , Expires: 09/30/2024 Start: 07-01-2024 End: 09-30-2024 Comprehensive metabolic 2000 panel - Serum or Plasma COMPREHENSIVE METABOLIC PANEL Lab Routine Mixed hyperlipidemia 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 Stage 3a chronic kidney disease (HCC) Expected: 07/01/2024, Expires: 09/30/2024 [facility] Work Phone: Comment on above: Expected: 07/01/2024 , Expires: 09/30/2024 Start: 07-01-2024 End: 09-30-2024 Lipid 1996 panel - Serum or Plasma LIPID PANEL BASIC Lab Routine Mixed hyperlipidemia Expected: 07/01/2024, Expires: 09/30/2024 [facility] Comment on above: Expected: 07/01/2024 , Expires: 09/30/2024 Start: 07-01-2024 End: 09-30-2024 Thyrotropin [Units/volume] in Serum or Plasma THYROID STIMULATING HORMONE Lab Routine 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 Expected: 07/01/2024, Expires: 09/30/2024 [facility] Comment on above: Expected: 07/01/2024 , Expires: 09/30/2024 Start: 07-01-2024 End: 09-30-2024 Urinalysis complete panel - Urine URINALYSIS, WITH MICROSCOPIC Lab Routine Mixed hyperlipidemia 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 Stage 3a chronic kidney disease (HCC) Expected: 07/01/2024, Expires: 09/30/2024 [facility] Comment on above: Expected: 07/01/2024 , Expires: 09/30/2024 Start: 06-29-2024 Influenza vaccination Influenza Vacc ine (#1) [facility] Start: 03-05-2024 ANNUAL PCP TEAM EDUCATION PROGRAM SPECIALIST OSMAN DISEASE VISIT ANNUAL PCP TEAM CHRONIC DISEASE VISIT [facility] Start: 03-05-2024 HEMOGLOBIN/HEMATOCRIT HEMOGLOBIN/HEM ATOCRIT [facility] Start: 03-05-2024 SERUM CREATININE SERUM CREATININE Cl [facility] Start: 01-11-2024 End: 04-11-2024 25-hydroxyvitamin D3 [Mass/volume] in Serum or Plasma VITAMIN D 25 HYDROXY Lab Routine Vitamin D deficiency Expected: 01/11/2024, Expires: 04/11/2024 [facility] Work Phone: Comment on above: Expected: 01/11/2024 , Expires: 04/11/2024 Start: 01-11-2024 End: 04-11-2024 CBC W Auto Differential panel - Blood CBC + DIFF Lab Routine Mixed hyperlipidemia 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 Stage 3a chronic kidney disease (HCC) Vitamin D deficiency Expected: 01/11/2024, Expires: 04/11/2024 [facility] Work Phone: Comment on above: Expected: 01/11/2024 , Expires: 04/11/2024 Start: 01-11-2024 End: 04-11-2024 Comprehensive metabolic 2000 panel - Serum or Plasma COMP METABOLIC PANEL Lab Routine Mixed hyperlipidemia 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 Stage 3a chronic kidney disease (HCC) Vitamin D deficiency Expected: 01/11/2024, Expires: 04/11/2024 [facility] Work Phone: Comment on above: Expected: 01/11/2024 , Expires: 04/11/2024 Start: 01-11-2024 End: 04-11-2024 Lipid 1996 panel - Serum or Plasma LIPID PANEL BASIC Lab Routine Mixed hyperlipidemia Expected: 01/11/2024, Expires: 04/11/2024 [facility] Work Phone: Comment on above: Expected: 01/11/2024 , Expires: 04/11/2024 Start: 01-11-2024 End: 04-11-2024 PSA/PROSTSPECAG SCRN PSA/PROSTSPECAG SCRN Lab Routine Prostate cancer screening Expected: 01/11/2024, Expires: 04/11/2024 [facility] Work Phone: Comment on above: Expected: 01/11/2024 , Expires: 04/11/2024 Start: 01-11-2024 End: 01-08-2025 Thyrotropin [Units/volume] in Serum or Plasma TSH BLD Lab Routine Mixed hyperlipidemia 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 Expected: 01/11/2024, Expires: 01/08/2025 [facility] Work Phone: Comment on above: Expected: 01/11/2024 , Expires: 01/08/2025 Start: 01-11-2024 End: 04-11-2024 Urinalysis complete panel - Urine URINALYSIS, WITH MICROSCOPIC Lab Routine Mixed hyperlipidemia 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 Stage 3a chronic kidney disease (HCC) Vitamin D deficiency Expected: 01/11/2024, Expires: 04/11/2024 [facility] Work Phone: Comment on above: Expected: 01/11/2024 , Expires: 04/11/2024 Start: 12-31-2023 Covid-19 Vaccine () Covid-19 Vaccine () [facility] Start: 10-29-2023 Advance Directive Discussion Advance Directive Discussion [facility] Start: 10-29-2023 Depression Assessment Depression Ass essment [facility] Start: 09-04-2023 ANNUAL PCP TEAM EDUCATION PROGRAM SPECIALIST OSMAN DISEASE VISIT ANNUAL PCP TEAM CHRONIC DISEASE VISIT [facility] Start: 09-04-2023 HEMOGLOBIN/HEMATOCRIT HEMOGLOBIN/HEM ATOCRIT [facility] Start: 09-04-2023 SERUM CREATININE SERUM CREATININE Cl [facility] Start: 08-16-2023 ANNUAL PCP TEAM EDUCATION PROGRAM SPECIALIST OSMAN DISEASE VISIT ANNUAL PCP TEAM CHRONIC DISEASE VISIT [facility] Start: 06-29-2023 Covid-19 Vaccine ( season) Covid-19 Vaccine () [facility] Start: 06-29-2023 Influenza vaccination Influenza Vacc ine (#1) [facility] Start: 03-05-2023 End: 05-05-2023 Comprehensive metabolic 2000 panel - Serum or Plasma [facility] Work Phone: Comment on above: Expected: 03/05/2023 , Expires: 05/05/2023 Start: 03-05-2023 End: 05-05-2023 Lipid 1996 panel - Serum or Plasma [facility] Work Phone: Comment on above: Expected: 03/05/2023 , Expires: 05/05/2023 Start: 03-05-2023 End: 01-27-2024 Thyrotropin [Units/volume] in Serum or Plasma [facility] Work Phone: Comment on above: Expected: 03/05/2023 , Expires: 01/27/2024 Start: 03-05-2023 End: 05-05-2023 UA DIP, URINE (POC) UA DIP, URINE (POC) Lab Routine Mixed hyperlipidemia 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 Expected: 03/05/2023, Expires: 05/05/2023 [facility] Work Phone: Comment on above: Expected: 03/05/2023 , Expires: 05/05/2023 Start: 03-03-2023 ANNUAL PCP TEAM EDUCATION PROGRAM SPECIALIST OSMAN DISEASE VISIT ANNUAL PCP TEAM CHRONIC DISEASE VISIT [facility] Start: 03-03-2023 HEMOGLOBIN/HEMATOCRIT HEMOGLOBIN/HEM [facility] Start: 03-03-2023 SERUM CREATININE SERUM CREATININE [facility] Start: 02-17-2023 Adult depression screening assessment DEPRESSION SCREENING [facility] Start: 02-17-2023 ANNUAL PCP TEAM EDUCATION PROGRAM SPECIALIST OSMAN DISEASE VISIT ANNUAL PCP TEAM CHRONIC DISEASE VISIT [facility] Start: 01-18-2023 Urine microalbumin profile [facility] Start: 11-16-2022 Colonoscopy COLONOSCOPY [facility] Start: 11-16-2022 COLORECTAL CANCER SCREENING COLORECTAL CANCER SCREENING [facility] Start: 09-04-2022 End: 11-04-2022 UA DIP, URINE (POC) UA DIP, URINE (POC) Lab Routine Mixed hyperlipidemia 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 Expected: 09/04/2022, Expires: 11/04/2022 [facility] Work Phone: Comment on above: Expected: 09/04/2022 , Expires: 11/04/2022 Start: 08-19-2022 HEMOGLOBIN/HEMATOCRIT HEMOGLOBIN/HEM [facility] Start: 08-19-2022 SERUM CREATININE SERUM CREATININE [facility] Start: 06-29-2022 Influenza vaccination INFLUENZA (#1) [facility] Start: 05-29-2022 COVID-19 VACCINE (5 - Booster for Pfizer series) COVID-19 VACCINE (5 - Booster for Pfizer series) [facility] Start: 05-04-2022 Mammography [facility] Start: 04-16-2022 Mammography MAMMOGRAM [facility] Start: 03-03-2022 End: 05-03-2022 CBC W Auto Differential panel - Blood CBC + DIFF Lab Routine Mixed hyperlipidemia 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 Expected: 03/03/2022, Expires: 05/03/2022 [facility] Work Phone: Comment on above: Expected: 03/03/2022 , Expires: 05/03/2022 Start: 03-03-2022 End: 05-03-2022 Comprehensive metabolic 2000 panel - Serum or Plasma COMP METABOLIC PANEL Lab Routine Mixed hyperlipidemia 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 Expected: 03/03/2022, Expires: 05/03/2022 [facility] Work Phone: Comment on above: Expected: 03/03/2022 , Expires: 05/03/2022 Start: 03-03-2022 End: 05-03-2022 LIPID PANEL BASIC LIPID PANEL BASIC Lab Routine Mixed hyperlipidemia Expected: 03/03/2022, Expires: 05/03/2022 [facility] Work Phone: Comment on above: Expected: 03/03/2022 , Expires: 05/03/2022 Start: 03-03-2022 End: 03-16-2023 Screening mammography bi 2-view breast inc cad JOHN SCREENING Radiology Routine Visit for screening mammogram Expected: 03/03/2022, Expires: 03/16/2023 [facility] Work Phone: Comment on above: Expected: 03/03/2022 , Expires: 03/16/2023 Start: 03-03-2022 End: 02-14-2023 Thyrotropin [Units/volume] in Serum or Plasma TSH BLD Lab Routine 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 Expected: 03/03/2022, Expires: 02/14/2023 [facility] Work Phone: Comment on above: Expected: 03/03/2022 , Expires: 02/14/2023 Start: 03-03-2022 End: 05-03-2022 UA DIP, URINE (POC) UA DIP, URINE (POC) Lab Routine Mixed hyperlipidemia 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 Expected: 03/03/2022, Expires: 05/03/2022 [facility] Work Phone: Comment on above: Expected: 03/03/2022 , Expires: 05/03/2022 Start: 02-17-2022 COVID-19 VACCINE (4 - Booster for Pfizer series) COVID-19 VACCINE (4 - Booster for Pfizer series) [facility] Start: 10-29-2021 ADVANCE DIRECTIVE DISCUSSION ADVANCE DIRECTIVE DISCUSSION [facility] Start: 10-29-2021 DEPRESSION ASSESSMENT DEPRESSION ASS ESSMENT [facility] Start: 11-03-2020 FECAL OCCULT BLOOD FECAL OCCULT BLOO D [facility] Start: 11-03-2020 Screening for malign ant neoplasm of colon Fecal Occult Blood [facility] Start: 09-05-2015 PNEUMOCOCCAL: 65+ (2 - PCV) PNEUMOCOCCAL: 65+ (2 - PCV) [facility] Start: 2008 RSV Vaccine (1 - 1-d ose 60+ series) RSV Vaccine (1 - 1-dose 60+ series) [facility] Start: 1993 COLOGUARD (FIT-DNA) COLOGUARD (FIT-D NA) [facility] Start: [address] COLONOGRAPHY [facility] Start: 1993 Screening for malign ant neoplasm of colon [facility] Start: 1993 SIGMOIDOSCOPY SIGMOIDOSCOPY [facility] COLOGUARD COLOGUARD Lab Ro utine Screening for colorectal cancer Ordered: 03/05/2023 [facility] Work Phone: Comment on above: Ordered: 03/05/2023 End: 04-03-2024 DXA-AXIAL SKELETON DXA-AXIAL SKELETON Radiology Routine Screening for osteoporosis Postmenopausal 1 Occurrences starting 03/05/2023 until 04/03/2024 [facility] Work Phone: Comment on above: 1 Occurrences starti ng 03/05/2023 until 04/03/2024 End: 04-18-2023 DXA-AXIAL SKELETON [facility] Work Phone: Comment on above: 1 Occurrences starti ng 04/18/2023 until 04/18/2023 End: 04-03-2024 JOHN SCREENING JOHN SCREENING Radiology Routine Encounter for screening mammogram for breast cancer 1 Occurrences starting 03/05/2023 until 04/03/2024 [facility] Work Phone: Comment on above: 1 Occurrences starti ng 03/05/2023 until 04/03/2024 End: 03-05-2024 Screening colonoscopy COLONOSCOPY SCREENING Endoscopy Routine Screening for colon cancer 1 Occurrences starting 03/05/2023 until 03/05/2024 [facility] Work Phone: Comment on above: 1 Occurrences starti ng 03/05/2023 until 03/05/2024 UA DIP OB, URINE (POC) UA DIP OB , URINE (POC) Lab Routine Mixed hyperlipidemia Ordered: 09/01/2023 [facility] Work Phone: Comment on above: Ordered: 09/01/2023 End: 07-24-2025 XR Foot - left AP and Lateral and oblique XR FOOT GENERAL 3V AP/LAT/OBL LEFT Radiology Routine Left foot pain 1 Occurrences starting 06/24/2024 until 07/24/2025 [facility] Work Phone: Comment on above: 1 Occurrences starti ng 06/24/2024 until 07/24/2025 [facility] Immunizations Immunization Date Immunization Notes Care Provider Fa cili 03-03-2024 diphtheria, tetanus toxoids and acellular pertussis vaccine, unspecified formulation Sonido Ness MD Work Phone: [facility] 03-03-2024 respiratory syncytia l virus RSV vaccine, PF, (ABRYSVO) 120 mcg/0.5 mL injection Sonido Ness MD Work Phone: [facility] 10-08-2023 tetanus toxoid, redu seble diphtheria toxoid, and acellular pertussis vaccine, adsorbed Sonido Ness MD Work Phone: [facility] 09-01-2023 COVID-19 vaccine, ag e 12+ yr, 2022- season ([employer] Sonido Ness MD Work Phone: [facility] 09-01-2023 diphtheria, tetanus toxoids and acellular pertussis vaccine, unspecified formulation Sonido Ness MD Work Phone: [facility] Work Phone: Comment on above: Inject 0.5 mL intram uscularly one time only for 1 dose. 09-01-2023 influenza (HD-IIV4) vaccine, age 65+ yr, high dose, quadrivalent, PF (FLUZONE HIGH-DOSE) Sonido Ness MD Work Phone: [facility] 09-01-2023 respiratory syncytia l virus RSV vaccine, PF, (ABRYSVO) 120 mcg/0.5 mL injection Sonido Ness MD Work Phone: [facility] Work Phone: Comment on above: Inject 0.5 mL intram uscularly one time only for 1 dose. 09-01-2023 influenza virus vacc ine, unspecified formulation Sonido Ness MD Work Phone: [facility] 03-05-2023 diphtheria, tetanus toxoids and acellular pertussis vaccine, unspecified formulation Sonido Ness MD Work Phone: [facility] [facility] Work Phone: Comment on above: Inject 0.5 mL intram uscularly one time only for 1 dose. 03-05-2023 pneumococcal (PCV20) vaccine, 20 valent (PREVNAR 20) Sonido Ness MD Work Phone: [facility] 03-05-2023 pneumococcal Conjuga te, unspecified formulation Sonido Ness MD Work Phone: [facility] Work Phone: 09-04-2022 COVID-19 booster vac cine, age 12+ yr, bivalent ([employer]) Sonido Ness MD Work Phone: [facility] 09-04-2022 influenza, high-dose , quadrivalent vaccine (FLUZONE HIGH DOSE QUADRIVALENT) Sonido Ness MD Work Phone: [facility] 09-04-2022 influenza virus vacc ine, unspecified formulation Sonido Ness MD Work Phone: [facility] 04-03-2022 COVID-19 original vaccine, age 12+ yr, monovalent (PFIZER-BIONTECH - CRUZ TOP) Sonido Ness MD Work Phone: [facility] 10-19-2021 COVID-19 original vaccine, age 12+ yr, monovalent (PFIZER-BIONTECH - PURPLE TOP) Sonido Ness MD Work Phone: [facility] 08-19-2021 influenza, high-dose , quadrivalent vaccine (FLUZONE HIGH DOSE QUADRIVALENT) Kade Hernandez MD, PhD Work Phone: [facility] 03-14-2021 COVID-19 original vaccine, age 12+ yr, monovalent (PFIZER-BIONTECH - PURPLE TOP) Sonido Ness MD Work Phone: [facility] 02-21-2021 COVID-19 original vaccine, age 12+ yr, monovalent (PFIZER-BIONTECH - PURPLE TOP) Sonido Ness MD Work Phone: [facility] 12-08-2020 zoster vaccine recombinant Kade Hernandez MD, PhD Work Phone: [facility] 08-25-2020 zoster vaccine recombinant Kade Hernandez MD, PhD Work Phone: [facility] 08-18-2020 influenza, high-dose , quadrivalent vaccine (FLUZONE HIGH DOSE QUADRIVALENT) Kade Hernandez MD, PhD Work Phone: [facility] 08-25-2019 influenza, high dose seasonal, preservative-free Kade Hernandez MD, PhD Work Phone: [facility] 09-02-2018 influenza, high dose seasonal, preservative-free Kade Hernandez MD, PhD Work Phone: [facility] 07-07-2017 influenza, high dose seasonal, preservative-free Kade Hernandez MD, PhD Work Phone: [facility] 09-04-2016 influenza, high dose seasonal, preservative-free Kade Hernandez MD, PhD Work Phone: [facility] 09-04-2015 influenza, high dose seasonal, preservative-free Kade Hernandez MD, PhD Work Phone: [facility] 09-05-2014 influenza, seasonal, injectable Kade Hernandez MD, PhD Work Phone: [facility] 09-05-2014 pneumococcal conjuga te vaccine, 13 valent Kade Hernandez MD, PhD Work Phone: [facility] 09-05-2014 pneumococcal polysaccharide vaccine, 23 valent [facility] Provider [facility] 07-05-2013 influenza virus vacc ine, unspecified formulation Kade Hernandez MD, PhD Work Phone: [facility] Work Phone: 01-18-2013 tetanus toxoid, redu seble diphtheria toxoid, and acellular pertussis vaccine, adsorbed Kade Hernandez MD, PhD Work Phone: [facility] Work Phone: 01-18-2013 zoster vaccine, live Kade Hernandez MD, PhD Work Phone: [facility] Work Phone: 08-03-2012 influenza virus vacc ine, whole virus Kade Hernandez MD, PhD Work Phone: [facility] Work Phone: 08-30-2010 influenza virus vacc ine, unspecified formulation Kade Hernandez MD, PhD Work Phone: [facility] Work Phone: 07-17-2009 influenza virus vacc ine, unspecified formulation Kade Hernandez MD, PhD Work Phone: [facility] 08-29-2008 pneumococcal polysaccharide vaccine, 23 valent Kade Hernandez MD, PhD Work Phone: [facility] Work Phone: 10-29-2007 pneumococcal polysaccharide vaccine, 23 valent [facility] Provider [facility] Work Phone: 10-10-2007 influenza virus vacc ine, unspecified formulation Kade Hernandez MD, PhD Work Phone: [facility] Payers Date Payer Category Payer Unknown [employer] [facility] AND [employer] O [id number] 2019-Present [phone] [address] [place] [address] O [id number] 2019 Unknown [id number] 2017 Medicare [id number] 1959 Unknown [id number] 1950 Unknown [id number] 1950 Unknown [id number] 9 1950 Unknown [id number] 9 1948 Unknown [id number] 6 1950 Unknown [id number] 7 Unknown [id number] Unknown [id number] Social History Date Type Detail Facility Start: 06-10-2011 Tobacco smoking status NHIS Never smoked tobacco [facility] Start: 02-17-2022 End: 03-03-2024 Alcohol intake Current non-drinker of alcohol (finding) [facility] Start: 1950 Sex Assigned At Female [facility] Start: 02-07-2022 End: 09-04-2022 Exposure to SARS-CoV-2 (event) Not sure [facility] Start: 02-28-2022 End: 02-27-2023 History SDOH Alcohol Frequency 1 [facility] Start: 02-28-2022 End: 02-27-2023 History SDOH Social Connections Phone 5 [facility] Start: 02-28-2022 End: 02-27-2023 History SDOH Social Connections Get Together 98 [facility] Start: 02-28-2022 End: 02-27-2023 History SDOH Social Connections [employer] 3 [facility] Start: 02-28-2022 End: 02-27-2023 History SDOH Transport Med 2 [facility] Start: 06-10-2011 Tobacco use and exposure Smokeless tobacco non-user [facility] Work Phone: Start: 02-27-2023 History SDOH Alcohol Std Drinks 0 [facility] Start: 02-27-2023 History SDOH Physical Activity MPS 6 [facility] Start: 02-27-2023 End: 03-05-2023 History of Social function [facility] Start: 02-27-2023 End: 03-05-2023 Social connection and isolation panel [facility] How often do you get together with friends or relatives? Patient refused [facility] Do you belong to any clubs or organizations such as lutheran groups, unions, fraternal or athletic groups, or school groups? Yes [facility] Are you now , , , , never or living with a partner? [facility] How often to you hav e a drink containing alcohol? Never [facility] Do you feel stress - tense, restless, nervous, or anxious, or unable to sleep at night because your mind is troubled all the time - these days [OSQ] Not at all [facility] (I/We) worried wheth er (my/our) food would run out before (I/we) got money to buy more. Never true [facility] In the past 12 month s, was there a time when you were not able to pay the mortgage or rent on time? 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 Patient notified. Avis Espinoza LPN [facility]08-27-2024 Miscellaneous Notes* Telephone Encounter - Avis Espinoza LPN - 06/24/2024 4:34 PM EDT Order faxed. Patient notified. Avis Espinoza LPN * Telephone Encounter - Avis Espinoza LPN - 06/24/2024 3:04 PM EDT Radiology fax: [phone]. Avis Espinoza LPN * Telephone Encounter - [...] orders- pended. Closest hospital to her is [facility] in [place], [place].Will call and get radiology fax. Avis Espinoza LPN * Telephone Encounter - Diamond Barbosa - 06/24/2024 12:38 PM EDT Victor Hugo is calling Sonido Ness MD today with concern regarding Foot Pain (Midfoot) Patient has been identified by name and birthdate. Duration of symptoms: N/A Person calling: self Call patient at: on cell [phone] (home) [phone] (cell) Was an appointment scheduled: No Closing statement: Patient is concerned that she broke her foot, please call. Diamond Diaz [facility] Telephone encounter Note * Telephone Encounter - Avis Espinoza LPN - 06/24/2024 3:04 PM EDT Radiology fax: [phone]. Avis Espinoza LPN [facility]08-27-2024 Telephone encounter Note* Telephone Encounter - [...] orders- pended. Closest hospital to her is [facility] in [place], [place].Will call and get radiology fax. Avis Espinoza LPN [facility]08-27-2024 Telephone encounter Note* Telephone Encounter - Diamond Barbosa - 06/24/2024 12:38 PM EDT Victor Hugo is calling Sonido Nses MD today with concern regarding Foot Pain (Midfoot) Patient has been identified by name and birthdate. Duration of symptoms: N/A Person calling: self Call patient at: on cell [phone] (home) [phone] (cell) Was an appointment scheduled: No Closing statement: Patient is concerned that she broke her foot, please call. Diamond Diaz [facility]05-18-2024 Telephone encounter Note* Telephone Encounter - Sylvia Marshall RN - 03/15/2024 10:10 AM EDT Patient calls for refill, generic symbicort Needs to be sent to mailorder Sylvia Marshall RN [facility]05-18-2024 Miscellaneous Notes* Telephone Encounter - Sylvia Marshall RN - 03/15/2024 10:10 AM EDT Patient calls for refill, generic symbicort Needs to be sent to mailorder Sylvia Marshall RN documented in this encounterMarion [facility]05-07-2024 Telephone encounter Note * Telephone Encounter - Emma Moe RN - 03/04/2024 10:33 AM EDT Called and spoke to patient. Provided message as stated below. Patient verbalized understanding. [facility]05-07-2024 Miscellaneous Notes* Telephone Encounter - Emma [...] check in 6 months documented in this encounterMarion Hospital05-07-2024 Telephone encounter Note * Telephone Encounter - Radha Banks RN - 03/04/2024 7:49 AM EDT ----- Message from Sonido Ness MD sent at 03/04/2024 6:24 AM EDT ----- Labs with chol stable No changes, check in 6 months [facility]05-06-2024 Telephone encounter Note* Telephone Encounter - Sylvia Marshall RN - 03/03/2024 1:02 PM EDT Patient calls , states was seen today and refills were sent local instead of mailorder Pended. Sylvia Marshall RN [facility]05-06-2024 Miscellaneous Notes* Telephone Encounter - Sylvia Marshall RN - 03/03/2024 1:02 PM EDT Patient calls , states was seen today and refills were sent local instead of mailorder Pended. Sylvia Marshall RN documented in this encounterMarion Hospital05-06-2024 Instructions* Patient Instructions* Sonido Ness MD [...] review all the medicines you take, even mgms-lzv-rvoohiu medicines. As you get older, the way [...] have certain medical conditions. documented in this encounterMar[facility]05-06-2024 History of Present illness Narrative* Sonido Ness MD - 03/03/2024 10:30 AM EDT Images from the original note were not included. This note was created using [employer]. Subjective Victor Hugo Padilla is a 73 [...] mean peak bone mass ofnormal reference 20-45yr [facility] female Osteoporosis, unspecified 05/2008 PAC (premature atrial contraction) 2011 Status post radiofrequency ablation for arrhythmia 07/03/2017 1. [employer]: CARTO mapping system was utilized. 2. 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 [employer]: CARTO mapping system was utilized. 2. Supraventricular [...] 09/01/2023 Neut% 57.7 03/05/2023 Lymph% 30.7 03/05/2023 Hood% 9.5 03/05/2023 Eosin% 1.0 03/05/2023 Baso% 0.8 03/05/2023 Abs Neut (ANC) 3.56 03/05/2023 Abs Hood 0.59 03/05/2023 Abs Eosin 0.06 03/05/2023 Abs [...] V03.89, ICD10: Z23 - PFIZER-BIONTECH COVID-19 VACCINE (2022- SEASON) AGE 12+ YR Sonido Ness MD [...] dentures:Not at all Concerns with sexual function:n/a Mabie anxious, stressed, angry, irritable, lonely, isolated, or [...] Average alcohol consumption: Never documented in this encounterMar[facility]05-06-2024 NoteHNO ID: [id number] Author: SONIDO NESS MD Service: ? Author Type: Physician Type: Progress Notes Filed: 03/03/2024 12:41 Note Text: This note was created using [employer]. Subjective Victor Hugo Padilla is a 73 [...] peak bone mass of normal reference 20-45yr [facility] female Osteoporosis, unspecified 05/2008 PAC (premature atrial contraction) 2011 Status post radiofrequency ablation for arrhythmia 07/03/2017 1. [employer]: CARTO mapping system was utilized. 2. 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 [employer]: CARTO mapping system was utilized. 2. Supraventricular [...] 09/01/2023 Neut% 57.7 03/05/2023 Lymph% 30.7 03/05/2023 Hood% 9.5 03/05/ (more content not included)...[facility] 03-03-2024 NoteHNO ID: [id number] Author: PATIENCE PATEL MA Service: ? Author Type: Health Care Manager Type: Progress Notes Filed: 03/03/2024 12:41 Note Text: Your patient has already completed the old HRA questionnaire. They will receive the new one at their next visit when it is due. 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 Her Hives are back She finished prednisone last Sunday Developed hives again over the weekend Started at underware waistband site and under bra line She thinks her underware is spandex, not latex Advised dose of benadryl for now Further instructions per PcP Sylvia Marshall RN documented in this encounterMarion Hospital11-04-2023 History of Present illness Narrative* Sonido Ness MD - 09/01/2023 8:15 AM EDT This note was created using [employer]. Subjective Victor Hugo Padilla is a 73 [...] mean peak bone mass ofnormal reference 20-45yr [facility] female Osteoporosis, unspecified 05/2008 PAC (premature atrial contraction) 2011 Status post radiofrequency ablation for arrhythmia 07/03/2017 1. The [employer]: CARTO mapping system was utilized. 2. 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 [employer]: CARTO mapping system was utilized. 2. Supraventricular [...] 03/05/2023 Neut% 57.7 03/05/2023 Lymph% 30.7 03/05/2023 Hood% 9.5 03/05/2023 Eosin% 1.3 08/19/2021 Baso% 0.8 03/05/2023 Abs Neut (ANC) 3.56 03/05/2023 Abs Hood 0.59 03/05/2023 Abs Eosin 0.06 03/05/2023 Abs [...] YR, HIGH DOSE, QUADRIVALENT (FLUZONE HIGH-DOSE) - Store Eyes COVID-19 VACCINE (2022- SEASON) AGE 12+ YR [...] Admit Date: 04/04/2023 Discharge Date: Acct. #: [id number] Location: [facility] PT Type: Outpatient Surgery Admitting DrJasmin: JASON SIMONS MD LEGEND: C-Critical, H-High, L-Low, *-Corrected, N-Result Comment, ^-Interp Data, R-Performing Loc, />-Flag/Unflag Report Request ID: [id number] Print Date: 04/04/2023 15:23 EDT Laboratory reference [...] hemorrhoids Operation Colonoscopy Surgeon(s) Jason Simons M.D. Aircraft Maintenance Technician None Anesthesia Monitored anesthesia care Estimated Blood [...] both the patient and documented in this encounterMarion Hospital11-04-2023 NoteHNO ID: [id number] Author: Sonido Ness MD Service: ? Author Type: Physician Type: Progress Notes Filed: 09/01/2023 11:54 AM Note Text: This note was created using [employer]. Subjective Victor Hugo Padilla is a 73 [...] peak bone mass of normal reference 20-45yr [facility] female Osteoporosis, unspecified 05/2008 PAC (premature atrial contraction) 2011 Status post radiofrequency ablation for arrhythmia 07/03/2017 1. [employer]: CARTO mapping system was utilized. 2. 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 [employer]: CARTO mapping system was utilized. 2. Supraventricular [...] 03/05/2023 Neut% 57.7 03/05/2023 Lymph% 30.7 03/05/2023 Hood% 9.5 03/05/2023 Eosin% 1.3 08/19/2021 Baso% 0.8 03/05/2023 Abs Neut (ANC) 3.56 03/05/2023 Abs Hood 0.59 03/05/2023 Abs Eosin 0.06 03/05/2023 Abs Baso 0.05 03/05/2023 Glucose (mg/dL) Date Value 03/05/2023 91 08/19/2021 86 Potassium (mmol/L) (more content not included)...[facility] 09-01-2023 NoteHNO ID: [id number] Author: Sonido Ness MD Service: ? Author Type: Physician Type: Progress Notes Filed: 09/01/2023 11:54 AM Note Text: Patient: VICTOR HUGO PADILLA Admin Sex: Female Sex: Female /Age: 11 1950 72 years Admit Date: 04/04/2023 Discharge Date: Acct. #: [id number] Location: [facility] PT Type: Outpatient Surgery Admitting Dr.: JASON SIMONS MD LEGEND: C-Critical, H-High, L-Low, *-Corrected, N-Result Comment, -Interp Data, R-Performing Loc, />-Flag/Unflag Report Request ID: [id number] Print Date: 04/04/2023 15:23 EDT Laboratory reference [...] hemorrhoids Operation Colonoscopy Surgeon(s) Jason Simons M.D. Aircraft Maintenance Technician None Anesthesia Monitored anesthesia care Estimated Blood Loss None Urine Output Not applicable Findings Mild sigmoid diverticulosis Mild external hemorrhoids Specimen(s) None Complications None Technique After verbal and written consent, the patient was brought to the operating room. After appropriate monitoring, monitored anesthesia care was administered. A time-out was performed with the staff in the room confirming both the patient and[facility] [place] Miscellaneous Notes* Telephone Encounter - Yanelis Jain [...] Sonido Ness MD * Telephone Encounter - Yanelis [...] less.) Protocols used: Rash or Redness - [id number] documented in this encounterMarion Hospital06-23-2023 Miscellaneous Notes* Telephone Encounter - Yanelis [...] check in 3-5 yrs documented in this encounterMarion Hospital06-21-2023 NoteHNO ID: [id number] Author: RT Lee(Nelida) Service: Radiology Author Type: [...] BY: RT Lee(R) April 18, 2023 9:52 [id number] History of Present illness Narrative* RT Lee(R) - 04/18/2023 9:30 AM EDT Radiology Service [...] 18, 2023 9:52 AM documented in this encounterMarion Hospital05-09-2023 Miscellaneous Notes* Telephone Encounter - Merced Patel RN - 03/06/2023 9:34 AM EDT Called patient with results and recheck recommendations. Merced Patel RN * Telephone Encounter - Yanelis Jain RN - 03/06/2023 7:54 AM EDT ----- Message from Sonido Ness MD sent at 03/06/2023 6:24 AM EDT ----- Labs ok No changes, check in 6 months documented in this encounterMarion Hospital05-08-2023 Miscellaneous Notes* Telephone Encounter - Avis Espinoza LPN - 03/05/2023 3:08 PM EDT Requesting mail order pharmacy. Avis Espinoza LPN documented in this encounterMarion Hospital05-08-2023 History of Present illness Narrative* Sonido Ness MD - 03/05/2023 10:45 AM EDT This note was created using [employer]rid[employer]iter. Subjective Victor Hugo Padilla is a 72 [...] radiofrequency ablation for arrhythmia 07/03/2017 1. [employer]: CARTO mapping system was utilized. 2. 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 [employer]: CARTO mapping system was utilized. 2. Supraventricular [...] 09/04/2022 Neut% 56.5 09/04/2022 Lymph% 29.0 09/04/2022 Hood% 11.4 09/04/2022 Eosin% 1.3 08/19/2021 Baso% 0.8 09/04/2022 Abs Neut (ANC) 3.43 09/04/2022 Abs Hood 0.69 09/04/2022 Abs Eosin 0.12 09/04/2022 Abs [...] mean peak bone mass ofnormal reference 20-45yr [facility] female Osteoporosis, unspecified 05/2008 PAC (premature atrial contraction) 2011 Status post radiofrequency ablation for arrhythmia 07/03/2017 1. [employer]: CARTO mapping system was utilized. 2. 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 [employer]: CARTO mapping system was utilized. 2. Supraventricular [...] Level: 4 - Moderate documented in this encounterMarion Hospital11-10-2022 Miscellaneous Notes* Telephone Encounter - Ginger Joey Transformation Manager - 09/07/2022 12:50 PM EST Patient declines at this time * Telephone Encounter - Ginger Rinconh Transformation Manager - 08/24/2022 7:39 AM EDT 5 year colon, sent first letter documented in this encounterMarion Hospital11-08-2022 Miscellaneous Notes* Telephone Encounter - Yanelis [...] check in 6 months documented in this encounterMarion Hospital11-07-2022 History of Present illness Narrative* Sonido Ness MD - 09/04/2022 10:30 AM EST Images from the original note were not included. This note was created using [employer]. Subjective Victor Hugo Padilla is a 72 [...] mean peak bone mass ofnormal reference 20-45yr [facility] female Osteoporosis, unspecified 05/2008 PAC (premature atrial contraction) 2011 Status post radiofrequency ablation for arrhythmia 07/03/2017 1. [employer]: CARTO mapping system was utilized. 2. 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 [employer]: CARTO mapping system was utilized. 2. Supraventricular [...] 03/03/2022 Neut% 57.2 03/03/2022 Lymph% 31.2 03/03/2022 Hood% 8.9 03/03/2022 Eosin% 1.3 08/19/2021 Baso% 1.0 03/03/2022 Abs Neut (ANC) 3.53 03/03/2022 Abs Hood 0.55 03/03/2022 Abs Eosin 0.09 03/03/2022 Abs [...] Z86.79 Sonido Ness MD documented in this encounterMarion Hospital10-26-2022 Miscellaneous Notes* Telephone Encounter - Yanelis Jain RN - 08/23/2022 10:08 AM EDT FAMILY MEDICINE: Patient has been identified by name and date of : Yes Patient electronically sent a request for the following prescription(s) RX INSTRUCTIONS: Patient aware RX will be sent to pharmacy. No need to notify patient. Last office visit at this [facility] in Primary Care not including Urgent Care: 03/03/22 labs 08/21/22 [facility] [facility] in [facility] Care not including Urgent Care: [...] - 08/23/2022 9:34 AM EDT Order Audit [place]: albuterol (PROVENTIL) 2.5 mg /3 mL (0.083 %) nebulizer solution Solution NOT inhaler Send to [facility] documented in this encounterMar[facility]22 Miscellaneous Notes* Telephone Encounter - Yanelis Jain RN - 08/22/2022 10:49 AM EDT Change of pharmacy [facility]: Patient has been identified by name and date of : Yes Patient phoned to request the following prescription(s) RX INSTRUCTIONS: Patient aware RX will be sent to pharmacy. No need to notify patient. Last office visit at this [facility] in Primary Care not including Urgent Care: 08/16/22 labs pending results Next office visit at this [facility] in Primary Care not including Urgent Care: [...] EDT Refill Albuterol for nebulizer. Send to [facility] in [place], [place] documented in this encounterMarion Hospital10-19-2022 History of Present illness Narrative* Sonido Ness MD - 08/16/2022 12:35 PM EDT This note was created using [employer]. Subjective Victor Hugo Padilla is a 71 [...] radiofrequency ablation for arrhythmia 07/03/2017 1. [employer]: CARTO mapping system was utilized. 2. 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 [employer]: CARTO mapping system was utilized. 2. Supraventricular [...] making as documented below. documented in this encounterMarion Hospital05-09-2022 Miscellaneous Notes* Telephone Encounter - Diamond Negron - 03/06/2022 10:56 AM EDT Patient notified of results and recheck time. Has appt scheduled for 6 month f/u Diamond Negron * Telephone Encounter - Brookeaddison Rupinder GILBERT - 03/06/2022 8:24 AM EDT ----- Message from Sonido Ness MD sent at 03/06/2022 6:48 AM EDT ----- Labs ok, no changes, check in 6 months Sonido Ness MD documented in this encounterMarion Hospital05-06-2022 Miscellaneous Notes* Addendum Note - Patience Patel MA - 03/03/2022 11:18 AM EDT Addended by: PATIENCE PATEL on: 03/03/2022 11:18 AM Modules accepted: Orders documented in this encounterMarion Hospital05-06-2022 History of Present illness Narrative* Sonido Ness MD - 03/03/2022 10:30 AM EDT This note was created using [employer]. Subjective Victor Hugo Padilla is a 71 [...] radiofrequency ablation for arrhythmia 07/03/2017 1. The [employer]: CARTO mapping system was utilized. 2. 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 The [employer]: CARTO mapping system was utilized. 2. Supraventricular [...] 08/19/2021 Neut% 54.7 08/19/2021 Lymph% 32.2 08/19/2021 Hood% 10.8 08/19/2021 Eosin% 1.3 08/19/2021 Baso% 1.0 08/19/2021 Abs Neut (ANC) 2.83 08/19/2021 Abs Hood 0.56 08/19/2021 Abs Eosin 0.07 08/19/2021 Abs [...] Comment: LDL-C is now calculated using the Rudi-Hall calculation, which is a validated novel method providing better accuracy than the Friedewald equation in the estimation of LDL-C. Rudi VALLES et al.ADONIS.2013;310(19):3341-9206 Desirable range <100 mg/dL for primary prevention; <70 mg/dL for patients with CHD or diabetic patients with >or= 2 CHD risk factors. For additional information, please refer to http://[email or web address]/faq/QUJ844(This link is being provided for informational/educational purposes [...] vaccine - ICD9: V04.89, ICD10: Z23 - Store Eyes COVID-19 VACCINE, AGE 12+ YR (CRUZ TOP) 5. Visit for screening mammogram - ICD9: V76.12, ICD10: Z12.31 - Encouraged monthly BSE - Follow up for annual exam in one year. - [facility] SCREENING 6. Stage 3a chronic kidney disease [...] mean peak bone mass ofnormal reference 20-45yr [facility] female Osteoporosis, unspecified 05/2008 PAC (premature atrial contraction) 2011 Status post radiofrequency ablation for arrhythmia 07/03/2017 1. [employer]: CARTO mapping system was utilized. 2. 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 The [employer]: CARTO mapping system was utilized. 2. Supraventricular [...] panel Sonido Ness MD documented in this encounterMarion Hospital04-22-2022 History of Present illness Narrative* Kade Hernandez MD, PhD - 02/17/2022 11:42 AM EDT [...] - PREDNISONE 10 MG TABLET taper Kade Hernandez MD, PhD documented in this encounter[address] History of Past illness Narrative* Problem Noted Date Resolved Date Angular cheilitis 05/08/2015 03/29/2017 Other nonspecific abnormal serum enzyme levels 0 03/29/2000 06/09/2013 documented as of this encounter (statuses as of 02/17/2022) [address] History of Past illness Narrative* Problem Noted Date Resolved Date Angular cheilitis 05/08/2015 03/29/2017 History of depression 10/29/2005 03/03/2022 Other nonspecific abnormal serum enzyme levels 0 03/29/2000 06/09/2013 documented as of this encounter (statuses as of 03/03/2022) [address] History of Past illness Narrative* Problem Noted Date Resolved Date Angular cheilitis 05/08/2015 03/29/2017 History of depression 10/29/2005 03/03/2022 Other nonspecific abnormal serum enzyme levels 0 03/29/2000 06/09/2013 documented as of this encounter (statuses as of 03/06/2022) [address] History of Past illness Narrative* Problem Noted Date Resolved Date Angular cheilitis 05/08/2015 03/29/2017 History of depression 10/29/2005 03/03/2022 Other nonspecific abnormal serum enzyme levels 0 03/29/2000 06/09/2013 documented as of this encounter (statuses as of 06/06/2022) [address] History of Past illness Narrative* Problem Noted Date Resolved Date Angular cheilitis 05/08/2015 03/29/2017 History of depression 10/29/2005 03/03/2022 Other nonspecific abnormal serum enzyme levels 0 03/29/2000 06/09/2013 documented as of this encounter (statuses as of 08/16/2022) [address] History of Past illness Narrative* Problem Noted Date Resolved Date Angular cheilitis 05/08/2015 03/29/2017 History of depression 10/29/2005 03/03/2022 Other nonspecific abnormal serum enzyme levels 0 03/29/2000 06/09/2013 documented as of this encounter (statuses as of 08/22/2022) [address] History of Past illness Narrative* Problem Noted Date Resolved Date Angular cheilitis 05/08/2015 03/29/2017 History of depression 10/29/2005 03/03/2022 Other nonspecific abnormal serum enzyme levels 0 03/29/2000 06/09/2013 documented as of this encounter (statuses as of 08/23/2022) [address] History of Past illness Narrative* Problem Noted Date Resolved Date Angular cheilitis 05/08/2015 03/29/2017 History of depression 10/29/2005 03/03/2022 Other nonspecific abnormal serum enzyme levels 0 03/29/2000 06/09/2013 documented as of this encounter (statuses as of 09/04/2022) [address] History of Past illness Narrative* Problem Noted Date Resolved Date Angular cheilitis 05/08/2015 03/29/2017 History of depression 10/29/2005 03/03/2022 Other nonspecific abnormal serum enzyme levels 0 03/29/2000 06/09/2013 documented as of this encounter (statuses as of 09/05/2022) [address] History of Past illness Narrative* Problem Noted Date Resolved Date Angular cheilitis 05/08/2015 03/29/2017 History of depression 10/29/2005 03/03/2022 Other nonspecific abnormal serum enzyme levels 0 03/29/2000 06/09/2013 documented as of this encounter (statuses as of 09/07/2022) [address] History of Past illness Narrative* Problem Noted Date Resolved Date Angular cheilitis 05/08/2015 03/29/2017 Chronic kidney disease, stage 3 04/28/2015 03/05/2023 History of depression 10/29/2005 03/03/2022 Other nonspecific abnormal serum enzyme levels 0 03/29/2000 06/09/2013 documented as of this encounter (statuses as of 03/05/2023) [address] History of Past illness Narrative* Problem Noted Date Resolved Date Angular cheilitis 05/08/2015 03/29/2017 Chronic kidney disease, stage 3 04/28/2015 03/05/2023 History of depression 10/29/2005 03/03/2022 Other nonspecific abnormal serum enzyme levels 0 03/29/2000 06/09/2013 documented as of this encounter (statuses as of 03/05/2023) [address] History of Past illness Narrative* Problem Noted Date Resolved Date Angular cheilitis 05/08/2015 03/29/2017 Chronic kidney disease, stage 3 04/28/2015 03/05/2023 History of depression 10/29/2005 03/03/2022 Other nonspecific abnormal serum enzyme levels 0 03/29/2000 06/09/2013 documented as of this encounter (statuses as of 03/06/2023) [facility] Narr[facility]* Problem Noted Date Resolved Date Angular cheilitis 05/08/2015 03/29/2017 Chronic kidney disease, stage 3 04/28/2015 03/05/2023 History of depression 10/29/2005 03/03/2022 Other nonspecific abnormal serum enzyme levels 0 03/29/2000 06/09/2013 documented as of this encounter (statuses as of 03/06/2023) [facility] Narrative* Problem Noted Date Resolved Date Angular cheilitis 05/08/2015 03/29/2017 Chronic kidney disease, stage 3 04/28/2015 03/05/2023 History of depression 10/29/2005 03/03/2022 Other nonspecific abnormal serum enzyme levels 0 03/29/2000 06/09/2013 documented as of this encounter (statuses as of 03/08/2023) [facility] Narrative* Problem Noted Date Resolved Date Angular cheilitis 05/08/2015 03/29/2017 Chronic kidney disease, stage 3 04/28/2015 03/05/2023 History of depression 10/29/2005 03/03/2022 Other nonspecific abnormal serum enzyme levels 0 03/29/2000 06/09/2013 documented as of this encounter (statuses as of 04/19/2023) [address] History of Past illness Narrative* Problem Noted Date Resolved Date Angular cheilitis 05/08/2015 03/29/2017 Chronic kidney disease, stage 3 04/28/2015 03/05/2023 History of depression 10/29/2005 03/03/2022 Other nonspecific abnormal serum enzyme levels 0 03/29/2000 06/09/2013 documented as of this encounter (statuses as of 04/21/2023) [facility] Narr[facility]* Problem Noted Date Diagnosed Date Resolved Date Angular cheilitis 05/08/2015 03/29/2017 Chronic kidney disease, stage 3 04/28/2015 03/05/2023 History of depression 10/29/20052021 Other nonspecific abnormal s chetna enzyme levels 03/29/2000 06/09/2013 documented as of this encounter (statuses as of 08/22/2023) [facility] Narrative* Problem Noted Date Diagnosed Date Resolved Date Angular cheilitis 05/08/2015 03/29/2017 Chronic kidney disease, stage 3 04/28/2015 03/05/2023 History of depression 10/29/20052021 Other nonspecific abnormal s chetna enzyme levels 03/29/2000 06/09/2013 documented as of this encounter (statuses as of 09/02/2023) [facility]* Problem Noted Date Diagnosed Date Resolved Date Angular cheilitis 05/08/2015 03/29/2017 Chronic kidney disease, stage 3 04/28/2015 03/05/2023 History of depression 10/29/20052021 Other nonspecific abnormal s chetna enzyme levels 03/29/2000 06/09/2013 documented as of this encounter (statuses as of 10/02/2023) [facility]arr[facility]* Problem Noted Date Diagnosed Date Resolved Date Angular cheilitis 05/08/2015 03/29/2017 Chronic kidney disease, stage 3 04/28/2015 03/05/2023 History of depression 10/29/20052021 Other nonspecific abnormal s chetna enzyme levels 03/29/2000 06/09/2013 documented as of this encounter (statuses as of 12/10/2023) [address] History of Past illness Narrative* Problem Noted Date Diagnosed Date Resolved Date Angular cheilitis 05/08/2015 03/29/2017 Chronic kidney disease, stage 3 04/28/2015 03/05/2023 History of depression 10/29/20052021 Other nonspecific abnormal s chetna enzyme levels 03/29/2000 06/09/2013 documented as of this encounter (statuses as of 01/11/2024) [facility] Diagnosis Cough- Primary Mild intermittent reactive airway disease without complication Medicare annual wellness visit, subsequent- Primary Routine general medical examination at a health care facility Mixed hyperlipidemia 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 Need for COVID-19 vaccine Visit for screening mammogram Other screening mammogram documented [facility] this encounter [facility]* Diagnosis Medicare annual wellness visit, [...] Diseases of lips [facility]* Diagnosis Mild intermittent reactive airway disease with acute exacerbation- Primary Cough Acute bronchitis due to other specified organisms Acute cough [facility]* Diagnosis Uncomplicated severe persistent asthma Unspecified asthma Mixed hyperlipidemia- Primary 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 Need for vaccination against Streptococcus pneumoniae Need for prophylactic vaccination against streptococcus pneumoniae (pneumococcus) Need for COVID-19 vaccine Need for influenza vaccination Need for prophylactic vaccination and inoculation against influenza [facility] encounter [facility]* Diagnosis Mixed hyperlipidemia- Primary Hypothyroidism due [...] of circulatory system documented [facility] encounter [facility]* Diagnosis Medicare annual wellness visit, subsequent- [...] status (age-related) (natural) [facility] Diagnosis Mixed hyperlipidemia- Primary 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 Elevated glucose Other abnormal glucose Vitamin D deficiency Unspecified vitamin D deficiency Vitamin B12 deficiency Other B-complex deficiencies documented [facility] this encounter [facility]* Diagnosis Uncomplicated severe persistent asthma Unspecified asthma Hypothyroidism, unspecified type Mixed hyperlipidemia documented [facility] this encounter [facility]* Diagnosis Screening for osteoporosis Special screening for osteoporosis Postmenopausal Asymptomatic postmenopausal status (age-related) (natural) [facility]* Diagnosis Hives- Primary Urticaria, unspecified Mixed [...] Diseases of lips documented [facility] this encounter [facility]* Diagnosis Medicare annual wellness visit, subsequent- [...] single bacterial disease documented in this encounter [facility] note* Diagnosis Mixed hyperlipidemia Uncomplicated severe persistent asthma Unspecified asthma 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 documented [facility] encounter [facility]* Diagnosis Uncomplicated severe persistent asthma Unspecified asthma [facility] this encounter [facility]* Diagnosis Left foot pain- Primary Pain in limb documented in this encounter [facility] for referral (narrative)* Diagnostic Procedure Only (Routine) - Pending Review Specialty Diagnoses / Procedures Referred By Estella mcmahon Referred To Contact [facility] Diagnoses Visit for screening mammogram Procedures JOHN SCREENING SCREENING MAMMOGRAPHY BI 2-[place] [address] [place] [address] [facility] [address] [place] [address] Referral ID Status Reason Start Date Expiration Date Visits Requested Visits Authorized [id number] Pending Review Auto-Generat ed Referral 03/03/2022 03/16/2023 1 1 [facility] for referral (narrative)* Outpatient Procedure (Routine) - Pending Review Specialty Diagnoses / Procedures Referred By Contac t Referred To Contact [facility] Diagnoses Screening for colon cancer Procedures COLONOSCOPY SCREENING COLONOSCOPY FLX DX W/[place] [address] [address] [facility] [place] [address] [place] [id number] Referral ID Status Reason Start Date Expiration Date Visits Requested Visits Authorized [id number] Pending Review Auto-Generat ed Referral 03/05/2023 03/05/2024 1 1 * Diagnostic Procedure Only (Routine) - Pending Review Specialty Diagnoses / Procedures Referred By Patriceac t Referred To Contact [facility] Diagnoses Encounter for screening mammogram for breast cancer Procedures JOHN SCREENING SCREENING MAMMOGRAPHY BI 2-[place] [address] [address] [facility] [address] [place] [address] Referral ID Status Reason Start Date Expiration Date Visits Requested Visits Authorized [id number] Pending Review Auto-Generat ed Referral 03/05/2023 04/03/2024 1 1 [facility] for referral (narrative)* Diagnostic Procedure Only (Routine) - New Request Specialty Diagnoses / Procedures Referred By Estella t Referred To Contact [facility] Diagnoses Left foot pain Procedures XR FOOT GENERAL 3V AP/LAT/OBL LEFT RADEX FOOT COMPLETE MINIMUM 3 [place] [address] [place] [address] [place] [id number] Referral ID Status Reason Start Date Expiration Date Visits Requested Visits Authorized [id number] New Request Auto-Generat ed Referral 06/24/2024 07/24/2025 1 1 [facility] Summary Purpose Family History No Family History Records FoundNo Family History Records FoundNo Family History Records FoundNo Family History Records FoundNo Family History Records FoundNo Family History Records FoundNo Family History Records FoundNo Family History Records Found Advance Directives No Advanced Directives Records FoundDocuments on File Type Date Recorded 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 Advance Directive(s) Documents on File Type Date Recorded 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 Advance Directive(s) Medications Administered Section [...] section and content) DATE [facility] DATE CREATED AUTHOR AUTHOR'S ORGANIZ ATION 12/18/2018 [facility] DATE CREATED AUTHOR AUTHOR'S ORGANIZ ATION 05/17/2022 [facility] DATE CREATED AUTHOR AUTHOR'S ORGANIZ ATION 04/21/2023 [facility] DATE CREATED AUTHOR AUTHOR'S ORGANIZ ATION 01/30/2024 [facility] DATE CREATED AUTHOR AUTHOR'S ORGANIZ ATION 06/26/2024 [facility] DATE CREATED AUTHOR AUTHOR'S ORGANIZ ATION 07/01/2024 [facility] DATE CREATED AUTHOR AUTHOR'S ORGANIZ ATION 08/06/2024 [facility] Source Comments (unrecognize d section and content) In the event this informatio n is protected by the Federal Confidentiality of Alcohol and Drug Abuse Patient Records regulations: The Federal rules restrict any use of the information to criminally investigate or prosecute any alcohol or drug abuse patient.[facility] HospitalIn the event this information is protected by the Federal Confidentiality of Alcohol and Drug Abuse Patient Records regulations: The Federal rules restrict any use of the information to criminally investigate or prosecute any alcohol or drug abuse patient.[facility] HospitalIn the event this information is protected by the Federal Confidentiality of Alcohol and Drug Abuse Patient Records regulations: The Federal rules restrict any use of the information to criminally investigate or prosecute any alcohol or drug abuse patient.[facility] HospitalIn the event this information is protected by the Federal Confidentiality of Alcohol and Drug Abuse Patient Records regulations: The Federal rules restrict any use of the information to criminally investigate or prosecute any alcohol or drug abuse patient.[facility] HospitalIn the event this information is protected by the Federal Confidentiality of Alcohol and Drug Abuse Patient Records regulations: The Federal rules restrict any use of the information to criminally investigate or prosecute any alcohol or drug abuse patient.[facility] HospitalIn the event this information is protected by the Federal Confidentiality of Alcohol and Drug Abuse Patient Records regulations: The Federal rules restrict any use of the information to criminally investigate or prosecute any alcohol or drug abuse patient.[facility] HospitalIn the event this information is protected by the Federal Confidentiality of Alcohol and Drug Abuse Patient Records regulations: The Federal rules restrict any use of the information to criminally investigate or prosecute any alcohol or drug abuse patient.[facility] HospitalIn the event this information is protected by the Federal Confidentiality of Alcohol and Drug Abuse Patient Records regulations: The Federal rules restrict any use of the information to criminally investigate or prosecute any alcohol or drug abuse patient.[facility] HospitalIn the event this information is protected by the Federal Confidentiality of Alcohol and Drug Abuse Patient Records regulations: The Federal rules restrict any use of the information to criminally investigate or prosecute any alcohol or drug abuse patient.[facility] HospitalIn the event this information is protected by the Federal Confidentiality of Alcohol and Drug Abuse Patient Records regulations: The Federal rules restrict any use of the information to criminally investigate or prosecute any alcohol or drug abuse patient.[facility] HospitalIn the event this information is protected by the Federal Confidentiality of Alcohol and Drug Abuse Patient Records regulations: The Federal rules restrict any use of the information to criminally investigate or prosecute any alcohol or drug abuse patient.[facility] HospitalIn the event this information is protected by the Federal Confidentiality of Alcohol and Drug Abuse Patient Records regulations: The Federal rules restrict any use of the information to criminally investigate or prosecute any alcohol or drug abuse patient.[facility] HospitalIn the event this information is protected by the Federal Confidentiality of Alcohol and Drug Abuse Patient Records regulations: The Federal rules restrict any use of the information to criminally investigate or prosecute any alcohol or drug abuse patient.[facility] HospitalIn the event this information is protected by the Federal Confidentiality of Alcohol and Drug Abuse Patient Records regulations: The Federal rules restrict any use of the information to criminally investigate or prosecute any alcohol or drug abuse patient.[facility] HospitalIn the event this information is protected by the Federal Confidentiality of Alcohol and Drug Abuse Patient Records regulations: The Federal rules restrict any use of the information to criminally investigate or prosecute any alcohol or drug abuse patient.[facility] HospitalIn the event this information is protected by the Federal Confidentiality of Alcohol and Drug Abuse Patient Records regulations: The Federal rules restrict any use of the information to criminally investigate or prosecute any alcohol or drug abuse patient.[facility] HospitalIn the event this information is protected by the Federal Confidentiality of Alcohol and Drug Abuse Patient Records regulations: The Federal rules restrict any use of the information to criminally investigate or prosecute any alcohol or drug abuse patient.[facility] HospitalIn the event this information is protected by the Federal Confidentiality of Alcohol and Drug Abuse Patient Records regulations: The Federal rules restrict any use of the information to criminally investigate or prosecute any alcohol or drug abuse patient.[facility] HospitalIn the event this information is protected by the Federal Confidentiality of Alcohol and Drug Abuse Patient Records regulations: The Federal rules restrict any use of the information to criminally investigate or prosecute any alcohol or drug abuse patient.[facility] HospitalIn the event this information is protected by the Federal Confidentiality of Alcohol and Drug Abuse Patient Records regulations: The Federal rules restrict any use of the information to criminally investigate or prosecute any alcohol or drug abuse patient.[facility] HospitalIn the event this information is protected by the Federal Confidentiality of Alcohol and Drug Abuse Patient Records regulations: The Federal rules restrict any use of the information to criminally investigate or prosecute any alcohol or drug abuse patient.[facility] HospitalIn the event this information is protected by the Federal Confidentiality of Alcohol and Drug Abuse Patient Records regulations: The Federal rules restrict any use of the information to criminally investigate or prosecute any alcohol or drug abuse patient.[facility] HospitalIn the event this information is protected by the Federal Confidentiality of Alcohol and Drug Abuse Patient Records regulations: The Federal rules restrict any use of the information to criminally investigate or prosecute any alcohol or drug abuse patient.[facility] HospitalIn the event this information is protected by the Federal Confidentiality of Alcohol and Drug Abuse Patient Records regulations: The Federal rules restrict any use of the information to criminally investigate or prosecute any alcohol or drug abuse patient.[facility] HospitalIn the event this information is protected by the Federal Confidentiality of Alcohol and Drug Abuse Patient Records regulations: The Federal rules restrict any use of the information to criminally investigate or prosecute any alcohol or drug abuse patient.[facility] HospitalIn the event this information is protected by the Federal Confidentiality of Alcohol and Drug Abuse Patient Records regulations: The Federal rules restrict any use of the information to criminally investigate or prosecute any alcohol or drug abuse patient.[facility] HospitalIn the event this information is protected by the Federal Confidentiality of Alcohol and Drug Abuse Patient Records regulations: The Federal rules restrict any use of the information to criminally investigate or prosecute any alcohol or drug abuse patient.[facility] HospitalIn the event this information is protected by the Federal Confidentiality of Alcohol and Drug Abuse Patient Records regulations: The Federal rules restrict any use of the information to criminally investigate or prosecute any alcohol or drug abuse patient.[facility] HospitalIn the event this information is protected by the Federal Confidentiality of Alcohol and Drug Abuse Patient Records regulations: The Federal rules restrict any use of the information to criminally investigate or prosecute any alcohol or drug abuse patient.[facility] HospitalIn the event this information is protected by the Federal Confidentiality of Alcohol and Drug Abuse Patient Records regulations: The Federal rules restrict any use of the information to criminally investigate or prosecute any alcohol or drug abuse patient.[facility] Reason for Visit (unrecogniz ed section and content) Reason Comments Cough Asthma Reason Comments Medicare Wellness Exam Reason Comments Results Reason Comments Chest Congestion Reason Comments Medication Problem New Rx Request Reason Comments Recheck Reason Comments October recall colonoscopy Reason Comments Medicare Wellness Exam Reason Comments Opened In Error Reason Onset Date Comments Refill Request 03/05/2023 Reason Comments Bone Density Reason Comments Allergic Reaction Reason Comments Hives Reason Comments Lab Orders Reason Comments Medicare Wellness Exam Reason Onset Date Comments Refill Request 03/03/2024 Reason Comments Refill Request Reason Comments Foot Pain (Midfoot) Care Teams (unrecognized sec tion and content) Sap Technical Architect Relationship Specialty Start Date End Date Sonido Ness MD PCP - General Cardiology 09/26/07 Rudi Rogers MD [address] [address] Primary Staff Physician Cardiology 01/14/19 Sap Technical Architect Relationship Specialty Start Date End Date Sonido Ness MD PCP - General Cardiology 09/26/07 Rudi Rogers MD [address] [address] Primary Staff Physician Cardiology 01/14/19 Sap Technical Architect Relationship Specialty Start Date End Date Sonido Ness MD PCP - General Cardiology 09/26/07 Rudi Rogers MD [address] [address] Primary Staff Physician Cardiology 01/14/19 Sap Technical Architect Relationship Specialty Start Date End Date Sonido Ness MD PCP - General Cardiology 09/26/07 Rudi Rogers MD [address] [address] Primary Staff Physician Cardiology 01/14/19 Sap Technical Architect Relationship Specialty Start Date End Date Sonido Ness MD PCP - General Cardiology 09/26/07 Rudi Rogers MD [address] [address] Primary Staff Physician Cardiology 01/14/19 Sap Technical Architect Relationship Specialty Start Date End Date Sonido Ness MD PCP - General Cardiology 09/26/07 Rudi Rogers MD [address] [address] Primary Staff Physician Cardiology 01/14/19 Sap Technical Architect Relationship Specialty Start Date End Date Sonido Ness MD PCP - General Cardiology 09/26/07 Rudi Rogers MD [address] [address] Primary Staff Physician Cardiology 01/14/19 Sap Technical Architect Relationship Specialty Start Date End Date Sonido Ness MD PCP - General Cardiology 09/26/07 Rudi Rogers MD [address] [address] Primary Staff Physician Cardiology 01/14/19 Sap Technical Architect Relationship Specialty Start Date End Date Sonido Ness MD PCP - General Cardiology 09/26/07 Rudi Rogers MD [address] [address] Primary Staff Physician Cardiology 01/14/19 Sap Technical Architect Relationship Specialty Start Date End Date Sonido Ness MD PCP - General Cardiology 09/26/07 Rudi Rogers MD [address] [address] Primary Staff Physician Cardiology 01/14/19 Sap Technical Architect Relationship Specialty Start Date End Date Sonido Ness MD PCP - General Cardiology 09/26/07 Rudi Rogers MD [address] [address] Primary Staff Physician Cardiology 01/14/19 Sap Technical Architect Relationship Specialty Start Date End Date Sonido Ness MD PCP - General Cardiology 09/26/07 Rudi Rogers MD [address] [address] Primary Staff Physician Cardiology 01/14/19 Sap Technical Architect Relationship Specialty Start Date End Date Sonido Ness MD PCP - General Cardiology 09/26/07 Rudi Rogers MD [address] [address] Primary Staff Physician Cardiology 01/14/19 Sap Technical Architect Relationship Specialty Start Date End Date Sonido Ness MD PCP - General Cardiology 09/26/07 Rudi Rogers MD [address] [address] Primary Staff Physician Cardiology 01/14/19 Sap Technical Architect Relationship Specialty Start Date End Date Sonido Ness MD PCP - General Cardiology 09/26/07 Rudi Rogers MD [address] [address] Primary Staff Physician Cardiology 01/14/19 Sap Technical Architect Relationship Specialty Start Date End Date Sonido Ness MD PCP - General Cardiology 09/26/07 Rudi Rogers MD [address] [address] Primary Staff Physician Cardiology 01/14/19 Sap Technical Architect Relationship Specialty Start Date End Date Sonido Ness MD PCP - General Cardiology 09/26/07 Rudi Rogers MD [facility] [address] Primary Staff Physician Cardiology 01/14/19 Sap Technical Architect Relationship Specialty Start Date End Date Sonido Ness MD PCP - General Cardiology 09/26/07 Rudi Rogers MD [address] [place] [address] Primary Staff Physician Cardiology 01/14/19 Sap Technical Architect Relationship Specialty Start Date End Date Sonido Ness MD PCP - General Cardiology 09/26/07 Rudi Rogers MD [address] [place] [address], [address], [address] [place] [address] Primary Staff Physician Cardiology 01/14/19 Sap Technical Architect Relationship Specialty Start Date End Date Sonido Ness MD PCP - General Cardiology 09/26/07 Rudi Rogers MD [facility], [address], [address] [place] [address] Primary Staff Physician Cardiology 01/14/19 Sap Technical Architect Relationship Specialty Start Date End Date Sonido Ness MD PCP - General Cardiology 09/26/07 Rudi Rogers MD [address] [facility], [address], [address] [place] [place] [address] Primary Staff Physician Cardiology 01/14/19 Sap Technical Architect Relationship Specialty Start Date End Date Sonido Ness MD PCP - General Cardiology 09/26/07 Rudi Rogers MD [address] [facility], [address], [address] [place] [address], [place] [address] Primary Staff Physician Cardiology 01/14/19 Sap Technical Architect Relationship Specialty Start Date End Date Sonido Ness MD PCP - General Cardiology 09/26/07 Rudi Rogers MD [address] [facility], [address], [address] [place] [address] Primary Staff Physician Cardiology 01/14/19 Sap Technical Architect Relationship Specialty Start Date End Date Sonido Ness MD PCP - General Cardiology 09/26/07 Rudi Rogers MD [address] [facility], [address], [address] [place] [address], [place] [address] Primary Staff Physician Cardiology 01/14/19 Sap Technical Architect Relationship Specialty Start Date End Date Sonido Ness MD PCP - General Cardiology 09/26/07 Rudi Rogers MD [address] [facility], [address], [address] [place] [address] Primary Staff Physician Cardiology 01/14/19 Sap Technical Architect Relationship Specialty Start Date End Date Sonido Ness MD PCP - General Cardiology 09/26/07 Rudi Rogers MD [address] [facility], [address], [address] [place], [place] [address] Primary Staff Physician Cardiology 01/14/19 Sap Technical Architect Relationship Specialty Start Date End Date Sonido Ness MD PCP - General Cardiology 09/26/07 [place] [address] [place] [address], [address] [place], [place] [id number] Primary Staff Physician Cardiology 01/14/19 FOR RECORDS [...] BE BASED ON THE PRIMARY CLINICAL RECORDS. [facility] [place] [facility]. provides no warranty or guarantee of the accuracy or completeness of information in this document.
== END 2024-08-27 08:16 | disposition home or self-care (01) ==
LOC: EC 08:16
PROVIDERS: Visit Provider Podiatrist Foot & Ankle Surgery
DX: M79.672 Pain in left foot (principal); S92.355D Nondisplaced fracture of fifth metatarsal bone, left foot, subsequent encounter for fracture with routine healing
CPT/HCPCS: 73630

== ENCOUNTER 2024-09-30 10:03 | Outpatient (OUT) | payer MEDICARE, SELFPAY ==
--- NOTE | 2024-09-30 10:05 | XR_ITS ---
[facility] [place] [id number] Patient Name: VICTOR HUGO CANDELARIO MRN: [id number] date: 1950 Sex: F Assigned Patient Location: [facility] Current Patient Location: Accession/Order Number: [id number] Exam Date: 09/30/2024 10:05 Report Date: 10/01/2024 08:13 At the request of: KELLY BARRIGA Procedure: XR foot LT min 3V PROCEDURE: XR foot LT min 3V COMPARISON: 08/27/2024 HISTORY: Left foot pain, M79.672 FINDINGS: BONES:Moderate hallux valgus. Remote osteotomy with screw placement at of the first metatarsal. Stable healed fifth metatarsal diaphyseal fracture. No new fracture or dislocation SOFT TISSUES:Negative. No visible soft tissue swelling. EFFUSION:None visible. OTHER: Negative. XR/XR foot LT min 3V IMPRESSION: Stable healed fifth metatarsal fracture Electronically authenticated by: PASTOR JOINER Date: 10/01/2024 08:13
== END 2024-09-30 10:04 | disposition home or self-care (01) ==
LOC: RAD 10:03
PROVIDERS: Visit Provider Podiatrist Foot & Ankle Surgery
DX: M79.672 Pain in left foot (principal); S92.355D Nondisplaced fracture of fifth metatarsal bone, left foot, subsequent encounter for fracture with routine healing
CPT/HCPCS: 73630

== ENCOUNTER 2025-05-13 09:42 | Outpatient (OUT) | payer MEDICARE, SELFPAY ==
--- OUTSIDE RECORDS SUMMARY | 2023-04-04 11:30 | XMS_ITS | Continuity of Care Document ---
Author Organization [employer] [facility] Address [address] [place] [address] Phone Care Team Providers Care Infection Prevention Specialist Name Role Phone Alfa Simons MD Unavailable Unavailable Allergies, Adverse Reactions, Alerts Substance Reaction Status Criticality Penicillins Active No Information Medications Medication Instructions Dosage Effective Dates (start - stop) Status Comments peg 3350-electrolytes 236 gram-22.74 gram-6.74 gram-5.86 gram solution Half Lytely use as directed - Active atorvastatin 20 mg tablet take 1 tablet by oral route every day 20 MG - Active levothyroxine 75 mcg tablet take 1 tablet by oral route every day 75 MCG - Active montelukast 10 mg tablet take 1 tablet by oral route every day in the evening 10 MG - Active albuterol sulfate HFA 90 mcg/actuation aerosol inhaler inhale 2 puff by inhalation route every 4 - 6 hours as needed 180 MCG - Active Symbicort 160 mcg-4.5 mcg/actuation HFA aerosol inhaler inhale 2 puff by inhalation route 2 times every day in the morning and evening 2.00 puff - Active Flonase Allergy Relief 50 mcg/actuation nasal spray,suspension spray 1 - 2 spray by intranasal route every day in each nostril as needed 50-100 MCG - Active loratadine 10 mg tablet take 1 tablet by oral route every day 10 MG - Active Vitamin D3 25 mcg (1,000 unit) tablet - Active Calcium 600 + D(3) 600 mg-5 mcg (200 unit) tablet - Active flaxseed oil 1,000 mg capsule - Active Procedures Procedure Date Colorectal scrn; hi risk ind OFFICE/OUTPATIENT VISIT, [facility] Advance Directives Directive Yes / No Effective Date File Name No Information Encounters Encounter Description Practice Location Reason(s) For Visit Diagnoses Date Provider Providers Copied on Encounter [facility] [employer] [facility], [address], [place], [place], [id number] , [place] [phone] [facility] OP No Information Lucina Grimm. [address], [place], [place], [id number] , [place]. tel:[phone] Referring Provider: Alfa Simons MD, [facility] [address] [facility], [place], [address] . tel:[phone] OFFICE/OUTPA TIENT VISIT, [facility], [address], [place], [place], [id number] , [phone] [facility] General Surgery Eval for Colonoscopy (chief complaint) Reducible umbilical herniaPersonal history of colonic polyps Lucina Grimm. [facility] [address], [place], [place], [id number] , [place]. tel:[phone] Referring Provider: Alfa Simons MD, [facility] [address], [place], [address] . tel:[phone] Family History Family Member Type Diagnosis Age At Onset No Information Payers Payer name Insurance type Covered green party ID Whitney garcia(s) An[employer] Medicare Advantage 16 [id number] Social History Type Description Quantity Date Captured Comments Sex Female Smoking Status No Information Chief Complaint And Reason For Visit No Information Reason For Referral Reason For Referral No Information History Of Present Illness Encounter Date Complaint History Of Prese nt Illness Comments: Mrs. Erasto santillan is a very pleasant 72-year-old female who presents to the office today with a personal history of colon polyps. The patient states that her last colonoscopy was in 2018. She states that she had at least one polyp removed at that point. The patient states that she has not had any unplanned weight loss. She denies any acute bone pain. The patient denies any fevers or chills. The patient states that she has not had any changes in the caliber or consistency of her stools. She denies any history of peptic ulcer disease, pancreatitis, or hepatitis. The patient denies any history of jaundice, light colored stools, or tea-colored urine. She does have a family history of gastrointestinal problems. The patient denies any urinary symptoms such as burning, frequency, urgency, or hesitancy. The patient has noticed generalized weakness of her abdominal wall. She has never been told that she has a hernia but she does have protuberance of her umbilicus. The patient states that this has been present for his long as she can remember. She denies any significant abdominal discomfort. The patient denies any recent abdominal imaging. She has not had any history of recurrent soft tissue infections or MRSA. She denies any issues with excessive bleeding or bruising. She denies any problems with anesthetics. Given her umbilical hernia as well as personal history of colon polyps, a surgical evaluation was requested persistent with management. Eval for Colonoscopy Functional Status Date Functional Assessmen t No Information Instructions Date Instruction Additional Infor mation No Information Assessments Type Assessment Date No Information Patient Care Teams Name Effective Dates (start - stop) Status Members No Information
--- OUTSIDE RECORDS SUMMARY | 2024-08-05 07:30 | XMS_ITS ---
Author Organization The [facility] [place] Address [address] [place] [address] Care Team Providers Care Glass Cleaning Machine Tender Name Role Phone None, Unknown or Primary Care Provider Unavailab Thien Richter Unavailable [phone] Allergies No Known Allergies REASON FOR VISIT 3 week f/u Medications Medication SIG (Take, Route, Fr equency, Duration) Notes Start Date End Date Status Atenolol 25 MG 1 tablet Orally Once a day Active Singulair Active Levoxyl 75 MCG 1 tablet in the morn ing on an empty stomach Orally Once a day Active Fexofenadine HCl 180 MG 1 tablet Swallow whole with water; do not take with fruit juices. Orally Once a day Active Famotidine 40 MG 1 tablet Orally Once a day Active Cetirizine HCl 10 MG 1 tablet Orally Once a day Active Breyna 160-4.5 MCG/ACT 1 puff as needed Inhalation every 4 hrs Active Social History Tobacco Use: Social History Observation Description Date Details (start date - stop date) Never Smoker NA - NA Tobacco Control (Standard) Question Answer Notes Tobacco use: Nonsmoker Vital Signs Height 66 in 08/05/2024 Temperature 97.5 degrees Fahrenheit 08/05/20 24 Heart Rate 82 /min 08/05/2024 Oximetry 95 % 08/05/2024 Encounters Encounter Location Date Provider Diagnosis [facility] (PODIAT[facility]) [address] [place] [address] [place] [address] 08/05/2024 Thien Elkins Left foot pain M79.672 and Displaced fracture of fifth metatarsal bone, left foot, initial encounter for closed fracture S92.352A Assessments Encounter Date Diagnosis (ICD Code) Assessment Notes Treatment Notes Treatment Clinical Notes Section Notes 08/05/2024 Left foot pain (ICD-10 - M79.672) 08/05/2024 Displaced fracture of fifth metatarsal bone, left foot, initial encounter for closed fracture (ICD-10 - S92.352A) Patient continues to slowly heal from a dancers fracture. There is interval bone healing on her x-ray. She may discontinue the boot as pain allows and into a stiff soled shoe. She will follow-up in 4 weeks with weightbearing foot x-rays Plan Of Treatment Treatment Notes Assessment Notes Displaced fracture of fifth metatarsal bone, left foot, initial encounter for closed fracture Patient continues to slowly heal from a dancers fracture. There is interval bone healing on her x-ray. She may discontinue the boot as pain allows and into a stiff soled shoe. She will follow-up in 4 weeks with weightbearing foot x-rays Pending Test Test Name Order Date XR Foot LT (3 views) * 08/05/2024 Progress Notes * Iqra PADILLAOB:1950 (74 yo F)Acc No.[id number]:08/05/2024 Follow Up Patient: Jean-Pierre BUSCH Provider: Everett Elkins DPM, MS :1950 A ge:73 Y S ex:Female Date:08/05/2024 Address:[address] [place], [place] [id number] Pcp:Unknown or None Check In:11:14 AM ESTCheck O ut:11:53 AM EST Subjective: * Chief Complaints: * 3 week f/u * HPI: G eneral: Patient in office today for follow up for 5th metatarsal fracture. DOI 06/24/24. She is ambulating with a cane and CAM boot today. Denies pain currently. Wears a surgical shoe to do chair yoga. States she has not tried to put any weight on her foot without shoe or CAM boot on. Minimal edema. * ROS: G eneral/Constitutional: Chills d enies. F ever d enies. W eight gain�denies. W eight loss d enies. S kin: Skin Ulcers d enies. S kin lesion(s) d enies. � C ardiovascular: Difficulty breathing on exertion d enies. L eg cramps�denies. E brigid d enies. C hest pain d enies. R espiratory: Difficulty breathing d enies. D yspnea d enies.�Cough d enies. G astrointestinal: Diarrhea d enies. N ausea d enies. V omiting�denies. M usculoskeletal: Bone/Joint Symptoms d enies. C retirement Pain d enies.�Leg cramps d enies. N eurologic: Numbness d enies. T ingling d enies . G ait abnormality d enies. � H ematology: Anemia D enies. E asy bruising d enies. � A ll Other Systems: Review of Systems (ROS) S ee HPI for details,All others negative except those mentioned in HPI. * Active Problem List M79.672 Left foot pain Modified On:06/27/2024W/U Status:confirmed M20.12 Hallux valgus (acqui red), left foot Modified On:06/27/2024W/U Status:confirmed * Medical History: * Surgical History: a blation foot surgery cataract surgery * Hospitalization/Major Diagno stic Procedure: a blation bunion cataracts * Family History: N on-Contributory. * Social History: T obacco Use: T obacco Control (Standard) T obacco use: N onsmoker * Medications: T akingAtenolol 25 MG Tablet 1 tablet Orally Once a day Breyna(Budesonide- Formoterol Fumarate) 160-4.5 MCG/ACT Aerosol 1 puff as needed Inhalation every 4 hrs Cetirizine HCl 10 MG Tablet 1 tablet Orally Once a day Famotidine 40 MG Tablet 1 tablet Orally Once a day Fexofenadine HCl 180 MG Tablet 1 tablet Swallow whole with water; do not take with fruit juices. Orally Once a day Levoxyl(Levothyroxine Sodium) 75 MCG Tablet 1 tablet in the morning on an empty stomach Orally Once a day Singulair Medication List reviewed and reconciled with the patientTaking Atenolol 25 MG Tablet 1 tablet Orally Once a day Taking Breyna(Budesonide-Formoterol Fumarate) 160-4.5 MCG/ACT Aerosol 1 puff as needed Inhalation every 4 hrs Taking Cetirizine HCl 10 MG Tablet 1 tablet Orally Once a day Taking Famotidine 40 MG Tablet 1 tablet Orally Once a day Taking Fexofenadine HCl 180 MG Tablet 1 tablet Swallow whole with water; do not take with fruit juices. Orally Once a day Taking Levoxyl(Levothyroxine Sodium) 75 MCG Tablet 1 tablet in the morning on an empty stomach Orally Once a day Taking Singulair Medication List reviewed and reconciled with the patient * Allergies: N .K.D.A.no[Allergies Verified] Objective: * Vitals: H t: 66 in, Temp:97.5F, HR:82/min, Pain scale:01-10, Oxygen sat %:95%, Ht-cm: 167.64 cm. * Examination: P odiatry Examination: SKIN: s kin intact, n o sign of infection. MUSCULOSKELETAL: N o pain on palpation. Muscle strength is equal and symmetric bilaterally.. NEUROLOGICAL: l ight touch sensation intact, n egative tinel's sign. VASCULAR: P edal pulses palpable, C apillaryrefill is brisk to toe, minimal swelling. X -rays: x-rays were obtained & reviewed in my office. Interval bone healing across fifth metatarsal shaft fracture. Assessment: * Assessment: 1. D isplaced fracture of fifth metatarsal bone, left foot, initial encounter for closed fracture - S92.352A (Primary) 2 . L eft foot pain - M79.672 Plan: * Treatment: 2. L eft foot pain I maging: XR Foot LT (3 views) * * Procedure Codes: * * Sign off status: Completed Visit Status: C HK (Check Out) true * Provider: Everett Elkins DPM, MS Date: Generated for [facility] maxine/Dayna/Laineyitting on: 0 05/13/2025 09:46 AM EDT History and Physical Notes * HPI (History of Present Illness) Category Sub-Category Detail Notes Category Not es General Patient in offi ce today for follow up for 5th metatarsal fracture. DOI 06/24/24. She is ambulating with a cane and CAM boot today. Denies pain currently. Wears a surgical shoe to do chair yoga. States she has not tried to put any weight on her foot without shoe or CAM boot on. Minimal edema. Examination Category Sub-Category Detail Notes Category Not es Podiatry Examination SKIN: skin intact, no sign of infection X-rays: x-rays were obtained & reviewed in my office. Interval bone healing across fifth metatarsal shaft fracture MUSCULOSKELETAL: No pain on palpation . Muscle strength is equal and symmetric bilaterally. NEUROLOGICAL: light touch sensatio n intact, negative tinel's sign VASCULAR: Pedal pulses palpable, Capillary refill is brisk to toe, minimal swelling
--- OUTSIDE RECORDS SUMMARY | 2024-08-27 06:45 | XMS_ITS ---
Author Organization [facility] in [place] Address [address] [place] [address] Care Team Providers Care Account Services Specialist Name Role Phone None, Unknown or Primary Care Provider Unavailab Thien Richter Unavailable [phone] REASON FOR VISIT 3 week follow up Medications Medication SIG (Take, Route, Fr equency, Duration) Notes Start Date End Date Status Levoxyl 75 MCG 1 tablet in the morn ing on an empty stomach Orally Once a day Active Singulair Active Breyna 160-4.5 MCG/ACT 1 puff as needed Inhalation every 4 hrs Active Atenolol 25 MG 1 tablet Orally Once a day Active Cetirizine HCl 10 MG 1 tablet Orally Once a day Active Fexofenadine HCl 180 MG 1 tablet Swallow whole with water; do not take with fruit juices. Orally Once a day Active Famotidine 40 MG 1 tablet Orally Once a day Active Social History Tobacco Use: Social History Observation Description Date Details (start date - stop date) Never Smoker NA - NA Tobacco Control (Standard) Question Answer Notes Tobacco use: Nonsmoker Vital Signs Height 66 in 08/27/2024 Temperature 97.8 degrees Fahrenheit 08/27/20 24 Heart Rate 80 /min 08/27/2024 Oximetry 97 % 08/27/2024 Encounters Encounter Location Date Provider Diagnosis [facility] (PODIATRY) [address] [place] [address] [place] [address] 08/27/2024 Thien Elkins Left foot pain M79.672 and Displaced fracture of fifth metatarsal bone, left foot, initial encounter for closed fracture S92.352A Assessments Encounter Date Diagnosis (ICD Code) Assessment Notes Treatment Notes Treatment Clinical Notes Section Notes 08/27/2024 Left foot pain (ICD-10 - M79.672) 08/27/2024 Displaced fracture of fifth metatarsal bone, left foot, initial encounter for closed fracture (ICD-10 - S92.352A) Patient is doing well and may transition out of surgical shoe as pain allows. Increase activity as tolerated. Ice, rest and elevation recommended for swelling and consideration to compression stocking. Follow-up in 4 weeks with weightbearing foot x-rays Plan Of Treatment Treatment Notes Assessment Notes Displaced fracture of fifth metatarsal bone, left foot, initial encounter for closed fracture Patient is doing well and may transition out of surgical shoe as pain allows. Increase activity as tolerated. Ice, rest and elevation recommended for swelling and consideration to compression stocking. Follow-up in 4 weeks with weightbearing foot x-rays Pending Test Test Name Order Date XR Foot LT (3 views) * 08/27/2024 Progress Notes * Iqra PADILLAOB:1950 (73 yo F)Acc No.[id number]:08/27/2024 Follow Up Patient: Jean-Pierre BUSCH Provider: Everett Elkins DPM MS :1950 A ge:73 Y S ex:Female Date:08/27/2024 Address:[address] [place], [place] [id number] Pcp:Unknown or None Check In:10:33 AM ESTCheck O ut:10:57 AM EST Subjective: * Chief Complaints: * 3 week follow up * HPI: G eneral: Patient in office today for f/u appointment of left foot 5th met fx. She is having no pain to her foot left today. She does c/o swelling in her 4th and 5th toe which causes them to rub together. She is fully weightbearing in a surgical shoe today. She states the longer she is on her feet the more swollen her toes get. * Active Problem List M79.672 Left foot pain Modified On:06/27/2024W/U Status:confirmed M20.12 Hallux valgus (acqui red), left foot Modified On:06/27/2024W/U Status:confirmed * Medical History: * Surgical History: a blation foot surgery cataract surgery * Hospitalization/Major Diagno stic Procedure: a blation bunion cataracts * Family History: N o Family History documented.. * Social History: T obacco Use: T [...] and reconciled with the patient * Allergies: n o[Allergies Verified] Objective: * Vitals: H t: 66 in, Temp:97.8F, HR:80/min, Pain scale:01-10, Oxygen sat %:97%, Ht-cm: 167.64 cm. * Examination: P odiatry Examination: SKIN: s kin intact, n o sign of infection. MUSCULOSKELETAL: N o pain on palpation along the fifth metatarsal. Chronic bunion and hammertoe deformity. NEUROLOGICAL: l ight touch sensation intact, n egative tinel's sign. VASCULAR: P edal pulses palpable, C apillaryrefill is brisk to toe, mild foot swelling. No calf pain on squeeze. X -rays: x-rays were obtained & reviewed in my office. There is interval bone healing of fifth metatarsal fracture without change in alignment as compared to prior x- rays. Assessment: * Assessment: 1. D isplaced fracture [...] Everett Elkins DPM, MS Date: Generated for [facility] ng/Dayna/eTransmitting on: 0 05/13/2025 09:47 AM EDT History and Physical Notes * HPI (History of Present Illness) Category Sub-Category Detail Notes Category Not es General Patient in offi ce today for f/u appointment of left foot 5th met fx. She is having no pain to her foot left today. She does c/o swelling in her 4th and 5th toe which causes them to rub together. She is fully weightbearing in a surgical shoe today. She states the longer she is on her feet the more swollen her toes get. Examination Category Sub-Category Detail Notes Category Not es Podiatry Examination SKIN: skin intact, no sign of infection X-rays: x-rays were obtained & reviewed in my office. There is interval bone healing of fifth metatarsal fracture without change in alignment as compared to prior x-rays MUSCULOSKELETAL: No pain on palpation along the fifth metatarsal. Chronic bunion and hammertoe deformity NEUROLOGICAL: light touch sensatio n intact, negative tinel's sign VASCULAR: Pedal pulses palpable, Capillary refill is brisk to toe, mild foot swelling. No calf pain on squeeze
--- OUTSIDE RECORDS SUMMARY | 2025-05-13 09:46 | XMS_ITS | Clinical Summary ---
Author Organization [facility] Address [address] [place] [address] Care Team Providers Care Dairy Farm Manager Name Role Phone Sean Ness MD Primary Care Provider Allergies No known active allergies Medications albuterol HFA 90 mcg/act inhaler 09/01/2023 Act brian atorvastatin (Lipitor) 20 MG tablet 12/18/2023 Active Breyna 160-4.5 MCG/ACT inhaler 11/30/2023 Act brian cetirizine (ZyrTEC) 10 MG tablet Active famotidine (Pepcid) 40 MG tablet 01/08/2024 Active fexofenadine (Sheridan) 180 MG tablet Active ketoconazole (NIZOral) 2 % cream 12/12/2023 Active Synthroid 75 MCG tablet 12/06/2023 Active montelukast (Singulair) 10 MG tablet 12/07/2023 Active Active Problems No known active problems Family History Medical History Relation Name Comments Cancer Father Jimenez Dos Santos Bladder/Pros starr Cancer Maternal Grandfather Prostat e, Pancreatic Cancer Mother Alondra Lveon Breast Cancer Paternal Grandfather Prostat e Relation Name Status Comments Father Jimenez Dos Santos Maternal Grandfather Mother Alondra Levon Paternal Grandfather Social History Tobacco Use Types Packs/Day Years Used Date Smoking Tobacco: Never Smokeless Tobacco: Never Alcohol Use Standard Drinks/Week Comments Never 0 (1 standard drink = 0.6 oz pur e alcohol) Comments Unknown Sex and Gender Information Value Date Recorded Sex Assigned at Female 01/09/2024 9:41 AM EDT Legal Sex Female 10:22 PM EDT Gender Identity Female 01/09/2024 9:41 AM EDT Sexual Orientation Straight 01/09/2024 9: 41 AM EDT Last Filed Vital Signs Vital Sign Reading Time Taken Comments Blood Pressure - - Pulse - - Temperature - - Respiratory Rate - - Oxygen Saturation - - Inhaled Oxygen Concentration - - Weight 73.9 kg (163 lb) 01/10/2024 9:00 AM EDT Height 167.6 cm (5' 6 ) 01/10/2024 9:00 AM EDT Body Mass Index 26.31 01/10/2024 9:00 AM EDT Plan of Treatment Health Maintenance Due Date Last Done Comments Influenza Vaccine (#1) 2025 , 09/04/2022, 08/19/2021, Additional history exists Pneumococcal Vaccine: 65+ Years Completed 03/05/2023, 09/05/2014, 09/05/2014, Additional history exists Colonoscopy Discontinued 04/04/2023 Colorectal Cancer Screening Discontinued CT Colonography Discontinued FIT-DNA Discontinued FIT Discontinued FOBT Discontinued Sigmoidoscopy Discontinued Insurance [employer] Care Teams Dairy Farm Manager Relationship Specialty [place] [address] [address] [facility] [address] [place], [place] [id number] PCP - General Internal Medicine 01/10/24
--- OUTSIDE RECORDS SUMMARY | 2025-05-13 09:46 | XMS_ITS | Clinical Summary ---
Author Organization [facility] Address [id number] [address] [place] [address] Care Team Providers Care Log Raft Worker Name Role Phone Unavailable Primary Care Provider Unavailabl e Social History Tobacco Use Types Packs/Day Years Used Date Smoking Tobacco: Never Assessed Comments Unknown Sex and Gender Information Value Date Recorded Sex Assigned at Female 06/25/2024 10:07 AM EDT Legal Sex Female 5:14 PM EDT Gender Identity Female 06/25/2024 10:07 AM EDT Sexual Orientation Straight 06/25/2024 10 :07 AM EDT Plan of Treatment Health Maintenance Due Date Last Done Comments Depression Screening 1960 Tobacco Screening 1960 Fall Risk Screening 2013 COVID-19 Vaccine (7 2023- 5 season) 2024 09/01/2023, 09/04/2022, 04/03/2022, Additional history exists Influenza Vaccine 06/29/2025 09/01/2023, , 08/19/2021, Additional history exists DTaP,Tdap and Td Vaccines (3 - Td or Tdap) 10/08/2033 10/08/2023, 01/18/2013 Zoster (Shingles) Vaccine Completed 2020, 08/25/2020, 01/18/2013 Medical Devices Not on file Insurance [employer]
--- OUTSIDE RECORDS SUMMARY | 2025-05-13 09:46 | XMS_ITS | Clinical Summary ---
Author Organization [facility] Address [address] [place] [address] Phone Care Team Providers Care Machining And Assembly Supervisor Name Role Phone Unavailable Primary Care Provider Unavailabl e Social History Tobacco Use Types Packs/Day Years Used Date Smoking Tobacco: Never Assessed Comments Unknown Sex and Gender Information Value Date Recorded Sex Assigned at Not on file Legal Sex Female 11:49 PM EST Gender Identity Not on file Sexual Orientation Not on file Plan of Treatment Not on file
--- OUTSIDE RECORDS SUMMARY | 2025-05-13 09:47 | XMS_ITS | Encounter Summary ---
Author Organization [facility] Address [address] [place] [address] [address] Care Team Providers Care Client Development Manager Name Role Phone Sean Ness MD Primary Care Provider [phone] Encounter Details Date Type Department Care Team (Late st Contact Info) Description 01/23/2024 Abstract [facility] [address] [place] [id number] Avril Call, DPM [address] [place] [address] Social History Tobacco Use Types Packs/Day Years [...] Orientation Straight 01/09/2024 9: 41 AM EDT documented as of this encounter Plan of Treatment Not on file documented as of this encounter Visit Diagnoses Not on filedocumented in this encounter Care Teams Client Development Manager Relationship Specialty [place] [id number] [address] [facility] [address] [place] [address] PCP - General Internal Medicine 01/10/24 documented as of this encounter
--- OUTSIDE RECORDS SUMMARY | 2025-05-13 09:47 | XMS_ITS | Patient Health Record ---
Author Organization [facility] in [place] Address [address] [place] [address] Care Team Providers Care Account Executive [employer] Name Role Phone None, Unknown or Primary Care Provider Unavailab Kelly Richter Unavailable [phone] Allergies No Known Allergies Results Component Value Reference Range Notes XR foot LT min 3V (Not yet r eviewed by provider) Interpretation: Performing Lab: Notes/Report: Source Facility: [place] [address] XRay Report Signed Patient: VICTOR HUGO PADILLA MR#: [id number] : 1950 Acct:[id number] Age/Sex: 74 / F ADM Date: 09/30/24 Loc: RAD Attending Dr: Kelly Elkins D.P.M. Ordering Physician: Kelly Elkins D.P.M. Date of Service: 09/30/24 Procedure(s): XR foot LT min 3V Accession Number(s): [id number] cc: Kelly Elkins D.P.M.; Physician,Non-Staff [facility]at [place] [id number] Patient Name: VICTOR HUGO PADILLA MRN: [id number] date: 1950 Sex: F Assigned Patient Location: RAD Current Patient Location: Accession/Order Number: [id number] Exam Date: 09/30/2024 10:05 Report Date: 10/01/2024 08:13 At the request of: KELLY ELKINS Procedure: XR foot LT min 3V PROCEDURE: XR foot LT min 3V COMPARISON: 08/27/2024 HISTORY: Left foot pain, M79.672 FINDINGS: BONES:Moderate hallux valgus. Remote osteotomy with screw placement at of the first metatarsal. Stable healed fifth metatarsal diaphyseal fracture. No new fracture or dislocation SOFT TISSUES:Negative. No visible soft tissue swelling. EFFUSION:None visible. OTHER: Negative. XR/XR foot LT min 3V IMPRESSION: Stable healed fifth metatarsal fracture Electronically authenticated by: PASTOR JOINER Date: 10/01/2024 08:13 Dictated By: Pastor Joiner M.D. Signed By: 10/01/24814 DD/ 2 TD/TT: Wastewater Process Engineer: [place] [address] XRay Report Signed Patient: ELA PADILLA MR#: [id number] : 1950 Acct:[id number] Age/Sex: 74 / F ADM Date: 09/30/24 Loc: RAD Attending Dr: Kelly Elkins D.P.M. Ordering Physician: Kelly Elkins D.P.M. Date of Service: 09/30/24 Procedure(s): XR foot LT min 3V Accession Number(s): [id number] cc: Kelly Elkins D.P.M.; Physician,Non-Staff Fred The [place] [id number] Patient Name: VICTOR HUGO PADILLA MRN: [id number]:[id number] date: 1950 Sex: F Assigned Patient Location: RAD Current Patient Location: Accession/Order Numb er: [id number] Exam Date: 10:05 Report Date: 10/01/2024 08:13 At the request of: KELLY ELKINS Procedure: XR foot LT min 3V PROCEDURE: XR foot LT min 3V COMPARISON: 08/27/2024 HISTORY: Left foot pain, M79.672 FINDINGS: BONES:Moderate hallu x valgus. Remote osteotomy with screw placement at of the first metatarsal. St able healed fifth metatarsal diaphyseal fracture. No new fracture or dislocation SOFT TISSUES:Negativ e. No visible soft tissue swelling. EFFUSION:None visible. OTHER: Negative. X R/XR foot LT min 3V IMPRESSION: Stable healed fifth metatarsal fracture Electronically authe nticated by: PASTOR JOINER Date: 10/01/2024 08:13 Dictated By: Pastor Joiner M.D. Signed By: 10/01/24814 DD/ 2 TD/TT: Wastewater Process Engineer: XR foot LT min 3V (Not yet r eviewed by provider) Interpretation: Performing Lab: Notes/Report: Source Facility: [place] [address] XRay Report Signed Patient: VICTOR HUGO PADILLA MR#: [id number] : 1950 Acct:[id number] Age/Sex: 73 / F ADM Date: 08/27/24 Loc: EC Attending Dr: Kelly Elkins D.P.M. Ordering Physician: Kelly Elkins D.P.M. Date of Service: 08/27/24 Procedure(s): XR foot LT min 3V Accession Number(s): [id number] cc: Kelly Elkins D.P.M.; Physician,Non-Staff Fred The [place] [address] Patient Name: VICTOR HUGO PADILLA MRN: [id number] date: 1950 Sex: F Assigned Patient Location: Current Patient Location: Accession/Order Number: [id number] Exam Date: 08/27/2024 10:45 Report Date: 08/29/2024 08:13 At the request of: KELLY ELKINS Procedure: XR foot LT min 3V PROCEDURE: XR foot LT min 3V COMPARISON: 08/05/2024 HISTORY: LEFT FOOT PAIN FINDINGS: BONES:Stable healing oblique fifth metatarsal diaphyseal fracture with partial bony bridging. Single screw through the head of the first metatarsal. Valgus of the first through fourth proximal phalanges in relation to the metatarsals SOFT TISSUES:Negative. No visible soft tissue swelling. EFFUSION:None visible. OTHER: Negative. XR/XR foot LT min 3V IMPRESSION: Stable healing fifth metatarsal fracture Electronically authenticated by: PASTOR JOINER Date: 08/29/2024 08:13 Dictated By: Pastor Joiner M.D. Signed By: 08/29/24814 DD/ 2 TD/TT: Wastewater Process Engineer: [place] [address] XRay Report Signed Patient: ELA PADILLA MR#: [id number] : 1950 Acct:[id number] Age/Sex: 73 / F ADM Date: 08/27/24 Loc: EC Attending Dr: Kelly Elkins D.P.M. Ordering Physician: Kelly Elkins D.P.M. Date of Service: 08/27/24 Procedure(s): XR foot LT min 3V Accession Number(s): [id number] cc: Kelly Elkins D.P.M.; Physician,Non-Staff Fred [place] [address] Patient Name: VICTOR HUGO PADILLA MRN: [id number] date: 1950 Sex: F Assigned Patient Location: Current Patient Location: Accession/Order Numb er: [id number] Exam Date: 10:45 Report Date: 08/29/2024 08:13 At the request of: KELLY ELKINS Procedure: XR foot LT min 3V PROCEDURE: XR foot LT min 3V COMPARISON: 08/05/2024 HISTORY: LEFT FOOT PAIN FINDINGS: BONES:Stable healing oblique fifth metatarsal diaphyseal fracture with partial bony bridging. Singl e screw through the head of the first metatarsal. Valgus of the first through fo urth proximal phalanges in relation to the metatarsals SOFT TISSUES:Negativ e. No visible soft tissue swelling. EFFUSION:None visible. OTHER: Negative. X R/XR foot LT min 3V IMPRESSION: Stable healing fifth metatarsal fracture Electronically authe nticated by: PASTOR JOINER Date: 08/29/2024 08:13 Dictated By: Pastor Joiner M.D. Signed By: 08/29/24814 DD/ 2 TD/TT: Wastewater Process Engineer: XR foot LT min 3V (Not yet r eviewed by provider) Interpretation: Performing Lab: Notes/Report: Source Facility: [facility] [place] [address] [place] [address] XRay Report Signed Patient: VICTOR HUGO PADILLA MR#: [id number] : 1950 Acct:[id number] Age/Sex: 73 / F ADM Date: 08/05/24 Loc: RAD Attending Dr: Kelly Elkins D.P.M. Ordering Physician: Klely Elkins D.P.M. Date of Service: 08/05/24 Procedure(s): XR foot LT min 3V Accession Number(s): [id number] cc: Kelly Elkins D.P.M.; Physician,Non-Staff Fred [place] [address] Patient Name: VICTOR HUGO PADILLA MRN: [id number] date: 1950 Sex: F Assigned Patient Location: [facility] Current Patient Location: Accession/Order Number: [id number] Exam Date: 08/05/2024 10:58 Report Date: 08/06/2024 07:01 At the request of: KELLY ELKINS Procedure: XR foot LT min 3V PROCEDURE: XR foot LT min 3V HISTORY: LEFT FOOT PAIN COMPARISON: XR foot left 07/15/2024 FINDINGS: BONES:[Fracture through mid 5th metatarsal diaphysis with slight dorsal medial displacement. Increased density of the fracture line. Single screw within the neck of first metatarsal. Chronic lateral deviation of the first through fourth toes. SOFT TISSUES:No visible soft tissue swelling. EFFUSION:None visible. OTHER: Negative. XR/XR foot LT min 3V IMPRESSION: 1. Stable alignment and ongoing bone healing of 5th metatarsal fracture. Electronically authenticated by: JOHNNIE CARNEY Date: 08/06/2024 07:01 Dictated By: Johnnie Carney M.D. Signed By: 08/06/24702 DD/ 0 TD/TT: Wastewater Process Engineer: [place] [address] XRay Report Signed Patient: ELA PADILLA MR#: [id number] : 1950 Acct:[id number] Age/Sex: 73 / F ADM Date: 08/05/24 Loc: RAD Attending Dr: Kelly Elkins D.P.M. Ordering Physician: Kelly Elkins D.P.M. Date of Service: 08/05/24 Procedure(s): XR foot LT min 3V Accession Number(s): [id number] cc: Kelly Elkins D.P.M.; Physician,Non-Staff Fred [place] [address] Patient Name: VICTOR HUGO PADILLA MRN: [facility]:[id number] date: 1950 Sex: F Assigned Patient Location: [facility] Current Patient Location: Accession/Order Numb er: [id number] Exam Date: 10:58 Report Date: 08/06/2024 07:01 At the request of: KELLY ELKINS Procedure: XR foot LT min 3V PROCEDURE: XR foot LT min 3V HISTORY: LEFT FOOT PAIN COMPARISON: XR foot left 07/15/2024 FINDINGS: BONES:[Fracture thro ugh mid 5th metatarsal diaphysis with slight dorsal medial displacement. Increa sed density of the fracture line. Single screw within the neck of first metata rsal. Chronic lateral deviation of the first through fourth toes. SOFT TISSUES:No visi ble soft tissue swelling. EFFUSION:None visible. OTHER: Negative. X R/XR foot LT min 3V IMPRESSION: 1. Stable alignment and ongoing bone healing of 5th metatarsal fracture. Electronically authe nticated by: JOHNNIE CARNEY Date: 08/06/2024 07:01 Dictated By: Johnnie Carney M.D. Signed By: 08/06/24702 DD/ 0 TD/TT: Wastewater Process Engineer: XR foot LT min 3V (Not yet r eviewed by provider) Interpretation: Performing Lab: Notes/Report: Source Facility: [facility] [place] [address] [place] [address] XRay Report Signed with Rossana Patient: VICTOR HUGO PADILLA MR#: [id number] : 1950 Acct:[id number] Age/Sex: 73 / F ADM Date: 07/15/24 Loc: EC Attending Dr: Kelly Elkins D.P.M. Ordering Physician: Kelly Elkins D.P.M. Date of Service: 07/15/24 Procedure(s): XR foot LT min 3V Accession Number(s): [id number] cc: Kelly Elkins D.P.M.; Physician,Non-Staff Fred ADDENDUM [facility] [place] [address] Patient Name: VICTOR HUGO PADILLA MRN: [facility]:[id number] date: 1950 Sex: F Assigned Patient Location: Current Patient Location: Accession/Order Number: [id number] Exam Date: 07/15/2024 09:55 Report Date: 07/18/2024 13:58 At the request of: KELLY ELKINS Procedure: XR foot LT min 3V Begin Addendum #1 The impression should say: Metatarsal Original Report PROCEDURE: XR foot LT min 3V COMPARISON: 06/24/2024. HISTORY: LEFT FOOT PAIN FINDINGS: BONES:Stable oblique extra-articular fracture through the mid diaphysis of the fifth metatarsal with distraction of the fracture fragments up to 4 mm single screw head of the first metatarsal. Minimal interval bone formation with no significant bony bridging There is lateral subluxation of the second through third proximal phalanges SOFT TISSUES:Negative. No visible soft tissue swelling. EFFUSION:None visible. OTHER: Negative. Addendum Dictated By: Pastor Joiner M.D. Addendum Signed By: <Electronically signed by Pastor Joiner M.D.> 07/21/24 0802 Addendum Cosigned By: DD/ TD/TT: / ADDENDUM XR/XR foot LT min 3V IMPRESSION: Stable extra-articular fracture fifth metacarpal with minimal interval bone formation and no significant bony bridging Electronically authenticated by: PASTOR JOINER Date: 07/18/2024 13:58 Addendum Dictated By: Pastor Joiner M.D. Addendum Signed By: <Electronically signed by Pastor Joiner M.D.> 07/21/24 0802 Addendum Cosigned By: DD/ TD/TT: / [facility] [place] [address] Patient Name: VICTOR HUGO PADILLA MRN: TBH:[id number] date: 1950 Sex: F Assigned Patient Location: Current Patient Location: Accession/Order Number: [id number] Exam Date: 07/15/2024 09:55 Report Date: 07/16/2024 13:26 At the request of: KELLY ELKINS Procedure: XR foot LT min 3V PROCEDURE: XR foot LT min 3V COMPARISON: 06/24/2024. HISTORY: LEFT FOOT PAIN FINDINGS: BONES:Stable oblique extra-articular fracture through the mid diaphysis of the fifth metatarsal with distraction of the fracture fragments up to 4 mm single screw head of the first metatarsal. Minimal interval bone formation with no significant bony bridging There is lateral subluxation of the second through third proximal phalanges SOFT TISSUES:Negative. No visible soft tissue swelling. EFFUSION:None visible. OTHER: Negative. XR/XR foot LT min 3V IMPRESSION: Stable extra-articular fracture fifth metacarpal with minimal interval bone formation and no significant bony bridging Electronically authenticated by: PASTOR JOINER Date: 07/16/2024 13:26 Dictated By: Pastor Joiner M.D. Signed By: 07/16/241328 DD/ 25 TD/TT: Wastewater Process Engineer: [place] [address] XRay Report Signed with Addenda Patient: ELA PADILLA MR#: [id number] : 1950 Acct:[id number] Age/Sex: 73 / F ADM Date: 07/15/24 Loc: EC Attending Dr: Kelly Elkins D.P.M. Ordering Physician: Kelly Elkins D.P.M. Date of Service: 07/15/24 Procedure(s): XR foot LT min 3V Accession Number(s): [id number] cc: Kelly Elkins D.P.M.; Physician,Non-Staff Fred ADDENDUM [place] [id number] Patient Name: VICTOR HUGO PADILLA MRN: [id number]:[id number] date: 1950 Sex: F Assigned Patient Location: Current Patient Location: Accession/Order Numb er: [id number] Exam Date: 07/15/2024 09:55 Report Date: 07/18/2024 13:58 At the request of: KELLY ELKINS Procedure: XR foot LT min 3V Begin Addendum #1 The impression shoul d say: Metatarsal Original Report PROCEDURE: XR foot LT min 3V COMPARISON: 06/24/2024. HISTORY: LEFT FOOT PAIN FINDINGS: BONES:Stable oblique extra-articular fracture through the mid diaphysis of the fifth metatarsal wit h distraction of the fracture fragments up to 4 mm single screw head of the fi rst metatarsal. Minimal interval bone formation with no significant bony lencho dging There is lateral subluxation of the second through third proximal phalanges SOFT TISSUES:Negativ e. No visible soft tissue swelling. EFFUSION:None visible. OTHER: Negative. Addendum Dictated By : Pastor Joiner M.D. Addendum Signed By: <Electronically signed by Pastor Joiner M.D.> 07/21/24 0802 Addendum Cosigned By: DD/ TD/TT: / ADDENDUM X R/XR foot LT min 3V IMPRESSION: Stable extra-articul ar fracture fifth metacarpal with minimal interval bone formation and no sig nificant bony bridging Electronically authe nticated by: PASTOR JOINER Date: 07/18/2024 13:58 Addendum Dictated By : Pastor Joiner M.D. Addendum Signed By: <Electronically signed by Pastor Joiner M.D.> 07/21/24 0802 Addendum Cosigned By: DD/ TD/TT: / [place] [address] Patient Name: VICTOR HUGO PADILLA MRN: [facility]:[id number] date: 1950 Sex: F Assigned Patient Location: Current Patient Location: Accession/Order Numb er: [id number] Exam Date: 07/15/2024 09:55 Report Date: 07/16/2024 13:26 At the request of: KELLY ELKINS Procedure: XR foot LT min 3V PROCEDURE: XR foot LT min 3V COMPARISON: 06/24/2024. HISTORY: LEFT FOOT PAIN FINDINGS: BONES:Stable oblique extra-articular fracture through the mid diaphysis of the fifth metatarsal wit h distraction of the fracture fragments up to 4 mm single screw head of the fi rst metatarsal. Minimal interval bone formation with no significant bony lencho dging There is lateral subluxation of the second through third proximal phalanges SOFT TISSUES:Negativ e. No visible soft tissue swelling. EFFUSION:None visible. OTHER: Negative. X R/XR foot LT min 3V IMPRESSION: Stable extra-articul ar fracture fifth metacarpal with minimal interval bone formation and no sig nificant bony bridging Electronically authe nticated by: PASTOR JOINER Date: 07/16/2024 13:26 Dictated By: Pastor Joiner M.D. Signed By: 07/16/24 1329 DD/ 132 TD/TT: Wastewater Process Engineer: Reason For Referral No Information Medications Medication SIG (Take, Route, Fr equency, Duration) Notes Start Date End Date Status Singulair Active Levoxyl 75 MCG 1 tablet in the morn ing on an empty stomach Orally Once a day Active Breyna 160-4.5 [...] (Standard) Question Answer Notes Tobacco use: Nonsmoker Problems Problem Type SNOMED Code ICD Code Onset Dates Problem Status W/U Status Risk Notes Problem [id number] Hallux valgus (acquired), left foot (M20.12) Active confirmed Problem Left foot pain (M79.672) Active confirmed Vital Signs Heart Rate 87 /min 09/30/2024 Temperature 98 degrees Fahrenheit 09/30/2024 Respiratory Rate 16 /min 09/30/2024 Oximetry 99 % 09/30/2024 Height 66 in 09/30/2024 Weight 163 lbs 09/30/2024 BMI 26.31 kg/m2 09/30/2024 Encounters Encounter Location Date Provider Diagnosis [facility] (PODIATRY) [address] [place] [address] [place] [address] [facility] of [facility] metatarsal bone, left foot, initial encounter for closed fracture S92.352A ; Hallux valgus (acquired), left foot M20.12 and Left foot pain M79.672 [facility] (PODIATRY) [address] [place] [address] [place] [address] 07/15/2024 [facility] Left foot pain M79.672 and Displaced fracture of fifth metatarsal bone, left foot, initial encounter for closed fracture S92.352A [facility] (PODIATRY) [address] [place], [place] [address] [address] 08/05/2024 [facility] Left foot pain M79.672 and Displaced fracture of fifth metatarsal bone, left foot, initial encounter for closed fracture S92.352A [facility] (PODIATRY) [address] [place], [place] [address] [address] 08/27/2024 [facility] Left foot pain M79.672 and Displaced fracture of fifth metatarsal bone, left foot, initial encounter for closed fracture S92.352A [facility] (PODIATRY) [address] [place] [address] [place] [address] 09/30/2024 Kelly Elkins Left foot pain M79.672 and Displaced fracture of fifth metatarsal bone, left foot, initial encounter for closed fracture S92.352A Assessments Encounter Date Diagnosis (ICD Code) Assessment Notes Treatment Notes Treatment Clinical Notes Section Notes 07/15/2024 Left foot pain (ICD-10 - M79.672) 07/15/2024 Displaced fracture of fifth metatarsal bone, left foot, initial encounter for closed fracture (ICD-10 - S92.352A) Patient presents follow-up and is 3 weeks status post closed dancers fracture. She has been weightbearing only to her heel for short distances around the house. She may weight-bear as tolerated in the cam boot or surgical shoe which was fitted and dispensed today. She will follow-up in 3 weeks for hopeful transition to normal shoes. I would like weightbearing left foot x-rays at follow-up 08/05/2024 Left foot pain (ICD-10 - M79.672) [...] in 4 weeks with weightbearing foot x-rays 08/27/2024 Left foot pain (ICD-10 - M79.672) 08/27/2024 Displaced fracture of fifth metatarsal bone, left foot, initial encounter for closed fracture (ICD-10 - S92.352A) Patient is doing well and may transition out of surgical shoe as pain allows. Increase activity as tolerated. Ice, rest and elevation recommended for swelling and consideration to compression stocking. Follow-up in 4 weeks with weightbearing foot x-rays 09/30/2024 Left foot pain (ICD-10 - M79.672) 09/30/2024 Displaced fracture of fifth metatarsal bone, left foot, initial encounter for closed fracture (ICD-10 - S92.352A) Patient is doing very well and is over 3 months from dancers fracture. She may increase activities as she tolerates. I have no restrictions for her. She may return to her normal orthotics as she wishes under her discretion. Follow-up as needed 06/27/2024 Displaced fracture of fifth metatarsal bone, left foot, initial encounter for closed fracture (ICD-10 - S92.352A) Patient presents secondary to recent injury resulting in dancers fracture. I do long discussion with patient and recommending nonsurgical treatment. I recommended protected weightbearing in cam boot and patient may place as much weight as pain allows on the left foot.Patient will follow-up in 3 weeks with weightbearing foot x-rays 06/27/2024 Hallux valgus (acquired), left foot (ICD-10 - M20.12) I also had a long discussion with the patient regarding her chronic issues of recurrent hallux valgus as she underwent left bunionectomy in 2002 and she relates that approximately in 2012 the bunion recurred. She has difficulty with shoes and daily activity due to her great toe and lesser toe deformities. I briefly discussed potential utilization and benefit of first MPJ fusion and briefly discussed the postoperative course and potential complications. I recommended that she allow her fracture to heal and if interested we will discuss further. Until then continue with wide fitting shoes and toe spacers as needed 06/27/2024 Left foot pain (ICD-10 - M79.672) Plan Of Treatment Pending Test Test Name Order Date XR Foot LT (3 views) * 07/15/2024 XR Foot LT (3 views) * 08/05/2024 XR Foot LT (3 views) * 08/27/2024 XR Foot LT (3 views) * 09/30/2024 XR foot LT min 3V 07/16/2024 XR foot LT min 3V 08/06/2024 XR foot LT min 3V 08/29/2024 XR foot LT min 3V 10/01/2024 Insurance Providers Payer Name Payer Address Payer Phone Subscriber Number Group Number Insured Name Patient Relationship to Insured Coverage Start Date Coverage End Date BCBS OUT OF STATE [address] [place] [address] [id number] [id number] Victor Hugo Padilla Self - patient is the insured Medical (General) History Medical History History ICD Code asthma Surgical History Surgery Date(Month/Year) ablation foot surgery cataract surgery Hospitalization History Reason Date(Month/Year) cataracts bunion ablation
--- NOTE | 2025-05-13 09:52 | MM_ITS ---
Patient Name: VICTOR HUGO CANDELARIO MR#: [id number] : 1950 Exam Date: 05/13/2025 Ordering Doctor: NON-STAFF PHYSICIAN RADIOLOGY REPORT PROCEDURE: MM TOMOSYNTHESIS SCREENING BI COMPARISON: MM TOMOSYNTHESIS SCREENING BI, 05/12/2024. MM TOMOSYNTHESIS SCREENING BI, 05/09/2023. MG MAMM SCREEN 3D JOSTIN CAD, 05/08/2022. MG MAMM SCREEN 3D JOSTIN CAD, 04/16/2020. INDICATIONS: Screening Calculator Name NCI Breast Cancer Risk Assessment Tool 5 Year Breast Cancer Risk 1.30% Lifetime Breast Cancer Risk 2.60% Personal Breast Cancer No Personal Ovarian Cancer No Treatments None Family Cancers Father with prostate cancer at age 80; Father with bladder cancer at age 81. LOCATION: [facility] BREAST COMPOSITION: There are scattered areas of fibroglandular density. FINDINGS: RIGHT BREAST: No significant suspicious finding. LEFT BREAST: No significant suspicious finding. DIAGNOSTIC CATEGORY 1--NEGATIVE. RECOMMENDATIONS: ROUTINE MAMMOGRAM AND CLINICAL EVALUATION IN 12 MONTHS. PLEASE NOTE: A NORMAL MAMMOGRAM DOES NOT EXCLUDE THE POSSIBILITY OF BREAST CANCER. A CLINICALLY SUSPICIOUS PALPABLE LUMP SHOULD BE BIOPSIED. Dictated by: Braden Romeo MD on 05/13/2025 at 13:52 Approved by: Braden Romeo MD on 05/13/2025 at 14:07
== END 2025-05-13 09:43 | disposition home or self-care (01) ==
LOC: MAMMO 09:45
DX: Z12.31 Encounter for screening mammogram for malignant neoplasm of breast (principal); Z80.42 Family history of malignant neoplasm of prostate; Z80.52 Family history of malignant neoplasm of bladder
CPT/HCPCS: 77063; 77067